=== PATIENT | male | born 1960 | race Caucasian/White ===

== ENCOUNTER → 2024-06-19 | Outpatient (CLI) | payer OTHER, SELFPAY | END | disposition home or self-care (01) | LOC: SWHD 13:52 | PROVIDERS: PCP Family Medicine; Referring Provider Family Medicine; Visit Provider Student in an Organized Health Care Education/Training Program | DX: L97.511 Non-pressure chronic ulcer of other part of right foot limited to breakdown of skin (principal); L97.811 Non-pressure chronic ulcer of other part of right lower leg limited to breakdown of skin; L97.821 Non-pressure chronic ulcer of other part of left lower leg limited to breakdown of skin; F41.9 Anxiety disorder, unspecified; E11.40 Type 2 diabetes mellitus with diabetic neuropathy, unspecified; Z79.84 Long term (current) use of oral hypoglycemic drugs; J44.9 Chronic obstructive pulmonary disease, unspecified; G47.30 Sleep apnea, unspecified; I49.9 Cardiac arrhythmia, unspecified; Z90.5 Acquired absence of kidney; R06.00 Dyspnea, unspecified; I50.9 Heart failure, unspecified | CPT/HCPCS: 97597 ==

== ENCOUNTER → 2024-06-26 | Outpatient (CLI) | payer OTHER, SELFPAY | END | disposition home or self-care (01) | LOC: SWHD 14:58 | PROVIDERS: PCP Family Medicine; Referring Provider Family Medicine; Visit Provider Student in an Organized Health Care Education/Training Program | DX: L97.511 Non-pressure chronic ulcer of other part of right foot limited to breakdown of skin (principal); L97.811 Non-pressure chronic ulcer of other part of right lower leg limited to breakdown of skin; L97.821 Non-pressure chronic ulcer of other part of left lower leg limited to breakdown of skin; F41.9 Anxiety disorder, unspecified; E11.40 Type 2 diabetes mellitus with diabetic neuropathy, unspecified; Z79.84 Long term (current) use of oral hypoglycemic drugs; J44.9 Chronic obstructive pulmonary disease, unspecified; G47.30 Sleep apnea, unspecified; I49.9 Cardiac arrhythmia, unspecified; Z90.5 Acquired absence of kidney; R06.00 Dyspnea, unspecified; I50.9 Heart failure, unspecified; L85.3 Xerosis cutis | CPT/HCPCS: 97597 ==

== ENCOUNTER → 2024-07-05 | Outpatient (CLI) | payer OTHER, SELFPAY | END | disposition home or self-care (01) | LOC: SWHD 13:19 | PROVIDERS: PCP Family Medicine; Referring Provider Family Medicine | DX: L97.811 Non-pressure chronic ulcer of other part of right lower leg limited to breakdown of skin (principal); L97.821 Non-pressure chronic ulcer of other part of left lower leg limited to breakdown of skin; F41.9 Anxiety disorder, unspecified; E11.40 Type 2 diabetes mellitus with diabetic neuropathy, unspecified; Z79.84 Long term (current) use of oral hypoglycemic drugs; J44.9 Chronic obstructive pulmonary disease, unspecified; G47.30 Sleep apnea, unspecified; I49.9 Cardiac arrhythmia, unspecified; Z90.5 Acquired absence of kidney; R06.00 Dyspnea, unspecified; I50.9 Heart failure, unspecified | CPT/HCPCS: 29581 ==

== ENCOUNTER → 2024-07-10 | Outpatient (CLI) | payer OTHER, SELFPAY | END | disposition home or self-care (01) | LOC: SWHD 15:59 | PROVIDERS: PCP Family Medicine; Referring Provider Family Medicine; Visit Provider Surgery | DX: L97.811 Non-pressure chronic ulcer of other part of right lower leg limited to breakdown of skin (principal); L97.821 Non-pressure chronic ulcer of other part of left lower leg limited to breakdown of skin; F41.9 Anxiety disorder, unspecified; E11.40 Type 2 diabetes mellitus with diabetic neuropathy, unspecified; Z79.84 Long term (current) use of oral hypoglycemic drugs; J44.9 Chronic obstructive pulmonary disease, unspecified; G47.30 Sleep apnea, unspecified; I49.9 Cardiac arrhythmia, unspecified; Z90.5 Acquired absence of kidney; R06.00 Dyspnea, unspecified; I50.9 Heart failure, unspecified | CPT/HCPCS: 97597; A9270 ==

== ENCOUNTER → 2024-07-23 | Outpatient (CLI) | payer OTHER, SELFPAY | END | disposition home or self-care (01) | LOC: SWHD 14:56 | PROVIDERS: PCP Family Medicine; Referring Provider Family Medicine; Visit Provider Student in an Organized Health Care Education/Training Program | DX: L97.511 Non-pressure chronic ulcer of other part of right foot limited to breakdown of skin (principal); L97.811 Non-pressure chronic ulcer of other part of right lower leg limited to breakdown of skin; L97.821 Non-pressure chronic ulcer of other part of left lower leg limited to breakdown of skin; F41.9 Anxiety disorder, unspecified; E11.40 Type 2 diabetes mellitus with diabetic neuropathy, unspecified; Z79.84 Long term (current) use of oral hypoglycemic drugs; J44.9 Chronic obstructive pulmonary disease, unspecified; G47.30 Sleep apnea, unspecified; I49.9 Cardiac arrhythmia, unspecified; Z90.5 Acquired absence of kidney; R06.00 Dyspnea, unspecified; I50.9 Heart failure, unspecified | CPT/HCPCS: 99213; A9270; G0463 ==

== ENCOUNTER → 2024-08-06 | Outpatient (CLI) | payer OTHER, SELFPAY | END | disposition home or self-care (01) | LOC: SWHD 14:54 | PROVIDERS: PCP Family Medicine; Referring Provider Family Medicine; Visit Provider Student in an Organized Health Care Education/Training Program | DX: L97.811 Non-pressure chronic ulcer of other part of right lower leg limited to breakdown of skin (principal); L97.821 Non-pressure chronic ulcer of other part of left lower leg limited to breakdown of skin; F41.9 Anxiety disorder, unspecified; E11.40 Type 2 diabetes mellitus with diabetic neuropathy, unspecified; Z79.84 Long term (current) use of oral hypoglycemic drugs; J44.9 Chronic obstructive pulmonary disease, unspecified; G47.30 Sleep apnea, unspecified; I49.9 Cardiac arrhythmia, unspecified; Z90.5 Acquired absence of kidney; R06.00 Dyspnea, unspecified; I50.9 Heart failure, unspecified; L85.3 Xerosis cutis | CPT/HCPCS: 99212; G0463 ==

== ENCOUNTER → 2024-08-13 | Outpatient (CLI) | payer OTHER, SELFPAY | END | disposition home or self-care (01) | LOC: SWHD 14:56 | PROVIDERS: PCP Family Medicine; Referring Provider Family Medicine; Visit Provider Surgery | DX: L97.821 Non-pressure chronic ulcer of other part of left lower leg limited to breakdown of skin (principal); F41.9 Anxiety disorder, unspecified; E11.40 Type 2 diabetes mellitus with diabetic neuropathy, unspecified; Z79.84 Long term (current) use of oral hypoglycemic drugs; J44.9 Chronic obstructive pulmonary disease, unspecified; G47.30 Sleep apnea, unspecified; I49.9 Cardiac arrhythmia, unspecified; Z90.5 Acquired absence of kidney; R06.00 Dyspnea, unspecified; I50.9 Heart failure, unspecified; L85.3 Xerosis cutis | CPT/HCPCS: 99213; G0463 ==

== ENCOUNTER → 2024-08-20 | Outpatient (CLI) | payer OTHER, SELFPAY | END | disposition home or self-care (01) | LOC: SWHD 15:05 | PROVIDERS: PCP Family Medicine; Referring Provider Family Medicine; Visit Provider Student in an Organized Health Care Education/Training Program | DX: L97.821 Non-pressure chronic ulcer of other part of left lower leg limited to breakdown of skin (principal); F41.9 Anxiety disorder, unspecified; E11.40 Type 2 diabetes mellitus with diabetic neuropathy, unspecified; Z79.84 Long term (current) use of oral hypoglycemic drugs; J44.9 Chronic obstructive pulmonary disease, unspecified; G47.30 Sleep apnea, unspecified; I49.9 Cardiac arrhythmia, unspecified; Z90.5 Acquired absence of kidney; R06.00 Dyspnea, unspecified; I50.9 Heart failure, unspecified; L85.3 Xerosis cutis | CPT/HCPCS: 99214; G0463 ==

== ENCOUNTER → 2024-08-27 | Outpatient (CLI) | payer OTHER, SELFPAY | END | disposition home or self-care (01) | LOC: SWHD 15:12 | PROVIDERS: PCP Family Medicine; Referring Provider Family Medicine; Visit Provider Student in an Organized Health Care Education/Training Program | DX: L97.822 Non-pressure chronic ulcer of other part of left lower leg with fat layer exposed (principal); F41.9 Anxiety disorder, unspecified; E11.40 Type 2 diabetes mellitus with diabetic neuropathy, unspecified; Z79.84 Long term (current) use of oral hypoglycemic drugs; J44.9 Chronic obstructive pulmonary disease, unspecified; G47.30 Sleep apnea, unspecified; I49.9 Cardiac arrhythmia, unspecified; Z90.5 Acquired absence of kidney; R60.0 Localized edema; I50.9 Heart failure, unspecified; L85.3 Xerosis cutis | CPT/HCPCS: 17250; A9270 ==

== ENCOUNTER → 2024-09-03 | Outpatient (CLI) | payer OTHER, SELFPAY | END | disposition home or self-care (01) | LOC: SWHD 15:21 | PROVIDERS: PCP Family Medicine; Referring Provider Family Medicine; Visit Provider Student in an Organized Health Care Education/Training Program | DX: L97.821 Non-pressure chronic ulcer of other part of left lower leg limited to breakdown of skin (principal); L97.811 Non-pressure chronic ulcer of other part of right lower leg limited to breakdown of skin; S81.812A Laceration without foreign body, left lower leg, initial encounter; S81.801A Unspecified open wound, right lower leg, initial encounter; X58.XXXA Exposure to other specified factors, initial encounter; F41.9 Anxiety disorder, unspecified; E11.40 Type 2 diabetes mellitus with diabetic neuropathy, unspecified; Z79.84 Long term (current) use of oral hypoglycemic drugs; J44.9 Chronic obstructive pulmonary disease, unspecified; G47.30 Sleep apnea, unspecified; I49.9 Cardiac arrhythmia, unspecified; Z90.5 Acquired absence of kidney; R60.0 Localized edema; I50.9 Heart failure, unspecified; L85.3 Xerosis cutis | CPT/HCPCS: 99213; G0463 ==

== ENCOUNTER → 2024-09-10 | Outpatient (CLI) | payer OTHER, SELFPAY | END | disposition home or self-care (01) | LOC: SWHD 15:07 | PROVIDERS: PCP Family Medicine; Referring Provider Family Medicine; Visit Provider Student in an Organized Health Care Education/Training Program | DX: E11.621 Type 2 diabetes mellitus with foot ulcer (principal); L98.491 Non-pressure chronic ulcer of skin of other sites limited to breakdown of skin; L98.492 Non-pressure chronic ulcer of skin of other sites with fat layer exposed; S81.812A Laceration without foreign body, left lower leg, initial encounter; S81.801A Unspecified open wound, right lower leg, initial encounter; X58.XXXA Exposure to other specified factors, initial encounter; J44.9 Chronic obstructive pulmonary disease, unspecified; L85.3 Xerosis cutis; I50.9 Heart failure, unspecified; R60.0 Localized edema; Z90.5 Acquired absence of kidney; G47.30 Sleep apnea, unspecified; I49.9 Cardiac arrhythmia, unspecified; Z79.84 Long term (current) use of oral hypoglycemic drugs | CPT/HCPCS: 99212; G0463 ==

== ENCOUNTER 2024-11-08 15:35 | Inpatient (IN) | payer OTHER, MEDICARE, SELFPAY ==
[2024-11-08 15:51] VITALS: BP 106/67; PULSE 70; RESP 20; TEMP 37.5; O2SAT 95; BMI 41.0
--- NOTE | 2024-11-08 16:08 | PD.EDRME ---
Rapid Medical Screening Exam RME Arrival date/time: 11/08/24 15:35 64-year-old male presents emergency department with complaints of generalized weakness, bilateral lower leg pain possible infection. I have greeted and performed a focused initial assessment of this patient. Initial appropriate labs ordered at this time. A comprehensive ED assessment and evaluation of the patient and analysis of all test and completion of medical decision making process will be conducted by additional ED provider. Chief Complaint: Extremity Problem,Nontraumatic Time Seen by Provider: 11/08/24 15:56 Vital signs: Vital Signs Temperature 99.5 F 11/08/24 15:51 Pulse Rate 70 11/08/24 15:51 Respiratory Rate 20 11/08/24 15:51 Blood Pressure 106/67 11/08/24 15:51 Pulse Oximetry (%) 95 11/08/24 15:51 Oxygen Delivery Method Room Air 11/08/24 15:51
--- NOTE | 2024-11-08 16:10 | EKG_ITS ---
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: : 1960 Requested By: Supriya Dobson ([facility]) Gogo Order Number: [id number] Reading MD: Supriya Dobson ([facility]) Gogo Measurements Intervals [place] Rate: 67 P: 91 MD: 194 QRS: 35 QRSD: 108 T: 39 QT: 405 QTc: 428 Interpretive Statements ELECTRONIC ATRIAL PACEMAKER LOW QRS VOLTAGE IN PRECORDIAL LEADS [QRS DEFLECTION < 1.0 mV IN CHEST LEADS] INCOMPLETE RIGHT BUNDLE BRANCH BLOCK [90+ ms QRS DURATION, TERMINAL R IN V1/V2, 40+ ms S IN I/aVL/V4/V5/V6] ABNORMAL RHYTHM ECG Compared to ECG 06/08/2023 17:05:58 Low QRS voltage now present Incomplete right bundle-branch block now present Intraventricular conduction delay no longer present ST (T wave) deviation no longer present Prolonged QT interval no longer present /store/S0/[id number].pdf
[2024-11-08 16:36] LABS: Lactate (Lactic Acid) 1.6 mMol/L (0.4-2.0)
[2024-11-08 16:40] LABS: Basophils % (Auto) 0 % (0-2.5); Eosinophils # (Auto) 0.2 Thou/mm3 (0.0-0.5); Eosinophils % (Auto) 1 % (0-10); Hematocrit 34.2 % (41.0-53.0); Hemoglobin 10.9 g/dL (13.5-16.0); Immature Granulocytes % (Auto) 1 % (0-0); Immature Granulocytes Auto 0.18 Thou/mm3 (0.00-0.00); Lymphocytes # (Auto) 0.9 Thou/mm3 (1.0-4.8); Lymphocytes % (Auto) 5 % (10-50); Mean Corpuscular HGB Conc 31.9 g/dl (31.0-37.0); Mean Corpuscular Hemoglobin 26.5 pg (25.0-35.0); Mean Corpuscular Volume 83 fL (80-100); Monocytes # (Auto) 0.8 Thou/mm3 (0.0-0.8); Monocytes % (Auto) 4 % (0-12); Neutrophils # (Auto) 16.5 Thou/mm3 (1.8-7.7); Neutrophils % (Auto) 89 % (37-80); Nucleated Red Blood Cell % 0 /100 WBC (0); Platelet Count 280 Thou/mm3 (140-440); RDW Standard Deviation 44.2 fL (35.1-43.9); Red Blood Count 4.11 Miln/mm3 (4.50-5.90); White Blood Count 18.6 Thou/mm3 (3.8-10.6)
[2024-11-08 17:10] LABS: Alanine Aminotransferase 32 U/L (10-49); Albumin, Serum 3.6 gm/dL (3.4-4.8); Albumin/Globulin Ratio 0.7 (1.2-2.2); Alkaline Phosphatase 104 U/L (46-116); Anion Gap 9 (7-16); Aspartate Amino Transferase 42 U/L (0-34); BUN/Creatinine Ratio 12 Ratio (12-20); Bilirubin,Total 0.5 mg/dL (0.3-1.2); Blood Urea Nitrogen 47 mg/dL (9-23); C-Reactive Protein 23.3 mg/dL (0.0-0.9); Calcium 8.9 mg/dL (8.3-10.6); Calcium (Corrected) 9.2 mg/dL (8.5-10.1); Carbon Dioxide 20.1 mMol/L (20.0-31.0); Chloride 105 mMol/L (98-107); Creatinine (Component) 3.8 mg/dL (0.6-1.3); Estimated Creatinine Clearance 24.3 mL/min (>60); Glucose 143 mg/dL (74-106); Lipase 113 U/L (12-53); Osmolality,Calculated 282 (275-295); Potassium 4.9 mMol/L (3.4-5.1); Procalcitonin 0.42 ng/ml (0.0-0.49); Sodium 134 mMol/L (136-145); Total Protein 8.6 gm/dL (5.7-8.2); Troponin I < 0.020 ng/mL (0.0-0.045); eGFR 17 See Note
[2024-11-08 17:54] LABS: Sed Rate (ESR) 130 mm/hr (0-20)
--- NOTE | 2024-11-08 21:59 | PC.NURSE ---
PT HAS BEEN ASKED MULTIPLE TIMES FOR URINE SAMPLE, BUT STATES HES NOT READY TO GIVE A SAMPLE. STATES HE WANTS AN IV AND FLUIDS. PATIENT IS TALKING LOUD IN [facility] ON THE PHONE WITH PHONE ON SPEAKER COMPLAINING ABOUT HIS LONG WAIT TIME AND HIS CARE HERE AND ABOUT HIS PERSONAL MEDICAL INFORMATION, AND ABOUT DOCUMENTING STAFF. OTHER PATIENT IN [facility] HAVE COME UP TO TRIAGE DESK COMPLAINING ABOUT THIS PATIENT BEING LOUD.
--- NOTE | 2024-11-08 22:36 | PC.NURSE ---
PROVIDER FAVIO AND CHARGE NURSE AWARE PT WANTS TO LEAVE AMA. PT RIDE IS HERE AND PT WILL NEED TO SPEAK TO A PROVIDER BEFORE SIGNING AMA.
[2024-11-08 22:42] VITALS: BP 124/76; PULSE 60; RESP 19; TEMP 37.9; O2SAT 93
[2024-11-09] VITALS (13 sets, daily range): BP systolic 95–143; BP diastolic 67–91; PULSE 60–101; RESP 18–94; TEMP 36.1–38.2; O2SAT 94–98; BMI 38.3
[2024-11-09 01:13] LABS: Collection Type, Urine Clean Catch
[2024-11-09 01:36] LABS: Bilirubin,Urine Negative (Negative); Blood,Urine 1+ (Negative); Clarity,Urine Turbid (Clear/Hazy); Color,Urine Yellow (Lt Yel-Yel); Glucose, Urine Negative (Negative); Hyaline Casts,Urine < 1 /hpf (0-1); Ketones,Urine Negative (Negative); Leukocyte Esterase,Urine Negative (Negative); Nitrite,Urine Negative (Negative); PH,Urine 5.5 (5.0-7.0); Protein,Urine 1+ (Neg - Trace); RBC,Urine 18 /hpf (0-3); Specific Gravity,Urine 1.018 (1.001-1.035); Squamous Epithelial Cell,Urine 3 /hpf (0-5); Urobilinogen,Urine Negative mg/dL (0.0-1.0); WBC,Urine 8 /hpf (0-5)
[2024-11-09] MEDS: ACETAMINOPHEN 500 MG TABLET 1000 MG PO (02:01)
--- NOTE | 2024-11-09 02:18 | XR_ITS ---
Examination: Duplex scan of the lower extremity, unilateral right complete Date and time of exam: 2024 0322 hrs. Indications: Right leg swelling beginning one week ago. Technique: Duplex scan of the extremity veins using B-mode/grayscale imaging and Doppler spectral analysis and color flow Attention is directed to internal echogenicity, compression and augmentation involving these veins, color flow assessment, spectral analysis Findings: Major deep venous structures in the extremity demonstrate normal course and caliber. There is no evidence of deep vein thrombosis. Normal color flow and spectral analysis Impression: Negative for DVT..
--- NOTE | 2024-11-09 02:21 | XR_ITS ---
Examination: Knee, right , 3 views Technique: Knee AP, lateral, oblique 3 views Date and time of exam: November 09, 2024 0326 hrs. Indications: Knee pain and swelling this week Findings: Healed fracture distal tibia Healed fracture proximal fibula No acute fracture. Moderate tricompartment osteoarthritis Impression: Moderate tricompartment osteoarthritis.
--- NOTE | 2024-11-09 04:28 | PD.EDEXREM ---
ED Extremity Problem RME/HPI General Chief complaint: Extremity Problem,Nontraumatic Stated complaint: LEGS HURT, CAN'T WALK ; BLOOD IN URINE Time Seen by Provider: 11/08/24 15:56 Arrival date/time: 11/08/24 15:35 Limitations: no limitations RME / HPI RME / HPI Narrative: 11/08/24 15:35 64-year-old male presents emergency department with complaints of generalized weakness, bilateral lower leg pain possible infection. I have greeted and performed a focused initial assessment of this patient. Initial appropriate labs ordered at this time. A comprehensive ED assessment and evaluation of the patient and analysis of all test and completion of medical decision making process will be conducted by additional ED provider. Dr. Higginbotham's Main ED Evaluation: 64yo male with a history of COPD, CHF, aFib, HTN, HLD, DM presents to the ED for a chief complaint of RLE pain and swelling x 6 days. Patient states his LRE swelling has been progressively getting worse over the last few days, reporting he was unable to bare weight to the RLE, so he came in for evaluation. He endorses having an intermittent fever. Denies any other associated symptoms. Patient states he was receiving treatment from the wound care center for a fungal infection, reporting he stopped receiving treatment there 4 weeks ago. Related Data Home Medications ?Medication ?Instructions ?Recorded ?Confirmed aspirin 81 mg chewable tablet 81 mg PO QDAY ##0 10/21/16 03/23/23 albuterol sulfate 90 mcg/actuation 2 puff PO Q4HR PRN SHORTNESS OF 06/15/17 03/23/23 aerosol inhaler (ProAir HFA) BREATH ##9 diltiazem HCl 60 mg tablet 30 mg PO TID ##0 07/29/17 03/23/23 (Cardizem) furosemide 40 mg tablet (Lasix) 40 mg PO QDAY #0 tabs 07/29/17 03/23/23 atenolol 50 mg tablet 50 mg PO QDAY 10/18/21 03/23/23 amiodarone 200 mg tablet 200 mg PO QDAY 08/02/22 03/23/23 hydroxyzine HCl 10 mg tablet 25 mg PO HS 08/02/22 03/23/23 metformin 500 mg tablet 500 mg PO BID 08/02/22 03/23/23 Previous Rx's ?Medication ?Instructions ?Recorded losartan 25 mg tablet 25 mg PO QDAY #30 tabs 08/06/22 iron, carbonyl 45 mg tablet 45 mg PO .QOD #30 tabs 03/15/23 pantoprazole 40 mg tablet,delayed 40 mg PO QDAY #30 tabs 03/15/23 release tamsulosin 0.4 mg capsule 0.4 mg PO QDAY #30 caps 03/15/23 Allergies Allergy/AdvReac Type Severity Reaction Status Date / Time codeine Allergy Severe Hives Verified 11/08/24 15:37 Review of Systems Review of Systems Systems Reviewed: All systems reviewed, normal except as documented Past Medical History Past Medical History NEUROLOGIC: Positive Migraine; Negative Neurological Disorders or Seizures CARDIAC: Positive Cardiac Disorders, Atrial Fibrillation, Hypercholesterolemia, Congestive Heart Failure and Hypertension RESPIRATORY: Positive Chronic Obstructive Pulmonary Disease (COPD), Asthma, Pneumonia and Sleep Apnea GASTROINTESTINAL: Positive Gastrointestinal Disorders, Gastroesophageal Reflux Disease and Obesity; Negative Hepatitis GENITOURINARY: Positive Genitourinary Disorders, Renal Disease, Kidney Stones and Benign Prostatic Hyperplasia MUSCULOSKELETAL: Positive Musculoskeletal Disorders and Fractures ENDOCRINE: Positive Endocrine Disorders and Diabetes Mellitus Type 2; Negative Diabetes Mellitus Type 1 HEMATOLOGIC: Positive Blood Disorders and Anemia PSYCHO/SOCIAL: Positive Recreational Drug Use, Depression and Anxiety OTHER HISTORY: Positive Hospitalization, Blood Transfusions and Measles; Negative Autoimmune Disease, Down Syndrome, Developmental Delay, Shingles, Falls, Blood Transfusion Reaction, Anesthesia Reactions, Organ Transplant, Chemotherapy, Radiation Therapy, Hyperbaric Therapy, MRSA, VRSA, Vancomycin-Resistant Enterococci, Human Immunodeficiency Virus (HIV), Chicken Pox, Mumps, Rubella (Cypriot Measles), Pertussis, Clostridium Difficile or Cancer Family History FAMILY HISTORY: Positive Family Cardiac Disorders (dad-HTN, CHF GRANDPA-CARDIAC ARREST, MOM-CHF); Negative Family Psychiatric Problems, Family Respiratory Disorders, Family Gastrointestinal Problems, Family Cancer, Family Surgery or Family Anesthesia Reaction Surgical History SURGICAL: Positive Nephrectomy (LEFT) and Joint Replacement; Negative Cardiac Surgery, Endocrine Surgery, Ear Surgery, Abdominal Surgery, Neurologic Surgery, Brain Shunt, Mastectomy, Vasectomy or Organ Transplant Social History SMOKING STATUS: Light (< 1 pack/day) SECOND HAND EXPOSURE: Yes ED Exam General Limitations: Present no limitations General appearance: Present alert and in no apparent distress Head Head exam: Present atraumatic Eye Eye exam: Present normal appearance, PERRL and EOMI ENT ENT exam: Present normal exam, normal oropharynx and mucous membranes moist Neck Neck exam: Present normal inspection, full ROM and trachea midline Chest Chest inspection: Present normal inspection and symmetric chest wall rise Respiratory Respiratory exam: Present normal lung sounds bilaterally Cardiovascular Cardiovascular exam: Present regular rate, normal rhythm and normal heart sounds Abdominal Exam Abdominal exam: Present soft and normal bowel sounds Extremities Exam Extremities exam: Present full ROM and other (swelling to the BLE; 10 x 8cm area of erythema and fluctuance with drainage of yellow pus to the anterior RLE) Back Exam Back exam: Present normal inspection and full ROM Neurological Exam Neurological exam: Present alert, oriented X3 and CN II-XII intact Psychiatric Psychiatric exam: Present normal affect and normal mood Skin Skin exam: Present warm, dry, intact, normal color and other (dry scaly skin to the BLE from the knee down, no crepitus) Course Quality Measures none Orders Category Date Time Status EKG (ED ONLY) *Do not use* NOW Care 11/08/24 16:10 Completed In and Out Catheter X1 Care 11/09/24 00:50 Completed Insert IV NOW Care 11/09/24 02:[address] lower extremity BI wo Stat Exams 11/09/24 04:32 Ordered EKG (ED Only) Stat Exams 11/08/24 16:10 Draft US venous doppler LE RT Stat Exams 11/09/24 02:18 Completed XR knee RT 3V Stat Exams 11/09/24 02:21 Completed Blood Culture (Lab) Stat Lab 11/08/24 16:31 Received CBC Stat Lab 11/08/24 16:28 Completed CRP [C-Reactive Protein] Stat Lab 11/08/24 16:28 Completed Comprehensive Metabolic Panel Stat Lab 11/08/24 16:28 Completed Lactate (Lactic Acid) Stat Lab 11/08/24 16:28 Completed Lipase Stat Lab 11/08/24 16:28 Completed Procalcitonin Stat Lab 11/08/24 16:28 Completed Sed Rate (ESR) Stat Lab 11/08/24 16:28 Completed Troponin I Stat Lab 11/08/24 16:28 Completed Urinalysis Stat Lab 11/08/24 00:48 Completed Wound Culture and Gram Stain Stat Lab 11/09/24 04:35 Received Acetaminophen Tab [Tylenol ES Tab] Med 11/09/24 01:54 Discontinued 1,000 mg PO X1 ONE Vital Signs Vital signs: Vital Signs Temperature 99.5 F 11/08/24 15:51 Pulse Rate 70 11/08/24 15:51 Respiratory Rate 20 11/08/24 15:51 Blood Pressure 106/67 11/08/24 15:51 Pulse Oximetry (%) 95 11/08/24 15:51 Oxygen Delivery Method Room Air 11/08/24 15:51 Extremity Problem MDM Narrative MDM Narrative:: Scribe Attestation: 11/09/24 Emely Lewis am scribing for and in the presence of Dr. Higginbotham. Patient data External records reviewed:: [facility] previous records (Per chart review, patient was admitted here on 03/09/23 for CHF.) Clinical information provided by:: patient Social determinants that could affect healthcare access:: none Patient has the following chronic illnesses:: COPD, CHF, aFib, HTN, HLD, DM How is presenting disease/condition affected by chronic disease/condition?: exacerbated by Evaluation data The following diagnostics were reviewed and interpreted by me:: lab results, radiology exam(s) and EKG tracing(s) (done at 1620, NSR, rate of 67, low voltage, no ST depressions, according to my interpretation) Lab and/or radiology exams considered but not ordered:: none Interpretation Summary: [facility] Signed Patient: NIKOLAS KOHLI [facility]. Record#: [id number] Birthdate: 1960 Age/Sex: 64 / M Location: [facility] Attending Dr: Ordering Physician: Violeta Urrutia MD Date of Service: 11/09/24 Procedure(s): XR knee RT 3V Accession Number(s): [id number] cc: Eric Pope MD; Violeta Urrutia MD; Bert Valdez MD~ Examination: Knee, right , 3 views Technique: Knee AP, lateral, oblique 3 views Date and time of exam: November 09, 2024 0326 hrs. Indications: Knee pain and swelling this week Findings: Healed fracture distal tibia Healed fracture proximal fibula No acute fracture. Moderate tricompartment osteoarthritis Impression: Moderate tricompartment osteoarthritis. Dictated By: Eric Pope MD Signed By: <Electronically signed by Eric Pope MD in [place]> 11/09/24 0513 [facility] Report Signed Patient: NIKOLAS KOHLI Record#: [id number] Birthdate: 1960 Age/Sex: 64 / M Location: [facility] Attending Dr: Ordering Physician: Violeta Urrutia MD Date of Service: 11/09/24 Procedure(s): US venous doppler LE RT Accession Number(s): [id number] cc: Eric Pope MD; Violeta Urrutia MD; Bert Valdez MD~ Examination: Duplex scan of the lower extremity, unilateral right complete Date and time of exam: 2024 321 hrs. Indications: Right leg swelling beginning one week ago. Technique: Duplex scan of the extremity veins using B-mode/grayscale imaging and Doppler spectral analysis and color flow Attention is directed to internal echogenicity, compression and augmentation involving these veins, color flow assessment, spectral analysis Findings: Major deep venous structures in the extremity demonstrate normal course and caliber. There is no evidence of deep vein thrombosis. Normal color flow and spectral analysis Impression: Negative for DVT.. Dictated By: Eric Pope MD Signed By: <Electronically signed by Eric Pope MD in [place]> 11/09/24 0514 Medications / Prescriptions Medications or Prescriptions considered but not ordered:: none Medication administrations:: Medication Administration History Acetaminophen (Acetaminophen 325 Mg Tablet) 650 mg PO Q6H PRN PRN Reason: Fever >101.5 Stop: 12/09/24 04:52 Acetaminophen (Acetaminophen 325 Mg Tablet) 650 mg PO Q6H PRN PRN Reason: PAIN SCALE 1-3 (mild Stop: 12/09/24 04:52 Hydrocodone Bitart/Acetaminophen (Hydrocodone/Apap 5/325 Tablet) 1 tab PO Q6HR PRN PRN Reason: PAIN SCALE 4-6 (Moderate Stop: 11/14/24 04:52 Albuterol/Ipratropium (Albuterol/Ipratropium (Duoneb) Rt Monica 3 Ml Nebu) 3 ml INH Q6HRRT PRN PRN Reason: SOB or Wheeze Stop: 12/09/24 06:59 Amiodarone HCl (Amiodarone Hcl 200 Mg Tablet) 200 mg PO QDAY [facility] Stop: 12/09/24 08:59 Hydromorphone HCl (Hydromorphone Inj 2 Mg/Ml Vial) 0.25 mg IVP Q4H PRN PRN Reason: PAIN SCALE 7-10 (Severe Stop: 11/14/24 04:52 Ceftriaxone Sodium/Dextrose (Rocephin/D5w 1gm Iv Premix) 50 mls @ 100 mls/hr IV Q24H BELEN Stop: 11/16/24 05:14 Clindamycin Phosphate 900 mg/ (IV Miscellaneous Supplies) 50 mls @ 50 mls/hr IV Q8H BELEN Stop: 11/16/24 05:14 Ceftriaxone Sodium/Dextrose (Rocephin/D5w 1gm Iv Premix) 1 g in 50 mls @ 100 mls/hr IV X1 ONE Stop: 11/09/24 05:44 Clindamycin Phosphate 900 mg/ (IV Miscellaneous Supplies) 50 mls @ 50 mls/hr IV X1 ONE Stop: 11/09/24 06:14 Tamsulosin HCl (Tamsulosin Hcl 0.4 Mg Capsule) 0.4 mg PO QDAY [facility] Stop: 12/09/24 08:59 Discontinued Medications Acetaminophen (Acetaminophen 500 Mg Tablet) 1,000 mg PO X1 ONE Stop: 11/09/24 01:55 Last Admin: 11/09/24 02:01 Dose: 1,000 mg Documented By: BROCK Rivaroxaban (Rivaroxaban 10 Mg Tablet) 10 mg PO QDAY [facility] Stop: 12/09/24 08:59 see above Consultations Consultation(s) initiated? (list below): Yes Consultation #1 (Physician, Specialty, Details): Discussed case with Dr. Manzano from Hospitalist service regarding admission. Discussed patients ED course, exam findings, labs, and radiology results. The Hospitalist [agrees] to accept the patient for admission. Time: 04:50 Diagnosis Extremity Problem Differential Diagnosis: cellulitis, deep vein thrombosis of lower extremity and other (sepsis, abscess) Most likely diagnosis given after review of the tests above:: see clinical impression below Admission Indicated Admission indicated?: indicated Admission Request Was there a request for admission?: Yes Admission Attestation Admission request attestation: Discussed case with [] from Hospitalist service regarding admission. Discussed patients ED course, exam findings, labs, and radiology results. The Hospitalist [agrees,declines] to accept the patient for admission. Disposition Plan Disposition Plan: Admit Discharge Plan Plan Patient Disposition: Admit Acute Care w/in Hospital Disposition Comment: Admitted to Dr. Manzano Problem List Clinical Impression: Cellulitis of right lower extremity, Abscess of right lower leg
--- NOTE | 2024-11-09 04:32 | XR_ITS ---
Examination: CT bilateral lower extremities, without contrast. 2-D sagittal reconstructions. 2-D coronal reconstructions. 3-D reconstructions. Date and time of exam:November 09, 2024 at 0744 hrs. Indications: Bilateral lower leg swelling and pain beginning several days ago Technique: Multiple 1.25 mm axial sections of the bilateral lower extremities without intravenous contrast have been obtained. 2-D sagittal and coronal reconstructions have been obtained. 3-D reconstructions have been obtained. Low dose protocols were performed. One or more of the following dose reduction techniques were used; automated exposure control, adjustment of the mA and/or KV according to patient size, use of iterative reconstruction technique. Findings: Nonspecific groin lymphadenopathy Mild edema in the subcutaneous fatty tissue medial to the lower leg especially right knee No soft tissue abscess Edema also present in the right posterior lower leg No cortical bone destruction Impression: No abscess or osteomyelitis
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
--- NOTE | 2024-11-09 05:13 | PRELIM_ITS ---
Right lower extremity venous Doppler ultrasound. November 09, 2024 at 0321 hours Clinical history: Swelling. Technique: Duplex scan of the right lower extremity deep venous systems was performed utilizing 2D grayscale imaging, Doppler spectral analysis and color flow Doppler and with compression. Comparison: No prior study is available for comparison. Findings: Jean scale, color flow and spectral Doppler evaluation of the right lower extremity deep venous system was performed. The greater saphenous vein confluence, common femoral, femoral, popliteal and calf veins are patent and compressible. Normal augmentation and respiratory variation are noted. There i s no evidence of occlusive or nonocclusive thrombus. There are no fluid collections. 2.8 cm right inguinal lymph node with fatty hilum. Impression: No sonographic evidence of deep venous thrombosis in the right lower extremity. Right inguinal lymphadenopathy. Report Electronically Signed By: Juan Euceda 11/09/2024 5:13:18 AM [EST]
--- NOTE | 2024-11-09 05:28 | PD.RESHP ---
Documentation for date of: 11/09/24 [facility] History of Present Illness History of present illness: The patient is a 64-year-old male with significant past medical history of COPD currently not on home oxygen, NAHEED, CKD stage IV, PAD, A-fib on Xarelto, GERD, eczema, diabetes mellitus type 2 with peripheral neuropathy, benign cystic liver disease, chronic back pain and left nephrectomy presented to ED on 11/08/2024 with chief complaint of bilateral leg pain and swelling for the past 1 to 2 months. The patient reported that he was following up with wound care, and 2 months ago he was told that he no longer needs to follow-up. However, he continued to have leg swelling and eczema associated with pain. He admitted fever and chills for the past 2 days, but denied any headache, nausea or vomiting, chest pain, SOB, abdominal pain or leg swelling. He admitted constipation but denied any urinary symptoms. In the ED his vitals were fairly stable, saturating 95% on room air. CBC was significant for white count 17.6, hemoglobin 10.4, WBC 44.8, ESR 130, Sodium 134, BUN 47, creatinine 3.8, GFR 17, blood sugar 143, AST 42, CRP 23.3, and lipase 113. US blood was negative for DVT, right knee x-ray revealed Moderate osteoarthritis. CT bilateral leg pending. PMH: As mentioned above SHX: Left nephrectomy, right shoulder surgery, right tibial fibular plate Meds: To be reconciled Allergies: Codeine Family history: CHF and both parents Social history: Smoker, social drinker and denies any illicit drug use. Patient admitted to med telemetry unit for further management of bilateral cellulitis, likely associated with right leg abscess. Review of Systems Review of Systems Systems Reviewed: All systems reviewed, normal except as documented Exam Vital Signs Temp Pulse Resp BP Pulse Ox O2 Del Method 98.7 F 61 18 122/79 94 L Room Air 11/09/24 04:35 11/09/24 04:35 11/09/24 04:35 11/09/24 04:35 11/09/24 04:35 11/09/24 04:35 Narrative Exam General: Pleasant, morbidly obese gentleman, no acute distress, Alert and Oriented x 3 HEENT: Moist mucous membranes, oropharynx clear Neck: Supple, No masses, No JVD CVS: S1S2 Regular rate and rhythm, No murmurs, rubs or gallops Lungs: Clear to auscultation with no accessory use, no wheeze no rhonchi Abd: Soft, NT/ND, +BS, no organomegaly Ext: No edema, desquamation of bilateral legs, right leg with bump over upper malone bone level, People peripheral arteries pulses Skin: Desquamation of bilateral legs Psych: Appropriate mood and affect Results: Labs 11/09/24 05:20 11/09/24 05:45 Labs: Short CBC 11/08/24 Range/Units 16:28 WBC 18.6 H (3.8-10.6) Thou/mm3 Hgb 10.9 L (13.5-16.0) g/dL Hct 34.2 L (41.0-53.0) % Plt Count 280 (140-440) Thou/mm3 BMP 11/08/24 16:28 Sodium 134 L Potassium 4.9 Chloride 105 Carbon Dioxide 20.1 BUN 47 H Creatinine 3.8 H Glucose 143 H Calcium 8.9 Cardiac Enzymes 11/08/24 Range/Units 16:28 Troponin I < 0.020 (0.0-0.045) ng/mL Liver Function 11/08/24 Range/Units 16:28 Total Bilirubin 0.5 (0.3-1.2) mg/dL AST 42 H (0-34) U/L ALT 32 (10-49) U/L Alkaline Phosphatase 104 (46-116) U/L Albumin 3.6 (3.4-4.8) gm/dL Urine 11/08/24 Range/Units 00:48 Urine Color Yellow (Lt Yel-Yel) Urine Clarity Turbid A (Clear/Hazy) Urine pH 5.5 (5.0-7.0) Ur Specific [place] 1.018 (1.001-1.035) Urine Protein 1+ A (Neg - Trace) Urine Glucose (UA) Negative (Negative) Quality Measures Quality Measures none Advance care planning discussed with:: patient Medications Home Medications and Allergies Home Medications ?Medication ?Instructions ?Recorded ?Confirmed ?Type aspirin 81 mg chewable tablet 81 mg PO QDAY ##0 10/21/16 11/09/24 History albuterol sulfate 90 mcg/actuation 2 puff PO Q4HR PRN SHORTNESS OF 06/15/17 11/09/24 History aerosol inhaler (ProAir HFA) BREATH ##9 diltiazem HCl 60 mg tablet 30 mg PO TID ##0 07/29/17 11/09/24 History (Cardizem) furosemide 40 mg tablet (Lasix) 40 mg PO QDAY #0 tabs 07/29/17 11/09/24 History atenolol 50 mg tablet 50 mg PO QDAY 10/18/21 11/09/24 History amiodarone 200 mg tablet 200 mg PO QDAY 08/02/22 11/09/24 History hydroxyzine HCl 10 mg tablet 25 mg PO HS 08/02/22 11/09/24 History metformin 500 mg tablet 500 mg PO BID 08/02/22 11/09/24 History hydroxyzine HCl 25 mg tablet mg 11/09/24 History losartan 25 mg tablet 50 mg PO QDAY 11/09/24 11/09/24 History rivaroxaban 10 mg tablet (Xarelto) 10 mg PO QDAY 11/09/24 11/09/24 History Allergies Allergy/AdvReac Type Severity Reaction Status Date / Time codeine Allergy Severe Hives Verified 11/08/24 15:37 Visit Medications Acetaminophen (Acetaminophen 325 Mg Tablet) 650 mg PO Q6H PRN PRN Reason: Fever >101.5 Stop: 12/09/24 04:52 Acetaminophen (Acetaminophen 325 Mg Tablet) 650 mg PO Q6H PRN PRN Reason: PAIN SCALE 1-3 (mild Stop: 12/09/24 04:52 Hydrocodone Bitart/Acetaminophen (Hydrocodone/Apap 5/325 Tablet) 1 tab PO Q6HR PRN PRN Reason: PAIN SCALE 4-6 (Moderate Stop: 11/14/24 04:52 Albuterol/Ipratropium (Albuterol/Ipratropium (Duoneb) Rt Monica 3 Ml Nebu) 3 ml INH Q6HRRT PRN PRN Reason: SOB or Wheeze Stop: 12/09/24 06:59 Amiodarone HCl (Amiodarone Hcl 200 Mg Tablet) 200 mg PO QDAY BELEN Stop: 12/09/24 08:59 Hydromorphone HCl (Hydromorphone Inj 2 Mg/Ml Vial) 0.25 mg IVP Q4H PRN PRN Reason: PAIN SCALE 7-10 (Severe Stop: 11/14/24 04:52 Ceftriaxone Sodium/Dextrose (Rocephin/D5w 1gm Iv Premix) 50 mls @ 100 mls/hr IV Q24H BELEN Stop: 11/16/24 05:14 Clindamycin Phosphate 900 mg/ (IV Miscellaneous Supplies) 50 mls @ 50 mls/hr IV Q8H BELEN Stop: 11/16/24 05:14 Ceftriaxone Sodium/Dextrose (Rocephin/D5w 1gm Iv Premix) 1 g in 50 mls @ 100 mls/hr IV X1 ONE Stop: 11/09/24 05:44 Clindamycin Phosphate 900 mg/ (IV Miscellaneous Supplies) 50 mls @ 50 mls/hr IV X1 ONE Stop: 11/09/24 06:14 Tamsulosin HCl (Tamsulosin Hcl 0.4 Mg Capsule) 0.4 mg PO QDAY BELEN Stop: 12/09/24 08:59 Discontinued Medications Acetaminophen (Acetaminophen 500 Mg Tablet) 1,000 mg PO X1 ONE Stop: 11/09/24 01:55 Last Admin: 11/09/24 02:01 Dose: 1,000 mg Rivaroxaban (Rivaroxaban 10 Mg Tablet) 10 mg PO QDAY BELEN Stop: 12/09/24 08:59 Assessment & Plan Plan The patient is a 64-year-old male with significant past medical history of COPD currently not on home oxygen, NAHEED, CKD stage IIIb, PAD, A-fib on Xarelto, GERD, eczema, diabetes mellitus type 2 with peripheral neuropathy, benign cystic liver disease, chronic back pain and left nephrectomy presented to ED on 11/08/2024 with chief complaint of bilateral leg pain and swelling for the past 1 to 2 months admitted to med telemetry unit for further management of bilateral cellulitis, likely associated with right leg abscess. #Bilateral leg cellulitis #Right leg abscess #Rule out DVT Patient presented with right leg bump over upper malone level, with bilateral desquamation and pain, associated with fever and chills for the past 2 days US Doppler right leg negative for DVT White count of 17.6 - Started on clindamycin 900 mg IV 3 times daily - Started on ceftriaxone 1 g daily - May consider switching ceftriaxone to cefepime if Pseudomonas infection is suspected, but less likely as patient's previous A1c is in 6's - Blood culture ordered - Daily a.m. labs for CBC, CMP and electrolytes - General Surgeon Dr. Mora consulted, appreciate recommendations - Bilateral lower limb CT without contrast ordered, results pending #[place] on CKD stage IV #S/p left nephrectomy DDx: Likely prerenal in the setting of poor oral intake further complicated by use; versus less likely intrarenal secondary to diabetic nephropathy Patient baseline creatinine 3.2, presented with creatinine of 3.8 - Started on NS 60 cc/h - Avoid nephrotoxic drugs - Renally dose medications - Dr. Garzon consulted for nephrology, appreciate recommendations - Daily a.m. labs for renal panel - US renal ordered - Urine electrolytes ordered #A-fib Currently rate controlled - Started on amiodarone 200 Mg daily - We will hold off on home rivaroxaban 10 Mg daily in the setting of possible surgical intervention - Potassium and magnesium greater than 4 and 2 respectively - Further medications to be reconciled #Diabetes mellitus type 2 Patient is currently taking metformin 500 Mg daily at home - Stop metformin, as patient's GFR is less than 30 - Consider adding GLP-1 during discharge - Ordered A1c - Will monitor daily blood sugar level, and if he required sliding scale insulin can be started #Peripheral neuropathy #Peripheral arterial disease #COPD #Anemia #GERD - Reconcile home medications Health maintenance: Dispo: Patient admitted to [facility] telemetry unit for further management of bilateral legs cellulitis DVT prophylaxis: Currently holding home rivaroxaban 10 mg daily in the setting of possible I&D of right leg abscess Diet: N.p.o. for now CODE STATUS: Full code The patient's management plan was discussed with my attending physician MD Froylan Silverman MD, PGY2 Attending Provider Attestation/Addendum Pt was evaluated and plan formulated together with the housestaff team. I have reviewed the residents note above and agree with most of its content. Please refer to the residents note for additional details.
[2024-11-09 05:29] LABS: Basophils # (Auto) 0.1 Thou/mm3 (0.0-0.2); Basophils % (Auto) 0 % (0-2.5); Eosinophils # (Auto) 0.2 Thou/mm3 (0.0-0.5); Eosinophils % (Auto) 1 % (0-10); Hematocrit 31.9 % (41.0-53.0); Hemoglobin 10.4 g/dL (13.5-16.0); Immature Granulocytes % (Auto) 1 % (0-0); Immature Granulocytes Auto 0.19 Thou/mm3 (0.00-0.00); Lymphocytes # (Auto) 1.4 Thou/mm3 (1.0-4.8); Lymphocytes % (Auto) 8 % (10-50); Mean Corpuscular HGB Conc 32.6 g/dl (31.0-37.0); Mean Corpuscular Hemoglobin 26.9 pg (25.0-35.0); Mean Corpuscular Volume 83 fL (80-100); Monocytes # (Auto) 1.1 Thou/mm3 (0.0-0.8); Monocytes % (Auto) 6 % (0-12); Neutrophils # (Auto) 14.7 Thou/mm3 (1.8-7.7); Neutrophils % (Auto) 84 % (37-80); Nucleated Red Blood Cell % 0 /100 WBC (0); Platelet Count 313 Thou/mm3 (140-440); RDW Standard Deviation 44.8 fL (35.1-43.9); Red Blood Count 3.86 Miln/mm3 (4.50-5.90); White Blood Count 17.6 Thou/mm3 (3.8-10.6)
[2024-11-09] MEDS: cefTRIAXone/D5w 1gm IV premix 1 G/50 ML BAG IV (05:39)
--- NOTE | 2024-11-09 06:03 | XR_ITS ---
Examination: Retroperitoneal ultrasound, complete Technique: Multiple high resolution grayscale images of the retroperitoneum obtained, including kidneys and bladder. Exam date and time:November 09, 2024 at 0814 hrs. Indications: Renal insufficiency on laboratory examination this week Findings: Right kidney 12.5 cm cortex 1.4 cm Multiple renal calculi the largest in the midpole of the kidney 6 mm Benign cysts right kidney with minimal hydronephrosis Absent left kidney No bladder mass or bladder calculi Bladder prevoid volume 173 cc Prostate is not enlarged Prostate nodules Impression: Right renal cortical thinning Nonobstructing right renal calculi Minimal hydronephrosis right kidney
[2024-11-09] MEDS: SODIUM CHLORIDE 0.9% 1000 ML 1,000 ML 60 ML IV (06:18)
[2024-11-09] MEDS: LACTULOSE SYRUP 20 GM/30 ML UDC PO ×2 (06:19→22:15)
[2024-11-09] MEDS: CLINDAMYCIN 900MG IVPB 900 MG in PRE-MIXED 1 BAG 50 MG IV ×3 (06:20→23:34)
[2024-11-09 06:22] LABS: Alanine Aminotransferase 48 U/L (10-49); Albumin, Serum 3.3 gm/dL (3.4-4.8); Albumin/Globulin Ratio 0.7 (1.2-2.2); Alkaline Phosphatase 108 U/L (46-116); Anion Gap 10 (7-16); Aspartate Amino Transferase 68 U/L (0-34); BUN/Creatinine Ratio 12 Ratio (12-20); Bilirubin,Total 0.4 mg/dL (0.3-1.2); Blood Urea Nitrogen 54 mg/dL (9-23); Calcium 8.9 mg/dL (8.3-10.6); Calcium (Corrected) 9.5 mg/dL (8.5-10.1); Carbon Dioxide 21.4 mMol/L (20.0-31.0); Cardiac Risk Estimate 4.1 RATIO (4.0-6.7); Chloride 104 mMol/L (98-107); Cholesterol 65 mg/dL (132-200); Creatinine (Component) 4.4 mg/dL (0.6-1.3); Globulin 4.7 gm/dL (2.3-3.5); Glucose 128 mg/dL (74-106); HDL Cholesterol 16 mg/dL (40-60); LDL Cholesterol,Calculated 33 mg/dL (0-130); Magnesium 2.1 mg/dL (1.6-2.6); Osmolality,Calculated 286 (275-295); Potassium 4.8 mMol/L (3.4-5.1); Sodium 135 mMol/L (136-145); Triglycerides 81 mg/dL (30-150); eGFR 14 See Note
--- NOTE | 2024-11-09 06:26 | PC.NURSE ---
BLE NOTED WITH EXCESSIVE DRY SKIN.
--- NOTE | 2024-11-09 08:43 | PRELIM_ITS ---
Bilateral lower extremity CT without intravenous contrast. Axial images with coronal and sagittal reconstructions. Clinical history: Abscess. Findings: Moderate bilateral inguinal and iliac lymphadenopathy. Mild subcutaneous fat stranding in the medial right knee. Diffuse subcutaneous edema in the right calf. No fluid collection. No soft tissue emphysema. There are postoperative changes in the right tibia. Impression: Possible cellulitis. No abscess or necrosis is identified. Report Electronically Signed By: Juan Euceda 11/09/2024 8:41:40 AM [EST]
[2024-11-09] MEDS: RINGERS LACTATED 500 ML 500 ML IV (09:40)
[2024-11-09] MEDS: PANTOPRAZOLE INJ 40 MG VIAL IVP (09:50)
--- NOTE | 2024-11-09 09:51 | PC.CC ---
Patient is a 64 year-old male who presents to the hospital for RT Leg Abscess. Marilou HAAS and WASHER HAND Student Steph made [id number] contact with patient. ASW introduced self, role, and reason for visit. Patient appeared alert and oriented to self, location, and situation. Patient provided consent for WASHER HAND to remain in the room during assessment. Patient was pleasant and engaged in initial assessment. Patient confirmed information on demographics and reports to living alone. Patient reports his medical decision maker is his friend Ryan Ojeda in the event he is unable to make his own medical decisions. At home patient ambulates with a cane and completes his own ADLs. Patient uses oxygen at home when there is SOB. Patients primary care provider is Bert Valdez and uses [facility]. Upon discharge the patient plans to return home. patient services coordinator to follow-up for any discharge needs.
[2024-11-09] MEDS: AMIODARONE HCL 200 MG TABLET PO (10:00)
[2024-11-09] MEDS: TAMSULOSIN HCL 0.4 MG CAPSULE PO (10:00)
--- NOTE | 2024-11-09 11:01 | PD.RESCONSUL ---
HPI Data of Consult Consult date: 11/09/24 Requesting Physician: Omar Rhodes MD Admitting Provider: Serg Manzano MD Attending Provider: Omar Rhodes MD Primary Care Provider: Bert Valdez MD Consult Narrative Reason for consult: [place]A on CKD History of present illness: Mr. Yuan is a 64-year-old male PMHx of COPD on home oxygen, CHF unspecified, NAHEED, CKD stage IV, s/p left nephrectomy 09/02 nephrolithiasis 2013, T2DM, PAD, A-fib on XARELTO, GERD, eczema, peripheral neuropathy, chronic back pain, presenting with bilateral lower extremity pain. He lives alone in a trailer, has chronic lower extremity edema for which he takes daily LASIX, previously diagnosed with CHF, does not know ejection fraction. He has been seeing wound care for bilateral lower extremity pain and swelling and ulcers, which have not responded to treatment. Denies fever, headaches, chills, chest pain, cough, recent upper respiratory illness, dysuria, hematuria, urinary frequency or urgency, abdominal pain, N/V/D/C. Denies alcohol, tobacco or drug use. Left unilateral nephrectomy was done in 2013 at [facility] as a result of kidney stones. He is aware of having chronic kidney disease, managed by his PCP who recently referred him to see a independent living advisor in [facility], currently pending authorization. States his blood sugars and blood pressure have generally been controlled. States he takes his medications on a daily basis, as prescribed. Reports no new or changes in current medications. On arrival, vitals WNL, satting 95% on room air. WBC 18.6, Hgb 10.9, PLT 280. Sodium 134, CR 3.8, BUN 47, EGFR 17. Renal function worsened since admission, currently BUN 54, CR 1.4, EGFR 14. Most recent comparison from 04/2024 showing CR 3.2, EGFR 21. UA with turbid with protein 1+, blood 1+, no signs of UTI. Venous Doppler negative for bilateral extremity DVT. Right knee x-ray moderate tricompartment osteoarthritis. Lower extremity CT pending final read. Renal ultrasound pending final read. He was admitted for bilateral cellulitis. Nephrology team was consulted for management of AUGUSTA on CKD. PMH: As mentioned above SHX: Left nephrectomy, right shoulder surgery, right tibial fibular plate Meds: Pending med rec Allergies: Codeine Family history: CHF and both parents Social history: Active tobacco smoker, denies alcohol or drugs. cc:: cc: Omar Rhodes MD Exam Vital Signs Temp Pulse Resp BP Pulse Ox O2 Del Method 97.5 F 60 20 142/83 H 98 Room Air 11/09/24 09:14 11/09/24 10:00 11/09/24 09:14 11/09/24 10:00 11/09/24 09:14 11/09/24 04:35 Narrative Exam GENERAL Normal appearing adult male, NAD. HEENT NCAT.?MARIANA. Oral mucosa is moist. Patent Nares NECK Supple, nontender, no thyromegaly, no meningismus, no JVD, no step offs CHEST RRR, no m/g/r CTAB, no w/r/r. Symmetrical chest rise. No intercostal subcostal retraction Atraumatic, nontender, no crepitus, symmetrical expansion. ABDOMEN Soft, flat, nontender. No guarding/rebound tenderness/masses. Bowel sounds presents EXTREMITIES Cellulitis of bilateral extremity extending below the knee with warmth, erythema and tenderness. Chronic desquamation and venous status of bilateral lower extremity, no jung edema. SKIN Warm and dry, no jaundice/rashes. NEUROMUSCULAR No lumbar or midline, no CVA, no paraspinal muscle spasm or tenderness. Moves all 4 extremities well, with full ROM and good CSM. CALDERON x4, CN II-XII grossly intact. No focal neurologic deficits. PSYCHIATRY Normal mood and affect, cooperative, no SI or HI or hallucinations. Results Labs 11/10/24 05:15 11/10/24 05:15 Labs: Short CBC 11/08/24 11/09/24 Range/Units 16:28 05:20 WBC 18.6 H 17.6 H (3.8-10.6) Thou/mm3 Hgb 10.9 L 10.4 L (13.5-16.0) g/dL Hct 34.2 L 31.9 L (41.0-53.0) % Plt Count 280 313 D (140-440) Thou/mm3 BMP 11/08/24 11/09/24 16:28 05:45 Sodium 134 L 135 L Potassium 4.9 4.8 Chloride 105 104 Carbon Dioxide 20.1 21.4 BUN 47 H 54 H Creatinine 3.8 H 4.4 H* D Glucose 143 H 128 H Calcium 8.9 8.9 Cardiac Enzymes 11/08/24 Range/Units 16:28 Troponin I < 0.020 (0.0-0.045) ng/mL Liver Function 11/08/24 11/09/24 Range/Units 16:28 05:45 Total Bilirubin 0.5 0.4 (0.3-1.2) mg/dL AST 42 H 68 H (0-34) U/L ALT 32 48 (10-49) U/L Alkaline Phosphatase 104 108 (46-116) U/L Albumin 3.6 3.3 L (3.4-4.8) gm/dL Urine 11/08/24 Range/Units 00:48 Urine Color Yellow (Lt Yel-Yel) Urine Clarity Turbid A (Clear/Hazy) Urine pH 5.5 (5.0-7.0) Ur Specific [place] 1.018 (1.001-1.035) Urine Protein 1+ A (Neg - Trace) Urine Glucose (UA) Negative (Negative) Quality Measures Quality Measures none Advance care planning discussed with:: patient Medications Home Medications and Allergies Home Medications ?Medication ?Instructions ?Recorded ?Confirmed ?Type aspirin 81 mg chewable tablet 81 mg PO QDAY ##0 10/21/16 11/09/24 History albuterol sulfate 90 mcg/actuation 2 puff PO Q4HR PRN SHORTNESS OF 06/15/17 11/09/24 History aerosol inhaler (ProAir HFA) BREATH ##9 diltiazem HCl 60 mg tablet 30 mg PO TID ##0 07/29/17 11/09/24 History (Cardizem) furosemide 40 mg tablet (Lasix) 40 mg PO QDAY #0 tabs 07/29/17 11/09/24 History atenolol 50 mg tablet 50 mg PO QDAY 10/18/21 11/09/24 History amiodarone 200 mg tablet 200 mg PO QDAY 08/02/22 11/09/24 History hydroxyzine HCl 10 mg tablet 25 mg PO HS 08/02/22 11/09/24 History metformin 500 mg tablet 500 mg PO BID 08/02/22 11/09/24 History hydroxyzine HCl 25 mg tablet mg 11/09/24 History losartan 25 mg tablet 50 mg PO QDAY 11/09/24 11/09/24 History rivaroxaban 10 mg tablet (Xarelto) 10 mg PO QDAY 11/09/24 11/09/24 History Allergies Allergy/AdvReac Type Severity Reaction Status Date / Time codeine Allergy Severe Hives Verified 11/08/24 15:37 Visit Medications Acetaminophen (Acetaminophen 325 Mg Tablet) 650 mg PO Q6H PRN PRN Reason: Fever >101.5 Stop: 12/09/24 04:52 Acetaminophen (Acetaminophen 325 Mg Tablet) 650 mg PO Q6H PRN PRN Reason: PAIN SCALE 1-3 (mild Stop: 12/09/24 04:52 Hydrocodone Bitart/Acetaminophen (Hydrocodone/Apap 5/325 Tablet) 1 tab PO Q6HR PRN PRN Reason: PAIN SCALE 4-6 (Moderate Stop: 11/14/24 04:52 Albuterol/Ipratropium (Albuterol/Ipratropium (Duoneb) Rt Monica 3 Ml Nebu) 3 ml INH Q6HRRT PRN PRN Reason: SOB or Wheeze Stop: 12/09/24 06:59 Amiodarone HCl (Amiodarone Hcl 200 Mg Tablet) 200 mg PO QDAY [facility] Stop: 12/09/24 08:59 Last Admin: 11/09/24 10:00 Dose: 200 mg Hydromorphone HCl (Hydromorphone Inj 2 Mg/Ml Vial) 0.25 mg IVP Q4H PRN PRN Reason: PAIN SCALE 7-10 (Severe Stop: 11/14/24 04:52 Ceftriaxone Sodium/Dextrose (Rocephin/D5w 1gm Iv Premix) 1 gm in 50 mls @ 100 mls/hr IV Q24H BELEN Stop: 11/17/24 08:59 Clindamycin Phosphate 900 mg/ (IV Miscellaneous Supplies) 50 mls @ 50 mls/hr IV Q8HR BELEN Stop: 11/16/24 13:59 Sodium Chloride (Ns) 1,000 mls @ 60 mls/hr IV .[id number] BELEN Stop: 11/09/24 22:36 Last Admin: 11/09/24 06:18 Dose: 60 mls/hr Lactulose (Lactulose Syrup 20 Gm/30 Ml Udc) 20 gm PO HS BELEN; Protocol Stop: 12/09/24 05:49 Last Admin: 11/09/24 06:19 Dose: 20 gm Pantoprazole Sodium (Pantoprazole Inj 40 Mg Vial) 40 mg IVP QDAY [facility] Stop: 12/09/24 08:59 Last Admin: 11/09/24 09:50 Dose: 40 mg Tamsulosin HCl (Tamsulosin Hcl 0.4 Mg Capsule) 0.4 mg PO QDAY [facility] Stop: 12/09/24 08:59 Last Admin: 11/09/24 10:00 Dose: 0.4 mg Discontinued Medications Acetaminophen (Acetaminophen 500 Mg Tablet) 1,000 mg PO X1 ONE Stop: 11/09/24 01:55 Last Admin: 11/09/24 02:01 Dose: 1,000 mg Ceftriaxone Sodium/Dextrose (Rocephin/D5w 1gm Iv Premix) 1 g in 50 mls @ 100 mls/hr IV X1 ONE Stop: 11/09/24 05:44 Last Infusion: 11/09/24 06:16 Dose: Infused Clindamycin Phosphate 900 mg/ (IV Miscellaneous Supplies) 50 mls @ 50 mls/hr IV X1 ONE Stop: 11/09/24 06:14 Last Infusion: 11/09/24 07:19 Dose: Infused Lactated Ringer's (Lactated Ringers) 500 mls @ 500 mls/hr IV .Q1H ONE Stop: 11/09/24 09:40 Last Admin: 11/09/24 09:40 Dose: 500 mls/hr Rivaroxaban (Rivaroxaban 10 Mg Tablet) 10 mg PO QDAY [facility] Stop: 12/09/24 08:59 Assessment & Plan Plan 64-year-old male PMHx of COPD on home oxygen, CHF unspecified, NAHEED, CKD stage IV, s/p left nephrectomy 2/2 nephrolithiasis 2013, T2DM, PAD, A-fib on XARELTO, GERD, eczema, peripheral neuropathy, chronic back pain, admitted for bilateral lower extremity cellulitis. Nephrology was consulted for the management of [place] on CKD. [place] on CKD stage IV S/p left unilateral nephrectomy 2013 left unilateral nephrectomy at [facility] 2/2 kidney stones. Follows with PCP for CKD management, recently referred to nephrology, pending Auth. Diabetes relatively controlled, A1c 6.3 from 9/5/24, although METFORMIN might be culprit. Chronic HTN, relatively poorly controlled, might also be contributing. Denies history of recurrent UTIs or active urinary symptoms, including changes in frequency or dysuria. Received a total of 500 cc LR, currently on NS at 60 cc/H, poor 24H urine output (5 cc). A[place]A likely in setting of volume depletion. ? Renally dose meds, avoid overdiuresis and NEPHROTOXINS ? Daily CMP ? Strict SÁNCHEZ's ? Agree with IVF, although prefer 150 cc/H ? Recommended echocardiogram ? Pending bilateral renal ultrasound ? Pending urine studies Bilateral leg cellulitis Right leg abscess Rule out DVT A-fib Diabetes mellitus type 2 Peripheral neuropathy Peripheral arterial disease COPD Anemia GERD ? Managed by primary team Thank you for the opportunity to participate in the patient's care. Case was discussed with attending, Dr. Garzon. Jared Orozco DO PGYI Attending Provider Attestation/Addendum Patient seen and examined with resident physician Dr. Coleman. Note reviewed, agree with findings and recommendations. Patient currently seen in medical floor. I saw him in 2022. Advanced CKD and never came to my clinic. Presented with significant weakness in the lower extremities, ichthyosis and [place]. Patient seems to have significant amount of insensible losses from his dry skin. Agree with IV fluids. Renal ultrasound showed no significant hydronephrosis. Unilateral functioning kidney. Continue with monitoring of renal function. Long conversation with patient-if no improvement in renal function despite fluids will need renal replacement therapy. Thank you Omar for allowing me to participate in the care of Mr. Yuan
[2024-11-09 14:59] LABS: Parathyroid Hormone Intact 121.8 pg/ml (18.5-88.0)
[2024-11-09 17:50] LABS: Chloride,Urine Random < 20.0 mMol/L (55.0-125.0); Potassium,Urine Random 48 mMol/L (12-62)
[2024-11-09 18:13] LABS: Creatinine MALB Rnd Ur 175 mg/dL (30-125); Microalbumin Creat Ratio 105 mg/gCrea (<30); Microalbumin, Random Urine 183 mg/L (0-300); Protein Total, Random Urine 101 mg/dL (1-14)
--- NOTE | 2024-11-09 18:31 | PC.NURSE ---
pt stated he is between 5'8 and 5'9, is unsure of actual height
--- NOTE | 2024-11-09 18:40 | PC.NURSE ---
banuelos catheter insererted per md orders, 600 ml of dark yellow urine noted on tubing and bag, Dr. Casillas aware.
--- NOTE | 2024-11-09 19:16 | PC.NURSE ---
report given to Ashley MACHADO
--- NOTE | 2024-11-09 19:42 | ESPR_ITS ---
<Statement entered by Migue Khan MD - 11/10/24 09:37> Senior Resident Attestation: I supervised/discussed management plan with intelligence intern physician Dr. Kee, and was involved in the care of this patient. I personally saw and examined the patient and discussed the assessment and plan with the entire medicine team, including my attending. I agree with the assessment and plan as documented. Patient's care was discussed with attending physician, Dr. Rhodes. Migue Khan MD PGY-2. Documentation for date of: 11/09/24 Subjective Subjective Interval history: Discharge in the right lower extremity. Denies any further complaints Vitals are stable. On physical examination, bilateral lower extremity scaling and peeling of skin was noted. Superimposed discharge from right lower extremity below knee is noted CT lower extremity done and osteomyelitis is ruled out Labs showed worsening renal functions with creatinine of 4.[address] Garzon is consulted and recommended to continue IV fluids, will monitor renal functions for now Skin scrapings on bilateral lower extremities is sent for fungal culture Exam Vital Signs Temp Pulse Resp BP Pulse Ox O2 Del Method 96.9 F 69 18 101/68 94 L Room Air 11/09/24 16:00 11/09/24 16:00 11/09/24 16:00 11/09/24 16:00 11/09/24 16:11/09/24 16:00 Narrative Exam General: Awake. HEENT: Normocephalic, atraumatic, mucous membranes moist. Heart: Irregular rate and rhythm, no murmurs. Lungs: Clear to auscultation with no wheezing or crackles. Abdomen: Soft, nondistended, nontender, positive bowel sounds. ?No guarding or rebound tenderness. Neurologic: Alert and oriented x3, no gross neurological deficit, and patient able to move all 4 extremities. Extremities: Bilateral lower extremity scaly lesions noted. Bilateral superimposed cellulitis is noted with discharge coming from right lower extremity 4 to 5 cm below the knee Skin: No rash or ecchymoses. Objective Labs 11/10/24 05:15 11/10/24 13:25 Labs: Laboratory Results - last 24 hr 11/08/24 11/09/24 11/09/24 00:48 05:20 05:45 WBC 17.6 H RBC 3.86 L Hgb 10.4 L Hct 31.9 L MCV 83 MCH 26.9 MCHC 32.6 RDW Std Deviation 44.8 H Plt Count 313 D Neut % (Auto) 84 H Lymph % (Auto) 8 L [place] % (Auto) 6 Eos % (Auto) 1 Baso % (Auto) 0 Neut # (Auto) 14.7 H Lymph # (Auto) 1.4 [place] # (Auto) 1.1 H Eos # (Auto) 0.2 Baso # (Auto) 0.1 Immature Gran # (Auto) 0.19 H Absolute Nucleated RBC 0.00 Immature Gran % 1 H Nucleated RBC % 0 Sodium 135 L Potassium 4.8 Chloride 104 Carbon Dioxide 21.4 Anion Gap 10 BUN 54 H Creatinine 4.4 H* D Estim Creat Clear Calc 21.0 L eGFR 14 L* BUN/Creatinine Ratio 12 Glucose 128 H Calculated Osmolality 286 Calcium 8.9 Corrected Calcium 9.5 Magnesium 2.1 Total Bilirubin 0.4 AST 68 H ALT 48 Alkaline Phosphatase 108 Total Protein 8.0 Albumin 3.3 L Globulin 4.7 H Albumin/Globulin Ratio 0.7 L Triglycerides 81 Cholesterol 65 L LDL Cholesterol, Calc 33 HDL Cholesterol 16 L Cholesterol/HDL Ratio 4.1 TSH 1.10 PTH Intact 121.8 H Ur Collection Type Clean Catch Urine Color Yellow Urine Clarity Turbid A Urine pH 5.5 Ur Specific [place] 1.018 Urine Protein 1+ A Urine Glucose (UA) Negative Urine Ketones Negative Urine Blood 1+ A Urine Nitrite Negative Urine Bilirubin Negative Urine Urobilinogen (Auto) Negative Ur Leukocyte Esterase Negative Urine RBC 18 H Urine WBC 8 H Ur Squamous Epith Cells 3 Urine Bacteria None Hyaline Casts < 1 Ur Random Microalbumin U Random Total Protein Ur Random Sodium Ur Random Potassium Ur Random Chloride U Creat (Microalbumin) Microalb/Creat Ratio 11/09/24 17:00 WBC RBC Hgb Hct MCV MCH MCHC RDW Std Deviation Plt Count Neut % (Auto) Lymph % (Auto) [place] % (Auto) Eos % (Auto) Baso % (Auto) Neut # (Auto) Lymph # (Auto) [place] # (Auto) Eos # (Auto) Baso # (Auto) Immature Gran # (Auto) Absolute Nucleated RBC Immature Gran % Nucleated RBC % Sodium Potassium Chloride Carbon Dioxide Anion Gap BUN Creatinine Estim Creat Clear Calc eGFR BUN/Creatinine Ratio Glucose Calculated Osmolality Calcium Corrected Calcium Magnesium Total Bilirubin AST ALT Alkaline Phosphatase Total Protein Albumin Globulin Albumin/Globulin Ratio Triglycerides Cholesterol LDL Cholesterol, Calc HDL Cholesterol Cholesterol/HDL Ratio TSH PTH Intact Ur Collection Type Urine Color Urine Clarity Urine pH Ur Specific [place] Urine Protein Urine Glucose (UA) Urine Ketones Urine Blood Urine Nitrite Urine Bilirubin Urine Urobilinogen (Auto) Ur Leukocyte Esterase Urine RBC Urine WBC Ur Squamous Epith Cells Urine Bacteria Hyaline Casts Ur Random Microalbumin 183 U Random Total Protein 101 H Ur Random Sodium 29.0 Ur Random Potassium 48 Ur Random Chloride < 20.0 L U Creat (Microalbumin) 175 H Microalb/Creat Ratio 105 H Quality Measures Quality Measures none Advance care planning discussed with:: patient Assessment & Plan Assessment Current Active Medications: Generic Name Dose Route Start Last Admin Trade Name Freq PRN Reason Stop Dose Admin Acetaminophen 650 mg 11/09/24 04:53 Acetaminophen 325 Mg Tablet PO 12/09/24 04:52 Q6H PRN Fever >101.5 Acetaminophen 650 mg 11/09/24 04:53 Acetaminophen 325 Mg Tablet PO 12/09/24 04:52 Q6H PRN PAIN SCALE 1-3 (mild Hydrocodone Bitart/Acetaminophen 1 tab 11/09/24 04:53 Hydrocodone/Apap 5/325 Tablet PO 11/14/24 04:52 Q6HR PRN PAIN SCALE 4-6 (Moderate Albuterol/Ipratropium 3 ml 11/09/24 04:53 Albuterol/Ipratropium (Duoneb) Rt [place] 3 Ml Nebu INH 12/09/24 06:59 Q6HRRT PRN SOB or Wheeze Amiodarone HCl 200 mg 11/09/24 09:00 11/09/24 10:00 Amiodarone Hcl 200 Mg Tablet PO 12/09/24 08:59 200 mg QDAY BELEN Administration Hydromorphone HCl 0.25 mg 11/09/24 04:53 Hydromorphone Inj 2 Mg/Ml Vial IVP 11/14/24 04:52 Q4H PRN PAIN SCALE 7-10 (Severe Ceftriaxone Sodium/Dextrose 1 gm in 50 mls @ 100 mls/hr 11/10/24 09:00 Rocephin/D5w 1gm Iv Premix IV 11/17/24 08:59 Q24H BELEN Clindamycin Phosphate 900 mg/ 50 mls @ 50 mls/hr 11/09/24 14:00 11/09/24 14:02 IV Miscellaneous Supplies IV 11/16/24 13:59 50 mls/hr Q8HR BELEN Administration Sodium Chloride 1,000 mls @ 60 mls/hr 11/09/24 05:57 11/09/24 06:18 Ns IV 11/09/24 22:36 60 mls/hr .[id number] BELEN Administration Lactulose 20 gm 11/09/24 05:50 11/09/24 06:19 Lactulose Syrup 20 Gm/30 Ml Udc PO 12/09/24 05:49 20 gm HS BELEN Administration Protocol Tamsulosin HCl 0.4 mg 11/09/24 09:00 11/09/24 10:00 Tamsulosin Hcl 0.4 Mg Capsule PO 12/09/24 08:59 0.4 mg QDAY BELEN Administration Plan A 64-year-old male with significant past medical history of COPD currently not on home oxygen, NAHEED, CKD stage IIIb, PAD, A-fib on Xarelto, GERD, eczema, diabetes mellitus type 2 with peripheral neuropathy, benign cystic liver disease, chronic back pain and left nephrectomy presented to ED on 11/08/2024 with chief complaint of bilateral leg pain and swelling for the past 1 to 2 months admitted to med telemetry unit for further management of bilateral cellulitis, likely associated with right leg abscess. #Bilateral lower extremity cellulitis #Superimposed on underlying skin infection, unsure of the etiology Patient presented with right leg bump over upper malone level, with bilateral desquamation and pain, associated with fever and chills for the past 2 days US Doppler right leg negative for DVT White count of 17.6 Blood culture - no growth after 24hrs Lower extremity CT scan did not show any evidence of osteomyelitis Fungal cultures are sent on the lesions on lower extremity Plan - Started on clindamycin 900 mg IV 3 times daily - Started on ceftriaxone 1 g daily - Wound care referral done #[place] on CKD stage IV #S/p left nephrectomy DDx: Likely prerenal in the setting of poor oral intake versus less likely intrarenal secondary to diabetic nephropathy, with continued use of metformin Patient baseline creatinine 3.2, presented with creatinine of 3.8 --> 4/, Cr 4.4 Renal ultrasound showed right renal cortical scarring, minimal hydronephrosis without any prostamegaly, renal calculi - Bolus of 500 cc Ringer lactate is given and started on NS 60 cc/h - Avoid nephrotoxic drugs and renally dose medications - Dr. Garzon consulted for nephrology, appreciate recommendations - PTH, urine proteins, electrolytes are ordered #A-fib Currently rate controlled -Started on amiodarone 200 Mg daily -Held hold diltiazem as rate is well-controlled for now #Diabetes mellitus type 2 Patient is currently taking metformin 500 Mg daily at home A1c during this hospital admission is 6.3 - Stop metformin, as patient's GFR is less than 30 - Started on insulin sliding scale #Peripheral neuropathy #Peripheral arterial disease #COPD #Anemia #GERD - home medications reconciliation is still pending, will resume medications Health maintenance: Dispo: Med/tele DVT prophylaxis: will hold for now till ortho recs Diet: Renal CODE STATUS: Full code Patient plan of care was discussed with the attending physician, Dr. Rhodes and senior resident Dr. Erin Kee, PGY1 Attending Provider Attestation/Addendum I attest that I was physically present for the evaluation, physical examination, lab and imaging review of the patient with the residents. I discussed the case with the residents and agree with the findings and plans of care as documented above. At bedside today, patient states he is feeling better and denies any new complaints. Continues to have discharge from his right knee, foul-smelling. Noted scaling on bilateral lower extremities. Continues to be on clindamycin and Rocephin. Wound care have been following. Venous Doppler of right leg was negative for DVT. Lower extremity CT was obtained to evaluate for abscess, osteomyelitis, was negative for both. Fungal culture sent from the scraping. Blood culture have been negative preliminary for 24 hours. Patient's kidney function worsened to creatinine of 4.4 from 3.8 yesterday. Started 500 cc of Ringer's lactate bolus along with 60 cc/h. Nephrology following, appreciate recommendations. Continues to be on amiodarone for A-fib, rate controlled. Continues to be on insulin regimen for diabetes. Omar Rhodes MD
[2024-11-10] VITALS (12 sets, daily range): BP systolic 97–120; BP diastolic 60–73; PULSE 60–76; RESP 16–95; TEMP 36.1–37.2; O2SAT 92–100
[2024-11-10 05:53] LABS: Basophils # (Auto) 0.1 Thou/mm3 (0.0-0.2); Basophils % (Auto) 0 % (0-2.5); Eosinophils # (Auto) 0.2 Thou/mm3 (0.0-0.5); Eosinophils % (Auto) 2 % (0-10); Hematocrit 30.8 % (41.0-53.0); Hemoglobin 9.5 g/dL (13.5-16.0); Immature Granulocytes % (Auto) 1 % (0-0); Immature Granulocytes Auto 0.13 Thou/mm3 (0.00-0.00); Lymphocytes # (Auto) 0.8 Thou/mm3 (1.0-4.8); Lymphocytes % (Auto) 7 % (10-50); Mean Corpuscular HGB Conc 30.8 g/dl (31.0-37.0); Mean Corpuscular Hemoglobin 26.2 pg (25.0-35.0); Mean Corpuscular Volume 85 fL (80-100); Monocytes # (Auto) 0.6 Thou/mm3 (0.0-0.8); Monocytes % (Auto) 5 % (0-12); Neutrophils % (Auto) 85 % (37-80); Nucleated Red Blood Cell % 0 /100 WBC (0); Platelet Count 265 Thou/mm3 (140-440); RDW Standard Deviation 45.9 fL (35.1-43.9); Red Blood Count 3.63 Miln/mm3 (4.50-5.90); White Blood Count 11.7 Thou/mm3 (3.8-10.6)
[2024-11-10 06:14] LABS: Alanine Aminotransferase 41 U/L (10-49); Albumin, Serum 3.1 gm/dL (3.4-4.8); Albumin/Globulin Ratio 0.7 (1.2-2.2); Alkaline Phosphatase 98 U/L (46-116); Anion Gap 7 (7-16); Aspartate Amino Transferase 43 U/L (0-34); BUN/Creatinine Ratio 15 Ratio (12-20); Bilirubin,Total 0.2 mg/dL (0.3-1.2); Blood Urea Nitrogen 58 mg/dL (9-23); Calcium 8.5 mg/dL (8.3-10.6); Calcium (Corrected) 9.2 mg/dL (8.5-10.1); Carbon Dioxide 20.2 mMol/L (20.0-31.0); Chloride 110 mMol/L (98-107); Estimated Creatinine Clearance 22.3 mL/min (>60); Globulin 4.4 gm/dL (2.3-3.5); Glucose 113 mg/dL (74-106); Magnesium 2.2 mg/dL (1.6-2.6); Osmolality,Calculated 291 (275-295); Phosphorous 5.7 mg/dL (2.4-5.1); Potassium 5.1 mMol/L (3.4-5.1); Sodium 137 mMol/L (136-145); Total Protein 7.5 gm/dL (5.7-8.2); Uric Acid 9.6 mg/dL (3.7-9.2); eGFR 16 See Note
[2024-11-10] MEDS: CLINDAMYCIN 900MG IVPB 900 MG in PRE-MIXED 1 BAG 50 MG IV ×3 (07:31→22:10)
[2024-11-10] MEDS: AMIODARONE HCL 200 MG TABLET PO (09:15)
[2024-11-10] MEDS: TAMSULOSIN HCL 0.4 MG CAPSULE PO (09:25)
[2024-11-10] MEDS: cefTRIAXone/D5w 1gm IV premix 1 GM/50 ML BAG IV (09:26)
[2024-11-10] MEDS: SODIUM CHLORIDE 0.9% 1000 ML 1,000 ML 150 ML IV ×2 (10:55→18:35)
[2024-11-10 14:11] LABS: Albumin, Serum 3.2 gm/dL (3.4-4.8); Anion Gap 7 (7-16); BUN/Creatinine Ratio 15 Ratio (12-20); Blood Urea Nitrogen 57 mg/dL (9-23); Calcium 8.4 mg/dL (8.3-10.6); Carbon Dioxide 22.2 mMol/L (20.0-31.0); Chloride 109 mMol/L (98-107); Creatinine (Component) 3.7 mg/dL (0.6-1.3); Estimated Creatinine Clearance 24.1 mL/min (>60); Glucose 114 mg/dL (74-106); Osmolality,Calculated 292 (275-295); Phosphorous 5.4 mg/dL (2.4-5.1); Potassium 4.9 mMol/L (3.4-5.1); Sodium 138 mMol/L (136-145); eGFR 17 See Note
--- NOTE | 2024-11-10 14:58 | PD.RESPRO ---
Documentation for date of: 11/10/24 Subjective Subjective Interval history: Patient was seen and evaluated at the bedside. No acute overnight events. He reports no complaints today. He was evaluated by orthopedic surgery, no surgery is planned at this time. DVT prophylaxis was resumed. Pending echo and blood cultures. Continue current management and monitor patient. Exam Vital Signs Temp Pulse Resp BP Pulse Ox O2 Del Method 96.9 F 64 20 97/62 95 Room Air 11/10/24 12:00 11/10/24 12:00 11/10/24 12:00 11/10/24 12:00 11/10/24 12:00 11/10/24 12:00 Narrative Exam Gen: Well-developed and well-nourished obese male. HEENT: NCAT, PERRLA, EOMI, MMM, anicteric conjunctivae. CVS: normal S1 and S2. RRR. No M/R/G. Resp: CTA B/L. No rhonchi, rales, crackles or wheezing. Abd: soft, non-tender, non-distended. BS+ in all 4 quadrants. MSK: Good ROM in BUE & BLE. Bilateral lower extremity are wrapped in bandages, scaly lesions noted on feet. Neuro: CN II-XII grossly intact. Strength 5/5 in BUE & BLE. Alert and oriented x3. Psych: appropriate mood and affect. Objective Labs 11/10/24 05:15 11/10/24 13:25 Labs: Laboratory Results - last 24 hr 11/09/24 11/09/24 11/10/24 05:45 17:00 05:15 WBC 11.7 H D RBC 3.63 L Hgb 9.5 L Hct 30.8 L MCV 85 MCH 26.2 MCHC 30.8 L RDW Std Deviation 45.9 H Plt Count 265 D Neut % (Auto) 85 H Lymph % (Auto) 7 L [place] % (Auto) 5 Eos % (Auto) 2 Baso % (Auto) 0 Neut # (Auto) 10.0 H Lymph # (Auto) 0.8 L [place] # (Auto) 0.6 Eos # (Auto) 0.2 Baso # (Auto) 0.1 Immature Gran # (Auto) 0.13 H Absolute Nucleated RBC 0.00 Immature Gran % 1 H Nucleated RBC % 0 Sodium 137 Potassium 5.1 Chloride 110 H Carbon Dioxide 20.2 Anion Gap 7 BUN 58 H Creatinine 4.0 H Estim Creat Clear Calc 22.3 L eGFR 16 L BUN/Creatinine Ratio 15 Glucose 113 H Calculated Osmolality 291 Uric Acid 9.6 H Calcium 8.5 Corrected Calcium 9.2 Phosphorus 5.7 H Magnesium 2.2 Total Bilirubin 0.2 L AST 43 H ALT 41 Alkaline Phosphatase 98 Total Protein 7.5 Albumin 3.1 L Globulin 4.4 H Albumin/Globulin Ratio 0.7 L PTH Intact 121.8 H Ur Random Microalbumin 183 U Random Total Protein 101 H Ur Random Sodium 29.0 Ur Random Potassium 48 Ur Random Chloride < 20.0 L U Creat (Microalbumin) 175 H Microalb/Creat Ratio 105 H 11/10/24 13:25 WBC RBC Hgb Hct MCV MCH MCHC RDW Std Deviation Plt Count Neut % (Auto) Lymph % (Auto) [place] % (Auto) Eos % (Auto) Baso % (Auto) Neut # (Auto) Lymph # (Auto) [place] # (Auto) Eos # (Auto) Baso # (Auto) Immature Gran # (Auto) Absolute Nucleated RBC Immature Gran % Nucleated RBC % Sodium 138 Potassium 4.9 Chloride 109 H Carbon Dioxide 22.2 Anion Gap 7 BUN 57 H Creatinine 3.7 H Estim Creat Clear Calc 24.1 L eGFR 17 L BUN/Creatinine Ratio 15 Glucose 114 H Calculated Osmolality 292 Uric Acid Calcium 8.4 Corrected Calcium 9.0 Phosphorus 5.4 H Magnesium Total Bilirubin AST ALT Alkaline Phosphatase Total Protein Albumin 3.2 L Globulin Albumin/Globulin Ratio PTH Intact Ur Random Microalbumin U Random Total Protein Ur Random Sodium Ur Random Potassium Ur Random Chloride U Creat (Microalbumin) Microalb/Creat Ratio Quality Measures Quality Measures VTE prophylaxis Advance care planning discussed with:: patient Assessment & Plan Assessment Current Active Medications: Generic Name Dose Route Start Last Admin Trade Name Freq PRN Reason Stop Dose Admin Acetaminophen 650 mg 11/09/24 04:53 Acetaminophen 325 Mg Tablet PO 12/09/24 04:52 Q6H PRN Fever >101.5 Acetaminophen 650 mg 11/09/24 04:53 Acetaminophen 325 Mg Tablet PO 12/09/24 04:52 Q6H PRN PAIN SCALE 1-3 (mild Hydrocodone Bitart/Acetaminophen 1 tab 11/09/24 04:53 Hydrocodone/Apap 5/325 Tablet PO 11/14/24 04:52 Q6HR PRN PAIN SCALE 4-6 (Moderate Albuterol/Ipratropium 3 ml 11/09/24 04:53 Albuterol/Ipratropium (Duoneb) Rt [place] 3 Ml Nebu INH 12/09/24 06:59 Q6HRRT PRN SOB or Wheeze Amiodarone HCl 200 mg 11/09/24 09:00 11/10/24 09:15 Amiodarone Hcl 200 Mg Tablet PO 12/09/24 08:59 200 mg QDAY BELEN Administration Dextrose 25 ml 11/09/24 19:59 Dextrose 50%-Water Inj 50 Ml Syringe IV 12/09/24 19:58 Q15MIN PRN BG 50-70 responsive npo pt Dextrose 50 ml 11/09/24 19:59 Dextrose 50%-Water Inj 50 Ml Syringe IV 12/09/24 19:58 Q15MIN PRN BG <50 OR BG <70 & pt unresponsive Glucagon 1 mg 11/09/24 19:59 Glucagon Inj 1 Mg Vial IM Q15MIN PRN BG <70, and no IV access Heparin Sodium (Porcine) 5,000 unit 11/10/24 14:30 Heparin Sod Inj 5000 Unit/Ml Vial SC 11/24/24 14:29 Q12H BELEN Hydromorphone HCl 0.25 mg 11/09/24 04:53 Hydromorphone Inj 2 Mg/Ml Vial IVP 11/14/24 04:52 Q4H PRN PAIN SCALE 7-10 (Severe Ceftriaxone Sodium/Dextrose 1 gm in 50 mls @ 100 mls/hr 11/10/24 09:00 11/10/24 09:26 Rocephin/D5w 1gm Iv Premix IV 11/17/24 08:59 100 mls/hr Q24H BELEN Administration Clindamycin Phosphate 900 mg/ 50 mls @ 50 mls/hr 11/09/24 14:00 11/10/24 07:31 IV Miscellaneous Supplies IV 11/16/24 13:59 50 mls/hr Q8HR BELEN Administration Sodium Chloride 1,000 mls @ 150 mls/hr 11/10/24 10:24 11/10/24 10:55 Ns IV 11/10/24 23:43 150 mls/hr .[id number] BELEN Administration Insulin Human Lispro 0 unit 11/09/24 21:00 11/10/24 11:14 Insulin Lispro (Admelog) 1 Unit/0.01 Ml Unit SC 12/09/24 20:59 Not Given ACHS BELEN Protocol Lactulose 20 gm 11/09/24 05:50 11/09/24 22:15 Lactulose Syrup 20 Gm/30 Ml Udc PO 12/09/24 05:49 20 gm HS BELEN Administration Protocol Tamsulosin HCl 0.4 mg 11/09/24 09:00 11/10/24 09:25 Tamsulosin Hcl 0.4 Mg Capsule PO 12/09/24 08:59 0.4 mg QDAY BELEN Administration Plan A 64-year-old male with significant past medical history of COPD currently not on home oxygen, NAHEED, CKD stage IIIb, PAD, A-fib on Xarelto, GERD, eczema, diabetes mellitus type 2 with peripheral neuropathy, benign cystic liver disease, chronic back pain and left nephrectomy presented to ED on 11/08/2024 with chief complaint of bilateral leg pain and swelling for the past 1 to 2 months admitted to med telemetry unit for further management of bilateral cellulitis, likely associated with right leg abscess. #Bilateral lower extremity cellulitis. #Superimposed on underlying skin infection, unsure of the etiology. Patient presented with right leg bump over upper malone level, with bilateral desquamation and pain, associated with fever and chills for the past 2 days. US Doppler right leg negative for DVT. White count of 17.6. Blood culture - no growth after 24hrs. Lower extremity CT scan did not show any evidence of osteomyelitis. Fungal cultures are sent on the lesions on lower extremity. Plan - Started on clindamycin 900 mg IV 3 times daily. - Started on ceftriaxone 1 g daily. - Wound care referral done. - cultures taken. #[place] on CKD stage IV. #S/p left nephrectomy. DDx: Likely prerenal in the setting of poor oral intake versus less likely intrarenal secondary to diabetic nephropathy, with continued use of metformin. Patient baseline creatinine 3.2, presented with creatinine of 3.8 --> /, Cr 4.4. Renal ultrasound showed right renal cortical scarring, minimal hydronephrosis without any prostamegaly, renal calculi Plan: - NS 150 cc/h. - hold protonix. - Avoid nephrotoxic drugs and renally dose medications. - Dr. Garzon consulted for nephrology, appreciate recommendations. - hold xarelto, DVT prophylaxis with Lovenox. #A-fib. Currently rate controlled. Plan: - Started on amiodarone 200 Mg daily. - Held diltiazem and losartan due to soft BP. #Diabetes mellitus type 2. Patient is currently taking metformin 500 Mg daily at home. A1c during this hospital admission is 6.3. Plan: - Stop metformin, as patient's GFR is less than 30. - Started on insulin sliding scale. #BPH. - banuelos placed. - started on home tamsulosin. #Peripheral neuropathy. #Peripheral arterial disease. #COPD. #Anemia. #GERD. - hold protonix. Health maintenance: Dispo: Med/tele. DVT prophylaxis: heparin. Diet: Renal. CODE STATUS: Full code. Patient plan of care was discussed with the attending physician, Dr. Rhodes. Migue Khan MD, PGY 2. Disclaimer: This note was dictated by speech recognition. Minor errors in manager fraud may be present due to voice recognition software. Attending Provider Attestation/Addendum I attest that I was physically present for the evaluation, physical examination, lab and imaging review of the patient with the residents. I discussed the case with the residents and agree with the findings and plans of care as documented above. At bedside today, patient states he is feeling well. His pain has been improving. Patient seen by orthopedics, recommended medical management and no indication for surgery at this time. Continues to be on clindamycin and ceftriaxone. Lower extremity CT did not show any evidence of osteomyelitis. Wound care following. Patient's creatinine improved slightly from 4.4-4.0 today with IV hydration. Nephrology following, recommended aggressive IV hydration, we will start normal saline at 150 cc/h. WBC count has been improving from 17.6-11.7. Noted to have potassium of 5.1 this morning, repeat potassium this afternoon showed improvement to 4.9. Gram staining from the wound shows gram-negative diplococci. Awaiting final culture results and improvement in kidney function. Omar Rhodes MD
[2024-11-10] MEDS: HEPARIN SOD INJ 5000 UNIT/ML VIAL SC (14:59)
--- NOTE | 2024-11-10 15:47 | ESPR_ITS ---
Documentation for date of: 11/10/24 Subjective Subjective Interval history: Mr. Yuan is a 64-year-old male PMHx of COPD on home oxygen, CHF unspecified, NAHEED, CKD stage IV, s/p left nephrectomy 09/02 nephrolithiasis 2013, T2DM, PAD, A-fib on XARELTO, GERD, eczema, peripheral neuropathy, chronic back pain, presenting with bilateral lower extremity pain. He lives alone in a trailer, has chronic lower extremity edema for which he takes daily LASIX, previously diagnosed with CHF, does not know ejection fraction. He has been seeing wound care for bilateral lower extremity pain and swelling and ulcers, which have not responded to treatment. Denies fever, headaches, chills, chest pain, cough, recent upper respiratory illness, dysuria, hematuria, urinary frequency or urgency, abdominal pain, N/V/D/C. Denies alcohol, tobacco or drug use. Left unilateral nephrectomy was done in 2013 at [facility] as a result of kidney stones. He is aware of having chronic kidney disease, managed by his PCP who recently referred him to see a cashier general in [facility], currently pending authorization. States his blood sugars and blood pressure have generally been controlled. States he takes his medications on a daily basis, as prescribed. Reports no new or changes in current medications. On arrival, vitals WNL, satting 95% on room air. WBC 18.6, Hgb 10.9, PLT 280. Sodium 134, CR 3.8, BUN 47, EGFR 17. Renal function worsened since admission, currently BUN 54, CR 1.4, EGFR 14. Most recent comparison from 04/2024 showing CR 3.2, EGFR 21. UA with turbid with protein 1+, blood 1+, no signs of UTI. Venous Doppler negative for bilateral extremity DVT. Right knee x-ray moderate tricompartment osteoarthritis. Lower extremity CT pending final read. Renal ultrasound pending final read. He was admitted for bilateral cellulitis. Nephrology team was consulted for management of [place] on CKD. 11/10/2024 examined at bedside. No new symptoms or worsening of symptoms. Denies fever, chills, headaches, chest pain, sob, cough, GI or urinary symptoms. Renal function improving, CR 3.7, BUN 57, GFR 17. Phosphorus slightly high at 5.4. Remainder electrolytes WNL. Urine output is okay. WBC improving 11.7, Hgb 9.5. Continue with NS at 150 cc/H. Exam Vital Signs Temp Pulse Resp BP Pulse Ox O2 Del Method 96.9 F 64 20 97/62 95 Room Air 11/10/24 12:00 11/10/24 12:00 11/10/24 12:00 11/10/24 12:00 11/10/24 12:00 11/10/24 12:00 Narrative Exam GENERAL * Normal appearing adult male, NAD. HEENT * NCAT.?MARIANA. Oral mucosa is moist. Patent Nares NECK * Supple, nontender, no thyromegaly, no meningismus, no JVD, no step offs CHEST * RRR, no m/g/r * CTAB, no w/r/r. Symmetrical chest rise. No intercostal subcostal retraction * Atraumatic, nontender, no crepitus, symmetrical expansion. ABDOMEN * Soft, flat, nontender. No guarding/rebound tenderness/masses. * Bowel sounds presents EXTREMITIES * Cellulitis of bilateral extremity extending below the knee with warmth, erythema and tenderness. * Chronic desquamation and venous status of bilateral lower extremity, no jung edema. SKIN * Warm and dry, no jaundice/rashes. NEUROMUSCULAR * No lumbar or midline, no CVA, no paraspinal muscle spasm or tenderness. * Moves all 4 extremities well, with full ROM and good CSM. * CAL[place]ON x4, CN II-XII grossly intact. * No focal neurologic deficits. PSYCHIATRY * Normal mood and affect, cooperative, no SI or HI or hallucinations. Objective Labs 11/11/24 05:30 11/11/24 05:30 Labs: Laboratory Results - last 24 hr 11/09/24 11/10/24 11/10/24 17:00 05:15 13:25 WBC 11.7 H D RBC 3.63 L Hgb 9.5 L Hct 30.8 L MCV 85 MCH 26.2 MCHC 30.8 L RDW Std Deviation 45.9 H Plt Count 265 D Neut % (Auto) 85 H Lymph % (Auto) 7 L [place] % (Auto) 5 Eos % (Auto) 2 Baso % (Auto) 0 Neut # (Auto) 10.0 H Lymph # (Auto) 0.8 L [place] # (Auto) 0.6 Eos # (Auto) 0.2 Baso # (Auto) 0.1 Immature Gran # (Auto) 0.13 H Absolute Nucleated RBC 0.00 Immature Gran % 1 H Nucleated RBC % 0 Sodium 137 138 Potassium 5.1 4.9 Chloride 110 H 109 H Carbon Dioxide 20.2 22.2 Anion Gap 7 7 BUN 58 H 57 H Creatinine 4.0 H 3.7 H Estim Creat Clear Calc 22.3 L 24.1 L eGFR 16 L 17 L BUN/Creatinine Ratio 15 15 Glucose 113 H 114 H Calculated Osmolality 291 292 Uric Acid 9.6 H Calcium 8.5 8.4 Corrected Calcium 9.2 9.0 Phosphorus 5.7 H 5.4 H Magnesium 2.2 Total Bilirubin 0.2 L AST 43 H ALT 41 Alkaline Phosphatase 98 Total Protein 7.5 Albumin 3.1 L 3.2 L Globulin 4.4 H Albumin/Globulin Ratio 0.7 L Ur Random Microalbumin 183 U Random Total Protein 101 H Ur Random Sodium 29.0 Ur Random Potassium 48 Ur Random Chloride < 20.0 L U Creat (Microalbumin) 175 H Microalb/Creat Ratio 105 H Quality Measures Quality Measures VTE prophylaxis Advance care planning discussed with:: patient Assessment & Plan Assessment Current Active Medications: Generic Name Dose Route Start Last Admin Trade Name Freq PRN Reason Stop Dose Admin Acetaminophen 650 mg 11/09/24 04:53 Acetaminophen 325 Mg Tablet PO 12/09/24 04:52 Q6H PRN Fever >101.5 Acetaminophen 650 mg 11/09/24 04:53 Acetaminophen 325 Mg Tablet PO 12/09/24 04:52 Q6H PRN PAIN SCALE 1-3 (mild Hydrocodone Bitart/Acetaminophen 1 tab 11/09/24 04:53 Hydrocodone/Apap 5/325 Tablet PO 11/14/24 04:52 Q6HR PRN PAIN SCALE 4-6 (Moderate Albuterol/Ipratropium 3 ml 11/09/24 04:53 Albuterol/Ipratropium (Duoneb) Rt Monica 3 Ml Nebu INH 12/09/24 06:59 Q6HRRT PRN SOB or Wheeze Amiodarone HCl 200 mg 11/09/24 09:00 11/10/24 09:15 Amiodarone Hcl 200 Mg Tablet PO 12/09/24 08:59 200 mg QDAY BELEN Administration Dextrose 25 ml 11/09/24 19:59 Dextrose 50%-Water Inj 50 Ml Syringe IV 12/09/24 19:58 Q15MIN PRN BG 50-70 responsive npo pt Dextrose 50 ml 11/09/24 19:59 Dextrose 50%-Water Inj 50 Ml Syringe IV 12/09/24 19:58 Q15MIN PRN BG <50 OR BG <70 & pt unresponsive Glucagon 1 mg 11/09/24 19:59 Glucagon Inj 1 Mg Vial IM Q15MIN PRN BG <70, and no IV access Heparin Sodium (Porcine) 5,000 unit 11/10/24 14:30 11/10/24 14:59 Heparin Sod Inj 5000 Unit/Ml Vial SC 11/24/24 14:29 5,000 unit Q12H BELEN Administration Hydromorphone HCl 0.25 mg 11/09/24 04:53 Hydromorphone Inj 2 Mg/Ml Vial IVP 11/14/24 04:52 Q4H PRN PAIN SCALE 7-10 (Severe Ceftriaxone Sodium/Dextrose 1 gm in 50 mls @ 100 mls/hr 11/10/24 09:00 11/10/24 09:26 Rocephin/D5w 1gm Iv Premix IV 11/17/24 08:59 100 mls/hr Q24H BELEN Administration Clindamycin Phosphate 900 mg/ 50 mls @ 50 mls/hr 11/09/24 14:00 11/10/24 14:59 IV Miscellaneous Supplies IV 11/16/24 13:59 50 mls/hr Q8HR BELEN Administration Sodium Chloride 1,000 mls @ 150 mls/hr 11/10/24 10:24 11/10/24 10:55 Ns IV 11/10/24 23:43 150 mls/hr .Q6H40M BELEN Administration Insulin Human Lispro 0 unit 11/09/24 21:00 11/10/24 11:14 Insulin Lispro (Admelog) 1 Unit/0.01 Ml Unit SC 12/09/24 20:59 Not Given ACHS BELEN Protocol Lactulose 20 gm 11/09/24 05:50 11/09/24 22:15 Lactulose Syrup 20 Gm/30 Ml Udc PO 12/09/24 05:49 20 gm HS BELEN Administration Protocol Tamsulosin HCl 0.4 mg 11/09/24 09:00 11/10/24 09:25 Tamsulosin Hcl 0.4 Mg Capsule PO 12/09/24 08:59 0.4 mg QDAY BELEN Administration Plan 64-year-old male PMHx of COPD on home oxygen, CHF unspecified, NAHEED, CKD stage IV, s/p left nephrectomy 2/2 nephrolithiasis 2013, T2DM, PAD, A-fib on XARELTO, GERD, eczema, peripheral neuropathy, chronic back pain, admitted for bilateral lower extremity cellulitis. Nephrology was consulted for the management of [place] on CKD. [place] on CKD stage IV S/p left unilateral nephrectomy 2013 left unilateral nephrectomy at [facility] 2/2 kidney stones. Follows with PCP for CKD management, recently referred to nephrology, pending Auth. Diabetes relatively controlled, A1c 6.3 from 04/05/24, although METFORMIN might be culprit. Chronic HTN, relatively poorly controlled, might also be contributing. Right renal ultrasound with cortical thinning, minimal hydronephrosis. PTH 121.8, likely secondary hyperparathyroidism, pending VITAMIN D. Urine random protein 101H, sodium 29, potassium 48, chloride less than 20, mACR 105. No significant proteinuria overall. Renal function improved, CR 37, BUN 57, GFR 17. Good urine output ? Renally dose meds, avoid overdiuresis and NEPHROTOXINS ? Daily CMP ? Strict SNÁCHEZ's ? Agree with IVF, although prefer 150 cc/H ? Recommended echocardiogram ? Pending bilateral renal ultrasound ? Pending urine studies Bilateral leg cellulitis Right leg abscess Rule out DVT A-fib Diabetes mellitus type 2 Peripheral neuropathy Peripheral arterial disease COPD Anemia GERD ? Managed by primary team Thank you for the opportunity to participate in the patient's care. Case was discussed with attending, Dr. Garzon. Jared Orozco DO PGYI Attending Provider Attestation/Addendum Patient seen and examined with resident physician Dr. Coleman. Note reviewed, agree with findings and recommendations. Patient currently seen in medical floor. I saw him in 2022. Advanced CKD and never came to my clinic. Presented with significant weakness in the lower extremities, ichthyosis and [place]. Patient seems to have significant amount of insensible losses from his dry skin. Agree with IV fluids. Renal ultrasound showed no significant hydronephrosis. Unilateral functioning kidney. Continue with monitoring of renal function. Creatinine tad better. No need for dialysis. Thank you Omar for allowing me to participate in the care of Mr. Yuan
[2024-11-10] MEDS: LACTULOSE SYRUP 20 GM/30 ML UDC PO (22:11)
[2024-11-11] VITALS (12 sets, daily range): BP systolic 119–147; BP diastolic 73–88; PULSE 58–67; RESP 15–96; TEMP 36.3–36.7; O2SAT 92–98
--- NOTE | 2024-11-11 01:30 | PC.NURSE ---
pt upset and complain of severe itching to rle- Cleansed BLE with slightly warm water with soap. Bilateral dorsal feet covered with wet washcloth for a few minutes, rinsed, pat dry, peeled easy to remove crust on BLE, applied skin repair cream.
[2024-11-11] MEDS: HEPARIN SOD INJ 5000 UNIT/ML VIAL SC ×2 (01:45→13:32)
[2024-11-11] MEDS: CLINDAMYCIN 900MG IVPB 900 MG in PRE-MIXED 1 BAG 50 MG IV ×3 (05:42→21:04)
[2024-11-11 06:10] LABS: Basophils # (Auto) 0.1 Thou/mm3 (0.0-0.2); Basophils % (Auto) 1 % (0-2.5); Eosinophils # (Auto) 0.3 Thou/mm3 (0.0-0.5); Eosinophils % (Auto) 4 % (0-10); Hematocrit 31.2 % (41.0-53.0); Hemoglobin 9.5 g/dL (13.5-16.0); Immature Granulocytes % (Auto) 2 % (0-0); Immature Granulocytes Auto 0.12 Thou/mm3 (0.00-0.00); Lymphocytes # (Auto) 0.8 Thou/mm3 (1.0-4.8); Lymphocytes % (Auto) 11 % (10-50); Mean Corpuscular HGB Conc 30.4 g/dl (31.0-37.0); Mean Corpuscular Hemoglobin 26.2 pg (25.0-35.0); Mean Corpuscular Volume 86 fL (80-100); Monocytes # (Auto) 0.4 Thou/mm3 (0.0-0.8); Monocytes % (Auto) 5 % (0-12); Neutrophils # (Auto) 5.9 Thou/mm3 (1.8-7.7); Neutrophils % (Auto) 78 % (37-80); Nucleated Red Blood Cell % 0 /100 WBC (0); Platelet Count 282 Thou/mm3 (140-440); RDW Standard Deviation 47.4 fL (35.1-43.9); Red Blood Count 3.63 Miln/mm3 (4.50-5.90); White Blood Count 7.6 Thou/mm3 (3.8-10.6)
[2024-11-11 06:37] LABS: Alanine Aminotransferase 43 U/L (10-49); Albumin/Globulin Ratio 0.7 (1.2-2.2); Alkaline Phosphatase 98 U/L (46-116); Anion Gap 7 (7-16); Aspartate Amino Transferase 53 U/L (0-34); BUN/Creatinine Ratio 15 Ratio (12-20); Bilirubin,Total 0.2 mg/dL (0.3-1.2); Blood Urea Nitrogen 50 mg/dL (9-23); Calcium 8.2 mg/dL (8.3-10.6); Carbon Dioxide 21.1 mMol/L (20.0-31.0); Chloride 111 mMol/L (98-107); Creatinine (Component) 3.3 mg/dL (0.6-1.3); Estimated Creatinine Clearance 27.1 mL/min (>60); Globulin 4.5 gm/dL (2.3-3.5); Glucose 101 mg/dL (74-106); Magnesium 2.2 mg/dL (1.6-2.6); Osmolality,Calculated 290 (275-295); Potassium 5.3 mMol/L (3.4-5.1); Sodium 139 mMol/L (136-145); Total Protein 7.5 gm/dL (5.7-8.2); eGFR 20 See Note
[2024-11-11] MEDS: SOD POLYSTYRENE SULFON SUSP 15 GM/60 ML BTL 30 GM PO (09:02)
[2024-11-11] MEDS: cefTRIAXone/D5w 1gm IV premix 1 GM/50 ML BAG IV (09:02)
[2024-11-11] MEDS: AMIODARONE HCL 200 MG TABLET PO (09:02)
[2024-11-11] MEDS: TAMSULOSIN HCL 0.4 MG CAPSULE PO (09:02)
--- NOTE | 2024-11-11 10:00 | PD.NEPHPROG ---
Documentation for date of: 11/11/24 Subjective Subjective Interval history: Mr. Yuan is a 64-year-old male PMHx of COPD on home oxygen, CHF unspecified, NAHEED, CKD stage IV, s/p left nephrectomy 09/02 nephrolithiasis 2013, T2DM, PAD, A-fib on XARELTO, GERD, eczema, peripheral neuropathy, chronic back pain, presenting with bilateral lower extremity pain. He lives alone in a trailer, has chronic lower extremity edema for which he takes daily LASIX, previously diagnosed with CHF, does not know ejection fraction. He has been seeing wound care for bilateral lower extremity pain and swelling and ulcers, which have not responded to treatment. Denies fever, headaches, chills, chest pain, cough, recent upper respiratory illness, dysuria, hematuria, urinary frequency or urgency, abdominal pain, N/V/D/C. Denies alcohol, tobacco or drug use. Left unilateral nephrectomy was done in 2013 at [facility] as a result of kidney stones. He is aware of having chronic kidney disease, managed by his PCP who recently referred him to see a care process manager [facility], currently pending authorization. States his blood sugars and blood pressure have generally been controlled. States he takes his medications on a daily basis, as prescribed. Reports no new or changes in current medications. On arrival, vitals WNL, satting 95% on room air. WBC 18.6, Hgb 10.9, PLT 280. Sodium 134, CR 3.8, BUN 47, EGFR 17. Renal function worsened since admission, currently BUN 54, CR 1.4, EGFR 14. Most recent comparison from 04/2024 showing CR 3.2, EGFR 21. UA with turbid with protein 1+, blood 1+, no signs of UTI. Venous Doppler negative for bilateral extremity DVT. Right knee x-ray moderate tricompartment osteoarthritis. Lower extremity CT pending final read. Renal ultrasound pending final read. He was admitted for bilateral cellulitis. Nephrology team was consulted for management of [place] on CKD. 11/10/2024 examined at bedside. No new symptoms or worsening of symptoms. Denies fever, chills, headaches, chest pain, sob, cough, GI or urinary symptoms. Renal function improving, CR 3.7, BUN 57, GFR 17. Phosphorus slightly high at 5.4. Remainder electrolytes WNL. Urine output is okay. WBC improving 11.7, Hgb 9.5. Continue with NS at 150 cc/H. 11/11/2024 patient currently seen in medical floor. Very talkative. Denies any chest pain, shortness of breath. Still having lower extremity weakness. Currently on fluids. Blood pressure 132/81, heart rate 58, blood sugar 115. Hemoglobin 9.5, sodium 138, potassium 5.3, bicarbonate 21.1, BUN 50, creatinine 3.3, GFR 20, calcium 9, phosphorus 5, magnesium 2.2,Renal ultrasound showed cortical thinning consistent with CKD. PTH lipids are normal. PTH level 121. AST 53, ALT 43, albumin 3.0. Review of Systems Review of Systems Narrative Review of Systems: CONSTITUTIONAL: Patient denies any fever, chills. HEENT: Denies any visual disturbances or hearing problems. CARDIOVASCULAR: Patient denies any chest pain, shortness of breath, swelling in the lower extremities. PULMONARY: Patient denies any shortness of breath, cough. GASTROINTESTINAL: Patient denies any abdominal pain, constipation, nausea, vomiting, diarrhea. GENITOURINARY: Patient denies any urinary symptoms of burning or frequency or hematuria, denies any form in the urine. SKIN: Significant dryness of the lower extremities MUSCULOSKELETAL: Patient complaining of weakness in the lower extremities NEUROLOGICAL: Denies any neurological problems of strokes, seizures or confusion. Denies any memory problems. PSYCHIATRIC: Denies any depression or anxiety. LYMPHATICS : No lymphadenopathy Exam Vital Signs Temp Pulse Resp BP Pulse Ox O2 Del Method O2 Flow Rate 36.4 C 60 21 H 120/74 93 L Nasal Cannula 2 11/11/24 08:00 11/11/24 09:02 11/11/24 08:00 11/11/24 09:02 11/11/24 08:00 11/11/24 08:00 11/11/24 08:00 Narrative Exam GENERAL APPEARANCE: Patient seems to be comfortable, adequately hydrated and nourished. HEENT: EOMI, PERRLA NECK: Neck supple, no JVD or bruit CARDIOVASCULAR: Heart regular, no murmurs LUNGS/CHEST: Chest clear to auscultation. No rales, rhonchi, wheezing ABDOMEN: Soft, nontender, nondistended. No masses. Normal bowel sounds. EXTREMITIES: No edema, clubbing or cyanosis. SKIN: Severe ichthyosis noted in the lower extremities with skin peeling MUSCULOSKELETAL: In bed PSYCHIATRIC: Normal mood, affect LYMPHATICS: No lymphadenopathy noted NEUROLOGICAL : No neurological deficits Objective Labs 11/11/24 05:30 11/11/24 05:30 Labs: Laboratory Results - last 24 hr 11/10/24 11/11/24 13:25 05:30 WBC 7.6 RBC 3.63 L Hgb 9.5 L Hct 31.2 L MCV 86 MCH 26.2 MCHC 30.4 L RDW Std Deviation 47.4 H Plt Count 282 Neut % (Auto) 78 Lymph % (Auto) 11 [place] % (Auto) 5 Eos % (Auto) 4 Baso % (Auto) 1 Neut # (Auto) 5.9 Lymph # (Auto) 0.8 L [place] # (Auto) 0.4 Eos # (Auto) 0.3 Baso # (Auto) 0.1 Immature Gran # (Auto) 0.12 H Absolute Nucleated RBC 0.00 Immature Gran % 2 H Nucleated RBC % 0 Sodium 138 139 Potassium 4.9 5.3 H Chloride 109 H 111 H Carbon Dioxide 22.2 21.1 Anion Gap 7 7 BUN 57 H 50 H Creatinine 3.7 H 3.3 H Estim Creat Clear Calc 24.1 L 27.1 L eGFR 17 L 20 L BUN/Creatinine Ratio 15 15 Glucose 114 H 101 Calculated Osmolality 292 290 Calcium 8.4 8.2 L Corrected Calcium 9.0 9.0 Phosphorus 5.4 H 5.0 Magnesium 2.2 Total Bilirubin 0.2 L AST 53 H ALT 43 Alkaline Phosphatase 98 Total Protein 7.5 Albumin 3.2 L 3.0 L Globulin 4.5 H Albumin/Globulin Ratio 0.7 L Assessment & Plan Additional Assessment & Plan Additional Plan: 64-year-old male PMHx of COPD on home oxygen, CHF unspecified, NAHEED, CKD stage IV, s/p left nephrectomy 2/2 nephrolithiasis 2013, T2DM, PAD, A-fib on XARELTO, GERD, eczema, peripheral neuropathy, chronic back pain, admitted for bilateral lower extremity cellulitis. Nephrology was consulted for the management of [place] on CKD. [place] on CKD stage IV S/p left unilateral nephrectomy 2013 left unilateral nephrectomy at [facility] 2/2 kidney stones. Diabetes relatively controlled, A1c 6.3 from 04/05/24=hold off on metformin Chronic HTN, relatively poorly controlled, might also be contributing. Right renal ultrasound with cortical thinning, minimal hydronephrosis. PTH 121.8, likely secondary hyperparathyroidism, pending VITAMIN D. Urine random protein 101H, sodium 29, potassium 48, chloride less than 20, mACR 105. No significant proteinuria overall. Renal function improved, CR 3.3, BUN 57, GFR 20 Good urine output ? Renally dose meds, avoid overdiuresis and NEPHROTOXINS ? Daily CMP ? Strict SÁNCHEZ's Increase p.o. fluid intake. Spoke to primary team. Bilateral leg cellulitis Right leg abscess Rule out DVT A-fib Diabetes mellitus type 2 Peripheral neuropathy Peripheral arterial disease COPD Anemia GERD ? Managed by primary team Patient needs renal follow-up in 2 weeks.
--- NOTE | 2024-11-11 16:03 | ESPR_ITS ---
Documentation for date of: 11/11/24 Subjective Subjective Interval history: Patient is seen and examined at bedside. No acute overnight events. Still complaining of mild pain at the site of wound Vitals are stable. Labs showed Hb 9.5, creatinine 3.3. Renal functions came back to his normal baseline Patient found to have potassium of 5.3, Kayexalate single dose is given Repeat renal panel was sent around [address] Garzon recommended that he can follow-up with her on outpatient basis within 2 weeks of discharge and stable to discharge from her standpoint Pending physical therapy recommendations tomorrow, planning to discharge based on their recommendations Exam Vital Signs Temp Pulse Resp BP Pulse Ox O2 Del Method O2 Flow Rate 97.3 F 64 18 133/81 H 96 Room Air 2 11/11/24 12:00 11/11/24 15:56 11/11/24 15:56 11/11/24 12:00 11/11/24 15:56 11/11/24 12:00 11/11/24 15:56 Narrative Exam General: Awake. HEENT: Normocephalic, atraumatic, mucous membranes moist. Heart: Irregular rate and rhythm, no murmurs. Lungs: Clear to auscultation with no wheezing or crackles. Abdomen: Soft, nondistended, nontender, positive bowel sounds. ?No guarding or rebound tenderness. Neurologic: Alert and oriented x3, no gross neurological deficit, and patient able to move all 4 extremities. Extremities: Bilateral lower extremity scaly lesions noted. Bilateral superimposed cellulitis is noted with discharge coming from right lower extremity 4 to 5 cm below the knee Skin: No rash or ecchymoses. Objective Labs 11/11/24 05:30 11/11/24 15:04 Labs: Laboratory Results - last 24 hr 11/11/24 05:30 WBC 7.6 RBC 3.63 L Hgb 9.5 L Hct 31.2 L MCV 86 MCH 26.2 MCHC 30.4 L RDW Std Deviation 47.4 H Plt Count 282 Neut % (Auto) 78 Lymph % (Auto) 11 Guthrie % (Auto) 5 Eos % (Auto) 4 Baso % (Auto) 1 Neut # (Auto) 5.9 Lymph # (Auto) 0.8 L Guthrie # (Auto) 0.4 Eos # (Auto) 0.3 Baso # (Auto) 0.1 Immature Gran # (Auto) 0.12 H Absolute Nucleated RBC 0.00 Immature Gran % 2 H Nucleated RBC % 0 Sodium 139 Potassium 5.3 H Chloride 111 H Carbon Dioxide 21.1 Anion Gap 7 BUN 50 H Creatinine 3.3 H Estim Creat Clear Calc 27.1 L eGFR 20 L BUN/Creatinine Ratio 15 Glucose 101 Calculated Osmolality 290 Calcium 8.2 L Corrected Calcium 9.0 Phosphorus 5.0 Magnesium 2.2 Total Bilirubin 0.2 L AST 53 H ALT 43 Alkaline Phosphatase 98 Total Protein 7.5 Albumin 3.0 L Globulin 4.5 H Albumin/Globulin Ratio 0.7 L Quality Measures Quality Measures VTE prophylaxis Advance care planning discussed with:: patient Assessment & Plan Assessment Current Active Medications: Generic Name Dose Route Start Last Admin Trade Name Freq PRN Reason Stop Dose Admin Acetaminophen 650 mg 11/09/24 04:53 Acetaminophen 325 Mg Tablet PO 12/09/24 04:52 Q6H PRN Fever >101.5 Acetaminophen 650 mg 11/09/24 04:53 Acetaminophen 325 Mg Tablet PO 12/09/24 04:52 Q6H PRN PAIN SCALE 1-3 (mild Hydrocodone Bitart/Acetaminophen 1 tab 11/09/24 04:53 Hydrocodone/Apap 5/325 Tablet PO 11/14/24 04:52 Q6HR PRN PAIN SCALE 4-6 (Moderate Albuterol/Ipratropium 3 ml 11/09/24 04:53 Albuterol/Ipratropium (Duoneb) Rt Monica 3 Ml Nebu INH 12/09/24 06:59 Q6HRRT PRN SOB or Wheeze Amiodarone HCl 200 mg 11/09/24 09:00 11/11/24 09:02 Amiodarone Hcl 200 Mg Tablet PO 12/09/24 08:59 200 mg QDAY BELEN Administration Dextrose 25 ml 11/09/24 19:59 Dextrose 50%-Water Inj 50 Ml Syringe IV 12/09/24 19:58 Q15MIN PRN BG 50-70 responsive npo pt Dextrose 50 ml 11/09/24 19:59 Dextrose 50%-Water Inj 50 Ml Syringe IV 12/09/24 19:58 Q15MIN PRN BG <50 OR BG <70 & pt unresponsive Glucagon 1 mg 11/09/24 19:59 Glucagon Inj 1 Mg Vial IM Q15MIN PRN BG <70, and no IV access Heparin Sodium (Porcine) 5,000 unit 11/10/24 14:30 11/11/24 13:32 Heparin Sod Inj 5000 Unit/Ml Vial SC 11/24/24 14:29 5,000 unit Q12H BELNE Administration Hydromorphone HCl 0.25 mg 11/09/24 04:53 Hydromorphone Inj 2 Mg/Ml Vial IVP 11/14/24 04:52 Q4H PRN PAIN SCALE 7-10 (Severe Ceftriaxone Sodium/Dextrose 1 gm in 50 mls @ 100 mls/hr 11/10/24 09:00 11/11/24 09:02 Rocephin/D5w 1gm Iv Premix IV 11/17/24 08:59 100 mls/hr Q24H BELEN Administration Clindamycin Phosphate 900 mg/ 50 mls @ 50 mls/hr 11/09/24 14:00 11/11/24 13:31 IV Miscellaneous Supplies IV 11/16/24 13:59 50 mls/hr Q8HR BELEN Administration Insulin Human Lispro 0 unit 11/09/24 21:00 11/11/24 13:17 Insulin Lispro (Admelog) 1 Unit/0.01 Ml Unit SC 12/09/24 20:59 Not Given ACHS BELEN Protocol Lactulose 20 gm 11/09/24 05:50 11/10/24 22:11 Lactulose Syrup 20 Gm/30 Ml Udc PO 12/09/24 05:49 20 gm HS BELEN Administration Protocol Tamsulosin HCl 0.4 mg 11/09/24 09:00 11/11/24 09:02 Tamsulosin Hcl 0.4 Mg Capsule PO 12/09/24 08:59 0.4 mg QDAY BELEN Administration Plan A 64-year-old male with significant past medical history of COPD currently not on home oxygen, NAHEED, CKD stage IIIb, PAD, A-fib on Xarelto, GERD, eczema, diabetes mellitus type 2 with peripheral neuropathy, benign cystic liver disease, chronic back pain and left nephrectomy presented to ED on 11/08/2024 with chief complaint of bilateral leg pain and swelling for the past 1 to 2 months admitted to med telemetry unit for further management of bilateral cellulitis, likely associated with right leg abscess. #Bilateral lower extremity cellulitis. #Superimposed on underlying skin infection, unsure of the etiology. Patient presented with right leg bump over upper malone level, with bilateral desquamation and pain, associated with fever and chills for the past 2 days. US Doppler right leg negative for DVT. White count of 17.6. Blood culture - no growth after 24hrs. Lower extremity CT scan did not show any evidence of osteomyelitis. Fungal cultures are sent on the lesions on lower extremity . Plan - Started on clindamycin 900 mg IV 3 times daily. - Started on ceftriaxone 1 g daily. - Wound care referral done. - cultures sent. #[place] on CKD stage IV.resolved #S/p left nephrectomy. DDx: Likely prerenal in the setting of poor oral intake versus less likely intrarenal secondary to diabetic nephropathy, with continued use of metformin. Patient baseline creatinine 3.2, presented with creatinine of 3.8 --> 11/09, Cr 4.4. -->11/11, 3.3 Renal ultrasound showed right renal cortical scarring, minimal hydronephrosis without any prostamegaly, renal calculi plan - hold protonix. - Avoid nephrotoxic drugs and renally dose medications. - Dr. Garzon consulted for nephrology, appreciate recommendations. - Restarted xarelto #A-fib. Currently rate controlled. Plan: - Started on amiodarone 200 Mg daily. - Held diltiazem and losartan due to soft BP. #Diabetes mellitus type 2. Patient is currently taking metformin 500 Mg daily at home. A1c during this hospital admission is 6.3. Plan: - Stop metformin, as patient's GFR is less than 30. - Started on insulin sliding scale. #BPH. - started on home tamsulosin. #Nonobstructing right renal calculi - Outpatient follow-up #Peripheral neuropathy. #Peripheral arterial disease. #COPD. #Anemia. #GERD. - hold protonix. Health maintenance: Dispo: Med/tele. DVT prophylaxis: xarelto Diet: Renal. CODE STATUS: Full code. Patient plan of care was discussed with the attending physician, Dr. Carmelo Kee, PGY1 Attending Provider Attestation/Addendum I attest that I was physically present for the evaluation, physical examination, lab and imaging review of the patient with the residents. I discussed the case with the residents and agree with the findings and plans of care as documented above. At bedside, patient appears comfortable and denies any new complaints.? His pain has been well-controlled.? Vital signs are stable.? WBC has been improving, 7.6 today.? Noted to have potassium of 5.3, we will follow-up with renal panel.? Kidney function is improving, BUN/creatinine of 50/3.3 today.? Patient underwent renal ultrasound, which shows right renal calculi, nonobstructing.? Wound culture grew Streptococcus pyogenes from one of the bottles, pansensitive.? Blood cultures have been negative for 48 hours.? Awaiting physical therapy evaluation. Omar Rhodes MD
[2024-11-11] MEDS: EPOETIN ALFA INJ 1,000 UNIT/0.05 ML UNIT 10000 UNIT SC (16:20)
[2024-11-11] MEDS: ferumoxytoL (NON-ESRD) 510 MG in SODIUM CHLORIDE 0.9% 100 ML 234 MG IV (16:21)
[2024-11-11 16:43] LABS: Anion Gap 8 (7-16); BUN/Creatinine Ratio 15 Ratio (12-20); Blood Urea Nitrogen 46 mg/dL (9-23); Calcium 8.1 mg/dL (8.3-10.6); Calcium (Corrected) 8.9 mg/dL (8.5-10.1); Chloride 110 mMol/L (98-107); Estimated Creatinine Clearance 29.8 mL/min (>60); Glucose 99 mg/dL (74-106); Osmolality,Calculated 289 (275-295); Phosphorous 5.1 mg/dL (2.4-5.1); Potassium 5.1 mMol/L (3.4-5.1); Sodium 139 mMol/L (136-145); eGFR 22 See Note
[2024-11-11] MEDS: RIVAROXABAN 10 MG TABLET PO (21:04)
[2024-11-12] VITALS (11 sets, daily range): BP systolic 118–159; BP diastolic 61–95; PULSE 60–94; RESP 16–20; TEMP 35.9–36.9; O2SAT 91–97; BMI 38.2; BMI 11.0
[2024-11-12] MEDS: CLINDAMYCIN 900MG IVPB 900 MG in PRE-MIXED 1 BAG 100 MG IV ×3 (05:40→21:58)
[2024-11-12] MEDS: cefTRIAXone/D5w 1gm IV premix 1 GM/50 ML BAG IV (08:14)
[2024-11-12] MEDS: AMIODARONE HCL 200 MG TABLET PO (08:14)
[2024-11-12] MEDS: TAMSULOSIN HCL 0.4 MG CAPSULE PO (08:14)
--- NOTE | 2024-11-12 08:32 | ECHO_ITS ---
Transthoracic Echo Report Ht (in): 68 Wt (lb): 252 Exam Location: Portable Status: Inpatient [employer] Recruiter: VANNESSA Burnette^^^^ Indications: Procedure Performed: BP: / HR: MEASUREMENTS (Male / Female) Normal Values 2D ECHO LV Diastolic Diameter PLAX 5.5 cm 4.2 - 5.9 / 3.9 - 5.3 cm LV Systolic Diameter PLAX 3.4 cm IVS Diastolic Thickness 1.3 cm 0.6 - 1.0 / 0.6 - 0.9 cm LVPW Diastolic Thickness 1.1 cm 0.6 - 1.0 / 0.6 - 0.9 cm LV Relative Wall Thickness 0.4 LVOT Diameter 2.3 cm Aortic Root Diameter 3.9 cm LA Systolic Diameter LX 3.5 cm 3.0 - 4.0 / 2.7 - 3.8 cm LA Volume Index 27.1 cm?/m? 16 - 28 cm?/m? DOPPLER AV Peak Velocity 116.5 cm/s AV Peak Gradient 5.4 mmHg AV Mean Gradient 4.0 mmHg AV Velocity Time Integral 24.4 cm LVOT Peak Velocity 85.0 cm/s LVOT Peak Gradient 2.9 mmHg LVOT Velocity Time Integral 22.3 cm AV Area Cont Eq vti 3.8 cm? AV Area Cont Eq pk 3.0 cm? MV Peak Velocity 83.2 cm/s MV Peak Gradient 2.8 mmHg MV Mean Velocity 52.0 cm/s MV Mean Gradient 1.0 mmHg MV Area PHT 3.5 cm? Mitral E Point Velocity 67.7 cm/s Mitral A Point Velocity 56.3 cm/s Mitral E to A Ratio 1.2 LV E' Lateral Velocity 11.5 cm/s Mitral E to LV E' Lateral Ratio 5.9 LV E' Septal Velocity 7.2 cm/s Mitral E to LV E' Septal Ratio 9.4 TR Peak Velocity 261.0 cm/s TR Peak Gradient 27.2 mmHg PV Peak Velocity 93.2 cm/s PV Peak Gradient 3.5 mmHg RVOT Peak Velocity 42.1 cm/s FINDINGS Left Ventricle Normal left ventricular size, wall thickness, systolic function with no obvious regional wall motion abnormalities. There is grade II diastolic dysfunction of the left ventricle (pseudonormal filling pattern). The left ventricular ejection fraction is normal, estimated at 55-60%. Right Ventricle The right ventricle is normal in size and systolic function. The estimated right ventricular systolic pressure, 30 mmHg. Left Atrium The left atrium is normal by two-dimensional, color flow and Doppler imaging with no structural abnormalities, no thrombus formation present. Right Atrium The right atrium is normal by two-dimensional imaging, color flow and Doppler imaging with no structural abnormalities, no thrombus formation present. Atrial Septum The interatrial septum appears normal with no evidence of a shunt. Aorta The aorta is normal by two-dimensional, color flow and Doppler interrogation. Mitral Valve Mild mitral annular calcification. Trace to mild mitral regurgitation. Aortic Valve The aortic valve is trileaflet and normal to two-dimensional, color flow and Doppler interrogation. Tricuspid Valve There is mild tricuspid valve regurgitation. Pulmonic Valve Trivial pulmonic valve regurgitation. Vessels The pulmonary artery appears normal. The inferior vena cava pulmonary and hepatic veins appear normal. Pericardium The pericardium is normal by two-dimensional imaging. There is no significant pericardial effusion. CONCLUSIONS indication: Meth use Normal size cardiac chambers. Normal size left ventricle with mild concentric LVH with normal preserved ejection fraction of 60%. Mild left ventricular diastolic dysfunction, grade 2. Mitral valve thickening mild annulus calcification trace mitral regurgitation. Aortic valve sclerosis with no stenosis. Patient the RV lead in the right ventricle pacing lead. Based on preserved ejection fraction appears to be low cardiac risk for orthopedic surgery Karrie Adames (Electronically Signed) Final Date: 12 November 2024 17:30
--- NOTE | 2024-11-12 09:23 | ESPR_ITS ---
Documentation for date of: 11/12/24 Subjective Subjective Interval history: Mr. Yuan is a 64-year-old male PMHx of COPD on home oxygen, CHF unspecified, NAHEED, CKD stage IV, s/p left nephrectomy 09/02 nephrolithiasis 2013, T2DM, PAD, A-fib on XARELTO, GERD, eczema, peripheral neuropathy, chronic back pain, presenting with bilateral lower extremity pain. He lives alone in a trailer, has chronic lower extremity edema for which he takes daily LASIX, previously diagnosed with CHF, does not know ejection fraction. He has been seeing wound care for bilateral lower extremity pain and swelling and ulcers, which have not responded to treatment. Denies fever, headaches, chills, chest pain, cough, recent upper respiratory illness, dysuria, hematuria, urinary frequency or urgency, abdominal pain, N/V/D/C. Denies alcohol, tobacco or drug use. Left unilateral nephrectomy was done in 2013 at [facility] as a result of kidney stones. He is aware of having chronic kidney disease, managed by his PCP who recently referred him to see a pyrometallurgical engineer in [facility], currently pending authorization. States his blood sugars and blood pressure have generally been controlled. States he takes his medications on a daily basis, as prescribed. Reports no new or changes in current medications. On arrival, vitals WNL, satting 95% on room air. WBC 18.6, Hgb 10.9, PLT 280. Sodium 134, CR 3.8, BUN 47, EGFR 17. Renal function worsened since admission, currently BUN 54, CR 1.4, EGFR 14. Most recent comparison from 04/2024 showing CR 3.2, EGFR 21. UA with turbid with protein 1+, blood 1+, no signs of UTI. Venous Doppler negative for bilateral extremity DVT. Right knee x-ray moderate tricompartment osteoarthritis. Lower extremity CT pending final read. Renal ultrasound pending final read. He was admitted for bilateral cellulitis. Nephrology team was consulted for management of [place] on CKD. 11/10/2024 examined at bedside. No new symptoms or worsening of symptoms. Denies fever, chills, headaches, chest pain, sob, cough, GI or urinary symptoms. Renal function improving, CR 3.7, BUN 57, GFR 17. Phosphorus slightly high at 5.4. Remainder electrolytes WNL. Urine output is okay. WBC improving 11.7, Hgb 9.5. Continue with NS at 150 cc/H. 11/11/2024 patient currently seen in medical floor. Very talkative. Denies any chest pain, shortness of breath. Still having lower extremity weakness. Currently on fluids. Blood pressure 132/81, heart rate 58, blood sugar 115. Hemoglobin 9.5, sodium 138, potassium 5.3, bicarbonate 21.1, BUN 50, creatinine 3.3, GFR 20, calcium 9, phosphorus 5, magnesium 2.2,Renal ultrasound showed cortical thinning consistent with CKD. PTH lipids are normal. PTH level 121. AST 53, ALT 43, albumin 3.0. 11/12/2024 examined at bedside, feels well today, no new or worsening of symptoms. Denies fever, chills, headaches, chest pain, sob, cough, GI or urinary symptoms. Renal function improving, CR 3.0, BUN 46, GFR 22. No electrolyte abnormalities noted. Hgb 9.5 stable, PLT 282. Exam Vital Signs Temp Pulse Resp BP Pulse Ox O2 Del Method O2 Flow Rate 96.8 F 60 18 140/88 H 93 L Nasal Cannula 2 11/12/24 07:42 11/12/24 08:14 11/12/24 07:42 11/12/24 08:14 11/12/24 07:42 11/12/24 07:42 11/12/24 07:42 Narrative Exam CONSTITUTIONAL: Patient denies any fever, chills. HEENT: Denies any visual disturbances or hearing problems. CARDIOVASCULAR: Patient denies any chest pain, shortness of breath, swelling in the lower extremities. PULMONARY: Patient denies any shortness of breath, cough. GASTROINTESTINAL: Patient denies any abdominal pain, constipation, nausea, vomiting, diarrhea. GENITOURINARY: Patient denies any urinary symptoms of burning or frequency or hematuria, denies any form in the urine. SKIN: Significant dryness of the lower extremities MUSCULOSKELETAL: Patient complaining of weakness in the lower extremities NEUROLOGICAL: Denies any neurological problems of strokes, seizures or confusion. Denies any memory problems. PSYCHIATRIC: Denies any depression or anxiety. LYMPHATICS : No lymphadenopathy Objective Labs 11/12/24 09:24 11/12/24 09:24 Labs: Laboratory Results - last 24 hr 11/11/24 11/12/24 15:04 04:33 Sodium 139 Potassium 5.1 Chloride 110 H Carbon Dioxide 21.0 Anion Gap 8 BUN 46 H Creatinine 3.0 H Estim Creat Clear Calc 29.8 L eGFR 22 L BUN/Creatinine Ratio 15 Glucose 99 Calculated Osmolality 289 Calcium 8.1 L Corrected Calcium 8.9 Phosphorus 5.1 5.0 Albumin 3.0 L Quality Measures Quality Measures VTE prophylaxis Advance care planning discussed with:: patient Assessment & Plan Assessment Current Active Medications: Generic Name Dose Route Start Last Admin Trade Name Freq PRN Reason Stop Dose Admin Acetaminophen 650 mg 11/09/24 04:53 Acetaminophen 325 Mg Tablet PO 12/09/24 04:52 Q6H PRN Fever >101.5 Acetaminophen 650 mg 11/09/24 04:53 Acetaminophen 325 Mg Tablet PO 12/09/24 04:52 Q6H PRN PAIN SCALE 1-3 (mild Hydrocodone Bitart/Acetaminophen 1 tab 11/09/24 04:53 Hydrocodone/Apap 5/325 Tablet PO 11/14/24 04:52 Q6HR PRN PAIN SCALE 4-6 (Moderate Albuterol/Ipratropium 3 ml 11/09/24 04:53 Albuterol/Ipratropium (Duoneb) Rt Monica 3 Ml Nebu INH 12/09/24 06:59 Q6HRRT PRN SOB or Wheeze Amiodarone HCl 200 mg 11/09/24 09:00 11/12/24 08:14 Amiodarone Hcl 200 Mg Tablet PO 12/09/24 08:59 200 mg QDAY BELEN Administration Dextrose 25 ml 11/09/24 19:59 Dextrose 50%-Water Inj 50 Ml Syringe IV 12/09/24 19:58 Q15MIN PRN BG 50-70 responsive npo pt Dextrose 50 ml 11/09/24 19:59 Dextrose 50%-Water Inj 50 Ml Syringe IV 12/09/24 19:58 Q15MIN PRN BG <50 OR BG <70 & pt unresponsive Glucagon 1 mg 11/09/24 19:59 Glucagon Inj 1 Mg Vial IM Q15MIN PRN BG <70, and no IV access Hydromorphone HCl 0.25 mg 11/09/24 04:53 Hydromorphone Inj 2 Mg/Ml Vial IVP 11/14/24 04:52 Q4H PRN PAIN SCALE 7-10 (Severe Ceftriaxone Sodium/Dextrose 1 gm in 50 mls @ 100 mls/hr 11/10/24 09:00 11/12/24 08:14 Rocephin/D5w 1gm Iv Premix IV 11/17/24 08:59 100 mls/hr Q24H BELEN Administration Clindamycin Phosphate 900 mg/ 50 mls @ 50 mls/hr 11/09/24 14:00 11/12/24 05:40 IV Miscellaneous Supplies IV 11/16/24 13:59 100 mls/hr Q8HR BELEN Administration Insulin Human Lispro 0 unit 11/09/24 21:00 11/12/24 07:39 Insulin Lispro (Admelog) 1 Unit/0.01 Ml Unit SC 12/09/24 20:59 Not Given ACHS BELEN Protocol Lactulose 20 gm 11/09/24 05:50 11/11/24 21:02 Lactulose Syrup 20 Gm/30 Ml Udc PO 12/09/24 05:49 Not Given HS BLEEN Protocol Ondansetron HCl 4 mg 11/12/24 09:06 Ondansetron Odt 4 Mg Tabrap PO 12/12/24 09:05 Q6HR PRN NAUSEA OR VOMITING Protocol Rivaroxaban 10 mg 11/11/24 21:00 11/11/24 21:04 Rivaroxaban 10 Mg Tablet PO 12/11/24 20:59 10 mg QPM BELEN Administration Tamsulosin HCl 0.4 mg 11/09/24 09:00 11/12/24 08:14 Tamsulosin Hcl 0.4 Mg Capsule PO 12/09/24 08:59 0.4 mg QDAY BELEN Administration Plan 64-year-old male PMHx of COPD on home oxygen, CHF unspecified, NAHEED, CKD stage IV, s/p left nephrectomy 2/2 nephrolithiasis 2013, T2DM, PAD, A-fib on XARELTO, GERD, eczema, peripheral neuropathy, chronic back pain, admitted for bilateral lower extremity cellulitis. Nephrology was consulted for the management of [place] on CKD. Renal function overall improving. No hemodialysis today 11/12. Will need outpatient follow-up 2 weeks after discharge for management of CKD. [place] on CKD stage IV S/p left unilateral nephrectomy 2013 left unilateral nephrectomy at [facility] 2/2 kidney stones. Diabetes relatively controlled, A1c 6.3 from 04/05/24=hold off on metformin Chronic HTN, relatively poorly controlled, might also be contributing. Right renal ultrasound with cortical thinning, minimal hydronephrosis. PTH 121.8, likely secondary hyperparathyroidism, pending VITAMIN D. Urine random protein 101H, sodium 29, potassium 48, chloride less than 20, mACR 105. No significant proteinuria overall. Renal function improved, CR 3.0, BUN 46, GFR 22 QDAY ? Renally dose meds, avoid overdiuresis and NEPHROTOXINS ? Daily CMP ? Strict SÁNCHEZ's ? Increase p.o. fluid intake. Spoke to primary team. ? No hemodialysis today Bilateral leg cellulitis Right leg abscess Rule out DVT A-fib Diabetes mellitus type 2 Peripheral neuropathy Peripheral arterial disease COPD Anemia GERD ? Managed by primary team Patient needs renal follow-up in 2 weeks. Thank you for the opportunity to participate in the patient's care. Case was discussed with attending, Dr. Garzon. Jared Orozco, DO PGYI Attending Provider Attestation/Addendum patient seen and examined with resident physician Dr. Coleman. Note reviewed, agree with findings and recommendations. Patient currently seen in medical floor. I saw him in 2022. Advanced CKD and never came to my clinic. Presented with significant weakness in the lower extremities, ichthyosis and [place]. Patient seems to have significant amount of insensible losses from his dry skin. Renal ultrasound showed no significant hydronephrosis. Unilateral functioning kidney. Continue with monitoring of renal function. Creatinine better. Skin exam also seems to be better. Encouraged p.o. fluids.
[2024-11-12 09:59] LABS: Basophils # (Auto) 0.1 Thou/mm3 (0.0-0.2); Basophils % (Auto) 1 % (0-2.5); Eosinophils # (Auto) 0.3 Thou/mm3 (0.0-0.5); Eosinophils % (Auto) 3 % (0-10); Hematocrit 32.1 % (41.0-53.0); Hemoglobin 10.1 g/dL (13.5-16.0); Immature Granulocytes % (Auto) 4 % (0-0); Immature Granulocytes Auto 0.32 Thou/mm3 (0.00-0.00); Lymphocytes # (Auto) 0.9 Thou/mm3 (1.0-4.8); Lymphocytes % (Auto) 11 % (10-50); Mean Corpuscular HGB Conc 31.5 g/dl (31.0-37.0); Mean Corpuscular Hemoglobin 26.6 pg (25.0-35.0); Mean Corpuscular Volume 85 fL (80-100); Monocytes # (Auto) 0.4 Thou/mm3 (0.0-0.8); Monocytes % (Auto) 5 % (0-12); Neutrophils # (Auto) 6.6 Thou/mm3 (1.8-7.7); Neutrophils % (Auto) 77 % (37-80); Nucleated Red Blood Cell % 0 /100 WBC (0); Platelet Count 328 Thou/mm3 (140-440); RDW Standard Deviation 46.3 fL (35.1-43.9); White Blood Count 8.6 Thou/mm3 (3.8-10.6)
[2024-11-12 10:17] LABS: Alanine Aminotransferase 46 U/L (10-49); Albumin, Serum 3.2 gm/dL (3.4-4.8); Albumin/Globulin Ratio 0.7 (1.2-2.2); Alkaline Phosphatase 101 U/L (46-116); Anion Gap 8 (7-16); Aspartate Amino Transferase 41 U/L (0-34); BUN/Creatinine Ratio 15 Ratio (12-20); Bilirubin,Total 0.2 mg/dL (0.3-1.2); Blood Urea Nitrogen 38 mg/dL (9-23); Calcium 8.5 mg/dL (8.3-10.6); Calcium (Corrected) 9.1 mg/dL (8.5-10.1); Carbon Dioxide 19.9 mMol/L (20.0-31.0); Chloride 111 mMol/L (98-107); Creatinine (Component) 2.6 mg/dL (0.6-1.3); Estimated Creatinine Clearance 34.3 mL/min (>60); Globulin 4.9 gm/dL (2.3-3.5); Glucose 112 mg/dL (74-106); Osmolality,Calculated 287 (275-295); Potassium 4.8 mMol/L (3.4-5.1); Sodium 139 mMol/L (136-145); Total Protein 8.1 gm/dL (5.7-8.2); eGFR 26 See Note
--- NOTE | 2024-11-12 14:43 | PC.SS ---
Addendum entered by Ashley Goodson 11/12/24 15:50: SS follow up note; Patient would like to discharge to [facility]. Pending PT notes to send to [facility] for auth. Original Note: SS follow up note; Patient is pending PT evaluation. SS submitted SNF inquiry through [employer] platform, will send PT notes when available.
--- NOTE | 2024-11-12 15:02 | ESCONSULT_ITS ---
<Statement entered by Bryant Patel MD - 11/14/24 22:35> I personally examined the patient evaluated with the PGY 2 Dr. Olya Farias agree with the treatment plan recommendation patient is very well-known to me appears to be low risk for orthopedic surgery will clear the patient continue to monitor the patient follow-up with cardiac echo showed preserved ejection fraction. HPI Data of Consult Requesting Physician: Omar Rhodes MD Admitting Provider: Serg Manzano MD Attending Provider: Omar Rhodes MD Primary Care Provider: Bert Valdez MD Consult Narrative Reason for consult: Cardiac clearance History of present illness: Patient is a 64-year-old male with past medical history of sick sinus syndrome s/p pacemaker, COPD on prn home O2, HFpEF, NAHEED, CKD stage IV, PAD, A-fib on Xarelto, GERD, eczema, diabetes mellitus type 2 with peripheral neuropathy, benign cystic liver disease, chronic back pain, and nonfunctioning left kidney s/p nephrectomy who initially presented to ED on 11/08/2024 with a chief complaint of bilateral leg pain and swelling for the past 1 to 2 months. He was previously following with [facility] but was told he completed treatment 2 months ago. Patient was admitted for concern of lower extremity cellulitis. CT scan of bilateral lower extremities showed nonspecific groin lymphadenopathy, mild edema in the subcutaneous fatty tissue medial to the lower leg especially right knee and also edema present in the right posterior lower leg, but no soft tissue abscess and no cortical bone destruction. Venous duplex US of the right leg was negative for DVT. Dr. Stahl was consulted as Dr. Stahl had completed right tibial ORIF with plate and screws after trauma in 2002. Debridement of the hardware was recommended and cardiology was consulted for pre-op cardiac clearance. Patient denies any chest pain, palpitations, dizziness, or shortness of breath at rest. He does endorse shortness of breath with activity which has been baseline for him. He reports history of CHF, is an active smoker, and endorses occasional meth use last used 2 weeks back. EKG showed electronically paced rhythm at 67. Echo is taken pending read. Vitals reviewed and showed BP at max 140s over 80s, mostly has been normal range. He is saturating 94% on 2L. Potassium 4.8. BUN is 38, creatinine 2.6 improved since admission, GFR 26 appears to be baseline. Review of Systems Review of systems otherwise negative except what is mentioned above. cc:: cc: Omar Rhodes MD Past Medical History Past Medical History Comments PMH COMMENT: Past Medical History: Sick sinus syndrome s/p pacemaker, COPD on prn home O2, CHF, NAHEED, CKD stage IV, PAD, A-fib on Xarelto, GERD, eczema, diabetes mellitus type 2 with peripheral neuropathy, benign cystic liver disease, chronic back pain, and nonfunctioning left kidney s/p nephrectomy Family History: Both parents and had CHF, brother without cardiac issues. Surgical History: Trauma in the right tibia s/p ORIF Dr. Stahl 2002, right shoulder replacement 2002, nonfunctioning left kidney and 80 mm stone s/p left nephrectomy 2013 Social History: Active smoker most recently 3 packs per month, variable amount ranging from 3 cigarettes to 2 packs per day smoking since age 5, occasional current alcohol use during holidays and social events, active occasional meth use for mood, remote marijuana use in younger years. Patient lives in a trailer. Current Medications: See med rec Allergies: Codeine - hives Exam Vital Signs Temp Pulse Resp BP Pulse Ox O2 Del Method O2 Flow Rate 98.0 F 62 20 136/88 H 94 L Nasal Cannula 2 11/12/24 11:48 11/12/24 12:00 11/12/24 11:48 11/12/24 11:48 11/12/24 11:48 11/12/24 11:48 11/12/24 11:48 Narrative Exam Physical Exam General: Awake and in no acute distress. Conversational and non-toxic appearing. HEENT: Normocephalic, atraumatic, mucous membranes moist. On nasal cannula. Heart: Regular rate and rhythm, normal S1 and S2, no murmurs. Lungs: Clear to auscultation with no wheezing or crackles. Abdomen: Soft, nondistended, nontender, positive bowel sounds. ?No guarding or rebound tenderness. Neurologic: Alert and oriented x3, no gross neurological deficit, and patient able to move all 4 extremities. Extremities: Mild scattered erythema bilateral lower extremities. Right upper malone with open wound 1x2 cm packed with gauze, no purulent drainage noted. Skin: Skin desquamation bilateral lower extremities. Results Labs 11/12/24 09:24 11/12/24 09:24 Labs: Short CBC 11/12/24 Range/Units 09:24 WBC 8.6 (3.8-10.6) Thou/mm3 Hgb 10.1 L (13.5-16.0) g/dL Hct 32.1 L (41.0-53.0) % Plt Count 328 D (140-440) Thou/mm3 BMP 11/11/24 11/12/24 15:04 09:24 Sodium 139 139 Potassium 5.1 4.8 Chloride 110 H 111 H Carbon Dioxide 21.0 19.9 L BUN 46 H 38 H Creatinine 3.0 H 2.6 H Glucose 99 112 H Calcium 8.1 L 8.5 Liver Function 11/11/24 11/12/24 Range/Units 15:04 09:24 Total Bilirubin 0.2 L (0.3-1.2) mg/dL AST 41 H (0-34) U/L ALT 46 (10-49) U/L Alkaline Phosphatase 101 (46-116) U/L Albumin 3.0 L 3.2 L (3.4-4.8) gm/dL Quality Measures Quality Measures VTE prophylaxis Advance care planning discussed with:: patient Medications Home Medications and Allergies Home Medications ?Medication ?Instructions ?Recorded ?Confirmed ?Type aspirin 81 mg chewable tablet 81 mg PO QDAY ##0 11/09/24 History albuterol sulfate 90 mcg/actuation 2 puff PO Q4HR PRN SHORTNESS OF 06/15/17 11/09/24 History aerosol inhaler (ProAir HFA) BREATH ##9 diltiazem HCl 60 mg tablet 30 mg PO TID ##0 07/29/17 0 11/09/24 History (Cardizem) furosemide 40 mg tablet (Lasix) 40 mg PO QDAY #0 tabs 07/29/17 11/09/24 History atenolol 50 mg tablet 50 mg PO QDAY 10/18/2111/09 History amiodarone 200 mg tablet 200 mg PO QDAY 08/02/2210/30 History hydroxyzine HCl 10 mg tablet 25 mg PO HS 08/02/2210/30 History metformin 500 mg tablet 500 mg PO BID 08/02/2211/09 History hydroxyzine HCl 25 mg tablet mg 11/09/24 History losartan 25 mg tablet 50 mg PO QDAY 11/09/2411/09 History rivaroxaban 10 mg tablet (Xarelto) 10 mg PO QDAY 11/0911/09/24 History Allergies Allergy/AdvReac Type Severity Reaction Status Date / Time codeine Allergy Severe Hives Verified 11/08/24 15:37 Visit Medications Acetaminophen (Acetaminophen 325 Mg Tablet) 650 mg PO Q6H PRN PRN Reason: Fever >101.5 Stop: 12/09/24 04:52 Acetaminophen (Acetaminophen 325 Mg Tablet) 650 mg PO Q6H PRN PRN Reason: PAIN SCALE 1-3 (mild Stop: 12/09/24 04:52 Hydrocodone Bitart/Acetaminophen (Hydrocodone/Apap 5/325 Tablet) 1 tab PO Q6HR PRN PRN Reason: PAIN SCALE 4-6 (Moderate Stop: 11/14/24 04:52 Albuterol/Ipratropium (Albuterol/Ipratropium (Duoneb) Rt Monica 3 Ml Nebu) 3 ml INH Q6HRRT PRN PRN Reason: SOB or Wheeze Stop: 12/09/24 06:59 Amiodarone HCl (Amiodarone Hcl 200 Mg Tablet) 200 mg PO QDAY [facility]EN Stop: 12/09/24 08:59 Last Admin: 11/12/24 08:14 Dose: 200 mg Dextrose (Dextrose 50%-Water Inj 50 Ml Syringe) 25 ml IV Q15MIN PRN PRN Reason: BG 50-70 responsive npo pt Stop: 12/09/24 19:58 Dextrose (Dextrose 50%-Water Inj 50 Ml Syringe) 50 ml IV Q15MIN PRN PRN Reason: BG <50 OR BG <70 & pt unresponsive Stop: 12/09/24 19:58 Glucagon (Glucagon Inj 1 Mg Vial) 1 mg IM Q15MIN PRN PRN Reason: BG <70, and no IV access Hydromorphone HCl (Hydromorphone Inj 2 Mg/Ml Vial) 0.25 mg IVP Q4H PRN PRN Reason: PAIN SCALE 7-10 (Severe Stop: 11/14/24 04:52 Ceftriaxone Sodium/Dextrose (Rocephin/D5w 1gm Iv Premix) 1 gm in 50 mls @ 100 mls/hr IV Q24H [facility] Stop: 11/17/24 08:59 Last Admin: 11/12/24 08:14 Dose: 100 mls/hr Clindamycin Phosphate 900 mg/ (IV Miscellaneous Supplies) 50 mls @ 50 mls/hr IV Q8HR [facility] Stop: 11/16/24 13:59 Last Admin: 11/12/24 14:27 Dose: 100 mls/hr Insulin Human Lispro (Insulin Lispro (Admelog) 1 Unit/0.01 Ml Unit) 0 unit SC ACHS [facility]; Protocol Stop: 12/09/24 20:59 Last Admin: 11/12/24 11:29 Dose: Not Given Lactulose (Lactulose Syrup 20 Gm/30 Ml Udc) 20 gm PO HS [facility]; Protocol Stop: 12/09/24 05:49 Last Admin: 11/11/24 21:02 Dose: Not Given Multi-Ingredient Ointment (Min Oil/Pet,White (Eucerin) Cr 16 Oz Btl) 0 oz TOP [facility] Stop: 12/12/24 20:59 Ondansetron HCl (Ondansetron Odt 4 Mg Tabrap) 4 mg PO Q6HR PRN; Protocol PRN Reason: NAUSEA OR VOMITING Stop: 12/12/24 09:05 Rivaroxaban (Rivaroxaban 10 Mg Tablet) 10 mg PO QPM [facility] Stop: 12/11/24 20:59 Last Admin: 11/11/24 21:04 Dose: 10 mg Tamsulosin HCl (Tamsulosin Hcl 0.4 Mg Capsule) 0.4 mg PO QDAY [facility] Stop: 12/09/24 08:59 Last Admin: 11/12/24 08:14 Dose: 0.4 mg Discontinued Medications Acetaminophen (Acetaminophen 500 Mg Tablet) 1,000 mg PO X1 ONE Stop: 11/09/24 01:55 Last Admin: 11/09/24 02:01 Dose: 1,000 mg Albuterol/Ipratropium (Albuterol/Ipratropium (Duoneb) Rt Monica 3 Ml Nebu) 3 ml INH X1 ONE Stop: 11/10/24 05:01 Epoetin Navi (Epoetin Navi Inj 1,000 Unit/0.05 Ml Unit) 10,000 unit SC X1 ONE Stop: 11/11/24 14:44 Last Admin: 11/11/24 16:20 Dose: 10,000 unit Famotidine (Famotidine Inj 10 Mg/Ml Vial 2 Ml) 20 mg IVP QDAY [facility] Stop: 12/10/24 08:59 Heparin Sodium (Porcine) (Heparin Sod Inj 5000 Unit/Ml Vial) 5,000 unit SC Q12H [facility] Stop: 11/24/24 14:29 Last Admin: 11/11/24 13:32 Dose: 5,000 unit Ceftriaxone Sodium/Dextrose (Rocephin/D5w 1gm Iv Premix) 1 g in 50 mls @ 100 mls/hr IV X1 ONE Stop: 11/09/24 05:44 Last Infusion: 11/09/24 06:16 Dose: Infused Clindamycin Phosphate 900 mg/ (IV Miscellaneous Supplies) 50 mls @ 50 mls/hr IV X1 ONE Stop: 11/09/24 06:14 Last Infusion: 11/09/24 07:19 Dose: Infused Sodium Chloride (Ns) 1,000 mls @ 60 mls/hr IV .[id number] [facility] Stop: 11/09/24 22:36 Last Admin: 11/09/24 06:18 Dose: 60 mls/hr Lactated Ringer's (Lactated Ringers) 500 mls @ 500 mls/hr IV .Q1H ONE Stop: 11/09/24 09:40 Last Infusion: 11/09/24 10:40 Dose: Infused Sodium Chloride (Ns) 1,000 mls @ 150 mls/hr IV .[id number] [facility] Stop: 11/10/24 23:43 Last Admin: 11/10/24 18:35 Dose: 150 mls/hr Ferumoxytol 510 mg/ Sodium (Chloride) 117 mls @ 234 mls/hr IV X1 ONE Stop: 11/11/24 14:44 Last Admin: 11/11/24 16:21 Dose: 234 mls/hr Pantoprazole Sodium (Pantoprazole Inj 40 Mg Vial) 40 mg IVP QDAY [facility] Stop: 12/09/24 08:59 Last Admin: 11/09/24 09:50 Dose: 40 mg Rivaroxaban (Rivaroxaban 10 Mg Tablet) 10 mg PO QDAY [facility] Stop: 12/09/24 08:59 Sodium Chloride (Sodium Chloride Rt 10% 15 Ml Nebu) 5 ml INH X1 ONE Stop: 11/10/24 05:00 Sodium Polystyrene Sulfonate (Sod Polystyrene Sulfon Susp 15 Gm/60 Ml Btl) 30 gm PO X1 ONE Stop: 11/11/24 08:07 Last Admin: 11/11/24 09:02 Dose: 30 gm Assessment & Plan Plan Patient is a 64-year-old male with past medical history of sick sinus syndrome s/p pacemaker, COPD on prn home O2, HFpEF, NAHEED, CKD stage IV, PAD, A-fib on Xarelto, GERD, eczema, diabetes mellitus type 2 with peripheral neuropathy, benign cystic liver disease, chronic back pain, and nonfunctioning left kidney s/p nephrectomy who initially presented to ED on 11/08/2024 with 1 month of bilateral leg pain and swelling, admitted for lower extremity cellulitis. Cardiology consultation was requested by Dr. Stahl in the setting pre-op clearance for possible right tibial hardware debridement. #History of sick sinus syndrome s/p pacemaker #History of atrial fibrillation #History of HFpEF (60%), not currently in exacerbation Cardiac clearance requested for intermediate-risk orthopedic surgery. Patient's functional MET score appears to be about 3-4 as he does get short of breath with 1 flight of stairs or with typical house work. EKG on admission showed electronically paced rhythm at 67, right bundle branch block. 11/12/2024 Transthoracic echo showed: Normal size cardiac chambers. Normal size left ventricle with mild concentric LVH with normal preserved ejection fraction of 60%. Mild left ventricular diastolic dysfunction, grade 2. Mitral valve thickening mild annulus calcification trace mitral regurgitation. Aortic valve sclerosis with no stenosis. Patient the RV lead in the right ventricle pacing lead. Based on preserved ejection fraction appears to be low cardiac risk for orthopedic surgery -Patient is given cardiac clearance for surgery -Xarelto held for procedure Rest of conditions to continue current management per primary team: #Bilateral lower extremity cellulitis #[place] on CKD stage IV, resolved #Nonfunctioning left kidney and [place] calculi s/p left nephrectomy #Diabetes mellitus type 2 #BPH #Nonobstructing right renal calculi #Peripheral neuropathy #Peripheral arterial disease #COPD #Anemia #GERD Patient was discussed with the Cardiology attending, Dr. Patel. Thank you for allowing us to participate in the care of this patient. Rowan Farias, PGY-2
--- NOTE | 2024-11-12 17:31 | ESPR_ITS ---
<Statement entered by Migue Khan MD - 11/14/24 07:58> Senior Resident Attestation: I supervised/discussed management plan with university internship physician Dr. Kee, and was involved in the care of this patient. I personally saw and examined the patient and discussed the assessment and plan with the entire medicine team, including my attending. I agree with the assessment and plan as documented. Patient's care was discussed with attending physician, Dr. Rhodes. Migue Khan MD PGY-2. Documentation for date of: 11/12/24 Subjective Subjective Interval history: Patient is seen and examined at bedside No acute overnight events. Denies any other complaints for today Vitals are stable. Labs showed improving renal functions Patient is undergoing surgery by Dr. Win for removal of plates and screws in the right lower extremity Held Xarelto and kept patient on n.p.o. since midnight Exam Vital Signs Temp Pulse Resp BP Pulse Ox O2 Del Method O2 Flow Rate 97.0 F 60 18 151/95 H 97 Nasal Cannula 2 11/12/24 16:00 11/12/24 16:00 11/12/24 16:00 11/12/24 16:00 11/12/24 16:00 11/12/24 16:00 11/12/24 16:00 Narrative Exam General: Awake. HEENT: Normocephalic, atraumatic, mucous membranes moist. Heart: Irregular rate and rhythm, no murmurs. Lungs: Clear to auscultation with no wheezing or crackles. Abdomen: Soft, nondistended, nontender, positive bowel sounds. ?No guarding or rebound tenderness. Neurologic: Alert and oriented x3, no gross neurological deficit, and patient able to move all 4 extremities. Extremities: Bilateral lower extremity scaly lesions noted. Skin: No rash or ecchymoses. Objective Labs 11/13/24 05:00 11/13/24 05:00 Labs: Laboratory Results - last 24 hr 11/12/24 11/12/24 04:33 09:24 WBC 8.6 RBC 3.80 L Hgb 10.1 L Hct 32.1 L MCV 85 MCH 26.6 MCHC 31.5 RDW Std Deviation 46.3 H Plt Count 328 D Neut % (Auto) 77 Lymph % (Auto) 11 [place] % (Auto) 5 Eos % (Auto) 3 Baso % (Auto) 1 Neut # (Auto) 6.6 Lymph # (Auto) 0.9 L [place] # (Auto) 0.4 Eos # (Auto) 0.3 Baso # (Auto) 0.1 Immature Gran # (Auto) 0.32 H Absolute Nucleated RBC 0.00 Immature Gran % 4 H Nucleated RBC % 0 Sodium 139 Potassium 4.8 Chloride 111 H Carbon Dioxide 19.9 L Anion Gap 8 BUN 38 H Creatinine 2.6 H Estim Creat Clear Calc 34.3 L eGFR 26 L BUN/Creatinine Ratio 15 Glucose 112 H Calculated Osmolality 287 Calcium 8.5 Corrected Calcium 9.1 Phosphorus 5.0 Total Bilirubin 0.2 L AST 41 H ALT 46 Alkaline Phosphatase 101 Total Protein 8.1 Albumin 3.2 L Globulin 4.9 H Albumin/Globulin Ratio 0.7 L Quality Measures Quality Measures VTE prophylaxis Advance care planning discussed with:: patient Assessment & Plan Assessment Current Active Medications: Generic Name Dose Route Start Last Admin Trade Name Freq PRN Reason Stop Dose Admin Acetaminophen 650 mg 11/09/24 04:53 Acetaminophen 325 Mg Tablet PO 12/09/24 04:52 Q6H PRN Fever >101.5 Acetaminophen 650 mg 11/09/24 04:53 Acetaminophen 325 Mg Tablet PO 12/09/24 04:52 Q6H PRN PAIN SCALE 1-3 (mild Hydrocodone Bitart/Acetaminophen 1 tab 11/09/24 04:53 Hydrocodone/Apap 5/325 Tablet PO 11/14/24 04:52 Q6HR PRN PAIN SCALE 4-6 (Moderate Albuterol/Ipratropium 3 ml 11/09/24 04:53 Albuterol/Ipratropium (Duoneb) Rt Monica 3 Ml Nebu INH 12/09/24 06:59 Q6HRRT PRN SOB or Wheeze Amiodarone HCl 200 mg 11/09/24 09:00 11/12/24 08:14 Amiodarone Hcl 200 Mg Tablet PO 12/09/24 08:59 200 mg QDAY [facility]EN Administration Dextrose 25 ml 11/09/24 19:59 Dextrose 50%-Water Inj 50 Ml Syringe IV 12/09/24 19:58 Q15MIN PRN BG 50-70 responsive npo pt Dextrose 50 ml 11/09/24 19:59 Dextrose 50%-Water Inj 50 Ml Syringe IV 12/09/24 19:58 Q15MIN PRN BG <50 OR BG <70 & pt unresponsive Glucagon 1 mg 11/09/24 19:59 Glucagon Inj 1 Mg Vial IM Q15MIN PRN BG <70, and no IV access Hydromorphone HCl 0.25 mg 11/09/24 04:53 Hydromorphone Inj 2 Mg/Ml Vial IVP 11/14/24 04:52 Q4H PRN PAIN SCALE 7-10 (Severe Ceftriaxone Sodium/Dextrose 1 gm in 50 mls @ 100 mls/hr 11/10/24 09:00 11/12/24 08:14 Rocephin/D5w 1gm Iv Premix IV 11/17/24 08:59 100 mls/hr Q24H [facility] Administration Clindamycin Phosphate 900 mg/ 50 mls @ 50 mls/hr 11/09/24 14:00 11/12/24 14:27 IV Miscellaneous Supplies IV 11/16/24 13:59 100 mls/hr Q8HR [facility] Administration Insulin Human Lispro 0 unit 11/09/24 21:00 11/12/24 16:42 Insulin Lispro (Admelog) 1 Unit/0.01 Ml Unit SC 12/09/24 20:59 Not Given ACHS [facility] Protocol Lactulose 20 gm 11/09/24 05:50 11/11/24 21:02 Lactulose Syrup 20 Gm/30 Ml Udc PO 12/09/24 05:49 Not Given HS [facility] Protocol Multi-Ingredient Ointment 0 oz 11/12/24 21:00 Min Oil/Pet,White (Eucerin) Cr 16 Oz Btl TOP 12/12/24 20:59 HS [facility]EN Ondansetron HCl 4 mg 11/12/24 09:06 Ondansetron Odt 4 Mg Tabrap PO 12/12/24 09:05 Q6HR PRN NAUSEA OR VOMITING Protocol Rivaroxaban 10 mg 11/11/24 21:00 11/11/24 21:04 Rivaroxaban 10 Mg Tablet PO 12/11/24 20:59 10 mg QPM [facility] Administration Tamsulosin HCl 0.4 mg 11/09/24 09:00 11/12/24 08:14 Tamsulosin Hcl 0.4 Mg Capsule PO 12/09/24 08:59 0.4 mg QDAY [facility] Administration Plan A 64-year-old male with significant past medical history of COPD currently not on home oxygen, NAHEED, CKD stage IIIb, PAD, A-fib on Xarelto, GERD, eczema, diabetes mellitus type 2 with peripheral neuropathy, benign cystic liver disease, chronic back pain and left nephrectomy presented to ED on 11/08/2024 with chief complaint of bilateral leg pain and swelling for the past 1 to 2 months admitted to med telemetry unit for further management of bilateral cellulitis, likely associated with right leg abscess. #Bilateral lower extremity cellulitis, resolved #Superimposed on underlying skin infection, unsure of the etiology. Patient presented with right leg bump over upper malone level, with bilateral desquamation and pain, associated with fever and chills for the past 2 days. US Doppler right leg negative for DVT. White count of 17.6. Blood culture - no growth after 24hrs. Lower extremity CT scan did not show any evidence of osteomyelitis. Fungal cultures are sent on the lesions on lower extremity, pending . Plan - Started on clindamycin 900 mg IV 3 times daily. - Started on ceftriaxone 1 g daily. - Wound care referral done and following the patient #[place] on CKD stage IV,resolved #S/p left nephrectomy. DDx: Likely prerenal in the setting of poor oral intake versus less likely intrarenal secondary to diabetic nephropathy, with continued use of metformin. Patient baseline creatinine 3.2, presented with creatinine of 3.8 --> 4/, Cr 4.4. -->/, 3.3 -->/, 2.6 Renal ultrasound showed right renal cortical scarring, minimal hydronephrosis without any prostamegaly, renal calculi plan - hold protonix. - Avoid nephrotoxic drugs and renally dose medications. - Dr. Garzon consulted for nephrology, appreciate recommendations. - Restarted xarelto on 11/11/2024 and stopped on 11/12/2024 as patient is undergoing surgery by Dr. Win #A-fib. Currently rate controlled. Plan: - Started on amiodarone 200 Mg daily. - Held diltiazem and losartan due to soft BP. #Diabetes mellitus type 2. Patient is currently taking metformin 500 Mg daily at home. A1c during this hospital admission is 6.3. Plan: - Stop metformin, as patient's GFR is less than 30. - Started on insulin sliding scale. #BPH. - started on home tamsulosin. #Nonobstructing right renal calculi - Outpatient follow-up #Peripheral neuropathy. #Peripheral arterial disease. #COPD. #Anemia. #GERD. - hold protonix. Health maintenance: Dispo: Med/tele. DVT prophylaxis: xarelto Diet: N.p.o. since midnight CODE STATUS: Full code. Patient plan of care was discussed with the attending physician, Dr. Rhodes and senior resident Dr. Erin Kee, PGY1 Attending Provider Attestation/Addendum I attest that I was physically present for the evaluation, physical examination, lab and imaging review of the patient with the residents. I discussed the case with the residents and agree with the findings and plans of care as documented above. At bedside today, patient is states she is feeling well and denies any new complaints. Vital signs are stable. Lab results show improvement as well. Kidney function today is better compared to yesterday, BUN/creatinine of 38/2.6 today. Patient is planned for surgery to remove the plates and screws from his lower extremity with orthopedics. Cardiology consulted for clearance, and patient cleared for surgery. Surgery planned for tomorrow with Orthopedics. Continues to be on IV antibiotics, will culture grew Streptococcus pyogenes, pansensitive. Blood cultures have been negative for 48 hours. Wound care following. Omar Rhodes MD
[2024-11-12] MEDS: MIN OIL/PET,WHITE (Eucerin) CR 16 OZ BTL TOP (20:33)
[2024-11-13] VITALS (21 sets, daily range): BP systolic 118–162; BP diastolic 73–102; PULSE 60–96; RESP 15–20; TEMP 35.8–36.7; O2SAT 90–97
[2024-11-13 06:05] LABS: Basophils # (Auto) 0.1 Thou/mm3 (0.0-0.2); Basophils % (Auto) 1 % (0-2.5); Eosinophils # (Auto) 0.3 Thou/mm3 (0.0-0.5); Eosinophils % (Auto) 4 % (0-10); Hemoglobin 10.8 g/dL (13.5-16.0); Immature Granulocytes % (Auto) 6 % (0-0); Immature Granulocytes Auto 0.52 Thou/mm3 (0.00-0.00); Lymphocytes % (Auto) 12 % (10-50); Mean Corpuscular HGB Conc 30.9 g/dl (31.0-37.0); Mean Corpuscular Hemoglobin 26.5 pg (25.0-35.0); Mean Corpuscular Volume 86 fL (80-100); Monocytes # (Auto) 0.5 Thou/mm3 (0.0-0.8); Monocytes % (Auto) 6 % (0-12); Neutrophils # (Auto) 5.8 Thou/mm3 (1.8-7.7); Neutrophils % (Auto) 71 % (37-80); Nucleated Red Blood Cell % 0 /100 WBC (0); Platelet Count 338 Thou/mm3 (140-440); RDW Standard Deviation 46.7 fL (35.1-43.9); Red Blood Count 4.07 Miln/mm3 (4.50-5.90); White Blood Count 8.1 Thou/mm3 (3.8-10.6)
[2024-11-13 06:21] LABS: INR 1.1 (0.9-1.3); Partial Thromboplastin Time 32.8 Seconds (22.0-36.0); Prothrombin Time 12.2 Seconds (9.0-12.2)
[2024-11-13 06:25] LABS: Alanine Aminotransferase 43 U/L (10-49); Albumin, Serum 3.3 gm/dL (3.4-4.8); Albumin/Globulin Ratio 0.7 (1.2-2.2); Alkaline Phosphatase 106 U/L (46-116); Anion Gap 9 (7-16); Aspartate Amino Transferase 36 U/L (0-34); BUN/Creatinine Ratio 13 Ratio (12-20); Bilirubin,Total 0.2 mg/dL (0.3-1.2); Blood Urea Nitrogen 33 mg/dL (9-23); Calcium 8.6 mg/dL (8.3-10.6); Calcium (Corrected) 9.2 mg/dL (8.5-10.1); Carbon Dioxide 20.5 mMol/L (20.0-31.0); Chloride 111 mMol/L (98-107); Creatinine (Component) 2.6 mg/dL (0.6-1.3); Estimated Creatinine Clearance 34.3 mL/min (>60); Globulin 4.9 gm/dL (2.3-3.5); Glucose 93 mg/dL (74-106); Osmolality,Calculated 286 (275-295); Potassium 4.8 mMol/L (3.4-5.1); Sodium 140 mMol/L (136-145); Total Protein 8.2 gm/dL (5.7-8.2); eGFR 26 See Note
[2024-11-13] MEDS: CLINDAMYCIN 900MG IVPB 900 MG in PRE-MIXED 1 BAG 100 MG IV (07:12)
[2024-11-13] MEDS: cefTRIAXone/D5w 1gm IV premix 1 GM/50 ML BAG IV (09:01)
[2024-11-13] MEDS: AMIODARONE HCL 200 MG TABLET PO (09:01)
--- NOTE | 2024-11-13 09:49 | ESPR_ITS ---
Documentation for date of: 11/13/24 Subjective Subjective Interval history: Mr. Yuan is a 64-year-old male PMHx of COPD on home oxygen, CHF unspecified, NAHEED, CKD stage IV, s/p left nephrectomy 09/02 nephrolithiasis 2013, T2DM, PAD, A-fib on XARELTO, GERD, eczema, peripheral neuropathy, chronic back pain, presenting with bilateral lower extremity pain. He lives alone in a trailer, has chronic lower extremity edema for which he takes daily LASIX, previously diagnosed with CHF, does not know ejection fraction. He has been seeing wound care for bilateral lower extremity pain and swelling and ulcers, which have not responded to treatment. Denies fever, headaches, chills, chest pain, cough, recent upper respiratory illness, dysuria, hematuria, urinary frequency or urgency, abdominal pain, N/V/D/C. Denies alcohol, tobacco or drug use. Left unilateral nephrectomy was done in 2013 at [facility] as a result of kidney stones. He is aware of having chronic kidney disease, managed by his PCP who recently referred him to see a edger runner in [facility], currently pending authorization. States his blood sugars and blood pressure have generally been controlled. States he takes his medications on a daily basis, as prescribed. Reports no new or changes in current medications. On arrival, vitals WNL, satting 95% on room air. WBC 18.6, Hgb 10.9, PLT 280. Sodium 134, CR 3.8, BUN 47, EGFR 17. Renal function worsened since admission, currently BUN 54, CR 1.4, EGFR 14. Most recent comparison from 04/2024 showing CR 3.2, EGFR 21. UA with turbid with protein 1+, blood 1+, no signs of UTI. Venous Doppler negative for bilateral extremity DVT. Right knee x-ray moderate tricompartment osteoarthritis. Lower extremity CT pending final read. Renal ultrasound pending final read. He was admitted for bilateral cellulitis. Nephrology team was consulted for management of [place] on CKD. 11/10/2024 examined at bedside. No new symptoms or worsening of symptoms. Denies fever, chills, headaches, chest pain, sob, cough, GI or urinary symptoms. Renal function improving, CR 3.7, BUN 57, GFR 17. Phosphorus slightly high at 5.4. Remainder electrolytes WNL. Urine output is okay. WBC improving 11.7, Hgb 9.5. Continue with NS at 150 cc/H. 11/11/2024 patient currently seen in medical floor. Very talkative. Denies any chest pain, shortness of breath. Still having lower extremity weakness. Currently on fluids. Blood pressure 132/81, heart rate 58, blood sugar 115. Hemoglobin 9.5, sodium 138, potassium 5.3, bicarbonate 21.1, BUN 50, creatinine 3.3, GFR 20, calcium 9, phosphorus 5, magnesium 2.2,Renal ultrasound showed cortical thinning consistent with CKD. PTH lipids are normal. PTH level 121. AST 53, ALT 43, albumin 3.0. 11/12/2024 examined at bedside, feels well today, no new or worsening of symptoms. Denies fever, chills, headaches, chest pain, sob, cough, GI or urinary symptoms. Renal function improving, CR 3.0, BUN 46, GFR 22. No electrolyte abnormalities noted. Hgb 9.5 stable, PLT 282. 11/13/2024 examined at bedside. No new complaints, continues to improve. Renal function stable, CR 2.6, GUN 39, EGFR 26. No significant electrolyte abnormalities. No plan for HD today. Exam Vital Signs Temp Pulse Resp BP Pulse Ox O2 Del Method O2 Flow Rate 96.5 F L 60 18 148/90 H 95 Nasal Cannula 2 11/13/24 08:00 11/13/24 09:01 11/13/24 08:00 11/13/24 09:01 11/13/24 08:00 11/13/24 08:00 11/13/24 08:00 Narrative Exam CONSTITUTIONAL: Patient denies any fever, chills. HEENT: Denies any visual disturbances or hearing problems. CARDIOVASCULAR: Patient denies any chest pain, shortness of breath, swelling in the lower extremities. PULMONARY: Patient denies any shortness of breath, cough. GASTROINTESTINAL: Patient denies any abdominal pain, constipation, nausea, vomiting, diarrhea. GENITOURINARY: Patient denies any urinary symptoms of burning or frequency or hematuria, denies any form in the urine. SKIN: Significant dryness of the lower extremities MUSCULOSKELETAL: Patient complaining of weakness in the lower extremities NEUROLOGICAL: Denies any neurological problems of strokes, seizures or confusion. Denies any memory problems. PSYCHIATRIC: Denies any depression or anxiety. LYMPHATICS : No lymphadenopathy Objective Labs 11/14/24 05:15 11/14/24 16:10 Labs: Laboratory Results - last 24 hr 11/12/24 11/13/24 09:24 05:00 WBC 8.6 8.1 RBC 3.80 L 4.07 L Hgb 10.1 L 10.8 L Hct 32.1 L 35.0 L MCV 85 86 MCH 26.6 26.5 MCHC 31.5 30.9 L RDW Std Deviation 46.3 H 46.7 H Plt Count 328 D 338 Neut % (Auto) 77 71 Lymph % (Auto) 11 12 [place] % (Auto) 5 6 Eos % (Auto) 3 4 Baso % (Auto) 1 1 Neut # (Auto) 6.6 5.8 Lymph # (Auto) 0.9 L 1.0 [place] # (Auto) 0.4 0.5 Eos # (Auto) 0.3 0.3 Baso # (Auto) 0.1 0.1 Immature Gran # (Auto) 0.32 H 0.52 H Absolute Nucleated RBC 0.00 0.00 Immature Gran % 4 H 6 H Nucleated RBC % 0 0 PT 12.2 INR 1.1 APTT 32.8 Sodium 139 140 Potassium 4.8 4.8 Chloride 111 H 111 H Carbon Dioxide 19.9 L 20.5 Anion Gap 8 9 BUN 38 H 33 H Creatinine 2.6 H 2.6 H Estim Creat Clear Calc 34.3 L 34.3 L eGFR 26 L 26 L BUN/Creatinine Ratio 15 13 Glucose 112 H 93 Calculated Osmolality 287 286 Calcium 8.5 8.6 Corrected Calcium 9.1 9.2 Total Bilirubin 0.2 L 0.2 L AST 41 H 36 H ALT 46 43 Alkaline Phosphatase 101 106 Total Protein 8.1 8.2 Albumin 3.2 L 3.3 L Globulin 4.9 H 4.9 H Albumin/Globulin Ratio 0.7 L 0.7 L Quality Measures Quality Measures VTE prophylaxis Advance care planning discussed with:: patient Assessment & Plan Assessment Current Active Medications: Generic Name Dose Route Start Last Admin Trade Name Freq PRN Reason Stop Dose Admin Acetaminophen 650 mg 11/09/24 04:53 Acetaminophen 325 Mg Tablet PO 12/09/24 04:52 Q6H PRN Fever >101.5 Acetaminophen 650 mg 11/09/24 04:53 Acetaminophen 325 Mg Tablet PO 12/09/24 04:52 Q6H PRN PAIN SCALE 1-3 (mild Hydrocodone Bitart/Acetaminophen 1 tab 11/09/24 04:53 Hydrocodone/Apap 5/325 Tablet PO 11/14/24 04:52 Q6HR PRN PAIN SCALE 4-6 (Moderate Albuterol/Ipratropium 3 ml 11/09/24 04:53 Albuterol/Ipratropium (Duoneb) Rt Monica 3 Ml Nebu INH 12/09/24 06:59 Q6HRRT PRN SOB or Wheeze Amiodarone HCl 200 mg 11/09/24 09:00 11/13/24 09:01 Amiodarone Hcl 200 Mg Tablet PO 12/09/24 08:59 200 mg QDAY BELEN Administration Dextrose 25 ml 11/09/24 19:59 Dextrose 50%-Water Inj 50 Ml Syringe IV 12/09/24 19:58 Q15MIN PRN BG 50-70 responsive npo pt Dextrose 50 ml 11/09/24 19:59 Dextrose 50%-Water Inj 50 Ml Syringe IV 12/09/24 19:58 Q15MIN PRN BG <50 OR BG <70 & pt unresponsive Glucagon 1 mg 11/09/24 19:59 Glucagon Inj 1 Mg Vial IM Q15MIN PRN BG <70, and no IV access Hydromorphone HCl 0.25 mg 11/09/24 04:53 Hydromorphone Inj 2 Mg/Ml Vial IVP 11/14/24 04:52 Q4H PRN PAIN SCALE 7-10 (Severe Ceftriaxone Sodium/Dextrose 1 gm in 50 mls @ 100 mls/hr 11/10/24 09:00 11/13/24 09:01 Rocephin/D5w 1gm Iv Premix IV 11/17/24 08:59 100 mls/hr Q24H BELEN Administration Clindamycin Phosphate 900 mg/ 50 mls @ 50 mls/hr 11/09/24 14:00 11/13/24 07:12 IV Miscellaneous Supplies IV 11/16/24 13:59 100 mls/hr Q8HR BELEN Administration Insulin Human Lispro 0 unit 11/09/24 21:00 11/13/24 07:31 Insulin Lispro (Admelog) 1 Unit/0.01 Ml Unit SC 12/09/24 20:59 Not Given ACHS BELEN Protocol Lactulose 20 gm 11/09/24 05:50 11/12/24 20:35 Lactulose Syrup 20 Gm/30 Ml Udc PO 12/09/24 05:49 Not Given HS [facility] Protocol Multi-Ingredient Ointment 0 oz 11/12/24 21:00 11/12/24 20:33 Min Oil/Pet,White (Eucerin) Cr 16 Oz Btl TOP 12/12/24 20:59 1 applicatio HS BELEN Administration Ondansetron HCl 4 mg 11/12/24 09:06 Ondansetron Odt 4 Mg Tabrap PO 12/12/24 09:05 Q6HR PRN NAUSEA OR VOMITING Protocol Tamsulosin HCl 0.4 mg 11/09/24 09:00 11/13/24 09:01 Tamsulosin Hcl 0.4 Mg Capsule PO 12/09/24 08:59 Not Given QDAY BELEN Plan 64-year-old male PMHx of COPD on home oxygen, CHF unspecified, NAHEED, CKD stage IV, s/p left nephrectomy 2/2 nephrolithiasis 2013, T2DM, PAD, A-fib on XARELTO, GERD, eczema, peripheral neuropathy, chronic back pain, admitted for bilateral lower extremity cellulitis. Nephrology was consulted for the management of [place] on CKD. Renal function remained stable. No plan for hemodialysis today. [place] on CKD stage IV S/p left unilateral nephrectomy 2013 left unilateral nephrectomy at [facility] 2/2 kidney stones. Diabetes relatively controlled, A1c 6.3 from 04/05/24=hold off on metformin Chronic HTN, relatively poorly controlled, might also be contributing. Right renal ultrasound with cortical thinning, minimal hydronephrosis. PTH 121.8, likely secondary hyperparathyroidism, pending VITAMIN D. Urine random protein 101H, sodium 29, potassium 48, chloride less than 20, mACR 105. No significant proteinuria overall. Renal function improved, CR 2.6, BUN 33, EGFR 26. ? Renally dose meds, avoid overdiuresis and NEPHROTOXINS ? Daily CMP ? Strict SÁNCHEZ's ? Increase p.o. fluid intake. Spoke to primary team. ? No hemodialysis today Bilateral leg cellulitis Right leg abscess Rule out DVT A-fib Diabetes mellitus type 2 Peripheral neuropathy Peripheral arterial disease COPD Anemia GERD ? Managed by primary team Patient needs renal follow-up in 2 weeks. Thank you for the opportunity to participate in the patient's care. Case was discussed with attending, Dr. Garzon. Jared Orozco DO PGYI Attending Provider Attestation/Addendum patient seen and examined with resident physician Dr. Coleman. Note reviewed, agree with findings and recommendations. Patient currently seen in medical floor. I saw him in 2022. Advanced CKD and never came to my clinic. Presented with significant weakness in the lower extremities, ichthyosis and [place]. Patient seems to have significant amount of insensible losses from his dry skin. Renal ultrasound showed no significant hydronephrosis. Unilateral functioning kidney. Continue with monitoring of renal function. Creatinine better. Skin exam also seems to be better. Encouraged p.o. fluids. Patient going for right leg plate//screw removal by Dr. Stahl
--- NOTE | 2024-11-13 13:27 | SUR.OPER ---
8 screws and 1 plate removed from right leg
--- NOTE | 2024-11-13 13:55 | SUR.PHASEI ---
[id number] Patient arrived to recovery resting comfortably in bed, oral airway removed upon arrival, on oxygen 7L via nasal cannula, breathing unlabored, vital signs stable, denies pain, dressing intact to right leg; sutures, adaptic, fluffs, abd, bias roll, silk tape, no bleeding noted, bilateral dorsalis pedis pulses present when palpated, report received from Dr. Nelson/Tatyana HUFF and Steph MACHADO
--- NOTE | 2024-11-13 14:00 | SUR.PHASEI ---
1400 Dr. Johnson at bedside aware of patients oxygen level and level of oxygen therapy patient is on, provider stated he is okay with patients oxygen level to be above 90% due to patients chronic health issues, will work with patient with incentive spirometer
--- NOTE | 2024-11-13 14:17 | PD.SUROPNT ---
Date of Procedure 11/13/24 Pre Op Diagnosis Infected right upper tibial implant Post Op Diagnosis Same Procedure 1. Removal of the plate and screws right tibia 2 irrigation and debridement and curettage of bone Findings There was an opening in the upper medial side of the right leg. The second hole from the top had a loose screw. Some infected fluid came out from that hole. Procedure Description Patient was given general endotracheal anesthesia. Once satisfactory anesthesia achieved a tourniquet was placed on right upper thigh. Following that part was thoroughly prepped and draped. After raising the leg for couple of minutes the tourniquet pressure was raised to 350 mmHg Wound culture swab was obtained from the right open wound. Skin incision made just inferior to the tibial crest extending from the open wound proximally by about inch and a half and then going Jj towards the tibial crest. It was also extended distally along the crest of the tibia for further 3 to 4 inches. Deeper dissection carried out. The plate and screws were located. All the soft tissue over the plate was removed. With the help of osteotome the bone growth was also removed from the screw head. With the help of a screwdriver the plate and screws were removed. The second hole from the top appeared to have a loose screw. The curette was used after removal of the screw to clean the bone. A little cloudy fluid came out. Was irrigated with antibiotic solution every 4 to 5 minutes. There is 2 more screws on the top and which was removed beforehand. Copious amount of antibiotic solution, hydrogen peroxide solution and Betadine iodine solution was used. Close The soft tissue was then closed with help of 2-0 Vicryl. The skin was then closed with the help of Prolene in an interrupted fashion. A mattress suture was applied. Some simple sutures were also applied After cleaning the wound with hydrogen peroxide solution a sterile dressing was applied. Patient tolerated procedure well. Treatment of blood loss 5 to 10 mL. Anesthesia GETA Pathology / specimen None Estimated Blood Loss 10 Surgeon Gianni Win MD Surgical Staff Operation Date: 11/13/24 11:45 Case Staff Anesthesiologist: Siddharth Johnson RN First Assistant: Liberty Winn
[2024-11-13] MEDS: HYDROmorphone INJ 2 MG/ML VIAL 0.4 MG IV (14:32)
--- NOTE | 2024-11-13 14:32 | ESPR_ITS ---
<Statement entered by Bryant Patel MD - 11/19/24 08:29> I personally examined the patient evaluated along with resident physician Dr. Olya Farias, PGY 2 appears to be doing better underwent procedure well will be requiring IV antibiotics patient can be discharged whenever stable to have follow-up as an outpatient Documentation for date of: 11/13/24 Subjective Subjective Interval history: No acute events overnight.?Patient seen and examined at bedside this afternoon following surgery. Patient had plate and screws removed from the right tibia that was first placed in 2002. Following that he had irrigation, debridement, and curettage of the bone?with extensive antibiotic solution, Betadine iodine, and hydrogen peroxide. Patient reported feeling well after surgery, no complaints. Labs and vitals were reviewed.?BP remains high in the 140-150s systolic and 80-90s diastolic. HR remains 60-70 paced rhythm in afib. No new fevers and the patient is saturating on 4L NC. CBC and CMP are stable. Review of systems otherwise negative except what is mentioned above. Exam Vital Signs Temp Pulse Resp BP Pulse Ox O2 Del Method O2 Flow Rate 97.6 F 82 20 118/77 92 L Nasal Cannula 7 11/13/24 13:55 11/13/24 13:55 11/13/24 13:55 11/13/24 13:55 11/13/24 13:55 11/13/24 11:22 11/13/24 13:55 Narrative Exam Physical Exam General: Awake and in no acute distress. Conversational and non-toxic appearing. HEENT: Normocephalic, atraumatic, mucous membranes moist. On nasal cannula. Heart: Regular rate and rhythm, normal S1 and S2, no murmurs. Lungs: Clear to auscultation with no wheezing or crackles. Abdomen: Soft, nondistended, nontender, positive bowel sounds. ?No guarding or rebound tenderness. Neurologic: Alert and oriented x3, no gross neurological deficit, and patient able to move all 4 extremities. Extremities: Mild scattered erythema bilateral lower extremities. Right lower extremity wrapped in wound dressings post-op. Skin: Skin desquamation, scaling, and peeling bilateral lower extremities. Onycchomycosis. Objective Labs 11/13/24 05:00 11/13/24 05:00 Labs: Laboratory Results - last 24 hr 11/13/24 05:00 WBC 8.1 RBC 4.07 L Hgb 10.8 L Hct 35.0 L MCV 86 MCH 26.5 MCHC 30.9 L RDW Std Deviation 46.7 H Plt Count 338 Neut % (Auto) 71 Lymph % (Auto) 12 [place] % (Auto) 6 Eos % (Auto) 4 Baso % (Auto) 1 Neut # (Auto) 5.8 Lymph # (Auto) 1.0 [place] # (Auto) 0.5 Eos # (Auto) 0.3 Baso # (Auto) 0.1 Immature Gran # (Auto) 0.52 H Absolute Nucleated RBC 0.00 Immature Gran % 6 H Nucleated RBC % 0 PT 12.2 INR 1.1 APTT 32.8 Sodium 140 Potassium 4.8 Chloride 111 H Carbon Dioxide 20.5 Anion Gap 9 BUN 33 H Creatinine 2.6 H Estim Creat Clear Calc 34.3 L eGFR 26 L BUN/Creatinine Ratio 13 Glucose 93 Calculated Osmolality 286 Calcium 8.6 Corrected Calcium 9.2 Total Bilirubin 0.2 L AST 36 H ALT 43 Alkaline Phosphatase 106 Total Protein 8.2 Albumin 3.3 L Globulin 4.9 H Albumin/Globulin Ratio 0.7 L Quality Measures Quality Measures VTE prophylaxis Advance care planning discussed with:: patient Assessment & Plan Assessment Current Active Medications: Generic Name Dose Route Start Last Admin Trade Name Freq PRN Reason Stop Dose Admin Acetaminophen 650 mg 11/09/24 04:53 Acetaminophen 325 Mg Tablet PO 12/09/24 04:52 Q6H PRN Fever >101.5 Acetaminophen 650 mg 11/09/24 04:53 Acetaminophen 325 Mg Tablet PO 12/09/24 04:52 Q6H PRN PAIN SCALE 1-3 (mild Hydrocodone Bitart/Acetaminophen 1 tab 11/09/24 04:53 Hydrocodone/Apap 5/325 Tablet PO 11/14/24 04:52 Q6HR PRN PAIN SCALE 4-6 (Moderate Albuterol/Ipratropium 3 ml 11/09/24 04:53 Albuterol/Ipratropium (Duoneb) Rt Monica 3 Ml Nebu INH 12/09/24 06:59 Q6HRRT PRN SOB or Wheeze Amiodarone HCl 200 mg 11/09/24 09:00 11/13/24 09:01 Amiodarone Hcl 200 Mg Tablet PO 12/09/24 08:59 200 mg QDAY BELEN Administration Dextrose 25 ml 11/09/24 19:59 Dextrose 50%-Water Inj 50 Ml Syringe IV 12/09/24 19:58 Q15MIN PRN BG 50-70 responsive npo pt Dextrose 50 ml 11/09/24 19:59 Dextrose 50%-Water Inj 50 Ml Syringe IV 12/09/24 19:58 Q15MIN PRN BG <50 OR BG <70 & pt unresponsive Glucagon 1 mg 11/09/24 19:59 Glucagon Inj 1 Mg Vial IM Q15MIN PRN BG <70, and no IV access Hydromorphone HCl 0.25 mg 11/09/24 04:53 Hydromorphone Inj 2 Mg/Ml Vial IVP 11/14/24 04:52 Q4H PRN PAIN SCALE 7-10 (Severe Ceftriaxone Sodium/Dextrose 1 gm in 50 mls @ 100 mls/hr 11/10/24 09:00 11/13/24 09:01 Rocephin/D5w 1gm Iv Premix IV 11/17/24 08:59 100 mls/hr Q24H BELEN Administration Clindamycin Phosphate 900 mg/ 50 mls @ 50 mls/hr 11/09/24 14:00 11/13/24 07:12 IV Miscellaneous Supplies IV 11/16/24 13:59 100 mls/hr Q8HR BELEN Administration Acetaminophen 1,000 mg in 100 mls @ 250 mls/hr 11/13/24 12:18 Ofirmev Inj IV 11/14/24 06:23 Q6HR BELEN Insulin Human Lispro 0 unit 11/09/24 21:00 11/13/24 11:13 Insulin Lispro (Admelog) 1 Unit/0.01 Ml Unit SC 12/09/24 20:59 Not Given ACHS [facility] Protocol Lactulose 20 gm 11/09/24 05:50 11/12/24 20:35 Lactulose Syrup 20 Gm/30 Ml Udc PO 12/09/24 05:49 Not Given HS [facility] Protocol Multi-Ingredient Ointment 0 oz 11/12/24 21:00 11/12/24 20:33 Min Oil/Pet,White (Eucerin) Cr 16 Oz Btl TOP 12/12/24 20:59 1 applicatio HS BELEN Administration Ondansetron HCl 4 mg 11/12/24 09:06 Ondansetron Odt 4 Mg Tabrap PO 12/12/24 09:05 Q6HR PRN NAUSEA OR VOMITING Protocol Tamsulosin HCl 0.4 mg 11/09/24 09:00 11/13/24 09:01 Tamsulosin Hcl 0.4 Mg Capsule PO 12/09/24 08:59 Not Given QDAY BELEN Plan Patient is a 64-year-old male with past medical history of sick sinus syndrome s/p pacemaker, COPD on prn home O2, HFpEF, NAHEED, CKD stage IV, PAD, A-fib on Xarelto, GERD, eczema, diabetes mellitus type 2 with peripheral neuropathy, benign cystic liver disease, chronic back pain, and nonfunctioning left kidney s/p nephrectomy who initially presented to ED on 11/08/2024 with 1 month of bilateral leg pain and swelling, admitted for lower extremity cellulitis. Cardiology consultation was requested by Dr. Stahl in the setting pre-op clearance for right tibial hardware removal and debridement. #History of sick sinus syndrome s/p pacemaker #History of atrial fibrillation #History of HFpEF (60%), not currently in exacerbation Cardiac clearance requested for intermediate-risk orthopedic surgery. Patient's functional MET score appears to be about 3-4 as he does get short of breath with 1 flight of stairs or with typical house work. EKG on admission showed electronically paced rhythm at 67, right bundle branch block. 11/12/2024 Transthoracic echo showed: Normal size cardiac chambers. Normal size left ventricle with mild concentric LVH with normal preserved ejection fraction of 60%. Mild left ventricular diastolic dysfunction, grade 2. Mitral valve thickening mild annulus calcification trace mitral regurgitation. Aortic valve sclerosis with no stenosis. Patient the RV lead in the right ventricle pacing lead. Based on preserved ejection fraction appears to be low cardiac risk for orthopedic surgery 11/13/2024 Patient underwent plate and screws removal from the right tibia as well as irrigation, debridement, and curettage of the bone with Dr. Stahl. Plan: -Xarelto may be restarted 24-hours post-op or per Ortho recommendations. -May restart home aspirin 81 mg daily -Continue home amiodarone 200 mg qday Rest of conditions to continue current management per primary team: #Bilateral lower extremity cellulitis #[place] on CKD stage IV, resolved #Nonfunctioning left kidney and staghorn calculi s/p left nephrectomy #Diabetes mellitus type 2 #BPH #Nonobstructing right renal calculi #Peripheral neuropathy #Peripheral arterial disease #COPD #Anemia #GERD Patient was discussed with the Cardiology attending, Dr. Patel. Thank you for allowing us to participate in the care of this patient. Rowan Farias, PGY-2
[2024-11-13] MEDS: ACETAMINOPHEN IVPB 1,000 MG/100 ML VIAL 250 MG IV ×3 (14:37→23:49)
--- NOTE | 2024-11-13 15:36 | SUR.PHASEI ---
1519 Report given to Violeta MACHADO, patient meets discharge criteria from recovery, awake and alert-talking with staff, on oxygen 4L via nasal cannula, breathing unlabored, vital signs stable, denies pain, dressing intact; no bleeding noted, patient eating ice chips; denies nausea 1536 Patient transported via bed to room 375, tele-monitor on patient, patient has call light in reach, sitting up eating ice chips in bed when this freelance writer left patients room
--- NOTE | 2024-11-13 16:10 | PD.RESPRO ---
Documentation for date of: 11/13/24 Subjective Subjective Interval history: Patient is seen and examined at bedside No acute overnight events. Denies any other complaints Vitals are stable. Renal functions remained stable Pending surgery by Dr. Win this afternoon Exam Vital Signs Temp Pulse Resp BP Pulse Ox O2 Del Method O2 Flow Rate 97.5 F 60 16 148/84 H 95 Nasal Cannula 4 11/13/24 16:00 11/13/24 16:00 11/13/24 16:00 11/13/24 16:00 11/13/24 16:00 11/13/24 16:00 11/13/24 16:00 Narrative Exam General: Awake. HEENT: Normocephalic, atraumatic, mucous membranes moist. Heart: Irregular rate and rhythm, no murmurs. Lungs: Clear to auscultation with no wheezing or crackles. Abdomen: Soft, nondistended, nontender, positive bowel sounds. ?No guarding or rebound tenderness. Neurologic: Alert and oriented x3, no gross neurological deficit, and patient able to move all 4 extremities. Extremities: Bilateral lower extremity scaly lesions noted. Small ulceration is noted on right lower extremity 4 to 5 cm below the knee Skin: No rash or ecchymoses. Objective Labs 11/13/24 05:00 11/13/24 05:00 Labs: Laboratory Results - last 24 hr 11/13/24 05:00 WBC 8.1 RBC 4.07 L Hgb 10.8 L Hct 35.0 L MCV 86 MCH 26.5 MCHC 30.9 L RDW Std Deviation 46.7 H Plt Count 338 Neut % (Auto) 71 Lymph % (Auto) 12 [place] % (Auto) 6 Eos % (Auto) 4 Baso % (Auto) 1 Neut # (Auto) 5.8 Lymph # (Auto) 1.0 [place] # (Auto) 0.5 Eos # (Auto) 0.3 Baso # (Auto) 0.1 Immature Gran # (Auto) 0.52 H Absolute Nucleated RBC 0.00 Immature Gran % 6 H Nucleated RBC % 0 PT 12.2 INR 1.1 APTT 32.8 Sodium 140 Potassium 4.8 Chloride 111 H Carbon Dioxide 20.5 Anion Gap 9 BUN 33 H Creatinine 2.6 H Estim Creat Clear Calc 34.3 L eGFR 26 L BUN/Creatinine Ratio 13 Glucose 93 Calculated Osmolality 286 Calcium 8.6 Corrected Calcium 9.2 Total Bilirubin 0.2 L AST 36 H ALT 43 Alkaline Phosphatase 106 Total Protein 8.2 Albumin 3.3 L Globulin 4.9 H Albumin/Globulin Ratio 0.7 L Quality Measures Quality Measures VTE prophylaxis Advance care planning discussed with:: patient Assessment & Plan Assessment Current Active Medications: Generic Name Dose Route Start Last Admin Trade Name Freq PRN Reason Stop Dose Admin Acetaminophen 650 mg 11/09/24 04:53 Acetaminophen 325 Mg Tablet PO 12/09/24 04:52 Q6H PRN Fever >101.5 Acetaminophen 650 mg 11/09/24 04:53 Acetaminophen 325 Mg Tablet PO 12/09/24 04:52 Q6H PRN PAIN SCALE 1-3 (mild Hydrocodone Bitart/Acetaminophen 1 tab 11/09/24 04:53 Hydrocodone/Apap 5/325 Tablet PO 11/14/24 04:52 Q6HR PRN PAIN SCALE 4-6 (Moderate Albuterol/Ipratropium 3 ml 11/09/24 04:53 Albuterol/Ipratropium (Duoneb) Rt Monica 3 Ml Nebu INH 12/09/24 06:59 Q6HRRT PRN SOB or Wheeze Amiodarone HCl 200 mg 11/09/24 09:00 11/13/24 09:01 Amiodarone Hcl 200 Mg Tablet PO 12/09/24 08:59 200 mg QDAY BELEN Administration Cephalexin HCl 500 mg 11/14/24 09:00 Cephalexin 250 Mg Capsule PO 11/21/24 08:59 QDAY BELEN Dextrose 25 ml 11/09/24 19:59 Dextrose 50%-Water Inj 50 Ml Syringe IV 12/09/24 19:58 Q15MIN PRN BG 50-70 responsive npo pt Dextrose 50 ml 11/09/24 19:59 Dextrose 50%-Water Inj 50 Ml Syringe IV 12/09/24 19:58 Q15MIN PRN BG <50 OR BG <70 & pt unresponsive Glucagon 1 mg 11/09/24 19:59 Glucagon Inj 1 Mg Vial IM Q15MIN PRN BG <70, and no IV access Hydromorphone HCl 0.25 mg 11/09/24 04:53 Hydromorphone Inj 2 Mg/Ml Vial IVP 11/14/24 04:52 Q4H PRN PAIN SCALE 7-10 (Severe Acetaminophen 1,000 mg in 100 mls @ 250 mls/hr 11/13/24 12:18 11/13/24 15:01 Ofirmev Inj IV 11/14/24 06:23 Infused Q6HR BELEN Infusion Insulin Human Lispro 0 unit 11/09/24 21:00 11/13/24 11:13 Insulin Lispro (Admelog) 1 Unit/0.01 Ml Unit SC 12/09/24 20:59 Not Given ACHS BELEN Protocol Lactulose 20 gm 11/09/24 05:50 11/12/24 20:35 Lactulose Syrup 20 Gm/30 Ml Udc PO 12/09/24 05:49 Not Given HS BELEN Protocol Multi-Ingredient Ointment 0 oz 11/12/24 21:00 11/12/24 20:33 Min Oil/Pet,White (Eucerin) Cr 16 Oz Btl TOP 12/12/24 20:59 1 applicatio HS BELEN Administration Ondansetron HCl 4 mg 11/12/24 09:06 Ondansetron Odt 4 Mg Tabrap PO 12/12/24 09:05 Q6HR PRN NAUSEA OR VOMITING Protocol Tamsulosin HCl 0.4 mg 11/09/24 09:00 11/13/24 09:01 Tamsulosin Hcl 0.4 Mg Capsule PO 12/09/24 08:59 Not Given QDAY BELEN Plan A 64-year-old male with significant past medical history of COPD currently not on home oxygen, NAHEED, CKD stage IIIb, PAD, A-fib on Xarelto, GERD, eczema, diabetes mellitus type 2 with peripheral neuropathy, benign cystic liver disease, chronic back pain and left nephrectomy presented to ED on 11/08/2024 with chief complaint of bilateral leg pain and swelling for the past 1 to 2 months admitted to med telemetry unit for further management of bilateral cellulitis, likely associated with right leg abscess. # Surgery for removal of implant in the right lower extremity - Patient is scheduled to undergo surgery by Dr. Win as of 11/13/2024 - Preop clearance was given by Dr. Patel - Zita Cage for now in view of pending surgery, will resume it after the surgery #Bilateral lower extremity cellulitis, resolved #Superimposed on underlying skin infection, unsure of the etiology. Patient presented with right leg bump over upper malone level, with bilateral desquamation and pain, associated with fever and chills for the past 2 days. US Doppler right leg negative for DVT. White count of 17.6. Blood culture - no growth after 24hrs. Lower extremity CT scan did not show any evidence of osteomyelitis. Fungal cultures are sent on the lesions on lower extremity, pending Plan - Started on clindamycin 900 mg IV 3 times daily and ceftriaxone 1 g daily -changed to Keflex 500 Mg IV daily as of 11/13/2024 - Wound care referral done and following the patient #[place] on CKD stage IV,resolved #S/p left nephrectomy. DDx: Likely prerenal in the setting of poor oral intake versus less likely intrarenal secondary to diabetic nephropathy, with continued use of metformin. Patient baseline creatinine 3.2, presented with creatinine of 3.8 --> 11/09, Cr 4.4. -->11/11, 3.3 -->11/12, 2.6 Renal ultrasound showed right renal cortical scarring, minimal hydronephrosis without any prostamegaly, renal calculi plan - hold protonix. - Avoid nephrotoxic drugs and renally dose medications. - Dr. Garzon consulted for nephrology, appreciate recommendations. - Restarted xarelto on 11/11/2024 and stopped on 11/12/2024 as patient is undergoing surgery by Dr. Win #A-fib. Currently rate controlled. Echo done during this hospital admission showed Normal size cardiac chambers. Normal size left ventricle with mild concentric LVH with normal preserved ejection fraction of 60%. Mild left ventricular diastolic dysfunction, grade 2. Mitral valve thickening mild annulus calcification trace mitral regurgitation. Aortic valve sclerosis with no stenosis. Patient the RV lead in the right ventricle pacing lead. Plan: - Started on amiodarone 200 Mg daily. - Held diltiazem and losartan due to soft BP. #Diabetes mellitus type 2. Patient is currently taking metformin 500 Mg daily at home. A1c during this hospital admission is 6.3. Plan: - Stop metformin, as patient's GFR is less than 30. - Started on insulin sliding scale. #BPH. - started on home tamsulosin. #Nonobstructing right renal calculi - Outpatient follow-up #Peripheral neuropathy. #Peripheral arterial disease. #COPD. #Anemia. #GERD. - hold protonix. Health maintenance: Dispo: Med/tele. DVT prophylaxis: Held for now in view of surgery Diet: N.p.o. since midnight for the surgery pending this afternoon CODE STATUS: Full code. Patient plan of care was discussed with the attending physician, Dr. Carmelo Kee, PGY1 Attending Provider Attestation/Addendum I attest that I was physically present for the evaluation, physical examination, lab and imaging review of the patient with the residents. I discussed the case with the residents and agree with the findings and plans of care as documented above. At bedside, patient states she is feeling well and does not have new complaints.? His pain has been well-controlled.? Lower limb wound appears better.? Lab results and vital signs have been stable.? Wound care has been following.? Patient is planned for surgery to remove his nail and plates today with orthopedics.? Culture results grew Streptococcus pyogenes, we will switch his antibiotics to Keflex. Omar Rhodes MD
[2024-11-13] MEDS: HYDROcodone/APAP 5/325 TABLET 1 TAB PO (20:45)
[2024-11-13] MEDS: MIN OIL/PET,WHITE (Eucerin) CR 16 OZ BTL TOP (20:52)
[2024-11-14] VITALS (12 sets, daily range): BP systolic 142–175; BP diastolic 86–102; PULSE 60–85; RESP 16–20; TEMP 36.1–36.4; O2SAT 92–100; BMI 13.0
[2024-11-14] MEDS: HYDROcodone/APAP 5/325 TABLET 1 TAB PO ×2 (06:21→20:29)
[2024-11-14 06:28] LABS: Basophils % (Auto) 0 % (0-2.5); Eosinophils % (Auto) 0 % (0-10); Hematocrit 35.5 % (41.0-53.0); Immature Granulocytes % (Auto) 2 % (0-0); Immature Granulocytes Auto 0.38 Thou/mm3 (0.00-0.00); Lymphocytes # (Auto) 0.9 Thou/mm3 (1.0-4.8); Lymphocytes % (Auto) 6 % (10-50); Mean Corpuscular Hemoglobin 26.7 pg (25.0-35.0); Mean Corpuscular Volume 86 fL (80-100); Monocytes # (Auto) 0.5 Thou/mm3 (0.0-0.8); Monocytes % (Auto) 3 % (0-12); Neutrophils # (Auto) 13.9 Thou/mm3 (1.8-7.7); Neutrophils % (Auto) 89 % (37-80); Nucleated Red Blood Cell % 0 /100 WBC (0); Platelet Count 368 Thou/mm3 (140-440); RDW Standard Deviation 47.7 fL (35.1-43.9); Red Blood Count 4.12 Miln/mm3 (4.50-5.90); White Blood Count 15.7 Thou/mm3 (3.8-10.6)
[2024-11-14 06:44] LABS: Alanine Aminotransferase 42 U/L (10-49); Albumin, Serum 3.1 gm/dL (3.4-4.8); Albumin/Globulin Ratio 0.7 (1.2-2.2); Alkaline Phosphatase 115 U/L (46-116); Anion Gap 8 (7-16); Aspartate Amino Transferase 34 U/L (0-34); BUN/Creatinine Ratio 15 Ratio (12-20); Bilirubin,Total < 0.2 mg/dL (0.3-1.2); Blood Urea Nitrogen 39 mg/dL (9-23); Calcium 8.4 mg/dL (8.3-10.6); Calcium (Corrected) 9.1 mg/dL (8.5-10.1); Carbon Dioxide 20.1 mMol/L (20.0-31.0); Chloride 109 mMol/L (98-107); Creatinine (Component) 2.6 mg/dL (0.6-1.3); Estimated Creatinine Clearance 34.3 mL/min (>60); Globulin 4.5 gm/dL (2.3-3.5); Glucose 100 mg/dL (74-106); Osmolality,Calculated 283 (275-295); Sodium 137 mMol/L (136-145); Total Protein 7.6 gm/dL (5.7-8.2); eGFR 26 See Note
[2024-11-14 06:46] LABS: Potassium 5.8 mMol/L (3.4-5.1)
[2024-11-14] MEDS: DEXTROSE 50%-WATER INJ 50 ML SYRINGE IV (07:57)
[2024-11-14] MEDS: INSULIN HUM REGULAR 1 UNIT/0.01 ML (PER UNIT) 5 UNIT IV (07:58)
[2024-11-14] MEDS: SOD POLYSTYRENE SULFON SUSP 15 GM/60 ML BTL 30 GM PO (07:58)
[2024-11-14] MEDS: AMIODARONE HCL 200 MG TABLET PO (08:15)
[2024-11-14] MEDS: cephALEXin 250 MG CAPSULE 500 MG PO (08:16)
[2024-11-14] MEDS: TAMSULOSIN HCL 0.4 MG CAPSULE PO (08:16)
[2024-11-14] MEDS: RIVAROXABAN 10 MG TABLET PO (09:59)
--- NOTE | 2024-11-14 11:58 | PC.SS ---
SS follow up note; Patient had Surgery yesterday, Post OP day #1. Patient will discharge to [facility] when medically cleared, pending PT eval for auth.
--- NOTE | 2024-11-14 12:26 | XR_ITS ---
Examination: Ultrasound-guided needle placement right basilic vein. Dual-lumen central line placement (PICC line). Fluoroscopy AP chest, portable, single view Exam date and time:November 14, 2024 at 1316 hours A timeout was completed verifying correct patient, procedure, site, positioning Informed consent provided Technique: The patient's site was prepped and draped in sterile fashion. Maximum Sterile Barrier Technique used including cap, mask, sterile gown, sterile gloves, and sterile full body drape. If ultrasound technique used: sterile gel and sterile probe covers. Hand Hygiene performed using proper scrub, soap and water, or alcohol-based hand rub. Site right portable apparatus utilized to confirm patency of the right basilic vein Utilizing ultrasonographic guidance successful 21-gauge needle puncture into the right basilic vein Ultrasound images recorded and stored. 5 cc 1% lidocaine administered for local anesthetic. Successful micropuncture with a 21-gauge needle is performed. 0.18 wire guide is then introduced into the SVC under fluoroscopic guidance. Dual-lumen catheter dilator is then introduced, followed by the catheter in the SVC and proper position under fluoroscopic guidance. Successful aspiration of blood and flushing with heparinized saline is then performed in the 2 venous limbs. The catheter sutured in place. Findings: Under fluoroscopy, the tip of the catheter is in good position in the vena cava. Portable chest x-ray, post line placement is ordered. Estimated blood loss 3 cc The patient tolerated the procedure well and was in stable and satisfactory condition at completion of the procedure Impression: Successful ultrasound-guided needle placement right basilic vein Successful placement of dual lumen central line, percutaneous Fluoroscopy 0.1 minute radiation dose 1.61 milligray 1 spot fluoroscopic chest film. AP chest completion procedure demonstrates satisfactory position central line. May use central line.
--- NOTE | 2024-11-14 12:55 | PD.RESPRO ---
Documentation for date of: 11/14/24 Subjective Subjective Interval history: Mr. Yuan is a 64-year-old male PMHx of COPD on home oxygen, CHF unspecified, NAHEED, CKD stage IV, s/p left nephrectomy 09/02 nephrolithiasis 2013, T2DM, PAD, A-fib on XARELTO, GERD, eczema, peripheral neuropathy, chronic back pain, presenting with bilateral lower extremity pain. He lives alone in a trailer, has chronic lower extremity edema for which he takes daily LASIX, previously diagnosed with CHF, does not know ejection fraction. He has been seeing wound care for bilateral lower extremity pain and swelling and ulcers, which have not responded to treatment. Denies fever, headaches, chills, chest pain, cough, recent upper respiratory illness, dysuria, hematuria, urinary frequency or urgency, abdominal pain, N/V/D/C. Denies alcohol, tobacco or drug use. Left unilateral nephrectomy was done in 2013 at [facility] as a result of kidney stones. He is aware of having chronic kidney disease, managed by his PCP who recently referred him to see a environmental marketing representative in [facility], currently pending authorization. States his blood sugars and blood pressure have generally been controlled. States he takes his medications on a daily basis, as prescribed. Reports no new or changes in current medications. On arrival, vitals WNL, satting 95% on room air. WBC 18.6, Hgb 10.9, PLT 280. Sodium 134, CR 3.8, BUN 47, EGFR 17. Renal function worsened since admission, currently BUN 54, CR 1.4, EGFR 14. Most recent comparison from 04/2024 showing CR 3.2, EGFR 21. UA with turbid with protein 1+, blood 1+, no signs of UTI. Venous Doppler negative for bilateral extremity DVT. Right knee x-ray moderate tricompartment osteoarthritis. Lower extremity CT pending final read. Renal ultrasound pending final read. He was admitted for bilateral cellulitis. Nephrology team was consulted for management of [place] on CKD. 11/10/2024 examined at bedside. No new symptoms or worsening of symptoms. Denies fever, chills, headaches, chest pain, sob, cough, GI or urinary symptoms. Renal function improving, CR 3.7, BUN 57, GFR 17. Phosphorus slightly high at 5.4. Remainder electrolytes WNL. Urine output is okay. WBC improving 11.7, Hgb 9.5. Continue with NS at 150 cc/H. 11/11/2024 patient currently seen in medical floor. Very talkative. Denies any chest pain, shortness of breath. Still having lower extremity weakness. Currently on fluids. Blood pressure 132/81, heart rate 58, blood sugar 115. Hemoglobin 9.5, sodium 138, potassium 5.3, bicarbonate 21.1, BUN 50, creatinine 3.3, GFR 20, calcium 9, phosphorus 5, magnesium 2.2,Renal ultrasound showed cortical thinning consistent with CKD. PTH lipids are normal. PTH level 121. AST 53, ALT 43, albumin 3.0. 11/12/2024 examined at bedside, feels well today, no new or worsening of symptoms. Denies fever, chills, headaches, chest pain, sob, cough, GI or urinary symptoms. Renal function improving, CR 3.0, BUN 46, GFR 22. No electrolyte abnormalities noted. Hgb 9.5 stable, PLT 282. 11/13/2024 examined at bedside. No new complaints, continues to improve. Renal function stable, CR 2.6, GUN 39, EGFR 26. No significant electrolyte abnormalities. No plan for HD today. 11/14/2024 examined at bedside. Denies fever, chills, headaches, chest pain, sob, cough, GI or urinary symptoms. Scaley rash improved bilaterally. Renal function stable, CR 2.6, GFR 39, EGFR 26. Potassium 5.8, gave insulin and kayax, will repeat in 6 hours. Urine output good. Exam Vital Signs Temp Pulse Resp BP Pulse Ox O2 Del Method O2 Flow Rate 97.6 F 63 18 175/102 H 96 Nasal Cannula 3 11/14/24 08:00 11/14/24 12:00 11/14/24 08:00 11/14/24 08:15 11/14/24 08:00 11/14/24 08:00 11/14/24 08:00 Narrative Exam CONSTITUTIONAL: Patient denies any fever, chills. HEENT: Denies any visual disturbances or hearing problems. CARDIOVASCULAR: Patient denies any chest pain, shortness of breath, swelling in the lower extremities. PULMONARY: Patient denies any shortness of breath, cough. GASTROINTESTINAL: Patient denies any abdominal pain, constipation, nausea, vomiting, diarrhea. GENITOURINARY: Patient denies any urinary symptoms of burning or frequency or hematuria, denies any form in the urine. SKIN: Significant dryness of the lower extremities MUSCULOSKELETAL: Patient complaining of weakness in the lower extremities NEUROLOGICAL: Denies any neurological problems of strokes, seizures or confusion. Denies any memory problems. PSYCHIATRIC: Denies any depression or anxiety. LYMPHATICS : No lymphadenopathy Objective Labs 11/14/24 05:15 11/14/24 16:10 Labs: Laboratory Results - last 24 hr 11/14/24 05:15 WBC 15.7 H D RBC 4.12 L Hgb 11.0 L Hct 35.5 L MCV 86 MCH 26.7 MCHC 31.0 RDW Std Deviation 47.7 H Plt Count 368 D Neut % (Auto) 89 H Lymph % (Auto) 6 L [place] % (Auto) 3 Eos % (Auto) 0 Baso % (Auto) 0 Neut # (Auto) 13.9 H Lymph # (Auto) 0.9 L [place] # (Auto) 0.5 Eos # (Auto) 0.0 Baso # (Auto) 0.0 Immature Gran # (Auto) 0.38 H Absolute Nucleated RBC 0.00 Immature Gran % 2 H Nucleated RBC % 0 Sodium 137 Potassium 5.8 H D Chloride 109 H Carbon Dioxide 20.1 Anion Gap 8 BUN 39 H Creatinine 2.6 H Estim Creat Clear Calc 34.3 L eGFR 26 L BUN/Creatinine Ratio 15 Glucose 100 Calculated Osmolality 283 Calcium 8.4 Corrected Calcium 9.1 Total Bilirubin < 0.2 L AST 34 ALT 42 Alkaline Phosphatase 115 Total Protein 7.6 Albumin 3.1 L Globulin 4.5 H Albumin/Globulin Ratio 0.7 L Quality Measures Quality Measures VTE prophylaxis Advance care planning discussed with:: patient Assessment & Plan Assessment Current Active Medications: Generic Name Dose Route Start Last Admin Trade Name Freq PRN Reason Stop Dose Admin Acetaminophen 650 mg 11/09/24 04:53 Acetaminophen 325 Mg Tablet PO 12/09/24 04:52 Q6H PRN Fever >101.5 Acetaminophen 650 mg 11/09/24 04:53 Acetaminophen 325 Mg Tablet PO 12/09/24 04:52 Q6H PRN PAIN SCALE 1-3 (mild Hydrocodone Bitart/Acetaminophen 1 tab 11/14/24 06:12 11/14/24 06:21 Hydrocodone/Apap 5/325 Tablet PO 11/19/24 06:11 1 tab Q6HR PRN Administration Pain 4-10 Albuterol/Ipratropium 3 ml 11/09/24 04:53 Albuterol/Ipratropium (Duoneb) Rt Monica 3 Ml Nebu INH 12/09/24 06:59 Q6HRRT PRN SOB or Wheeze Amiodarone HCl 200 mg 11/09/24 09:00 11/14/24 08:15 Amiodarone Hcl 200 Mg Tablet PO 12/09/24 08:59 200 mg QDAY BELEN Administration Cephalexin HCl 500 mg 11/14/24 09:00 11/14/24 08:16 Cephalexin 250 Mg Capsule PO 11/21/24 08:59 500 mg QDAY BELEN Administration Dextrose 25 ml 11/09/24 19:59 Dextrose 50%-Water Inj 50 Ml Syringe IV 12/09/24 19:58 Q15MIN PRN BG 50-70 responsive npo pt Dextrose 50 ml 11/09/24 19:59 Dextrose 50%-Water Inj 50 Ml Syringe IV 12/09/24 19:58 Q15MIN PRN BG <50 OR BG <70 & pt unresponsive Glucagon 1 mg 11/09/24 19:59 Glucagon Inj 1 Mg Vial IM Q15MIN PRN BG <70, and no IV access Insulin Human Lispro 0 unit 11/09/24 21:00 11/14/24 11:09 Insulin Lispro (Admelog) 1 Unit/0.01 Ml Unit SC 12/09/24 20:59 Not Given ACHS BELEN Protocol Lactulose 20 gm 11/09/24 05:50 11/13/24 20:46 Lactulose Syrup 20 Gm/30 Ml Udc PO 12/09/24 05:49 Not Given HS BELEN Protocol Multi-Ingredient Ointment 0 oz 11/12/24 21:00 11/13/24 20:52 Min Oil/Pet,White (Eucerin) Cr 16 Oz Btl TOP 12/12/24 20:59 1 applicatio HS BELEN Administration Ondansetron HCl 4 mg 11/12/24 09:06 Ondansetron Odt 4 Mg Tabrap PO 12/12/24 09:05 Q6HR PRN NAUSEA OR VOMITING Protocol Rivaroxaban 10 mg 11/14/24 09:15 11/14/24 09:59 Rivaroxaban 10 Mg Tablet PO 12/14/24 09:14 10 mg QDAY BELEN Administration Tamsulosin HCl 0.4 mg 11/09/24 09:00 11/14/24 08:16 Tamsulosin Hcl 0.4 Mg Capsule PO 12/09/24 08:59 0.4 mg QDAY BELEN Administration Plan 64-year-old male PMHx of COPD on home oxygen, CHF unspecified, NAHEED, CKD stage IV, s/p left nephrectomy 2/2 nephrolithiasis 2013, T2DM, PAD, A-fib on XARELTO, GERD, eczema, peripheral neuropathy, chronic back pain, admitted for bilateral lower extremity cellulitis. Nephrology was consulted for the management of [place] on CKD. Renal function remained stable. No plan for hemodialysis today. [place] on CKD stage IV S/p left unilateral nephrectomy 2013 left unilateral nephrectomy at [facility] 2/2 kidney stones. Diabetes relatively controlled, A1c 6.3 from 04/05/24=hold off on metformin Chronic HTN, relatively poorly controlled, might also be contributing. Right renal ultrasound with cortical thinning, minimal hydronephrosis. PTH 121.8, likely secondary hyperparathyroidism, pending VITAMIN D. Urine random protein 101H, sodium 29, potassium 48, chloride less than 20, mACR 105. No significant proteinuria overall. Renal function stable, CR 2.6, BUN 33, EGFR 26. ? Renally dose meds, avoid overdiuresis and NEPHROTOXINS ? Daily CMP ? Strict SÁNCHEZ's ? Increase p.o. fluid intake. Spoke to primary team. ? No hemodialysis today Hyperkalemia Potassium 5.8 Gave INSULIN and KAYEXALATE Asymptomatic ? Repeat potassium in 6 hours Bilateral leg cellulitis Right leg abscess Rule out DVT A-fib Diabetes mellitus type 2 Peripheral neuropathy Peripheral arterial disease COPD Anemia GERD ? Managed by primary team Patient needs renal follow-up in 2 weeks. Thank you for the opportunity to participate in the patient's care. Case was discussed with attending, Dr. Garzon. Jared Orozco DO PGYI Attending Provider Attestation/Addendum patient seen and examined with resident physician Dr. Coleman. Note reviewed, agree with findings and recommendations. Patient currently seen in medical floor. I saw him in 2022. Advanced CKD and never came to my clinic. Presented with significant weakness in the lower extremities, ichthyosis and [place]. Patient seems to have significant amount of insensible losses from his dry skin. Renal ultrasound showed no significant hydronephrosis. Unilateral functioning kidney. Continue with monitoring of renal function. Creatinine better. Skin exam also seems to be better. Encouraged p.o. fluids. Patient had orthopedic surgery for the right leg.
--- NOTE | 2024-11-14 13:53 | ESPR_ITS ---
<Statement entered by Bryant Patel MD - 11/19/24 08:33> I evaluated the patient with the resident physician Dr. Olya Farias patient appears to be clinically doing about the same does not complain of any chest pain shortness of breath did undergo successful debridement receiving IV antibiotics continue to monitor the patient closely for any cardiac issues but appears to be stable Documentation for date of: 11/14/24 Subjective Subjective Interval history: No acute events overnight.?Patient seen and examined at bedside this afternoon.?Patient is post-op day 1 after right tibial plate and screw removal and debridement. Hehad a PICC line placed for IV antibiotics today which will be continued after discharge. [facility]. Labs and vitals were reviewed.?BP elevated 160-170s/90-100s. Otherwise hemodynamically stable. WBC elevated at 15.7 likely post-op reactive. Potassium was 5.8 and patient received insulin, dextrose, and Kayexylate. Reports having a good BM. No further complaints at this time. Review of systems otherwise negative except what is mentioned above. Exam Vital Signs Temp Pulse Resp BP Pulse Ox O2 Del Method O2 Flow Rate 97.6 F 60 18 142/91 H 93 L Nasal Cannula 3 11/14/24 12:00 11/14/24 12:00 11/14/24 12:00 11/14/24 12:00 11/14/24 12:00 11/14/24 12:00 11/14/24 12:00 Narrative Exam Physical Exam General: Awake and in no acute distress. Conversational and non-toxic appearing. HEENT: Normocephalic, atraumatic, mucous membranes moist. On nasal cannula. Heart: Regular rate and rhythm, normal S1 and S2, no murmurs. Lungs: Clear to auscultation with no wheezing or crackles. Abdomen: Soft, nondistended, nontender, positive bowel sounds. ?No guarding or rebound tenderness. Neurologic: Alert and oriented x3, no gross neurological deficit, and patient able to move all 4 extremities. Extremities: Mild scattered erythema bilateral lower extremities. Right lower extremity wrapped in wound dressings post-op. Skin: Skin desquamation, scaling, and peeling bilateral lower extremities. Onycchomycosis. Objective Labs 11/14/24 05:15 11/14/24 05:15 Labs: Laboratory Results - last 24 hr 11/14/24 05:15 WBC 15.7 H D RBC 4.12 L Hgb 11.0 L Hct 35.5 L MCV 86 MCH 26.7 MCHC 31.0 RDW Std Deviation 47.7 H Plt Count 368 D Neut % (Auto) 89 H Lymph % (Auto) 6 L [place] % (Auto) 3 Eos % (Auto) 0 Baso % (Auto) 0 Neut # (Auto) 13.9 H Lymph # (Auto) 0.9 L [place] # (Auto) 0.5 Eos # (Auto) 0.0 Baso # (Auto) 0.0 Immature Gran # (Auto) 0.38 H Absolute Nucleated RBC 0.00 Immature Gran % 2 H Nucleated RBC % 0 Sodium 137 Potassium 5.8 H D Chloride 109 H Carbon Dioxide 20.1 Anion Gap 8 BUN 39 H Creatinine 2.6 H Estim Creat Clear Calc 34.3 L eGFR 26 L BUN/Creatinine Ratio 15 Glucose 100 Calculated Osmolality 283 Calcium 8.4 Corrected Calcium 9.1 Total Bilirubin < 0.2 L AST 34 ALT 42 Alkaline Phosphatase 115 Total Protein 7.6 Albumin 3.1 L Globulin 4.5 H Albumin/Globulin Ratio 0.7 L Quality Measures Quality Measures VTE prophylaxis Advance care planning discussed with:: patient Assessment & Plan Assessment Current Active Medications: Generic Name Dose Route Start Last Admin Trade Name Freq PRN Reason Stop Dose Admin Acetaminophen 650 mg 11/09/24 04:53 Acetaminophen 325 Mg Tablet PO 12/09/24 04:52 Q6H PRN Fever >101.5 Acetaminophen 650 mg 11/09/24 04:53 Acetaminophen 325 Mg Tablet PO 12/09/24 04:52 Q6H PRN PAIN SCALE 1-3 (mild Hydrocodone Bitart/Acetaminophen 1 tab 11/14/24 06:12 11/14/24 06:21 Hydrocodone/Apap 5/325 Tablet PO 11/19/24 06:11 1 tab Q6HR PRN Administration Pain 4-10 Albuterol/Ipratropium 3 ml 11/09/24 04:53 Albuterol/Ipratropium (Duoneb) Rt Monica 3 Ml Nebu INH 12/09/24 06:59 Q6HRRT PRN SOB or Wheeze Amiodarone HCl 200 mg 11/09/24 09:00 11/14/24 08:15 Amiodarone Hcl 200 Mg Tablet PO 12/09/24 08:59 200 mg QDAY BELEN Administration Cephalexin HCl 500 mg 11/14/24 09:00 11/14/24 08:16 Cephalexin 250 Mg Capsule PO 11/21/24 08:59 500 mg QDAY BELEN Administration Dextrose 25 ml 11/09/24 19:59 Dextrose 50%-Water Inj 50 Ml Syringe IV 12/09/24 19:58 Q15MIN PRN BG 50-70 responsive npo pt Dextrose 50 ml 11/09/24 19:59 Dextrose 50%-Water Inj 50 Ml Syringe IV 12/09/24 19:58 Q15MIN PRN BG <50 OR BG <70 & pt unresponsive Glucagon 1 mg 11/09/24 19:59 Glucagon Inj 1 Mg Vial IM Q15MIN PRN BG <70, and no IV access Insulin Human Lispro 0 unit 11/09/24 21:00 11/14/24 11:09 Insulin Lispro (Admelog) 1 Unit/0.01 Ml Unit SC 12/09/24 20:59 Not Given ACHS BELEN Protocol Lactulose 20 gm 11/09/24 05:50 11/13/24 20:46 Lactulose Syrup 20 Gm/30 Ml Udc PO 12/09/24 05:49 Not Given HS BELEN Protocol Multi-Ingredient Ointment 0 oz 11/12/24 21:00 11/13/24 20:52 Min Oil/Pet,White (Eucerin) Cr 16 Oz Btl TOP 12/12/24 20:59 1 applicatio HS BELEN Administration Ondansetron HCl 4 mg 11/12/24 09:06 Ondansetron Odt 4 Mg Tabrap PO 12/12/24 09:05 Q6HR PRN NAUSEA OR VOMITING Protocol Rivaroxaban 10 mg 11/14/24 09:15 11/14/24 09:59 Rivaroxaban 10 Mg Tablet PO 12/14/24 09:14 10 mg QDAY BELEN Administration Tamsulosin HCl 0.4 mg 11/09/24 09:00 11/14/24 08:16 Tamsulosin Hcl 0.4 Mg Capsule PO 12/09/24 08:59 0.4 mg QDAY BELEN Administration Plan Patient is a 64-year-old male with past medical history of sick sinus syndrome s/p pacemaker, COPD on prn home O2, HFpEF, NAHEED, CKD stage IV, PAD, A-fib on Xarelto, GERD, eczema, diabetes mellitus type 2 with peripheral neuropathy, benign cystic liver disease, chronic back pain, and nonfunctioning left kidney s/p nephrectomy who initially presented to ED on 11/08/2024 with 1 month of bilateral leg pain and swelling, admitted for lower extremity cellulitis. Cardiology consultation was requested by Dr. Stahl in the setting pre-op clearance for right tibial hardware removal and debridement. #History of sick sinus syndrome s/p pacemaker #History of atrial fibrillation #History of HFpEF (60%), not currently in exacerbation Cardiac clearance requested for intermediate-risk orthopedic surgery. Patient's functional MET score appears to be about 3-4 as he does get short of breath with 1 flight of stairs or with typical house work. EKG on admission showed electronically paced rhythm at 67, right bundle branch block. 11/12/2024 Transthoracic echo showed: Normal size cardiac chambers. Normal size left ventricle with mild concentric LVH with normal preserved ejection fraction of 60%. Mild left ventricular diastolic dysfunction, grade 2. Mitral valve thickening mild annulus calcification trace mitral regurgitation. Aortic valve sclerosis with no stenosis. Patient the RV lead in the right ventricle pacing lead. Based on preserved ejection fraction appears to be low cardiac risk for orthopedic surgery 11/13/2024 Patient underwent plate and screws removal from the right tibia as well as irrigation, debridement, and curettage of the bone with Dr. Stahl. Plan: -Xarelto may be restarted 24-hours post-op or per Ortho recommendations. -May restart home aspirin 81 mg daily -Continue home amiodarone 200 mg qday Rest of conditions to continue current management per primary team: #Bilateral lower extremity cellulitis #[place] on CKD stage IV, resolved #Nonfunctioning left kidney and stag[place] calculi s/p left nephrectomy #Diabetes mellitus type 2 #BPH #Nonobstructing right renal calculi #Peripheral neuropathy #Peripheral arterial disease #COPD #Anemia #GERD Patient was discussed with the Cardiology attending, Dr. Patel. Thank you for allowing us to participate in the care of this patient. Rowan Farias, PGY-2
[2024-11-14] MEDS: LIDOCAINE INJ PF 1% 30 ML VIAL 4 ML EPID (14:18)
[2024-11-14] MEDS: HEPARIN SOD LOCK SYR 100 UNIT/ML 500 UNIT STFIELD (14:18)
--- NOTE | 2024-11-14 14:22 | PC.NURSE ---
Patient brought down to IR via [place], patient on 2L NC, aware and orientated Consent received from patient, both MD and patient signed consent patient was placed on supine position and tech prepped patients right arm PICC line was inserted on the right upper arm measuring at 40cm (see EMR for medications given) MD gave me a verbal order for may use PICC line report was given to Aurelia MACHADO i wheeled patient back up to his room via gurney patient stable
[2024-11-14 16:53] LABS: Albumin, Serum 3.3 gm/dL (3.4-4.8); Anion Gap 7 (7-16); BUN/Creatinine Ratio 15 Ratio (12-20); Blood Urea Nitrogen 37 mg/dL (9-23); Calcium 8.3 mg/dL (8.3-10.6); Calcium (Corrected) 8.9 mg/dL (8.5-10.1); Carbon Dioxide 23.1 mMol/L (20.0-31.0); Chloride 109 mMol/L (98-107); Creatinine (Component) 2.5 mg/dL (0.6-1.3); Estimated Creatinine Clearance 35.7 mL/min (>60); Glucose 103 mg/dL (74-106); Osmolality,Calculated 286 (275-295); Phosphorous 3.9 mg/dL (2.4-5.1); Potassium 4.6 mMol/L (3.4-5.1); Sodium 139 mMol/L (136-145); eGFR 28 See Note
--- NOTE | 2024-11-14 16:59 | ESPR_ITS ---
<Statement entered by Migue Khan MD - 11/15/24 07:44> Senior Resident Attestation: I supervised/discussed management plan with international representative physician Dr. Kee, and was involved in the care of this patient. I personally saw and examined the patient and discussed the assessment and plan with the entire medicine team, including my attending. I agree with the assessment and plan as documented. Patient reports minimal pain in surgical site. Plan is to insert PICC line and discharge patient on IV levofloxacin and p.o. doxycycline for 4 weeks, anticipate discharge tomorrow. Patient's care was discussed with attending physician, Dr. Schaefer. Migue Khan MD PGY-2. Documentation for date of: 11/14/24 Subjective Subjective Interval history: Patient is seen and examined at bedside Patient underwent surgery by Dr. Win yesterday and the postop was unremarkable No acute overnight events. Denies any other complaints except for mild at the site of surgery Vitals are stable. On physical examination, dressing noted at the site of surgery. Heart rate is irregular PICC line was placed today as per Dr. Win recommendations to continue antibiotics for 4 weeks Will discharge tomorrow to nursing facility. Exam Vital Signs Temp Pulse Resp BP Pulse Ox O2 Del Method O2 Flow Rate 97.6 F 79 18 163/98 H 94 L Nasal Cannula 2 11/14/24 12:00 11/14/24 15:06 11/14/24 15:06 11/14/24 14:21 11/14/24 15:06 11/14/24 14:21 11/14/24 15:06 Narrative Exam General: Awake. HEENT: Normocephalic, atraumatic, mucous membranes moist. Heart: Irregular rate and rhythm, no murmurs. Lungs: Clear to auscultation with no wheezing or crackles. Abdomen: Soft, nondistended, nontender, positive bowel sounds. ?No guarding or rebound tenderness. Neurologic: Alert and oriented x3, no gross neurological deficit, and patient able to move all 4 extremities. Extremities: Bilateral lower extremity scaly lesions noted. Dressing noted on her left lower extremity Skin: No rash or ecchymoses. Objective Labs 11/15/24 05:20 11/15/24 05:20 Labs: Laboratory Results - last 24 hr 11/14/24 11/14/24 05:15 16:10 WBC 15.7 H D RBC 4.12 L Hgb 11.0 L Hct 35.5 L MCV 86 MCH 26.7 MCHC 31.0 RDW Std Deviation 47.7 H Plt Count 368 D Neut % (Auto) 89 H Lymph % (Auto) 6 L [place] % (Auto) 3 Eos % (Auto) 0 Baso % (Auto) 0 Neut # (Auto) 13.9 H Lymph # (Auto) 0.9 L [place] # (Auto) 0.5 Eos # (Auto) 0.0 Baso # (Auto) 0.0 Immature Gran # (Auto) 0.38 H Absolute Nucleated RBC 0.00 Immature Gran % 2 H Nucleated RBC % 0 Sodium 137 139 Potassium 5.8 H D 4.6 D Chloride 109 H 109 H Carbon Dioxide 20.1 23.1 Anion Gap 8 7 BUN 39 H 37 H Creatinine 2.6 H 2.5 H Estim Creat Clear Calc 34.3 L 35.7 L eGFR 26 L 28 L BUN/Creatinine Ratio 15 15 Glucose 100 103 Calculated Osmolality 283 286 Calcium 8.4 8.3 Corrected Calcium 9.1 8.9 Phosphorus 3.9 Total Bilirubin < 0.2 L AST 34 ALT 42 Alkaline Phosphatase 115 Total Protein 7.6 Albumin 3.1 L 3.3 L Globulin 4.5 H Albumin/Globulin Ratio 0.7 L Quality Measures Quality Measures VTE prophylaxis Advance care planning discussed with:: patient Assessment & Plan Assessment Current Active Medications: Generic Name Dose Route Start Last Admin Trade Name Freq PRN Reason Stop Dose Admin Acetaminophen 650 mg 11/09/24 04:53 Acetaminophen 325 Mg Tablet PO 12/09/24 04:52 Q6H PRN Fever >101.5 Acetaminophen 650 mg 11/09/24 04:53 Acetaminophen 325 Mg Tablet PO 12/09/24 04:52 Q6H PRN PAIN SCALE 1-3 (mild Hydrocodone Bitart/Acetaminophen 1 tab 11/14/24 06:12 11/14/24 06:21 Hydrocodone/Apap 5/325 Tablet PO 11/19/24 06:11 1 tab Q6HR PRN Administration Pain 4-10 Albuterol/Ipratropium 3 ml 11/09/24 04:53 Albuterol/Ipratropium (Duoneb) Rt Monica 3 Ml Nebu INH 05/11/25 06:59 Q6HRRT PRN SOB or Wheeze Amiodarone HCl 200 mg 11/09/24 09:00 11/14/24 08:15 Amiodarone Hcl 200 Mg Tablet PO 12/09/24 08:59 200 mg QDAY BELEN Administration Cephalexin HCl 500 mg 11/14/24 09:00 11/14/24 08:16 Cephalexin 250 Mg Capsule PO 11/21/24 08:59 500 mg QDAY BELEN Administration Dextrose 25 ml 11/09/24 19:59 Dextrose 50%-Water Inj 50 Ml Syringe IV 12/09/24 19:58 Q15MIN PRN BG 50-70 responsive npo pt Dextrose 50 ml 11/09/24 19:59 Dextrose 50%-Water Inj 50 Ml Syringe IV 12/09/24 19:58 Q15MIN PRN BG <50 OR BG <70 & pt unresponsive Glucagon 1 mg 11/09/24 19:59 Glucagon Inj 1 Mg Vial IM Q15MIN PRN BG <70, and no IV access Insulin Human Lispro 0 unit 11/09/24 21:00 11/14/24 11:09 Insulin Lispro (Admelog) 1 Unit/0.01 Ml Unit SC 12/09/24 20:59 Not Given ACHS BELEN Protocol Lactulose 20 gm 11/09/24 05:50 11/13/24 20:46 Lactulose Syrup 20 Gm/30 Ml Udc PO 12/09/24 05:49 Not Given HS BELEN Protocol Multi-Ingredient Ointment 0 oz 11/12/24 21:00 11/13/24 20:52 Min Oil/Pet,White (Eucerin) Cr 16 Oz Btl TOP 12/12/24 20:59 1 applicatio HS BELEN Administration Ondansetron HCl 4 mg 11/12/24 09:06 Ondansetron Odt 4 Mg Tabrap PO 12/12/24 09:05 Q6HR PRN NAUSEA OR VOMITING Protocol Rivaroxaban 10 mg 11/14/24 09:15 11/14/24 09:59 Rivaroxaban 10 Mg Tablet PO 12/14/24 09:14 10 mg QDAY BELEN Administration Tamsulosin HCl 0.4 mg 11/09/24 09:00 11/14/24 08:16 Tamsulosin Hcl 0.4 Mg Capsule PO 12/09/24 08:59 0.4 mg QDAY BELEN Administration Plan A 64-year-old male with significant past medical history of COPD currently not on home oxygen, NAHEED, CKD stage IIIb, PAD, A-fib on Xarelto, GERD, eczema, diabetes mellitus type 2 with peripheral neuropathy, benign cystic liver disease, chronic back pain and left nephrectomy presented to ED on 11/08/2024 with chief complaint of bilateral leg pain and swelling for the past 1 to 2 months admitted to [facility] telemetry unit for further management of bilateral cellulitis, likely associated with right leg abscess. # Surgery for removal of implant in the right lower extremity, POD 1 - Patient is scheduled to undergo surgery by Dr. Win as of 11/13/2024 - Preop clearance was given by Dr. Patel Plan -Started on levofloxacin 750 Mg IV daily - Started on doxycycline 100 Mg p.o. twice daily - Will continue it for [address] Maribeth beasley - [place] as needed - Restarted on xarelto #Bilateral lower extremity cellulitis, resolved #Superimposed on underlying skin infection, unsure of the etiology. Patient presented with right leg bump over upper malone level, with bilateral desquamation and pain, associated with fever and chills for the past 2 days. US Doppler right leg negative for DVT. White count of 17.6. Blood culture - no growth after 24hrs. Lower extremity CT scan did not show any evidence of osteomyelitis. Fungal cultures are sent on the lesions on lower extremity, pending Plan - Started on levofloxacin and Doxycycline - Wound care referral done and following the patient #[place] on CKD stage IV,resolved #S/p left nephrectomy. DDx: Likely prerenal in the setting of poor oral intake versus less likely intrarenal secondary to diabetic nephropathy, with continued use of metformin. Patient baseline creatinine 3.2, presented with creatinine of 3.8 --> 4/11, Cr 4.4. -->4/13, 3.3 -->4/14, 2.6 Renal ultrasound showed right renal cortical scarring, minimal hydronephrosis without any prostamegaly, renal calculi plan - hold protonix. - Avoid nephrotoxic drugs and renally dose medications. - Dr. Garzon consulted for nephrology, appreciate recommendations. - Restarted xarelto #A-fib. Currently rate controlled. Echo done during this hospital admission showed Normal size cardiac chambers. Normal size left ventricle with mild concentric LVH with normal preserved ejection fraction of 60%. Mild left ventricular diastolic dysfunction, grade 2. Mitral valve thickening mild annulus calcification trace mitral regurgitation. Aortic valve sclerosis with no stenosis. Patient the RV lead in the right ventricle pacing lead. Plan: - Started on amiodarone 200 Mg daily. - Held diltiazem and losartan due to soft BP. #Diabetes mellitus type 2. Patient is currently taking metformin 500 Mg daily at home. A1c during this hospital admission is 6.3. Plan: - Stop metformin, as patient's GFR is less than 30. - Started on insulin sliding scale. #BPH. - started on home tamsulosin. #Nonobstructing right renal calculi - Outpatient follow-up #Peripheral neuropathy. #Peripheral arterial disease. #COPD. #Anemia. #GERD. - hold protonix. Health maintenance: Dispo: Med/tele. DVT prophylaxis: Xarleto Diet: Carb consistent diet CODE STATUS: Full code. Patient plan of care was discussed with the attending physician, Dr. Schaefer and senior resident Dr. Erin Kee, PGY1 Attending Provider Attestation/Addendum I, Parris Schaefer, DO, attest that I was physically present for the troncoso portions of the service and evaluated the patient with the resident and I reviewed and discussed the case with the resident and agree with the resident's findings and plans of care as documented above Patient seen and evaluated this AM. Patient states his pain has been controlled with norco and has been 6-7/10 when he tries to move. Patient was able to work with physical therapy and will need SNF placement. Case dsicussed with ortho over the phone and would like for double antibiotic coverage, both IV and PO for prosthetic joint infection. As per wound cultures that were positive for group A strep, will start patient on IV levofloxacin and PO doxycycline x 4 weeks. Patient is to follow up with ortho in 1 week in the office. Patient will need 4 more weeks of PO antibiotics following IV abx coverage which ortho will transition to. Will place PICC line and arrange for IV abx at SNF. Anticipate DC within next 24h. Dressing change to be done tomorrow.
[2024-11-14] MEDS: LEVOFLOXACIN/D5W 750MG IVPB 750 MG/150 ML BAG 100 MG IV (17:35)
[2024-11-14] MEDS: DOXYCYCLINE 100 MG TABLET PO (20:30)
[2024-11-14] MEDS: MIN OIL/PET,WHITE (Eucerin) CR 16 OZ BTL TOP (22:58)
[2024-11-15] VITALS: BP 137/87; PULSE 60; RESP 18; TEMP 36.4; O2SAT 94
[2024-11-15] MEDS: HYDROcodone/APAP 5/325 TABLET 1 TAB PO ×2 (03:01→14:30)
[2024-11-15 04:00] VITALS: BP 138/84; PULSE 63; RESP 18; TEMP 36.1; O2SAT 96
[2024-11-15 06:26] LABS: Basophils # (Auto) 0.1 Thou/mm3 (0.0-0.2); Basophils % (Auto) 1 % (0-2.5); Eosinophils # (Auto) 0.3 Thou/mm3 (0.0-0.5); Eosinophils % (Auto) 3 % (0-10); Hematocrit 34.2 % (41.0-53.0); Hemoglobin 10.6 g/dL (13.5-16.0); Immature Granulocytes % (Auto) 5 % (0-0); Immature Granulocytes Auto 0.51 Thou/mm3 (0.00-0.00); Lymphocytes # (Auto) 1.6 Thou/mm3 (1.0-4.8); Lymphocytes % (Auto) 14 % (10-50); Mean Corpuscular Volume 87 fL (80-100); Monocytes # (Auto) 0.7 Thou/mm3 (0.0-0.8); Monocytes % (Auto) 7 % (0-12); Neutrophils # (Auto) 7.8 Thou/mm3 (1.8-7.7); Neutrophils % (Auto) 71 % (37-80); Nucleated Red Blood Cell % 0 /100 WBC (0); Platelet Count 362 Thou/mm3 (140-440); RDW Standard Deviation 49.1 fL (35.1-43.9); Red Blood Count 3.92 Miln/mm3 (4.50-5.90); White Blood Count 10.9 Thou/mm3 (3.8-10.6)
[2024-11-15 06:35] LABS: Alanine Aminotransferase 39 U/L (10-49); Albumin, Serum 3.2 gm/dL (3.4-4.8); Albumin/Globulin Ratio 0.7 (1.2-2.2); Alkaline Phosphatase 98 U/L (46-116); Anion Gap 7 (7-16); Aspartate Amino Transferase 32 U/L (0-34); BUN/Creatinine Ratio 14 Ratio (12-20); Bilirubin,Total 0.2 mg/dL (0.3-1.2); Blood Urea Nitrogen 34 mg/dL (9-23); Calcium 8.4 mg/dL (8.3-10.6); Carbon Dioxide 20.8 mMol/L (20.0-31.0); Chloride 110 mMol/L (98-107); Creatinine (Component) 2.4 mg/dL (0.6-1.3); Estimated Creatinine Clearance 37.1 mL/min (>60); Globulin 4.6 gm/dL (2.3-3.5); Glucose 82 mg/dL (74-106); Osmolality,Calculated 282 (275-295); Sodium 138 mMol/L (136-145); Total Protein 7.8 gm/dL (5.7-8.2); eGFR 29 See Note
[2024-11-15 08:00] VITALS: BP 144/86; PULSE 70; PULSE 90; RESP 18; TEMP 36.1; O2SAT 93
[2024-11-15] MEDS: DOXYCYCLINE 100 MG TABLET PO (08:11)
[2024-11-15 08:12] VITALS: BP 144/86; PULSE 90
[2024-11-15] MEDS: AMIODARONE HCL 200 MG TABLET PO (08:12)
[2024-11-15] MEDS: TAMSULOSIN HCL 0.4 MG CAPSULE PO (08:12)
[2024-11-15 09:35] VITALS: PULSE 70; RESP 17; O2SAT 96
--- NOTE | 2024-11-15 11:04 | ESPR_ITS ---
Documentation for date of: 11/15/24 Subjective Subjective Interval history: Mr. Yuan is a 64-year-old male PMHx of COPD on home oxygen, CHF unspecified, NAHEED, CKD stage IV, s/p left nephrectomy 09/02 nephrolithiasis 2013, T2DM, PAD, A-fib on XARELTO, GERD, eczema, peripheral neuropathy, chronic back pain, presenting with bilateral lower extremity pain. He lives alone in a trailer, has chronic lower extremity edema for which he takes daily LASIX, previously diagnosed with CHF, does not know ejection fraction. He has been seeing wound care for bilateral lower extremity pain and swelling and ulcers, which have not responded to treatment. Denies fever, headaches, chills, chest pain, cough, recent upper respiratory illness, dysuria, hematuria, urinary frequency or urgency, abdominal pain, N/V/D/C. Denies alcohol, tobacco or drug use. Left unilateral nephrectomy was done in 2013 at [facility] as a result of kidney stones. He is aware of having chronic kidney disease, managed by his PCP who recently referred him to see a purchasing and claims supervisor in [facility] [place], currently pending authorization. States his blood sugars and blood pressure have generally been controlled. States he takes his medications on a daily basis, as prescribed. Reports no new or changes in current medications. On arrival, vitals WNL, satting 95% on room air. WBC 18.6, Hgb 10.9, PLT 280. Sodium 134, CR 3.8, BUN 47, EGFR 17. Renal function worsened since admission, currently BUN 54, CR 1.4, EGFR 14. Most recent comparison from 04/2024 showing CR 3.2, EGFR 21. UA with turbid with protein 1+, blood 1+, no signs of UTI. Venous Doppler negative for bilateral extremity DVT. Right knee x-ray moderate tricompartment osteoarthritis. Lower extremity CT pending final read. Renal ultrasound pending final read. He was admitted for bilateral cellulitis. Nephrology team was consulted for management of [place]A on CKD. 11/10/2024 examined at bedside. No new symptoms or worsening of symptoms. Denies fever, chills, headaches, chest pain, sob, cough, GI or urinary symptoms. Renal function improving, CR 3.7, BUN 57, GFR 17. Phosphorus slightly high at 5.4. Remainder electrolytes WNL. Urine output is okay. WBC improving 11.7, Hgb 9.5. Continue with NS at 150 cc/H. 11/11/2024 patient currently seen in medical floor. Very talkative. Denies any chest pain, shortness of breath. Still having lower extremity weakness. Currently on fluids. Blood pressure 132/81, heart rate 58, blood sugar 115. Hemoglobin 9.5, sodium 138, potassium 5.3, bicarbonate 21.1, BUN 50, creatinine 3.3, GFR 20, calcium 9, phosphorus 5, magnesium 2.2,Renal ultrasound showed cortical thinning consistent with CKD. PTH lipids are normal. PTH level 121. AST 53, ALT 43, albumin 3.0. 11/12/2024 examined at bedside, feels well today, no new or worsening of symptoms. Denies fever, chills, headaches, chest pain, sob, cough, GI or urinary symptoms. Renal function improving, CR 3.0, BUN 46, GFR 22. No electrolyte abnormalities noted. Hgb 9.5 stable, PLT 282. 11/13/2024 examined at bedside. No new complaints, continues to improve. Renal function stable, CR 2.6, GUN 39, EGFR 26. No significant electrolyte abnormalities. No plan for HD today. 11/14/2024 examined at bedside. Denies fever, chills, headaches, chest pain, sob, cough, GI or urinary symptoms. Scaley rash improved bilaterally. Renal function stable, CR 2.6, GFR 39, EGFR 26. Potassium 5.8, gave insulin and kayax, will repeat in 6 hours. Urine output good. 11/15/2024 examined at bedside. Has mild lower extremity pain following surgery. Denies fever, chills, headaches, chest pain, sob, cough, GI or urinary symptoms. Tolerating oral intake. Vital stable. Leukocytosis improving. Hgb 10.6, stable. Renal function improving, CR 2.4, BUN 34, GFR 29. Continue current management. Exam Vital Signs Temp Pulse Resp BP Pulse Ox O2 Del Method O2 Flow Rate 96.9 F 70 17 144/86 H 96 Nasal Cannula 2 11/15/24 08:00 11/15/24 09:35 11/15/24 09:35 11/15/24 08:12 11/15/24 09:35 11/15/24 08:00 11/15/24 09:35 Narrative Exam General: Awake. HEENT: Normocephalic, atraumatic, mucous membranes moist. Heart: Irregular rate and rhythm, no murmurs. Lungs: Clear to auscultation with no wheezing or crackles. Abdomen: Soft, nondistended, nontender, positive bowel sounds. ?No guarding or rebound tenderness. Neurologic: Alert and oriented x3, no gross neurological deficit, and patient able to move all 4 extremities. Extremities: Bilateral lower extremity scaly lesions noted. Surgical dressing dry and intact. Skin: LE scaling improved Objective Labs 11/15/24 05:20 11/15/24 05:20 Labs: Laboratory Results - last 24 hr 11/14/24 11/15/24 16:10 05:20 WBC 10.9 H RBC 3.92 L Hgb 10.6 L Hct 34.2 L MCV 87 MCH 27.0 MCHC 31.0 RDW Std Deviation 49.1 H Plt Count 362 Neut % (Auto) 71 Lymph % (Auto) 14 Lipscomb % (Auto) 7 Eos % (Auto) 3 Baso % (Auto) 1 Neut # (Auto) 7.8 H Lymph # (Auto) 1.6 Lipscomb # (Auto) 0.7 Eos # (Auto) 0.3 Baso # (Auto) 0.1 Immature Gran # (Auto) 0.51 H Absolute Nucleated RBC 0.00 Immature Gran % 5 H Nucleated RBC % 0 Sodium 139 138 Potassium 4.6 D 5.0 Chloride 109 H 110 H Carbon Dioxide 23.1 20.8 Anion Gap 7 7 BUN 37 H 34 H Creatinine 2.5 H 2.4 H Estim Creat Clear Calc 35.7 L 37.1 L eGFR 28 L 29 L BUN/Creatinine Ratio 15 14 Glucose 103 82 Calculated Osmolality 286 282 Calcium 8.3 8.4 Corrected Calcium 8.9 9.0 Phosphorus 3.9 Total Bilirubin 0.2 L AST 32 ALT 39 Alkaline Phosphatase 98 Total Protein 7.8 Albumin 3.3 L 3.2 L Globulin 4.6 H Albumin/Globulin Ratio 0.7 L Quality Measures Quality Measures VTE prophylaxis Advance care planning discussed with:: patient Assessment & Plan Assessment Current Active Medications: Generic Name Dose Route Start Last Admin Trade Name Freq PRN Reason Stop Dose Admin Acetaminophen 650 mg 11/09/24 04:53 Acetaminophen 325 Mg Tablet PO 12/09/24 04:52 Q6H PRN Fever >101.5 Acetaminophen 650 mg 04/11/25 04:53 Acetaminophen 325 Mg Tablet PO 12/09/24 04:52 Q6H PRN PAIN SCALE 1-3 (mild Hydrocodone Bitart/Acetaminophen 1 tab 11/14/24 06:12 11/15/24 03:01 Hydrocodone/Apap 5/325 Tablet PO 11/19/24 06:11 1 tab Q6HR PRN Administration Pain 4-10 Albuterol/Ipratropium 3 ml 11/09/24 04:53 Albuterol/Ipratropium (Duoneb) Rt Monica 3 Ml Nebu INH 12/09/24 06:59 Q6HRRT PRN SOB or Wheeze Amiodarone HCl 200 mg 11/09/24 09:00 11/15/24 08:12 Amiodarone Hcl 200 Mg Tablet PO 12/09/24 08:59 200 mg QDAY BELEN Administration Dextrose 25 ml 11/09/24 19:59 Dextrose 50%-Water Inj 50 Ml Syringe IV 12/09/24 19:58 Q15MIN PRN BG 50-70 responsive npo pt Dextrose 50 ml 11/09/24 19:59 Dextrose 50%-Water Inj 50 Ml Syringe IV 12/09/24 19:58 Q15MIN PRN BG <50 OR BG <70 & pt unresponsive Doxycycline Hyclate 100 mg 11/14/24 21:00 11/15/24 08:11 Doxycycline 100 Mg Tablet PO 11/21/24 20:59 100 mg BID BELEN Administration Glucagon 1 mg 11/09/24 19:59 Glucagon Inj 1 Mg Vial IM Q15MIN PRN BG <70, and no IV access Levofloxacin/Dextrose 750 mg in 150 mls @ 100 mls/hr 11/14/24 17:15 11/14/24 19:05 Levaquin Ivpb IV 11/21/24 17:14 Infused Q48H BELEN Infusion Insulin Human Lispro 0 unit 11/09/24 21:00 11/15/24 07:33 Insulin Lispro (Admelog) 1 Unit/0.01 Ml Unit SC 12/09/24 20:59 Not Given ACHS BELEN Protocol Lactulose 20 gm 11/09/24 05:50 11/14/24 21:00 Lactulose Syrup 20 Gm/30 Ml Udc PO 12/09/24 05:49 Not Given HS BELEN Protocol Multi-Ingredient Ointment 0 oz 11/12/24 21:00 11/14/24 22:58 Min Oil/Pet,White (Eucerin) Cr 16 Oz Btl TOP 12/12/24 20:59 1 applicatio HS BELEN Administration Ondansetron HCl 4 mg 11/12/24 09:06 Ondansetron Odt 4 Mg Tabrap PO 12/12/24 09:05 Q6HR PRN NAUSEA OR VOMITING Protocol Rivaroxaban 10 mg 11/14/24 09:15 11/14/24 09:59 Rivaroxaban 10 Mg Tablet PO 12/14/24 09:14 10 mg QDAY BELEN Administration Tamsulosin HCl 0.4 mg 11/09/24 09:00 11/15/24 08:12 Tamsulosin Hcl 0.4 Mg Capsule PO 12/09/24 08:59 0.4 mg QDAY BELEN Administration Plan 64-year-old male PMHx of COPD on home oxygen, CHF unspecified, NAHEED, CKD stage IV, s/p left nephrectomy 2/2 nephrolithiasis 2013, T2DM, PAD, A-fib on XARELTO, GERD, eczema, peripheral neuropathy, chronic back pain, admitted for bilateral lower extremity cellulitis. Nephrology was consulted for the management of [place] on CKD. Renal function remained stable. No plan for hemodialysis today. [place] on CKD stage IV S/p left unilateral nephrectomy 2013 left unilateral nephrectomy at [facility] 2/2 kidney stones. Diabetes relatively controlled, A1c 6.3 from 04/05/24=hold off on metformin Chronic HTN, relatively poorly controlled, might also be contributing. Right renal ultrasound with cortical thinning, minimal hydronephrosis. PTH 121.8, likely secondary hyperparathyroidism, pending VITAMIN D. Urine random protein 101H, sodium 29, potassium 48, chloride less than 20, mACR 105. No significant proteinuria overall. Renal function improving, CR 2.4, BUN 34, EGFR 29. ? Renally dose meds, avoid overdiuresis and NEPHROTOXINS ? Daily CMP ? Strict SÁNCHEZ's ? Increase p.o. fluid intake. Spoke to primary team. ? No hemodialysis today Hyperkalemia Potassium 5.8 Gave INSULIN and KAYEXALATE Asymptomatic ? Repeat potassium in 6 hours Bilateral leg cellulitis Right leg abscess Rule out DVT A-fib Diabetes mellitus type 2 Peripheral neuropathy Peripheral arterial disease COPD Anemia GERD ? Managed by primary team Patient needs renal follow-up in 2 weeks. Thank you for the opportunity to participate in the patient's care. Case was discussed with attending, Dr. Garzon. Jared Orozco DO PGYI Attending Provider Attestation/Addendum patient seen and examined with resident physician Dr. Coleman. Note reviewed, agree with findings and recommendations. Patient currently seen in medical floor. I saw him in 2022. Advanced CKD and never came to my clinic. Presented with significant weakness in the lower extremities, ichthyosis and [place]. Patient seems to have significant amount of insensible losses from his dry skin. Renal ultrasound showed no significant hydronephrosis. Unilateral functioning kidney. Continue with monitoring of renal function. Creatinine better. Skin exam also seems to be better. Encouraged p.o. fluids. Patient had orthopedic surgery for the right leg. Creatinine improving.
--- NOTE | 2024-11-15 11:20 | PC.SS ---
SS follow up note; Patient does not have transportation coverage, SS set up transportation with [facility] services for 1530 for patient to discharge to [facility], SS updated Christine from [facility], Patient's nurse as well as patient.
[2024-11-15 12:00] VITALS: BP 179/100; PULSE 60; PULSE 65; RESP 19; TEMP 36.1; O2SAT 97
--- NOTE | 2024-11-15 13:47 | ESPR_ITS ---
<Statement entered by rByant Patel MD - 11/19/24 08:33> The patient is doing much better postprocedure about to be discharged clinically no cardiac issues will be receiving antibiotics I will be seeing the patient as an outpatient evaluated the patient with PGY 2 Dr. Olya Farias and agree with the treatment plan recommendation as outlined Documentation for date of: 11/15/24 Subjective Subjective Interval history: No acute events overnight.?Patient seen and examined at bedside this AM. He is post-op day #2.?He reports continued pain in the right leg at the site of operation. Otherwise denies chest pain, shortness of breath while in bed, orthopnea, palpitations, or dizziness. Labs and vitals were reviewed and were stable, BP was improved.?No further complaints at this time. Patient is being discharged to rehab facility today with PICC line to continue antibiotics for the right tibia bone infection per Dr. Stahl. Instructed patient to continue all home medications and follow up in Dr. Patel's office within 1 month. Review of systems otherwise negative except what is mentioned above. Exam Vital Signs Temp Pulse Resp BP Pulse Ox O2 Del Method O2 Flow Rate 96.9 F 60 19 179/100 H 97 Nasal Cannula 3 11/15/24 12:00 11/15/24 12:00 11/15/24 12:00 11/15/24 12:00 11/15/24 12:00 11/15/24 12:00 11/15/24 12:00 Narrative Exam Physical Exam General: Awake and in no acute distress. Conversational and non-toxic appearing. HEENT: Normocephalic, atraumatic, mucous membranes moist. On nasal cannula. Heart: Regular rate and rhythm, normal S1 and S2, no murmurs. Lungs: Clear to auscultation with no wheezing or crackles. Abdomen: Soft, nondistended, nontender, positive bowel sounds. ?No guarding or rebound tenderness. Neurologic: Alert and oriented x3, no gross neurological deficit, and patient able to move all 4 extremities. Extremities: Mild scattered erythema bilateral lower extremities. Right lower extremity wrapped in wound dressings post-op. Skin: Skin desquamation, scaling, and peeling bilateral lower extremities. Onycchomycosis. Objective Labs 11/15/24 05:20 11/15/24 05:20 Quality Measures Quality Measures VTE prophylaxis Advance care planning discussed with:: patient Assessment & Plan Assessment Current Active Medications: Generic Name Dose Route Start Last Admin Trade Name Freq PRN Reason Stop Dose Admin Acetaminophen 650 mg 11/09/24 04:53 Acetaminophen 325 Mg Tablet PO 12/09/24 04:52 Q6H PRN Fever >101.5 Acetaminophen 650 mg 11/09/24 04:53 Acetaminophen 325 Mg Tablet PO 12/09/24 04:52 Q6H PRN PAIN SCALE 1-3 (mild Hydrocodone Bitart/Acetaminophen 1 tab 11/14/24 06:12 11/14/24 06:21 Hydrocodone/Apap 5/325 Tablet PO 11/19/24 06:11 1 tab Q6HR PRN Administration Pain 4-10 Albuterol/Ipratropium 3 ml 11/09/24 04:53 Albuterol/Ipratropium (Duoneb) Rt Monica 3 Ml Nebu INH 12/09/24 06:59 Q6HRRT PRN SOB or Wheeze Amiodarone HCl 200 mg 11/09/24 09:00 11/14/24 08:15 Amiodarone Hcl 200 Mg Tablet PO 12/09/24 08:59 200 mg QDAY BELEN Administration Cephalexin HCl 500 mg 11/14/24 09:00 11/14/24 08:16 Cephalexin 250 Mg Capsule PO 11/21/24 08:59 500 mg QDAY BELEN Administration Dextrose 25 ml 11/09/24 19:59 Dextrose 50%-Water Inj 50 Ml Syringe IV 12/09/24 19:58 Q15MIN PRN BG 50-70 responsive npo pt Dextrose 50 ml 11/09/24 19:59 Dextrose 50%-Water Inj 50 Ml Syringe IV 12/09/24 19:58 Q15MIN PRN BG <50 OR BG <70 & pt unresponsive Glucagon 1 mg 11/09/24 19:59 Glucagon Inj 1 Mg Vial IM Q15MIN PRN BG <70, and no IV access Insulin Human Lispro 0 unit 11/09/24 21:00 11/14/24 11:09 Insulin Lispro (Admelog) 1 Unit/0.01 Ml Unit SC 12/09/24 20:59 Not Given ACHS BELEN Protocol Lactulose 20 gm 11/09/24 05:50 11/13/24 20:46 Lactulose Syrup 20 Gm/30 Ml Udc PO 12/09/24 05:49 Not Given HS BELEN Protocol Multi-Ingredient Ointment 0 oz 11/12/24 21:00 11/13/24 20:52 Min Oil/Pet,White (Eucerin) Cr 16 Oz Btl TOP 12/12/24 20:59 1 applicatio HS BELEN Administration Ondansetron HCl 4 mg 11/12/24 09:06 Ondansetron Odt 4 Mg Tabrap PO 12/12/24 09:05 Q6HR PRN NAUSEA OR VOMITING Protocol Rivaroxaban 10 mg 11/14/24 09:15 11/14/24 09:59 Rivaroxaban 10 Mg Tablet PO 12/14/24 09:14 10 mg QDAY BELEN Administration Tamsulosin HCl 0.4 mg 11/09/24 09:00 11/14/24 08:16 Tamsulosin Hcl 0.4 Mg Capsule PO 12/09/24 08:59 0.4 mg QDAY BELEN Administration Plan Patient is a 64-year-old male with past medical history of sick sinus syndrome s/p pacemaker, COPD on prn home O2, HFpEF, NAHEED, CKD stage IV, PAD, A-fib on Xarelto, GERD, eczema, diabetes mellitus type 2 with peripheral neuropathy, benign cystic liver disease, chronic back pain, and nonfunctioning left kidney s/p nephrectomy who initially presented to ED on 11/08/2024 with 1 month of bilateral leg pain and swelling, admitted for lower extremity cellulitis. Cardiology consultation was requested by Dr. Stahl in the setting pre-op clearance for right tibial hardware removal and debridement. #History of sick sinus syndrome s/p pacemaker #History of atrial fibrillation #History of HFpEF (60%), not currently in exacerbation Cardiac clearance requested for intermediate-risk orthopedic surgery. Patient's functional MET score appears to be about 3-4 as he does get short of breath with 1 flight of stairs or with typical house work. EKG on admission showed electronically paced rhythm at 67, right bundle branch block. 11/12/2024 Transthoracic echo showed: Normal size cardiac chambers. Normal size left ventricle with mild concentric LVH with normal preserved ejection fraction of 60%. Mild left ventricular diastolic dysfunction, grade 2. Mitral valve thickening mild annulus calcification trace mitral regurgitation. Aortic valve sclerosis with no stenosis. Patient the RV lead in the right ventricle pacing lead. Based on preserved ejection fraction appears to be low cardiac risk for orthopedic surgery 11/13/2024 Patient underwent plate and screws removal from the right tibia as well as irrigation, debridement, and curettage of the bone with Dr. Stahl. 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 Patel. Thank you for allowing us to participate in the care of this patient. Rowan Farias, PGY-2
--- NOTE | 2024-11-15 16:37 | ESDS_ITS ---
<Statement entered by Parris Schaefer DO - 11/16/24 08:02> I, Parris Schaefer DO, attest that I was physically present for the troncoso portions of the service and evaluated the patient with the resident and I reviewed and discussed the case with the resident and agree with the resident's findings and plans of care as documented above Planned Discharge Date 11/15/24 DS: Providers Provider Date of admission: 11/09/24 04:53 Primary care physician: Bert Valdez MD Admitting Provider: Serg Manzano MD Attending Provider on Admission: Parris Schaefer DO Consults: 11/09/24 07:27 Consult to Nephrology Urgent Comment: [place]A on CKD IV Consulting Provider: Keaton Garzon 11/09/24 12:35 [facility] Referral - Transportation Routine Comment: Positive screening for transportation needs. 11/09/24 14:10 Consult to Orthopedic Stat Comment: Consulting Provider: Gianni Win 11/09/24 19:52 Referral Wound Care Stat Comment: 11/11/24 03:26 Referral Wound Care Routine Comment: right heel pressure injury stage 3 11/11/24 09:10 Referral Physical Therapy Routine Comment: Physician Instructions: Attending Provider on DC: Mario Kee MD Discharging Provider: Mario Kee MD DS: Diagnosis Problem List Completed Was Problem List Reviewed/Reconciled?: Yes Hospital Course Hospital Course Hospital course: A 64-year-old male with significant past medical history of COPD currently not on home oxygen, NAHEED, CKD stage IV, PAD, A-fib on Xarelto, GERD, eczema, diabetes mellitus type 2 with peripheral neuropathy, benign cystic liver disease, chronic back pain and left nephrectomy presented to ED on 11/08/2024 with chief complaint of bilateral leg pain and swelling for the past 1 to 2 months and admitted for B/L lower extremity cellulitis and Acute on chronic kidney disease. Hospital course: CBC was significant for white count 17.6, hemoglobin 10.4, WBC 44.8, ESR 130, Sodium 134, BUN 47, creatinine 3.8, GFR 17, blood sugar 143, AST 42, CRP 23.3, and lipase 113. Duplex of the lower extremity is negative for DVT. CT B/L lower extremity did not show any abscess or osteomyelitis. Patient is treated with the IV fluids, antibiotics. Film Examiner Dr. Garzon is consulted for AUG[place]A and recommended to continue IV fluids.Later AUG[place]A improved and came back to his baseline. Blood cultures showed no growth and wound cultures showed Streptococcus pyogenes. Orthopedician Dr. Win is consulted in view of pus draining at the site of implant in the lower extremity. Later [place]A improved and came back to his baseline. Patient underwent Plates and screws removal in the Right lower extremity by Dr. Win and procedure went uneventful. Dr. Stahl recommended to continue IV antibiotics for 4 weeks and also to follow up with him in the outpatient basis Patient is discharged to the rehab with the following medications and recommendations -Follow-up with PCP within 1 week of discharge. If you do not have appointment, [facility] Call [phone] to make an appointment. -Follow up with Dr. Win within 1 week of discharge -Follow up with Dr. Garzon within 1week of discharge -Continue Levofloxacin 750mg IV every 48th hrly and Doxycycline 100mg orally twice daily till 12 Dec 2024, follow Dr. Stahl regarding continuation of antibiotics -Take Keshena as needed every 6th hrly -Start Jardiance 25mg orally daily -Stop Metformin -Continue rest of the home medications -Return to ED if symptoms persist or return #Infected tibial implant of RLE #Bilateral lower extremity cellulitis, resolved #Superimposed on underlying skin infection, unsure of the etiology. #[place] on CKD stage IV,resolved #S/p left nephrectomy. #A-fib. #Diabetes mellitus type 2. #BPH. #Nonobstructing right renal calculi #Peripheral neuropathy. #Peripheral arterial disease. #COPD. #Anemia. #GERD. Patient plan of care was discussed with the attending physician, Dr. Schaefer and senior resident Dr. Erin Kee, PGY1 Time Spent with Patient Time attestation: Total time spent providing and/or coordinating discharge services: Time spent: Greater than 30 minutes Exam Vital Signs Temp Pulse Resp BP Pulse Ox O2 Del Method O2 Flow Rate 96.9 F 60 19 179/100 H 97 Nasal Cannula 3 11/15/24 12:00 11/15/24 12:00 11/15/24 12:11/15/24 12:11/15/24 12:00 11/15/24 12:00 11/15/24 12:00 Narrative Exam General: Awake. HEENT: Normocephalic, atraumatic, mucous membranes moist. Heart: Regular rate and rhythm, no murmurs. Lungs: Clear to auscultation with no wheezing or crackles. Abdomen: Soft, nondistended, nontender, positive bowel sounds. ?No guarding or rebound tenderness. Neurologic: Alert and oriented x3, no gross neurological deficit, and patient able to move all 4 extremities. Extremities: Bilateral lower extremity scaly lesions noted. Surgical dressing dry and intact. Skin: LE scaling improved Discharge Plan Plan Patient Disposition: Xfer [facility]illed [facility] Fac (SNF) Disposition Comment: Admitted to Dr. Manzano Patient condition on transfer: Stable Care Plan Goals: -Follow-up with PCP within 1 week of discharge. If you do not have appointment, [facility]. Call [phone] to make an appointment. -Follow up with Dr. Win within 1 week of discharge -Follow up with Dr. Garzon within 1week of discharge -Continue Levofloxacin 750mg IV every 48th hrly and Doxycycline 100mg orally twice daily till 12 Dec 2024, follow Dr. Stahl regarding continuation of antibiotics -Take K[place] as needed every 6th hrly -Start Jardiance 25mg orally daily -Stop Metformin -Continue rest of the home medications -Return to ED if symptoms persist or return Prescriptions/Referrals Prescriptions/Med Rec: New doxycycline hyclate 100 mg capsule 100 mg PO BID Qty: 60 0RF Jardiance 25 mg tablet 25 mg PO QAM Qty: 30 2RF hydrocodone-acetaminophen 5-325 mg Tablet 1 tab PO Q6HR MDD 20mg PRN (Reason: Pain 4-10) Qty: 20 0RF Continued aspirin 81 MG tablet,chewable 81 mg PO QDAY Qty: 0 albuterol sulfate [ProAir HFA] 8.5 GM HFA aerosol inhaler 2 puff PO Q4HR PRN (Reason: SHORTNESS OF BREATH) Qty: 9 furosemide [Lasix] 40 MG tablet 40 mg PO QDAY Qty: 0 diltiazem HCl [Cardizem] 60 MG tablet 30 mg PO TID Qty: 0 atenolol 50 mg Tablet 50 mg PO QDAY amiodarone 200 mg Tablet 200 mg PO QDAY hydroxyzine HCl 10 mg Tablet 25 mg PO HS iron, carbonyl 45 mg tablet 45 mg PO .QOD Qty: 30 1RF tamsulosin 0.4 mg Capsule 0.4 mg PO QDAY Qty: 30 0RF pantoprazole 40 mg tablet,delayed release (DR/EC) 40 mg PO QDAY Qty: 30 1RF Xarelto 10 mg tablet 10 mg PO QDAY hydroxyzine HCl 25 mg tablet losartan 25 mg Tablet 50 mg PO QDAY Discontinued metformin 500 mg Tablet 500 mg PO BID Referrals: Bert Valdez MD [Primary Care Provider] - Patient/Caregiver Discharge Instructions Education Materials: AFL/Afib, Diabetes and Kidney Disease Print Language: Citizen Of [place] Activity Restrictions/Additional Instructions: Follow-up with Dr. Garzon in 2 weeks. call [phone]- appt Stand Alone Forms: Sheila Award Info., Patient Portal Info Letter Discharge Order Discharge Orders: Discharge (Routine); Ordered 11/15/24 Ordered By: Migue Khan Quality Discharge Quality Measures VTE prophylaxis
[2024-11-19 08:13] LABS: Vitamin D,1,25 (OH)2,Total 16 pg/mL (18-72); Vitamin D2, 1,25 (OH)2 <8 pg/mL; Vitamin D3, 1,25 (OH)2 16 pg/mL
== END 2024-11-15 15:39 | disposition skilled nursing facility (03) | DRG 464 ==
LOC: SERX 19:55 → SERHOLD 11-09 05:16 → S3SX 11-09 11:50
PROVIDERS: Nurse Practitioner Primary Care; Orthopaedic Surgery; Student in an Organized Health Care Education/Training Program; Admitting Provider Internal Medicine; Emergency Provider Emergency Medicine; PCP Family Medicine; Visit Provider Internal Medicine
PROC: 02HV33Z Insertion of Infusion Device into Superior Vena Cava, Percutaneous Approach (ICD-10-PCS; principal; 2024-11-13 12:45)
PROC: 02HV33Z Insertion of Infusion Device into Superior Vena Cava, Percutaneous Approach (ICD-10-PCS; 2024-11-13 12:45)
DX: T84.59XA Infection and inflammatory reaction due to other internal joint prosthesis, initial encounter (principal); I13.0 Hypertensive heart and chronic kidney disease with heart failure and stage 1 through stage 4 chronic kidney disease, or unspecified chronic kidney disease; L02.415 Cutaneous abscess of right lower limb; I50.32 Chronic diastolic (congestive) heart failure; N18.4 Chronic kidney disease, stage 4 (severe); N17.9 Acute kidney failure, unspecified; L03.115 Cellulitis of right lower limb; L03.116 Cellulitis of left lower limb; I48.91 Unspecified atrial fibrillation; E78.5 Hyperlipidemia, unspecified; J44.9 Chronic obstructive pulmonary disease, unspecified; E11.42 Type 2 diabetes mellitus with diabetic polyneuropathy; E11.22 Type 2 diabetes mellitus with diabetic chronic kidney disease; F17.210 Nicotine dependence, cigarettes, uncomplicated; K21.9 Gastro-esophageal reflux disease without esophagitis; M17.10 Unilateral primary osteoarthritis, unspecified knee; F15.90 Other stimulant use, unspecified, uncomplicated; N40.0 Benign prostatic hyperplasia without lower urinary tract symptoms; E87.5 Hyperkalemia; N20.0 Calculus of kidney; I45.10 Unspecified right bundle-branch block; D63.1 Anemia in chronic kidney disease; L85.3 Xerosis cutis; Z79.84 Long term (current) use of oral hypoglycemic drugs; E11.51 Type 2 diabetes mellitus with diabetic peripheral angiopathy without gangrene; Z90.5 Acquired absence of kidney; I25.10 Atherosclerotic heart disease of native coronary artery without angina pectoris; G47.33 Obstructive sleep apnea (adult) (pediatric); I35.8 Other nonrheumatic aortic valve disorders; Y83.1 Surgical operation with implant of artificial internal device as the cause of abnormal reaction of the patient, or of later complication, without mention of misadventure at the time of the procedure; Z79.01 Long term (current) use of anticoagulants; Z79.4 Long term (current) use of insulin; M54.9 Dorsalgia, unspecified; Z79.82 Long term (current) use of aspirin; Z79.899 Other long term (current) drug therapy; G89.29 Other chronic pain; Z87.442 Personal history of urinary calculi; Z95.0 Presence of cardiac pacemaker; B95.4 Other streptococcus as the cause of diseases classified elsewhere; Z96.611 Presence of right artificial shoulder joint; Z99.81 Dependence on supplemental oxygen; Z88.5 Allergy status to narcotic agent; B95.0 Streptococcus, group A, as the cause of diseases classified elsewhere
CPT/HCPCS: 36415; 73562; 73700; 76770; 80053; 80061; 80069; 81001; 82043; 82436; 82570; 82652; 83605; 83690; 83735; 83970; 84100; 84133; 84145; 84156; 84295; 84300; 84443; 84484; 84550; 84560; 85025; 85610; 85652; 85730; 86140; 87040; 87070; 87075; 87101; 87186; 87205; 87811; 93005; 93225; 93306; 93971; 94664; 96361; 96365; 96366; 96375; 97162; 99285; A4217; A4649; C1751; C1894; J0131; J0696; J1100; J1580; J1642; J1643; J1815; J1956; J2250; J2371; J2405; J2470; J2704; J3010; J3490; J7030; J7050; J7120; Q0138; Q4081; S0077; A9270; J0665; J0736; J1596

== ENCOUNTER → 2025-01-22 | Outpatient (CLI) | payer OTHER, SELFPAY ==
--- NOTE | 2025-01-22 10:35 | XR_ITS ---
Examination: Knee, right , 3 views Technique: Knee AP, lateral, oblique 3 views Date and time of exam: January 22, 2025 1106 hours INDICATIONS: Right knee pain and swelling 1 month FINDINGS: Severe osteopenia Old healed fractures proximal tibia proximal fibula Moderate right knee tricompartment joint narrowing No fractures Small knee effusion No jung cortical bone destruction IMPRESSION: No jung cortical bone destruction
[2025-01-22 11:43] LABS: Collection Type, Urine Clean Catch; Squamous Epithelial Cell,Urine 0 /hpf (0-5)
[2025-01-22 11:59] LABS: Basophils # (Auto) 0.1 Thou/mm3 (0.0-0.2); Basophils % (Auto) 1 % (0-2.5); Eosinophils # (Auto) 0.5 Thou/mm3 (0.0-0.5); Eosinophils % (Auto) 6 % (0-10); Hematocrit 35.1 % (41.0-53.0); Hemoglobin 11.6 g/dL (13.5-16.0); Immature Granulocytes % (Auto) 1 % (0-0); Lymphocytes # (Auto) 1.8 Thou/mm3 (1.0-4.8); Lymphocytes % (Auto) 18 % (10-50); Mean Corpuscular Hemoglobin 28.1 pg (25.0-35.0); Mean Corpuscular Volume 85 fL (80-100); Monocytes # (Auto) 0.6 Thou/mm3 (0.0-0.8); Monocytes % (Auto) 6 % (0-12); Neutrophils # (Auto) 6.5 Thou/mm3 (1.8-7.7); Neutrophils % (Auto) 68 % (37-80); Nucleated Red Blood Cell % 0 /100 WBC (0); Platelet Count 227 Thou/mm3 (140-440); RDW Standard Deviation 49.3 fL (35.1-43.9); Red Blood Count 4.13 Miln/mm3 (4.50-5.90); White Blood Count 9.5 Thou/mm3 (3.8-10.6)
[2025-01-22 12:09] LABS: Bilirubin,Urine Negative (Negative); Blood,Urine Negative (Negative); Clarity,Urine Clear (Clear/Hazy); Color,Urine Colorless (Lt Yel-Yel); Glucose, Urine 2+ (Negative); Ketones,Urine Negative (Negative); Leukocyte Esterase,Urine Negative (Negative); Nitrite,Urine Negative (Negative); Protein,Urine Negative (Neg - Trace); RBC,Urine 2 /hpf (0-3); Specific Gravity,Urine 1.008 (1.001-1.035); Urobilinogen,Urine Negative mg/dL (0.0-1.0); WBC,Urine < 1 /hpf (0-5)
[2025-01-22 12:12] LABS: Glucose Estimated Average 108 mg/dL (80-131); Hemoglobin A1C 5.4 % Hgb (4.8-6.0)
[2025-01-22 12:13] LABS: Parathyroid Hormone Intact 145.4 pg/ml (18.5-88.0)
[2025-01-22 12:18] LABS: Alanine Aminotransferase 19 U/L (10-49); Albumin, Serum 3.9 gm/dL (3.4-4.8); Alkaline Phosphatase 128 U/L (46-116); Anion Gap 8 (7-16); Aspartate Amino Transferase 17 U/L (0-34); BUN/Creatinine Ratio 11 Ratio (12-20); Bilirubin,Direct < 0.1 mg/dL (0.0-0.3); Bilirubin,Total 0.2 mg/dL (0.3-1.2); Blood Urea Nitrogen 32 mg/dL (9-23); Calcium 8.8 mg/dL (8.3-10.6); Carbon Dioxide 25.1 mMol/L (20.0-31.0); Cardiac Risk Estimate 5.4 RATIO (4.0-6.7); Chloride 105 mMol/L (98-107); Cholesterol 161 mg/dL (132-200); Glucose 94 mg/dL (74-106); HDL Cholesterol 30 mg/dL (40-60); LDL Cholesterol,Calculated 72 mg/dL (0-130); Osmolality,Calculated 282 (275-295); Phosphorous 3.6 mg/dL (2.4-5.1); Potassium 4.2 mMol/L (3.4-5.1); Sodium 138 mMol/L (136-145); Thyroid Stimulating Hormone 2.17 uIU/mL (0.55-4.78); Total Protein 6.8 gm/dL (5.7-8.2); Triglycerides 297 mg/dL (30-150); eGFR 22 See Note
[2025-01-22 12:25] LABS: Creatinine MALB Rnd Ur 25 mg/dL (30-125); Microalbumin Creat Ratio 64 mg/gCrea (<30); Microalbumin, Random Urine 16 mg/L (0-300)
== END | disposition home or self-care (01) ==
PROVIDERS: PCP Orthopaedic Surgery; Referring Provider Internal Medicine; Visit Provider Radiology Diagnostic Radiology
DX: Z98.890 Other specified postprocedural states (principal); Z87.81 Personal history of (healed) traumatic fracture; I12.9 Hypertensive chronic kidney disease with stage 1 through stage 4 chronic kidney disease, or unspecified chronic kidney disease; E11.22 Type 2 diabetes mellitus with diabetic chronic kidney disease; N18.4 Chronic kidney disease, stage 4 (severe); E78.5 Hyperlipidemia, unspecified
CPT/HCPCS: 36415; 73562; 80048; 80061; 80076; 81001; 82043; 82570; 83036; 83970; 84100; 84443; 85025

== ENCOUNTER 2025-02-19 20:37 | Inpatient (IN) | payer OTHER, MEDICARE, SELFPAY ==
[2025-02-19 20:38] VITALS: BMI 36.7
[2025-02-19 20:55] VITALS: BP 94/65; PULSE 82; RESP 18; TEMP 37.6; O2SAT 97
--- NOTE | 2025-02-19 21:10 | XR_ITS ---
Examination: CT abdomen and pelvis without contrast. Coronal 3-D reconstructions. Sagittal 2-D reconstructions. Date and time of exam:February 19, 2025 1012 hours INDICATIONS: Back pain decreased urine output 4 days CTDI: vol (mGy): 12.9. DLP: (mGycm): 771 Technique: Axial images of the abdomen have been obtained, 3 mm slice thickness Intravenous contrast material has not been administered. Low dose protocols were performed. One or more of the following dose reduction techniques were used; automated exposure control, adjustment of the mA and/or KV according to patient size, use of iterative reconstruction technique. Findings: Multiple liver cysts Spleen is not enlarged No gallstones No pancreatic or adrenal mass Absent left kidney Moderate right renal scar formation 2 mm right renal calculus, no hydronephrosis or ureteral calculi are Normal appendix Colonic diverticulosis Contracted urinary bladder Transducers prostate dimension 5.5 cm Prominent osteopenia IMPRESSION: Moderate right renal parenchymal scar formation, no hydronephrosis 2 mm right renal calculus Absent left kidney Normal appendix Significant prostatomegaly
--- NOTE | 2025-02-19 21:10 | XR_ITS ---
Examination: AP chest single view TECHNIQUE: AP portable upright chest single view Date and time: February 19, 2025, 2128 hours INDICATIONS: Generalized weakness today. FINDINGS: Normal heart size Cardiac leads satisfactory position No lobar pneumonia or pulmonary edema Right shoulder arthroplasty IMPRESSION: No active disease
--- NOTE | 2025-02-19 21:11 | EDRME_ITS ---
Rapid Medical Screening Exam [facility] Arrival date/time: 02/19/25 20:37 64M with history of COPD, NAHEED, CKD stage 4 with L nephrectomy, PAD, Afib-on Eliquis, GERD, DM, and drug-induced CHF presents to ED with several days of generalized weakness. Patient also had some low back pain and reduced urine output. Patient's Xarelto was changed last week of Eliquis, but patient denies jung/bloody N/V and BMs. Patient also denies URI symptoms and fevers/chills. Chief Complaint: Weakness Vital signs: Vital Signs Temperature 99.7 F 02/19/25 20:55 Pulse Rate 82 02/19/25 20:55 Respiratory Rate 18 02/19/25 20:55 Blood Pressure 94/65 02/19/25 20:55 Pulse Oximetry (%) 97 02/19/25 20:55 Oxygen Delivery Method Room Air 02/19/25 20:55
[2025-02-19 21:37] LABS: Lactate (Lactic Acid) 1.4 mMol/L (0.4-2.0)
[2025-02-19 21:40] LABS: Basophils # (Auto) 0.0 Thou/mm3 (0.0-0.2); Basophils % (Auto) 0 % (0-2.5); Eosinophils # (Auto) 0.1 Thou/mm3 (0.0-0.5); Eosinophils % (Auto) 1 % (0-10); Hematocrit 37.4 % (41.0-53.0); Hemoglobin 12.5 g/dL (13.5-16.0); Immature Granulocytes Auto 0.11 Thou/mm3 (0.00-0.00); Lymphocytes # (Auto) 1.0 Thou/mm3 (1.0-4.8); Lymphocytes % (Auto) 6 % (10-50); Mean Corpuscular HGB Conc 33.4 g/dl (31.0-37.0); Mean Corpuscular Hemoglobin 28.0 pg (25.0-35.0); Mean Corpuscular Volume 84 fL (80-100); Monocytes # (Auto) 1.2 Thou/mm3 (0.0-0.8); Monocytes % (Auto) 7 % (0-12); Neutrophils # (Auto) 14.4 Thou/mm3 (1.8-7.7); Neutrophils % (Auto) 86 % (37-80); Nucleated Red Blood Cell # 0.00 Thou/mm3 (0.00-0.00); Nucleated Red Blood Cell % 0 /100 WBC (0); Platelet Count 191 Thou/mm3 (140-440); RDW Standard Deviation 45.9 fL (35.1-43.9); Red Blood Count 4.46 Miln/mm3 (4.50-5.90); White Blood Count 16.8 Thou/mm3 (3.8-10.6)
[2025-02-19 21:59] LABS: B-Type Natriuretic Peptide 144 pg/mL (0-100)
[2025-02-19 22:02] LABS: INR 1.2 (0.9-1.3); Partial Thromboplastin Time 42.7 Seconds (22.0-36.0); Prothrombin Time 12.7 Seconds (9.0-12.2)
[2025-02-19 22:07] LABS: Alanine Aminotransferase 14 U/L (10-49); Albumin, Serum 4.1 gm/dL (3.4-4.8); Albumin/Globulin Ratio 1.2 (1.2-2.2); Alkaline Phosphatase 112 U/L (46-116); Anion Gap 12 (7-16); Aspartate Amino Transferase 17 U/L (0-34); BUN/Creatinine Ratio 9 Ratio (12-20); Bilirubin,Total 0.7 mg/dL (0.3-1.2); Blood Urea Nitrogen 33 mg/dL (9-23); Calcium 9.0 mg/dL (8.3-10.6); Calcium (Corrected) 9.0 mg/dL (8.5-10.1); Carbon Dioxide 20.4 mMol/L (20.0-31.0); Chloride 103 mMol/L (98-107); Creatinine (Component) 3.6 mg/dL (0.6-1.3); Estimated Creatinine Clearance 25.0 mL/min (>60); Globulin 3.5 gm/dL (2.3-3.5); Glucose 148 mg/dL (74-106); Magnesium 1.5 mg/dL (1.6-2.6); Osmolality,Calculated 280 (275-295); Potassium 4.0 mMol/L (3.4-5.1); Procalcitonin 0.51 ng/ml (0.0-0.49); Sodium 135 mMol/L (136-145); Total Protein 7.6 gm/dL (5.7-8.2); Troponin I < 0.020 ng/mL (0.0-0.045); eGFR 18 See Note
[2025-02-19 23:14] VITALS: BP 73/53; PULSE 64; RESP 18; TEMP 37.3; O2SAT 92
[2025-02-19 23:37] VITALS: BP 91/58; PULSE 71; RESP 18; O2SAT 89
[2025-02-20] VITALS (65 sets, daily range): BP systolic 79–131; BP diastolic 38–89; PULSE 60–120; RESP 16–26; TEMP 36.3–38.3; O2SAT 66–99; BMI 37.2
[2025-02-20 01:33] LABS: Collection Type, Urine Clean Catch
[2025-02-20 01:40] LABS: Bilirubin,Urine Negative (Negative); Blood,Urine Trace (Negative); Clarity,Urine Clear (Clear/Hazy); Color,Urine Yellow (Lt Yel-Yel); Culture Indicated,Urine Not Indicated; Glucose, Urine 3+ (Negative); Ketones,Urine Negative (Negative); Leukocyte Esterase,Urine Negative (Negative); Nitrite,Urine Negative (Negative); PH,Urine 6.0 (5.0-7.0); Protein,Urine 1+ (Neg - Trace); RBC,Urine 2 /hpf (0-3); Specific Gravity,Urine 1.016 (1.001-1.035); Squamous Epithelial Cell,Urine < 1 /hpf (0-5); Urobilinogen,Urine Negative mg/dL (0.0-1.0); WBC,Urine 3 /hpf (0-5)
[2025-02-20 01:45] LABS: Amphetamine/Methamp Scrn,U Positive (Negative); Barbiturate Screen,Urine Negative (Negative); Benzodiazepines Screen,Urine Negative (Negative); Benzoylecgonine Screen, Ur Negative (Negative); Fentanyl Screen,Urine Negative (Negative); Opiate Screen,Urine Negative (Negative); THC Screen,Urine Negative (Negative)
--- NOTE | 2025-02-20 02:34 | PC.NURSE ---
PT HEART RHYTHM V-TACH NOTED, TERI MERRILL AWARE.
--- NOTE | 2025-02-20 02:41 | PD.EDWEAK ---
ED Weakness RME/HPI General Chief complaint: Weakness Stated complaint: WEAKNESS SINCE TUESDAY Arrival date/time: 02/19/25 20:37 RME / HPI RME / HPI Narrative: 02/19/25 20:37 64M with history of COPD, NAHEED, CKD stage 4 with L nephrectomy, PAD, Afib-on Eliquis, GERD, DM, and drug-induced CHF presents to ED with several days of generalized weakness. Patient also had some low back pain and reduced urine output. Patient's Xarelto was changed last week of Eliquis, but patient denies jung/bloody N/V and BMs. Patient also denies URI symptoms and fevers/chills. DR. ARTHUR MAIN ED EVALUATION: 64 y/o male with Hx of Atrial Fibrillation with Pacemaker, HTN, COPD, CHF, ID, Renal Disease, Type II DM, and Recreational Drug Use presents to ED c/o of generalized weakness x 5 days. Patient reports not having the strength to move around and ending up back in bed. Patient was changed recently to Eliquis from Xarelto. Denies nausea and vomiting. Denies dysuria, hematuria, and foul smelling urine. Patient is also on Amiodarone, Atenolol, and Diltiazem. Related Data Home Medications ?Medication ?Instructions ?Recorded ?Confirmed aspirin 81 mg chewable tablet 81 mg PO QDAY ##0 10/21/16 02/20/25 furosemide 40 mg tablet (Lasix) 40 mg PO QDAY #0 tabs 07/29/17 02/20/25 atenolol 50 mg tablet 50 mg PO QDAY 10/18/21 02/20/25 hydroxyzine HCl 25 mg tablet 25 mg PO BID 11/09/24 02/20/25 losartan 25 mg tablet 50 mg PO QDAY 11/09/24 02/20/25 apixaban 2.5 mg tablet (Eliquis) 2.5 mg PO BID 02/20/25 02/20/25 calcitriol 0.5 mcg capsule 0.5 mcg PO DAILY 02/20/25 02/20/25 iron, carbonyl 15 mg chewable 15 mg PO TID 02/20/25 02/20/25 tablet (Iron Chews) pantoprazole 40 mg tablet,delayed 40 mg PO QDAY 02/20/25 02/20/25 release tamsulosin 0.4 mg capsule 0.4 mg PO QDAY 02/20/25 02/20/25 Previous Rx's ?Medication ?Instructions ?Recorded empagliflozin 25 mg tablet 25 mg PO QAM #30 tabs 11/15/24 (Jardiance) Held on 02/22/25. Instructions: Resume on 02/28/25. albuterol sulfate 90 mcg/actuation 2 puff inhalation QID PRN 02/22/25 aerosol inhaler shortness of breath or wheezing #8.5 grams amiodarone 200 mg tablet 200 mg PO BID 1 month #60 tabs 02/22/25 nicotine 21 mg/24 hr daily 21 mg topical 1XD 1 month #28 ea 02/22/25 transdermal patch Allergies Allergy/AdvReac Type Severity Reaction Status Date / Time codeine Allergy Severe Hives Verified 02/19/25 20:37 Review of Systems Review of Systems Systems Reviewed: All systems reviewed, normal except as documented Past Medical History Past Medical History NEUROLOGIC: Positive Migraine CARDIAC: Positive Cardiac Disorders, Atrial Fibrillation, Hypercholesterolemia, Congestive Heart Failure and Hypertension RESPIRATORY: Positive Chronic Obstructive Pulmonary Disease (COPD), Asthma, Pneumonia and Sleep Apnea GASTROINTESTINAL: Positive Gastrointestinal Disorders, Gastroesophageal Reflux Disease and Obesity GENITOURINARY: Positive Genitourinary Disorders, Renal Disease, Kidney Stones and Benign Prostatic Hyperplasia MUSCULOSKELETAL: Positive Musculoskeletal Disorders and Fractures ENDOCRINE: Positive Endocrine Disorders and Diabetes Mellitus Type 2 HEMATOLOGIC: Positive Blood Disorders and Anemia PSYCHO/SOCIAL: Positive Recreational Drug Use, Depression and Anxiety OTHER HISTORY: Positive Hospitalization, Blood Transfusions and Measles Surgical History SURGICAL: Positive Nephrectomy and Joint Replacement Social History SMOKING STATUS: Current every day smoker SECOND HAND EXPOSURE: Yes ED Exam Narrative Physical exam: GENERAL APPEARANCE: alert and oriented x 4, well-developed, well-nourished, no acute distress VITALS: All vitals were reviewed and the pulse ox is 94% on room air, which is abnormal according to my interpretation. HEENT: Normocephalic, atraumatic; pupils equal, round, reactive to light; EOMI; mucous membranes pink, moist; oropharynx clear NECK: Supple LUNGS: CTABL; no wheezes, no rales, no rhonchi HEART: Regular rate, regular rhythm; normal S1, S2; no murmurs ABDOMEN: non distended; normal BS; soft, no tenderness, no guarding, no rebound; no masses, no organomegaly, no hernia BACK: no CVA tenderness EXTREMITIES: atraumatic; no edema NEUROLOGIC: awake; alert and oriented x4; cranial nerves II-XII grossly intact; no focal sensory or motor deficits PSYCHIATRIC: appropriate mood and affect SKIN: warm, dry, normal color; no rashes Course Quality Measures none Orders Category Date Time Status Bedside COVID-19 Antigen Test NOW Care 02/19/25 21:10 Completed Bedside Influenza A&B Antigen Test NOW Care 02/19/25 21:10 Completed COVID-19 Screening Questionnaire NOW Care 02/20/25 03:00 Completed EKG (ED ONLY) *Do not use* NOW Care 02/19/25 21:[address] abdomen pelvis wo con Stat Exams 02/19/25 21:10 Completed EKG (ED Only) Stat Exams 02/19/25 21:10 Stop Req XR chest 1V portable Stat Exams 02/19/25 21:10 Completed B-Type Natriuretic Peptide Stat Lab 02/19/25 21:27 Completed CBC Stat Lab 02/19/25 21:27 Completed Comprehensive Metabolic Panel Stat Lab 02/19/25 21:27 Completed Drug Screen,Urine Stat Lab 02/20/25 01:23 Completed Lactate (Lactic Acid) Stat Lab 02/19/25 21:27 Completed Magnesium Stat Lab 02/19/25 21:27 Completed Partial Thromboplastin Time Stat Lab 02/19/25 21:27 Completed Procalcitonin Stat Lab 02/19/25 21:27 Completed Prothrombin Time with INR Stat Lab 02/19/25 21:27 Completed Troponin I Stat Lab 02/19/25 21:27 Completed Troponin I Stat Lab 02/20/25 04:13 Completed Urinalysis, C/S if Indicated Stat Lab 02/20/25 01:23 Completed Amiodarone 150 mg Ivpb [Nexterone Ivpb] Med 02/20/25 02:43 Discontinued 150 mg in 100 ml IV .STK-MED Amiodarone 150 mg Ivpb [Nexterone Ivpb] Med 02/20/25 02:44 Discontinued 150 mg in 100 ml IV 600 mls/hr Amiodarone 360 mg Ivpb [Nexterone Ivpb] Med 02/20/25 02:36 Discontinued 360 mg in 200 ml IV 33.333 mls/hr Amiodarone Inj [Cordarone Inj] 150 mg Med 02/20/25 02:37 Discontinued Dextrose 5%-Water [D5w] 100 ml IV X1 Magnesium Sulfate 2 GM Ivpb [Magnesium Sulfate Ivpb] Med 02/20/25 02:38 Discontinued 2 gm in 50 ml IV X1 Sodium Chloride 0.9% 1000 ml [Ns] 1,000 ml Med 02/20/25 02:43 Discontinued IV 999 mls/hr cefTRIAXone/D5w 1gm IV premix [Rocephin/D5w 1gm IV Med 02/20/25 02:43 Discontinued premix] 1 gm in 50 ml IV X1 Vital Signs Vital signs: Vital Signs Temperature 99.7 F 02/19/25 20:55 Pulse Rate 82 02/19/25 20:55 Respiratory Rate 18 02/19/25 20:55 Blood Pressure 94/65 02/19/25 20:55 Pulse Oximetry (%) 97 02/19/25 20:55 Oxygen Delivery Method Room Air 02/19/25 20:55 Weakness MDM Narrative MDM Narrative:: Scribe Attestation: IChristina, am scribing for and in the presence of Dr. Arthur. Provider Notation: Although this document has been carefully reviewed, there may still be some phonetic and other typographical errors.? These errors are purely grammatical due to imperfections in the software program and should not be construed in any way to? compromise the substance of the patient's medical care during this visit. Patient data External records reviewed:: [facility] [place] previous records (Reviewed prior ED records from 11/09/24. Patient was seen for Abscess of right lower leg.) Clinical information provided by:: patient Social determinants that could affect healthcare access:: substance use (methamphetamine) Patient has the following chronic illnesses:: Atrial Fibrillation, Hypercholesterolemia, Congestive Heart Failure, Hypertension, Chronic Obstructive Pulmonary Disease (COPD), Asthma, Sleep Apnea, Gastroesophageal Reflux Disease, Obesity, Renal Disease, Kidney Stones, Benign Prostatic Hyperplasia, Diabetes Mellitus Type 2, Anemia, Recreational Drug Use, Depression and Anxiety How is presenting disease/condition affected by chronic disease/condition?: exacerbated by Evaluation data The following diagnostics were reviewed and interpreted by me:: lab results, radiology exam(s) and EKG tracing(s) (EKG manual reading, my interpretation: Atrial pacemaker, sinus rhythm, rate: no ST elevation, no acute ischemic changes.) Lab and/or radiology exams considered but not ordered:: None Interpretation Summary: RADIOLOGY Chest X-Ray: FINDINGS: Normal heart size Cardiac leads satisfactory position No lobar pneumonia or pulmonary edema Right shoulder arthroplasty IMPRESSION: No active disease Abdomen/Pelvis CT: Findings: Multiple liver cysts Spleen is not enlarged No gallstones No pancreatic or adrenal mass Absent left kidney Moderate right renal scar formation 2 mm right renal calculus, no hydronephrosis or ureteral calculi are Normal appendix Colonic diverticulosis Contracted urinary bladder Transducers prostate dimension 5.5 cm Prominent osteopenia IMPRESSION: Moderate right renal parenchymal scar formation, no hydronephrosis 2 mm right renal calculus Absent left kidney Normal appendix Significant prostatomegaly Medications / Prescriptions Medications or Prescriptions considered but not ordered:: None Medication administrations:: Medication Administration History Discontinued Medications Acetaminophen (Acetaminophen 325 Mg Tablet) 650 mg PO Q6HR PRN PRN Reason: Fever >101,headache, mild pain Stop: 03/22/25 05:13 Amiodarone HCl (Amiodarone Hcl 200 Mg Tablet) 200 mg PO QDAY [facility] Stop: 03/22/25 09:44 Last Admin: 02/20/25 09:56 Dose: 200 mg Documented By: MR Amiodarone HCl (Amiodarone Hcl 200 Mg Tablet) 200 mg PO BID [facility] Stop: 03/23/25 08:59 Last Admin: 02/22/25 08:42 Dose: 200 mg Documented By: Admin: 02/21/25 20:39 Dose: 200 mg Documented By: Admin: 02/21/25 08:51 Dose: 200 mg Documented By: KIT Apixaban (Apixaban 2.5 Mg Tablet) 2.5 mg PO BID [facility] Stop: 03/23/25 08:59 Last Admin: 02/22/25 08:43 Dose: 2.5 mg Documented By: Admin: 02/21/25 20:39 Dose: 2.5 mg Documented By: Admin: 02/21/25 08:51 Dose: 2.5 mg Documented By: KIT Atenolol (Atenolol 25 Mg Tablet) 50 mg PO QDAY [facility] Stop: 03/22/25 09:59 Last Admin: 02/21/25 08:53 Dose: Not Given Documented By: TM Non-Admin Reason: Vital Signs Comments: Medication held per Dr. Jackson related to vital signs. Admin: 02/20/25 10:00 Dose: 50 mg Documented By: MR Atenolol (Atenolol 25 Mg Tablet) 50 mg PO QDAY [facility] Stop: 03/22/25 09:59 Last Admin: 02/21/25 10:52 Dose: Not Given Documented By: TM Non-Admin Reason: Vital Signs Atenolol (Atenolol 25 Mg Tablet) 50 mg PO X1 ONE Stop: 02/21/25 14:51 Last Admin: 02/21/25 16:25 Dose: 50 mg Documented By: KIT Comments: Approved by Dr. Arias to administer related to vital signs. Per Dr. Arias cardiology recommends giving it if MAP is above 65. Atenolol (Atenolol 25 Mg Tablet) 50 mg PO QDAY [facility] Stop: 03/24/25 08:59 Last Admin: 02/22/25 08:43 Dose: 50 mg Documented By: SOFÍA Citric Acid/Sodium Citrate (Citric Acid/Sodium Citr 15 Ml Udc (Bicitra)) 30 ml PO BID [facility] Stop: 03/24/25 08:59 Last Admin: 02/22/25 08:44 Dose: 30 ml Documented By: SOFÍA Dextrose (Dextrose 50%-Water Inj 50 Ml Syringe) 25 ml IV Q15MIN PRN PRN Reason: BG 50-70 responsive npo pt Stop: 03/22/25 04:26 Dextrose (Dextrose 50%-Water Inj 50 Ml Syringe) 50 ml IV Q15MIN PRN PRN Reason: BG <50 OR BG <70 & pt unresponsive Stop: 03/22/25 04:26 Doxycycline Hyclate (Doxycycline 100 Mg Tablet) 100 mg PO BID [facility] Stop: 02/27/25 08:59 Last Admin: 02/20/25 09:27 Dose: Not Given Documented By: Non-Admin Reason: HOLD PER MD BA NPO Famotidine (Famotidine Inj 10 Mg/Ml Vial 2 Ml) 20 mg IVP QDAY [facility] Stop: 03/22/25 08:59 Last Admin: 02/22/25 08:44 Dose: 20 mg Documented By: Admin: 02/21/25 08:50 Dose: 20 mg Documented By: Admin: 02/20/25 09:47 Dose: 20 mg Documented By: MR Glucagon (Glucagon Inj 1 Mg Vial) 1 mg IM Q15MIN PRN PRN Reason: BG <70, and no IV access Amiodarone HCl/Dextrose (Nexterone Ivpb) 360 mg in 200 mls @ 33.333 mls/hr IV .Q6H ONE Stop: 02/20/25 08:35 Last Admin: 02/20/25 03:13 Dose: 33.333 mls/hr Documented By: FLORIDALMA Amiodarone HCl 150 mg/ (Dextrose) 103 mls @ 600 mls/hr IV X1 ONE Stop: 02/20/25 02:47 Last Admin: 02/20/25 03:01 Dose: Not Given Documented By: KAUSHAL Non-Admin Reason: Cancelled by Provider Magnesium Sulfate (Magnesium Sulfate Ivpb) 2 gm in 50 mls @ 25 mls/hr IV X1 ONE Stop: 02/20/25 04:37 Last Infusion: 02/20/25 05:14 Dose: Infused Documented By: Admin: 02/20/25 02:56 Dose: 25 mls/hr Documented By: KAUSHAL Sodium Chloride (Ns) 1,000 mls @ 999 mls/hr IV .Q1H1M ONE Stop: 02/20/25 03:43 Last Infusion: 02/20/25 04:02 Dose: Infused Documented By: Admin: 02/20/25 03:00 Dose: 999 mls/hr Documented By: KAUSHAL Ceftriaxone Sodium/Dextrose (Rocephin/D5w 1gm Iv Premix) 1 gm in 50 mls @ 100 mls/hr IV X1 ONE Stop: 02/20/25 03:12 Last Infusion: 02/20/25 04:23 Dose: Infused Documented By: Admin: 02/20/25 03:50 Dose: 100 mls/hr Documented By: FLORIDALMA Amiodarone HCl/Dextrose (Nexterone Ivpb) 150 mg in 100 mls @ 600 mls/hr IV .Q10M ONE Stop: 02/20/25 02:53 Last Infusion: 02/20/25 03:06 Dose: Infused Documented By: Admin: 02/20/25 02:56 Dose: 600 mls/hr Documented By: KAUSHAL Amiodarone HCl/Dextrose (Nexterone Ivpb) Confirm Administered Dose 150 mg in 100 mls @ ud IV .STK-MED ONE Stop: 02/20/25 02:44 Last Admin: 02/20/25 03:04 Dose: Not Given Documented By: KAUSHAL Non-Admin Reason: Override Medication Magnesium Sulfate (Magnesium Sulfate Ivpb) 2 gm in 50 mls @ 25 mls/hr IV X1 ONE Stop: 02/20/25 06:28 Last Admin: 02/20/25 07:42 Dose: Not Given Documented By: MR Non-Admin Reason: per MD Ba Ceftriaxone Sodium/Dextrose (Rocephin/D5w 1gm Iv Premix) 1 gm in 50 mls @ 100 mls/hr IV HS BELEN Stop: 02/27/25 20:59 Lactated Ringer's (Lactated Ringers) 500 mls @ 999 mls/hr IV .Q31M ONE Stop: 02/20/25 08:58 Last Admin: 02/20/25 09:28 Dose: Not Given Documented By: Non-Admin Reason: ORDER CHANGED TO 1LITER Lactated Ringer's (Lactated Ringers) 1,000 mls @ 999 mls/hr IV .Q1H1M ONE Stop: 02/20/25 10:30 Last Admin: 02/20/25 09:44 Dose: 999 mls/hr Documented By: Insulin Human Lispro (Insulin Lispro (Admelog) 1 Unit/0.01 Ml Unit) 0 unit SC AC BELEN; Protocol Stop: 03/22/25 07:29 Last Admin: 02/20/25 09:28 Dose: Not Given Documented By: Non-Admin Reason: Discontinued Insulin Human Lispro (Insulin Lispro (Admelog) 1 Unit/0.01 Ml Unit) 0 unit SC Q6H BELEN; Protocol Stop: 03/22/25 07:44 Insulin Human Lispro (Insulin Lispro (Admelog) 1 Unit/0.01 Ml Unit) 0 unit SC Q6HR BELEN; Protocol Stop: 03/22/25 07:44 Insulin Human Lispro (Insulin Lispro (Admelog) 1 Unit/0.01 Ml Unit) 0 unit SC Q6HR BELEN; Protocol Stop: 03/22/25 07:44 Last Admin: 02/20/25 07:43 Dose: Not Given Documented By: MR Non-Admin Reason: q6 bs Levalbuterol HCl (Levalbuterol Rt 1.25 Mg/0.5 Ml Nebu) 1.25 mg INH Q8HR PRN PRN Reason: WHEEZING Stop: 03/22/25 07:26 Multi-Ingredient Ointment (Min Oil/Pet,White (Eucerin) Cr 16 Oz Btl) 0 oz TOP BID BELEN Stop: 03/22/25 14:29 Last Admin: 02/22/25 08:45 Dose: 1 oz Documented By: Admin: 02/21/25 20:39 Dose: 16 oz Documented By: Admin: 02/21/25 08:50 Dose: 16 oz Documented By: Admin: 02/20/25 21:46 Dose: 4 oz Documented By: Admin: 02/20/25 15:56 Dose: 16 oz Documented By: OSCAR Nicotine (Nicotine Patch 14 Mg/24 Hr Patch.Td24) 14 mg TOP QDAY [facility]EN Stop: 03/22/25 08:59 Last Admin: 02/22/25 08:45 Dose: Not Given Documented By: SOFÍA Non-Admin Reason: Patient Refused Admin: 02/21/25 08:53 Dose: Not Given Documented By: KIT Non-Admin Reason: Patient Refused Admin: 02/20/25 09:46 Dose: 14 mg Documented By: MR Sennosides (Senna Tablet) 1 tab PO QDAY BELEN; Protocol Stop: 03/24/25 08:59 Last Admin: 02/22/25 08:45 Dose: Not Given Documented By: SOFÍA Non-Admin Reason: Patient Refused Sodium Chloride (Sodium Chloride Rt Monica 0.9% 3 Ml Nebu) 3 ml INH PRN PRN PRN Reason: SOLN Stop: 03/22/25 07:26 See above Consultations Consultation(s) initiated? (list below): Yes Consultation #1 (Physician, Specialty, Details): Discussed with Resident Physician for Dr. Rhodes for admission. Reviewed the patient?s HPI, PMHx, lab and/or radiology results. Discussed treatment plan. Will consult an admission to the hospitalist. Time: 02:45 Diagnosis Weakness Differential Diagnosis: acute myocardial infarction, hypoglycemia, hypothyroidism, rhabdomyolysis, sepsis and dehydration Most likely diagnosis given after review of the tests above:: Ventricular tachycardia, Leukocytosis, Generalized weakness. Admission Indicated Admission indicated?: indicated Explain why admission is indicated or not indicated:: Ventricular tachycardia, Leukocytosis, Generalized weakness. Admission Request Was there a request for admission?: Yes Admission Attestation Admission request attestation: Discussed case with [] from Hospitalist service regarding admission. Discussed patients ED course, exam findings, labs, and radiology results. The Hospitalist [agrees,declines] to accept the patient for admission. Disposition Plan Disposition Plan: Admit Discharge Plan Plan Patient Disposition: Admit Acute Care w/in Hospital Patient condition on transfer: Stable Problem List Clinical Impression: Ventricular tachycardia, Generalized weakness, Leukocytosis Patient/Caregiver Discharge Instructions Other Activity Instructions:: ACTIVITY TOLERATED Diet Instructions: CARDIAC DIET
[2025-02-20] MEDS: Magnesium Sulfate 2 GM Ivpb 2 GM/50 ML BAG IV (02:56)
[2025-02-20] MEDS: AMIODARONE 150 MG IVPB 150 MG/100 ML BAG 600 MG IV (02:56)
[2025-02-20] MEDS: SODIUM CHLORIDE 0.9% 1000 ML 1,000 ML 999 ML IV (03:00)
[2025-02-20] MEDS: AMIODARONE 360 MG IVPB 360 MG/200 ML BAG 33.333 MG IV (03:13)
[2025-02-20] MEDS: cefTRIAXone/D5w 1gm IV premix 1 GM/50 ML BAG IV (03:50)
--- NOTE | 2025-02-20 04:05 | ECHO_ITS ---
Transthoracic Echo Report Ht (in): 69 Wt (lb): 249 Exam Location: Echo Lab Status: Emergency Diplomatic Interpreter/Translator: Nae Nolan Indications: Procedure Performed: BP: 95 / 65 HR: 60 Technical Quality: Technically difficult study MEASUREMENTS (Male / Female) Normal Values 2D ECHO LV Diastolic Diameter PLAX 5.0 cm 4.2 - 5.9 / 3.9 - 5.3 cm LV Systolic Diameter PLAX 3.3 cm IVS Diastolic Thickness 1.2 cm 0.6 - 1.0 / 0.6 - 0.9 cm LVPW Diastolic Thickness 1.2 cm 0.6 - 1.0 / 0.6 - 0.9 cm LV Relative Wall Thickness 0.5 LVOT Diameter 2.2 cm Aortic Root Diameter 3.5 cm LA Systolic Diameter LX 3.5 cm 3.0 - 4.0 / 2.7 - 3.8 cm LV Ejection Fraction MOD 4C 45.1 % LV Cardiac Index MOD 4C 1425.9 cm?/min?m? LV Ejection Fraction 4C AL 47.4 % LV Cardiac Index 4C AL 1578.1 cm?/min?m? LA Volume Index 25.2 cm?/m? 16 - 28 cm?/m? M-MODE Aortic Root Diameter MM 3.1 cm LA Systolic Diameter MM 4.9 cm LA Ao Ratio MM 1.6 AV Cusp Separation MM 2.0 cm DOPPLER AV Peak Velocity 139.0 cm/s AV Peak Gradient 7.7 mmHg AV Mean Gradient 4.0 mmHg AV Velocity Time Integral 32.9 cm LVOT Peak Velocity 88.5 cm/s LVOT Peak Gradient 3.1 mmHg LVOT Velocity Time Integral 22.7 cm LVOT Cardiac Index 2166.3 cm?/min?m? AV Area Cont Eq vti 2.6 cm? AV Area Cont Eq pk 2.4 cm? MV Area PHT 4.0 cm? Mitral E Point Velocity 55.8 cm/s Mitral A Point Velocity 52.4 cm/s Mitral E to A Ratio 1.1 LV E' Lateral Velocity 11.2 cm/s Mitral E to LV E' Lateral Ratio 5.0 LV E' Septal Velocity 6.7 cm/s Mitral E to LV E' Septal Ratio 8.3 TR Peak Velocity 245.0 cm/s TR Peak Gradient 24.0 mmHg PV Peak Velocity 132.0 cm/s PV Peak Gradient 7.0 mmHg FINDINGS Left Ventricle Normal left ventricular size and systolic function with no obvious regional wall motion abnormalities. Mild LVH. Normal left ventricular diastolic filling pattern for age. The ejection fraction is visually estimated at 55- 60 %. Right Ventricle The right ventricular cavity size is at the upper limits of normal with normal systolic function. Left Atrium The left atrium is normal by two-dimensional, color flow and Doppler imaging with no structural abnormalities, no thrombus formation present. Right Atrium The right atrium is normal by two-dimensional imaging, color flow and Doppler imaging with no structural abnormalities, no thrombus formation present. Atrial Septum The interatrial septum appears normal with no evidence of a shunt. Aorta The aorta is normal by two-dimensional, color flow and Doppler interrogation. Mitral Valve The mitral valve is normal by two-dimensional, color flow and Doppler interrogation. Trace mitral regurgitation. Aortic Valve The aortic valve is trileaflet and normal by two-dimensional, color flow and Doppler interrogation. There is no significant aortic valve regurgitation. Tricuspid Valve The tricuspid valve is normal by two-dimensional, color flow and Doppler interrogation. There is trace tricuspid valve regurgitation. Pulmonic Valve The pulmonic valve is not well visualized. There is no significant pulmonic valve regurgitation. Vessels The pulmonary artery appears normal. The inferior vena cava pulmonary and hepatic veins appear normal. Pericardium The pericardium is normal by two-dimensional imaging. There is no significant pericardial effusion. CONCLUSIONS Indication: f/u The transthoracic study is normal by two-dimensional, color flow imaging and Doppler interrogation. Normal LV size and function. Mild LVH. Estimated EF at 55-60 %. The RV cavity size is at the upper limits of normal with normal systolic function. Trace mitral and trace tricuspid regurgitation Karrie Adames (Electronically Signed) Final Date: 21 February 2025 23:43
--- NOTE | 2025-02-20 04:28 | PD.RESHP ---
Documentation for date of: 02/20/25 [facility] History of Present Illness Chief complaint: weakness History of present illness: Patient is a 64 years old male with past medical history of COPD on home oxygen, sick sinus syndrome s/p pacemaker, HFpEF with EF 60%, NAHEED, CKD stage IV, PAD, A-fib on Eliquis, GERD, eczema, diabetes mellitus type 2 with peripheral neuropathy, benign cystic liver disease, chronic back pain and s/p left nephrectomy presented to ED with chief complaint of worsening weakness and fatigue for for 5 days. He reports today he was trying to stand up from his bed and was not able to without assistance and decided to come to the emergency room. He denies any chest pain, palpitations, abdominal pain, shortness of breath, fever or chills. He reports he used marijuana today prior to the event. Last methamphetamine use was 2 months ago per patient. He denies feeling sick recently or recent URI symptoms. He denies symptoms of dysuria. He reports he had diarrhea yesterday but it resolved. He reports being compliant with his medications. He is followed by [employer] operator Dr. Patel outpatient. In the ED his blood pressure 94/65, pulse 82, respirations 18, temperature 100.9 ?F, oxygen saturation 90% on room air. Labs showed WBC 16.8, hemoglobin 12.5, sodium 135, BUN 33, creatinine 3.6, EGFR 18, glucose 148, magnesium 1.5, troponin negative, BNP 144, procalcitonin 0.51. Urinalysis showed protein 1+, glucose 3+. U tox was positive for methamphetamine. Chest x-ray was unremarkable. CTAP showed moderate right renal parenchymal scar formation, no hydronephrosis, 2 mm right renal calculus, Absent left kidney, Normal appendix, Significant prostatomegaly. In the emergency room patient developed rhythm change on night monitor with heart rate going to 180s with pattern suspicious for V. tach. Defibrillator leads were placed and he was started on amiodarone drip. Magnesium was repleted. He was continuously going on and off this rhythm therefore no shock was delivered. Patient will be admitted to ICU for closer monitoring until evaluated by cardiology. PMH: COPD on home oxygen, sick sinus syndrome s/p pacemaker, HFpEF with EF 60%, NAHEED, CKD stage IV, PAD, A-fib on Eliquis, GERD, eczema, diabetes mellitus type 2 with peripheral neuropathy, benign cystic liver disease, chronic back pain and s/p left nephrectomy. PSH: left nephrectomy, right knee replacement, back surgery, pacemaker placement. SH: Smokes tobacco actively for many years several cigarettes a day, drinks alcohol socially, uses marijuana and methamphetamine occasionally. FH: none. Allergies: Codeine. Medications: Protonix, losartan, atenolol, furosemide, diltiazem, aspirin, tamsulosin, hydroxyzine, Jardiance, Eliquis. Review of Systems Review of Systems Systems Reviewed: All systems reviewed, normal except as documented Exam Vital Signs Temp Pulse Resp BP Pulse Ox O2 Del Method 100.9 F H 80 17 106/75 90 L Room Air 02/20/25 03:56 02/20/25 04:00 02/20/25 04:00 02/20/25 04:00 02/20/25 04:00 02/20/25 03:42 Narrative Exam Gen: Well-developed and well-nourished obese male. HEENT: NCAT, PERRLA, EOMI, MMM, anicteric conjunctivae. CVS: normal S1 and S2. RRR. No M/R/G. Pacemaker in left upper chest. Resp: decreased BS B/L. No rhonchi, rales, crackles or wheezing. Abd: soft, obese, non-tender, non-distended. BS+ in all 4 quadrants. MSK: Good ROM in BUE & BLE. Perisacral pitting edema noted. BLE dry scaly rash up to knees. Neuro: CN II-XII grossly intact. Strength 5/5 in BUE & BLE. Alert and oriented x3. Results: Labs 02/20/25 07:12 02/20/25 07:12 Labs: Short CBC 02/19/25 Range/Units 21:27 WBC 16.8 H (3.8-10.6) Thou/mm3 Hgb 12.5 L (13.5-16.0) g/dL Hct 37.4 L (41.0-53.0) % Plt Count 191 D (140-440) Thou/mm3 BMP 02/19/25 21:27 Sodium 135 L Potassium 4.0 Chloride 103 Carbon Dioxide 20.4 BUN 33 H Creatinine 3.6 H Glucose 148 H Calcium 9.0 Cardiac Enzymes 02/19/25 Range/Units 21:27 Troponin I < 0.020 (0.0-0.045) ng/mL Liver Function 02/19/25 Range/Units 21:27 Total Bilirubin 0.7 (0.3-1.2) mg/dL AST 17 (0-34) U/L ALT 14 (10-49) U/L Alkaline Phosphatase 112 (46-116) U/L Albumin 4.1 (3.4-4.8) gm/dL Urine 02/20/25 Range/Units 01:23 Urine Color Yellow (Lt Yel-Yel) Urine Clarity Clear (Clear/Hazy) Urine pH 6.0 (5.0-7.0) Ur Specific [place] 1.016 (1.001-1.035) Urine Protein 1+ A (Neg - Trace) Urine Glucose (UA) 3+ A (Negative) Quality Measures Quality Measures VTE prophylaxis Advance care planning discussed with:: patient Medications Home Medications and Allergies Home Medications ?Medication ?Instructions ?Recorded ?Confirmed ?Type aspirin 81 mg chewable tablet 81 mg PO QDAY ##0 10/21/16 02/20/25 History albuterol sulfate 90 mcg/actuation 2 puff PO Q4HR PRN SHORTNESS OF 06/15/17 02/20/25 History aerosol inhaler (ProAir HFA) BREATH ##9 diltiazem HCl 60 mg tablet 30 mg PO TID ##0 07/29/17 02/20/25 History (Cardizem) furosemide 40 mg tablet (Lasix) 40 mg PO QDAY #0 tabs 07/29/17 02/20/25 History atenolol 50 mg tablet 50 mg PO QDAY 10/18/21 02/20/25 History amiodarone 200 mg tablet 200 mg PO QDAY 08/02/22 02/20/25 History hydroxyzine HCl 25 mg tablet 25 mg PO BID 11/09/24 02/20/25 History losartan 25 mg tablet 50 mg PO QDAY 11/09/24 02/20/25 History rivaroxaban 10 mg tablet (Xarelto) 10 mg PO QDAY 11/09/24 02/20/25 History apixaban 2.5 mg tablet (Eliquis) 2.5 mg PO BID 02/20/25 02/20/25 History calcitriol 0.5 mcg capsule 0.5 mcg PO DAILY 02/20/25 02/20/25 History diltiazem HCl 30 mg tablet 30 mg PO Q8H 02/20/25 02/20/25 History iron, carbonyl 15 mg chewable 15 mg PO TID 02/20/25 02/20/25 History tablet (Iron Chews) pantoprazole 40 mg tablet,delayed 40 mg PO QDAY 02/20/25 02/20/25 History release tamsulosin 0.4 mg capsule 0.4 mg PO QDAY 02/20/25 02/20/25 History Allergies Allergy/AdvReac Type Severity Reaction Status Date / Time codeine Allergy Severe Hives Verified 02/19/25 20:37 Visit Medications Dextrose (Dextrose 50%-Water Inj 50 Ml Syringe) 25 ml IV Q15MIN PRN PRN Reason: BG 50-70 responsive npo pt Stop: 03/22/25 04:26 Dextrose (Dextrose 50%-Water Inj 50 Ml Syringe) 50 ml IV Q15MIN PRN PRN Reason: BG <50 OR BG <70 & pt unresponsive Stop: 03/22/25 04:26 Glucagon (Glucagon Inj 1 Mg Vial) 1 mg IM Q15MIN PRN PRN Reason: BG <70, and no IV access Amiodarone HCl/Dextrose (Nexterone Ivpb) 360 mg in 200 mls @ 33.333 mls/hr IV .Q6H ONE Stop: 02/20/25 08:35 Last Admin: 02/20/25 03:13 Dose: 33.333 mls/hr Magnesium Sulfate (Magnesium Sulfate Ivpb) 2 gm in 50 mls @ 25 mls/hr IV X1 ONE Stop: 02/20/25 04:37 Last Admin: 02/20/25 02:56 Dose: 25 mls/hr Insulin Human Lispro (Insulin Lispro (Admelog) 1 Unit/0.01 Ml Unit) 0 unit SC AC [facility]; Protocol Stop: 03/22/25 07:29 Discontinued Medications Amiodarone HCl 150 mg/ (Dextrose) 103 mls @ 600 mls/hr IV X1 ONE Stop: 02/20/25 02:47 Last Admin: 02/20/25 03:01 Dose: Not Given Sodium Chloride (Ns) 1,000 mls @ 999 mls/hr IV .Q1H1M ONE Stop: 02/20/25 03:43 Last Infusion: 02/20/25 04:02 Dose: Infused Ceftriaxone Sodium/Dextrose (Rocephin/D5w 1gm Iv Premix) 1 gm in 50 mls @ 100 mls/hr IV X1 ONE Stop: 02/20/25 03:12 Last Infusion: 02/20/25 04:23 Dose: Infused Amiodarone HCl/Dextrose (Nexterone Ivpb) 150 mg in 100 mls @ 600 mls/hr IV .Q10M ONE Stop: 02/20/25 02:53 Last Infusion: 02/20/25 03:06 Dose: Infused Assessment & Plan Plan Patient is a 64 years old male with past medical history of COPD on home oxygen, sick sinus syndrome s/p pacemaker, HFpEF with EF 60%, NAHEED, CKD stage IV, PAD, A-fib on Eliquis, GERD, eczema, diabetes mellitus type 2 with peripheral neuropathy, benign cystic liver disease, chronic back pain and s/p left nephrectomy presented to ED with chief complaint of worsening weakness and fatigue for for 5 days and was admitted to ICU due to suspected Vtach. Neuro: #Substance use disorder. Patient reports using methamphetamine, THC and smoking tobacco. Per patient he smokes marijuana on the day of admission, last methamphetamine use 2 months ago. Cardiovascular: #Suspected Vtach. #Sick sinus syndrome s/p pacemaker. Patient had implanted dual-chamber pacemaker [place] [address] Patel due to sick sinus syndrome and symptomatic bradycardia. Patient presented to the ED with chief complaint of worsening weakness and fatigue over the last 5 days with significantly worsening of symptoms today when he tried to stand up; prior to it patient smoked marijuana. Today while evaluated in the ED patient had sudden rhythm change which was interpreted as episode of V. tach. Defibrillator pads were placed but patient has never been shocked. He then developed multiple similar episodes, his heart rate never exceeded 120, patient was asymptomatic during all this events, vital signs were stable. Multiple EKGs and telemetry strips were recorded. He was started on amiodarone drip in the ED. Plan: -Cardiology consult ordered. -Continue amiodarone drip. -Keep defibrillator pads on until seen by cardiology. -Will hold morning dose of Eliquis and keep patient n.p.o. in case if procedure needed to be done. #HFpEF with EF 60%. Echo from 10/2024 showed normal size left ventricle with mild concentric LVH with normal preserved ejection fraction of 60%, mild left ventricular diastolic dysfunction, grade 2. At home patient is on furosemide 40 mg daily, atenolol, losartan, diltiazem; reports good compliance. On physical exam does not appear to be in fluid overload status. BNP on admission 144. Plan: -Resume his home medications once med rec is completed. #Hx of A-fib on Eliquis. Patient has history of A-fib and is taking Eliquis 2.5 mg twice daily. Plan: -Will hold his morning dose of Eliquis in case patient needs to have procedure. -Resume his home medications once med rec is completed. #Hx of PAD. Patient has limited mobility due to prior back injury and cannot report if he has pain in his legs on exertion, at home taking aspirin. Plan: -Resume his home medications once med rec is completed. Respiratory: #Hx of COPD. #Hx of NAHEED. Patient has longstanding history of NAHEED and COPD, at home uses oxygen occasionally. Chest x-ray was unremarkable. Plan: -Started on supplemental oxygen to maintain saturation above 88%. -Consider CPAP at night. Gastrointestinal: #Hx of GERD. At home taking Protonix. Plan: -Started on famotidine due to [place]. #Hx of benign cystic liver disease. CTAP showed multiple liver cysts. LFTs and T. bili are unremarkable. Plan: -Continue monitoring with daily labs. Renal: #[place] on CKD. #Hx of CKD stage IV. #s/p left nephrectomy 2013. #Nephrolithiasis, 2 mm stone in right ureter. Patient presented with BUN 33, creatinine 3.6 EGFR 18. 1 months ago his creatinine was 3.0. Patient reported decreased urine output within the last several weeks. CTAP showed 2 mm stone in right ureter, no hydronephrosis. Patient does not have symptoms of dysuria or CVA tenderness. 2013 left unilateral nephrectomy at [facility] 2/2 kidney stones. Plan: -Monitor with daily labs. -Avoid nephrotoxic medications and renally dose medications. -Strict [place]. -Consider nephrology consult. Endocrine: #Hx of diabetes mellitus type 2 with peripheral neuropathy. On admission glucose 148, patient is taking Jardiance at home reports good compliance, regularly checks glucose level. Hemoglobin A1c 5.4 1 months ago, patient might not needed treatment for diabetes anymore. Plan: -Sliding scale insulin ordered. -Glucose checks every 6 hours due to n.p.o. status. MSK/Skin: #BLE skin infection. #Hx of eczema. #Hx of xerosis cutis. Patient been treated in wound care clinic due to fungal infection and xerosis cutis of his bilateral lower extremities. Per records in September 2024 he was treated with fluconazole with improvement in his symptoms, at that time he had ulcers which are healed now. He also has history of eczema and PAD. His lower extremities are hyperemic and nontender to palpation, no ulcers noted. Plan: -Continue current antibiotic regimen. Infectious Disease: #Suspected infection, unknown source. Patient presented with fever of 100.9 ?F, leukocytosis of 16.8 with predominant neutrophiles. Sepsis alert was called in the emergency room, patient was given 1 dose of ceftriaxone and 1 L of NS bolus. Chest x-ray was unremarkable. Patient did not report symptoms of dysuria and urinalysis was unremarkable. Labs show procalcitonin 0.51. CTAP showed 2 mm stone in right ureter, no hydronephrosis. BLE skin appears hyperemic and was treated previously as fungal infection with fluconazole. Plan: -Started on ceftriaxone IV and doxycycline empirically. -Cultures were taken. -Consider further workup. Hematology/Oncology: #Leukocytosis. See infectious disease part. #Normocytic anemia. On admission hemoglobin 12.5, consistent with prior readings. Plan: -Monitor with daily CBC. Diet: NPO. DVT prophylaxis: Eliquis on hold, SCDs. GI prophylaxis: Famotidine. Code status: FULL CODE. Disposition: ICU. Plan of care discussed with attending Dr. Rhodes. Migue Khan MD, PGY 3. Disclaimer: This note was dictated by speech recognition. Minor errors in field service coordinator may be present due to voice recognition software. Attending Provider Attestation/Addendum I attest that I was physically present for the evaluation, physical examination, lab and imaging review of the patient with the residents. I discussed the case with the residents and agree with the findings and plans of care as documented above. After examination of the patient and review of the clinical data I feel that this patient needs admission to the hospital for further treatment/evaluation. Patient is a 64 years old male with past medical history of COPD on home oxygen, sick sinus syndrome status post pacemaker placement, HFpEF, NAHEED, CKD, PAD, A-fib on Eliquis, GERD, diabetes mellitus, peripheral neuropathy, status post left nephrectomy who presented to the ED with complaint of generalized weakness and fatigue. She has been having worsening weakness for the last 5 days. Denies any chest pain, palpitation, shortness of breath, fever. In the ED, patient initially was hypotensive. He also had multiple episodes of ventricular tachycardia one of them lasted more than 40 seconds. He was also found to have temperature of 100.9 ?F later on. Lab results show WBC of 16.8, hemoglobin 12.5, sodium 135, BUN/creatinine of 33/3.6, magnesium 1.5, BNP 144. Urine toxicology was positive for methamphetamine. CT abdomen/pelvis showed right renal parenchymal scar formation, 2 mm right renal calculus, absent left kidney and prostatomegaly. Following ventricular tachycardia episodes, defibrillator pads were placed and patient was started on amiodarone drip in the ED. Patient has maintained his pulse, blood pressure was stable at bedside, denies any palpitation or new symptoms in the ED. On exam, noted to have irregular rhythm, heart sounds are distant. There is bilateral lower extremity edema, some scales and foul-smelling. We will admit the patient to ICU for close monitoring following recurrent asymptomatic ventricular tachycardia. We will keep the defibrillator in place. Patient has leukocytosis and fever but does not have any obvious source of infection, infection source might be cellulitis of his bilateral lower limbs. We will start him on broad-spectrum antibiotics and obtain cultures. We will also continue with amiodarone drip. Cardiology consult has been ordered. Patient received fluid bolus in ED, blood pressure continues to be stable. Magnesium level noted to be low at 1.5, repleted accordingly. Troponin level has been negative. Critical care time spent: 40 minutes Omar Rhodes MD
[2025-02-20 04:53] LABS: Troponin I < 0.020 ng/mL (0.0-0.045)
--- NOTE | 2025-02-20 05:18 | PC.NURSE ---
REPORT GIVEN TO MONTRELL MACHADO AT ICU.
[2025-02-20 07:42] LABS: Base Excess, Venous -3 (-3-3); O2 Saturation, Venous 71 % (96-97); PCO2, Venous 31 mmHg (36-56); PO2, Venous 36 mmHg (15-58); pH, Venous 7.42 (7.33-7.66)
[2025-02-20 07:44] LABS: Basophils # (Auto) 0.1 Thou/mm3 (0.0-0.2); Basophils % (Auto) 0 % (0-2.5); Eosinophils # (Auto) 0.1 Thou/mm3 (0.0-0.5); Eosinophils % (Auto) 1 % (0-10); Hematocrit 36.5 % (41.0-53.0); Hemoglobin 11.5 g/dL (13.5-16.0); Immature Granulocytes Auto 0.09 Thou/mm3 (0.00-0.00); Lymphocytes # (Auto) 1.6 Thou/mm3 (1.0-4.8); Lymphocytes % (Auto) 11 % (10-50); Mean Corpuscular HGB Conc 31.5 g/dl (31.0-37.0); Mean Corpuscular Hemoglobin 27.8 pg (25.0-35.0); Mean Corpuscular Volume 88 fL (80-100); Monocytes # (Auto) 1.2 Thou/mm3 (0.0-0.8); Monocytes % (Auto) 8 % (0-12); Neutrophils # (Auto) 11.7 Thou/mm3 (1.8-7.7); Neutrophils % (Auto) 80 % (37-80); Nucleated Red Blood Cell # 0.00 Thou/mm3 (0.00-0.00); Nucleated Red Blood Cell % 0 /100 WBC (0); Platelet Count 149 Thou/mm3 (140-440); RDW Standard Deviation 48.5 fL (35.1-43.9); Red Blood Count 4.13 Miln/mm3 (4.50-5.90); White Blood Count 14.7 Thou/mm3 (3.8-10.6)
[2025-02-20 08:10] LABS: Alanine Aminotransferase 11 U/L (10-49); Albumin, Serum 3.7 gm/dL (3.4-4.8); Albumin/Globulin Ratio 1.2 (1.2-2.2); Alkaline Phosphatase 111 U/L (46-116); Anion Gap 11 (7-16); Aspartate Amino Transferase 15 U/L (0-34); BUN/Creatinine Ratio 9 Ratio (12-20); Bilirubin,Total 0.4 mg/dL (0.3-1.2); Blood Urea Nitrogen 35 mg/dL (9-23); C-Reactive Protein > 10.0 mg/dL (0.0-0.9); Calcium 8.8 mg/dL (8.3-10.6); Calcium (Corrected) 9.0 mg/dL (8.5-10.1); Carbon Dioxide 22.6 mMol/L (20.0-31.0); Cardiac Risk Estimate 4.4 RATIO (4.0-6.7); Chloride 104 mMol/L (98-107); Cholesterol 131 mg/dL (132-200); Creatinine (Component) 4.0 mg/dL (0.6-1.3); Estimated Creatinine Clearance 22.7 mL/min (>60); Globulin 3.2 gm/dL (2.3-3.5); Glucose 111 mg/dL (74-106); HDL Cholesterol 30 mg/dL (40-60); LDL Cholesterol,Calculated 72 mg/dL (0-130); Magnesium 2.2 mg/dL (1.6-2.6); Osmolality,Calculated 284 (275-295); Phosphorous 4.0 mg/dL (2.4-5.1); Potassium 4.2 mMol/L (3.4-5.1); Sodium 138 mMol/L (136-145); Thyroid Stimulating Hormone 0.74 uIU/mL (0.55-4.78); Total Protein 6.9 gm/dL (5.7-8.2); Triglycerides 144 mg/dL (30-150); eGFR 16 See Note
[2025-02-20] MEDS: RINGERS LACTATED 1000 ML 1,000 ML 999 ML IV (09:44)
[2025-02-20] MEDS: NICOTINE PATCH 14 MG/24 HR PATCH.TD24 TOP (09:46)
[2025-02-20] MEDS: FAMOTIDINE INJ 10 MG/ML VIAL 2 ML 20 MG IVP (09:47)
[2025-02-20] MEDS: AMIODARONE HCL 200 MG TABLET PO (09:56)
[2025-02-20 10:34] LABS: Sed Rate (ESR) 64 mm/hr (0-20)
--- NOTE | 2025-02-20 11:47 | PC.SS ---
MULTIMEDIA SPECIALIST conducted bedside contact with the patient conduct initial assessment and to discuss discharge planning.? Patient confirmed demographic information.? Patient resides at home alone.? Patient utilizes a walker to assist with ambulation.? Patient utilizes home oxygen.? Vendor is [employer].? Patient describes the ability to complete ADL?s independently.? Patient identified friend, Ryan Leigh ; as surrogate medical decision maker.? Patient?s PCP is Dr. Valdez.? Patient?s assistance representative is Dr. Shah.? Patient?s racker octave board is Dr. Garzon.? Patient does not participate with dialysis.? Patient utilizes [facility] for medication services.? Plan is for the patient to return home at the time of discharge.? Friend will provide transportation on behalf of the patient. ?No further discharge needs identified by the patient.? No further intervention required at this time, social sciences research scientist will be available to address any further concerns.? Next of Kin: Ryan Leigh D/C Plan: Home
--- NOTE | 2025-02-20 11:49 | PC.SS ---
DEVELOPMENTAL PSYCHOLOGIST confirmed the following with the patient: Point of contact: Jose friend; Surrogate medical decision maker: Ryan Leigh, friend; .
--- NOTE | 2025-02-20 13:25 | ESPR_ITS ---
<Statement entered by Negro Garza MD - 02/20/25 14:38> Patient was seen and examined at bedside. I agree on the assessment and plan on this note as documented by resident Frank Hay DO PGY1. Patient admitted overnight, reported to have episode of ventricular tachycardia in the emergency department, heart rate noted to be in 180s, a twelve-lead EKG was not obtained, patient was stable and hence was started on amiodarone drip, this morning patient noted to be in paced rhythm with heart rate in 60s, amiodarone drip was discontinued patient started on home dose amiodarone and atenolol. Cardiology is consulted, pending recommendations, we will continue to hold Eliquis and DVT prophylaxis for today as patient received Eliquis yesterday morning. Patient was given IV fluids earlier this morning, PITO/p-ANCA ordered there is some suspicion of underlying vasculitis, records from histopathology of kidney from nephrectomy at [facility] will be obtained. Does have history of heart failure with preserved ejection fraction, EF 60% in October 2024, will obtain daily weights, fluid restriction 1500 cc and strict intake and output. Wound care was consulted, following patient, there is low suspicion of underlying infection or bilateral cellulitis, antibiotics will be discontinued, patient did have low-grade fever 100.9 earlier this morning ordered blood cultures and urine culture we will follow. Will continue to monitor patient in ICU today. Case discussed with attending Dr. Ej Garza MD PGY-2 Documentation for date of: 02/20/25 Subjective Subjective Interval history: History of present illness: Patient is a 64 years old male with past medical history of COPD on home oxygen, sick sinus syndrome s/p pacemaker, HFpEF with EF 60%, NAHEED, CKD stage IV, PAD, A- fib on Eliquis, GERD, eczema, diabetes mellitus type 2 with peripheral neuropathy, benign cystic liver disease, chronic back pain and s/p left nephrectomy presented to ED with chief complaint of worsening weakness and fatigue for for 5 days. He reports today he was trying to stand up from his bed and was not able to without assistance and decided to come to the emergency room. He denies any chest pain, palpitations, abdominal pain, shortness of breath, fever or chills. He reports he used marijuana today prior to the event. Last methamphetamine use was 2 months ago per patient. He denies feeling sick recently or recent URI symptoms. He denies symptoms of dysuria. He reports he had diarrhea yesterday but it resolved. He reports being compliant with his medications. He is followed by light oil operator Dr. Patel outpatient. ED Course: In the ED his blood pressure 94/65, pulse 82, respirations 18, temperature 100.9 ?F, oxygen saturation 90% on room air. Labs showed WBC 16.8, hemoglobin 12.5, sodium 135, BUN 33, creatinine 3.6, EGFR 18, glucose 148, magnesium 1.5, troponin negative, BNP 144, procalcitonin 0.51. Urinalysis showed protein 1+, glucose 3+. U tox was positive for methamphetamine. Chest x-ray was unremarkable. CTAP showed moderate right renal parenchymal scar formation, no hydronephrosis, 2 mm right renal calculus, Absent left kidney, Normal appendix, Significant prostatomegaly. In the emergency room patient developed rhythm change on monitoring specialist with heart rate going to 180s with pattern suspicious for V. tach. Defibrillator leads were placed and he was started on amiodarone drip. Magnesium was repleted. He was continuously going on and off this rhythm therefore no shock was delivered. Patient will be admitted to ICU for closer monitoring until evaluated by cardiology. Interval history 02/20/2025: No overnight events. Patient noted to have paced rhythm, heart rate in 60s. Will discontinue antibiotics due to low suspicion of infection/bilateral cellulitis, patient did have low-grade fever of 100.9 earlier today, we ordered blood cultures and urine culture will follow. Amio drip was discontinued, will resume home dose amiodarone and atenolol, pending recommendations from cardiology. There is some suspicion of underlying vasculitis, ESR and CRP have been chronically elevated for the patient, does have hyperkeratosis of bilateral lower extremities, we will obtain PITO panel and ANCA panel which will be sent out, we will continue to hold Eliquis for now. Patient did receive IV fluids earlier today, will monitor renal function in a.m. Exam Vital Signs Temp Pulse Resp BP Pulse Ox O2 Del Method O2 Flow Rate 98.3 F 60 21 H 97/75 98 Nasal Cannula 3 02/20/25 12:02 02/20/25 13:10 02/20/25 13:10 02/20/25 13:00 02/20/25 13:10 02/20/25 12:02 02/20/25 13:10 Narrative Exam General: Awake and in no acute distress. Conversational and non-toxic appearing. Neurologic: GCS 15. Alert and oriented x3, no gross neurological deficit, and patient able to move all 4 extremities. HEENT: Normocephalic, atraumatic, mucous membranes moist. Pupils reactive to light. Heart: Regular rate and rhythm, normal S1 and S2, no murmurs. Lungs: Clear to auscultation bilaterally with no wheezing or crackles. Abdomen: Obese, soft, nondistended, nontender, positive bowel sounds. No guarding or rebound tenderness. Extremities: Bilateral hyperkeratosis on the lower extremities below the knee to the sole of the foot, shedding and erythematous skin, no edema. 2+ radial and dorsalis pedis pulses bilaterally. Skin: Warm. Dry. Objective Labs 02/22/25 04:52 02/22/25 04:52 Labs: Laboratory Results - last 24 hr 02/19/25 02/20/25 02/20/25 21:27 01:23 04:13 WBC 16.8 H RBC 4.46 L Hgb 12.5 L Hct 37.4 L MCV 84 MCH 28.0 MCHC 33.4 RDW Std Deviation 45.9 H Plt Count 191 D Neut % (Auto) 86 H Lymph % (Auto) 6 L Banner % (Auto) 7 Eos % (Auto) 1 Baso % (Auto) 0 Neut # (Auto) 14.4 H Lymph # (Auto) 1.0 Banner # (Auto) 1.2 H Eos # (Auto) 0.1 Baso # (Auto) 0.0 Immature Gran # (Auto) 0.11 H Absolute Nucleated RBC 0.00 Immature Gran % 1 H Nucleated RBC % 0 ESR PT 12.7 H INR 1.2 APTT 42.7 H VBG pH VBG pCO2 VBG pO2 VBG O2 Sat (Angelia) VBG Base Excess Sodium 135 L Potassium 4.0 Chloride 103 Carbon Dioxide 20.4 Anion Gap 12 BUN 33 H Creatinine 3.6 H Estim Creat Clear Calc 25.0 L eGFR 18 L BUN/Creatinine Ratio 9 L Glucose 148 H Calculated Osmolality 280 Lactic Acid 1.4 Calcium 9.0 Corrected Calcium 9.0 Phosphorus Magnesium 1.5 L Total Bilirubin 0.7 AST 17 ALT 14 Alkaline Phosphatase 112 Troponin I < 0.020 < 0.020 C-Reactive Prot, Quant B-Natriuretic Peptide 144 H Total Protein 7.6 Albumin 4.1 Globulin 3.5 Albumin/Globulin Ratio 1.2 Triglycerides Cholesterol LDL Cholesterol, Calc HDL Cholesterol Cholesterol/HDL Ratio Procalcitonin 0.51 H TSH Ur Collection Type Clean Catch Urine Color Yellow Urine Clarity Clear Urine pH 6.0 Ur Specific Irma 1.016 Urine Protein 1+ A Urine Glucose (UA) 3+ A Urine Ketones Negative Urine Blood Trace Urine Nitrite Negative Urine Bilirubin Negative Urine Urobilinogen (Auto) Negative Ur Leukocyte Esterase Negative Urine RBC 2 Urine WBC 3 Ur Squamous Epith Cells < 1 Urine Bacteria None Ur Culture Indicated? Not Indicated Urine Opiates Screen Negative Urine Fentanyl Screen Negative Ur Barbiturates Screen Negative U Amphetamin/Meth Scrn Positive A U Benzodiazepines Scrn Negative U Cocaine Metab Screen Negative U Marijuana (THC) Screen Negative 02/20/25 07:12 WBC 14.7 H RBC 4.13 L Hgb 11.5 L Hct 36.5 L MCV 88 MCH 27.8 MCHC 31.5 RDW Std Deviation 48.5 H Plt Count 149 D Neut % (Auto) 80 Lymph % (Auto) 11 Banner % (Auto) 8 Eos % (Auto) 1 Baso % (Auto) 0 Neut # (Auto) 11.7 H Lymph # (Auto) 1.6 Banner # (Auto) 1.2 H Eos # (Auto) 0.1 Baso # (Auto) 0.1 Immature Gran # (Auto) 0.09 H Absolute Nucleated RBC 0.00 Immature Gran % 1 H Nucleated RBC % 0 ESR 64 H PT INR APTT VBG pH 7.42 VBG pCO2 31 L VBG pO2 36 VBG O2 Sat (Angelia) 71 L VBG Base Excess -3 Sodium 138 Potassium 4.2 Chloride 104 Carbon Dioxide 22.6 Anion Gap 11 BUN 35 H Creatinine 4.0 H Estim Creat Clear Calc 22.7 L eGFR 16 L BUN/Creatinine Ratio 9 L Glucose 111 H Calculated Osmolality 284 Lactic Acid Calcium 8.8 Corrected Calcium 9.0 Phosphorus 4.0 Magnesium 2.2 Total Bilirubin 0.4 AST 15 ALT 11 Alkaline Phosphatase 111 Troponin I C-Reactive Prot, Quant > 10.0 H B-Natriuretic Peptide Total Protein 6.9 Albumin 3.7 Globulin 3.2 Albumin/Globulin Ratio 1.2 Triglycerides 144 Cholesterol 131 L LDL Cholesterol, Calc 72 HDL Cholesterol 30 L Cholesterol/HDL Ratio 4.4 Procalcitonin TSH 0.74 Ur Collection Type Urine Color Urine Clarity Urine pH Ur Specific Irma Urine Protein Urine Glucose (UA) Urine Ketones Urine Blood Urine Nitrite Urine Bilirubin Urine Urobilinogen (Auto) Ur Leukocyte Esterase Urine RBC Urine WBC Ur Squamous Epith Cells Urine Bacteria Ur Culture Indicated? Urine Opiates Screen Urine Fentanyl Screen Ur Barbiturates Screen U Amphetamin/Meth Scrn U Benzodiazepines Scrn U Cocaine Metab Screen U Marijuana (THC) Screen ABG Interpretation ABG results: 02/20/25 07:12 VBG pH 7.42 VBG pCO2 31 L VBG pO2 36 VBG Base Excess -3 Quality Measures Quality Measures VTE prophylaxis Advance care planning discussed with:: patient Assessment & Plan Assessment Current Active Medications: Generic Name Dose Route Start Last Admin Trade Name Freq PRN Reason Stop Dose Admin Acetaminophen 650 mg 02/20/25 05:14 Acetaminophen 325 Mg Tablet PO 03/22/25 05:13 Q6HR PRN Fever >101,headache, mild pain Amiodarone HCl 200 mg 02/20/25 09:45 02/20/25 09:56 Amiodarone Hcl 200 Mg Tablet PO 03/22/25 09:44 200 mg QDAY BELEN Administration Atenolol 50 mg 02/20/25 10:00 02/20/25 10:00 Atenolol 25 Mg Tablet PO 03/22/25 09:59 50 mg QDAY BELEN Administration Dextrose 25 ml 02/20/25 04:27 Dextrose 50%-Water Inj 50 Ml Syringe IV 03/22/25 04:26 Q15MIN PRN BG 50-70 responsive npo pt Dextrose 50 ml 02/20/25 04:27 Dextrose 50%-Water Inj 50 Ml Syringe IV 03/22/25 04:26 Q15MIN PRN BG <50 OR BG <70 & pt unresponsive Famotidine 20 mg 02/20/25 09:00 02/20/25 09:47 Famotidine Inj 10 Mg/Ml Vial 2 Ml IVP 03/22/25 08:59 20 mg QDAY BELEN Administration Glucagon 1 mg 02/20/25 04:27 Glucagon Inj 1 Mg Vial IM Q15MIN PRN BG <70, and no IV access Insulin Human Lispro 0 unit 02/20/25 07:45 02/20/25 07:43 Insulin Lispro (Admelog) 1 Unit/0.01 Ml Unit SC 03/22/25 07:44 Not Given Q6HR BELEN Protocol Levalbuterol HCl 1.25 mg 02/20/25 07:27 Levalbuterol Rt 1.25 Mg/0.5 Ml Nebu INH 03/22/25 07:26 Q8HR PRN WHEEZING Nicotine 14 mg 02/20/25 09:00 02/20/25 09:46 Nicotine Patch 14 Mg/24 Hr Patch.Td24 TOP 03/22/25 08:59 14 mg QDAY BELEN Administration Sodium Chloride 3 ml 02/20/25 07:27 Sodium Chloride Rt Monica 0.9% 3 Ml Nebu INH 03/22/25 07:26 PRN PRN SOLN Plan Patient is a 64 year old male with past medical history of COPD on home oxygen, sick sinus syndrome s/p pacemaker, HFpEF with EF 60%, NAHEED, CKD stage IV, PAD, A- fib on Eliquis, GERD, eczema, diabetes mellitus type 2 with peripheral neuropathy, benign cystic liver disease, chronic back pain and s/p left nephrectomy presented to ED with chief complaint of worsening weakness and fatigue for for 5 days and was admitted to ICU due to suspected Vtach. Neuro: #Substance use disorder. #Methamphetamine use disorder Patient reports using methamphetamine, THC and smoking tobacco. Per patient he smokes marijuana on the day of admission, last methamphetamine use 2 months ago. UDS positive for amphetamines. - Referral to social media analyst Cardiovascular: #Ventricular tachycardia, resolved #Sick sinus syndrome s/p pacemaker, by history Patient had implanted dual-chamber pacemaker [place] [address] Patel due to sick sinus syndrome and symptomatic bradycardia. Patient presented to the ED with chief complaint of worsening weakness and fatigue over the 5 days prior with significant worsening of symptoms today when he tried to stand up; prior to it patient smoked marijuana. While evaluated in the ED patient had sudden rhythm change which was interpreted as episode of V. tach. Defibrillator pads were placed but patient has never been shocked. He then developed multiple similar episodes, his heart rate never exceeded 120, patient was asymptomatic during all this events, vital signs were stable. Multiple EKGs and telemetry strips were recorded. He was started on amiodarone drip in the ED. Plan: -Cardiology consult ordered. -Discontinued amiodarone drip, restart home amiodarone 200 mg daily p.o. -Resumed home dose atenolol -Continue to hold home Eliquis, pending cardiology consult in case of a procedure #HFpEF with EF 60%. Echo from 10/2024 showed normal size left ventricle with mild concentric LVH with normal preserved ejection fraction of 60%, mild left ventricular diastolic dysfunction, grade 2. At home patient is on furosemide 40 mg daily, atenolol, losartan, diltiazem; reports good compliance. On physical exam does not appear to be in fluid overload status. BNP on admission 144. Plan: - Patient was given IV fluids today, looked hypovolemic, will hold diuresis for now - Strict intake and output - Daily weight - Fluid restriction 1500 cc #Hx of A-fib on Eliquis. Patient has history of A-fib and is taking Eliquis 2.5 mg twice daily. Plan: -Continue amiodarone, atenolol. Will hold diltiazem for now -Continue to hold home Eliquis, pending cardiology consult in case of a procedure #Hx of PAD. Patient has limited mobility due to prior back injury and cannot report if he has pain in his legs on exertion, at home taking aspirin. Plan: -hold Eliquis and aspirin today, in anticipation for possible procedure by cardiology Respiratory: #Hx of COPD. #Hx of NAHEED. Patient has longstanding history of NAHEED and COPD, at home uses oxygen occasionally. Patient unable to tolerate CPAP at home Chest x-ray was unremarkable. VBG 02/20/2025 showed pH 7.42, PCO2 31, PO2 36, O2 sat 71 Plan: -Continue supplemental oxygen to maintain saturation above 88%. -CPAP at night Gastrointestinal: #Hx of GERD. At home taking Protonix. Plan: -Continue famotidine #Hx of benign cystic liver disease. CTAP showed multiple liver cysts. LFTs and T. bili are unremarkable. Plan: -Continue monitoring with daily labs. Renal: #[place] on CKD. #Hx of CKD stage IV. #s/p left nephrectomy 2013. #Nephrolithiasis, 2 mm stone in right ureter. Patient presented with BUN 33, creatinine 3.6 EGFR 18. 1 month ago his creatinine was 3.0. Patient reported decreased urine output within the last several weeks. CTAP showed 2 mm stone in right ureter, no hydronephrosis. Patient does not have symptoms of dysuria or CVA tenderness. 2013 left unilateral nephrectomy at [facility] 2/2 kidney stones, in process of obtaining records BUN 35 creatinine 4 on 02/20/2025 Plan: -0.5 liter LR bolus -Monitor with daily labs. -Avoid nephrotoxic medications and renally dose medications. -Strict SÁNCHEZ. -Consider nephrology consult. Endocrine: #Hx of diabetes mellitus type 2 with peripheral neuropathy. On admission glucose 148, patient is taking Jardiance at home reports good compliance, regularly checks glucose level. Hemoglobin A1c 5.4 1 months ago, patient might not needed treatment for diabetes anymore. Glucose 111 on 02/20/2025 Plan: -Holding insulin -Glucose checks every 12 hours -Cardiac diet started MSK/Skin: #BLE skin infection. #Hx of eczema. #Hx of xerosis cutis. #Rule out vasculitis Patient been treated in wound care clinic due to fungal infection and xerosis cutis of his bilateral lower extremities. Per records in September 2024 he was treated with fluconazole with improvement in his symptoms, at that time he had ulcers which are healed now. He also has history of eczema and PAD. His lower extremities are hyperemic and nontender to palpation, no ulcers noted, skin shedding. Unlikely infectious in nature due to absence of fever Plan: -DC antibiotics -Follow-up outpatient wound clinic - Ordered PITO, ANCA panel - [place] [facility] [place]. Infectious Disease: # Low-grade fever Patient noted to have a fever 100.9 ?F, leukocytosis of 16.8 with predominant neutrophiles. Sepsis alert was called in the emergency room, patient was given 1 dose of ceftriaxone and 1 L of NS bolus. Chest x-ray was unremarkable. Patient did not report symptoms of dysuria and urinalysis was unremarkable. Labs show procalcitonin 0.51. CTAP showed 2 mm stone in right ureter, no hydronephrosis. BLE skin appears hyperemic and was treated previously as fungal infection with fluconazole. Plan: -DC ceftriaxone doxycycline. -Follow-up blood culture, urine culture -Monitor for fever Hematology/Oncology: #Leukocytosis. Decreased to 14.7 from 16.8, consider acute phase reaction See infectious disease. #Normocytic anemia. On admission hemoglobin 12.5, consistent with prior readings Hemoglobin downtrended to 11.5, hematocrit 36.5 from 37.4 Plan: -Monitor with daily CBC. Diet: Cardiac diet, renal, carb consistent, fluid restriction 1500 cc DVT prophylaxis: Eliquis on hold, SCDs held due to lower extremity condition, will consider starting on DVT prophylaxis in a.m. GI prophylaxis: Famotidine. Code status: FULL CODE. Disposition: Cardiac consult pending. ICU for close monitoring. Patient was seen and discussed with my attending physician Dr. Mando Pagan MD and my senior resident Dr. Negro Garza MD PGY-2. Frank Hay DO PGY-1. Attending Provider Attestation/Addendum Patient seen and examined with above resident, Frank Hay DO. I agree with the findings, assessment, and plan of care as document except for any differences below. Patient admitted overnight with suspected V. tach however review of EKG suggest that this is ventricular pacing at the maximum rate of current settings, originally placed for sick sinus syndrome and cannot exclude presence of tachybradycardia syndrome. Patient will require interrogation. He has been placed n.p.o. and his Eliquis has been stopped for potential procedural intervention by cardiology the utility of placing defibrillator seems unnecessary at this point. Patient without hemodynamic changes noted today. We did have repeat episode this afternoon and patient performed Valsalva maneuver with underlying atrial flutter/fibrillation unmask EKG at the time. Discussion with cardiology suggest that this is V-paced is in response to atrial sensing given the current mode. Patient was originally on amiodarone drip and that she was completed with transition back to his home regimen. Patient would benefit from more aggressive beta-blockade. Will ultimately defer medical management to cardiology. With their input with plan this evening to transition the patient to the medicine leigh for ongoing management and monitoring during telemetry unit for further optimization. I suspect initial precipitant is likely amphetamine use which has been ongoing longstanding issue for this patient. Will ensure normalization of his electrolytes. Patient also with potential lower extremity hyperkeratosis syndrome, workup for vasculitis per resident's but this seems less likely. Patient does not have any evidence of active infection but this has been a problem for him in the past. Patient also has history of nephrectomy for large kidney stone that was not amenable to any other procedure and we have been giving him fluids to optimize renal perfusion in order to save the remaining kidney. Output has been measured and been doing well. Hold current diuretic regimen at this time. Total critical care time: I personally spent 50 minutes for review of physiologic parameters, directing plan of care throughout today, coordination of care with other subspecialist, and counseling patient's tentatively at bedside. This is exclusive of time spent teaching housestaff performing separate billable procedures. Patient remains at significant risk for further morbidity and mortality warranting close monitoring and care only available in the ICU. Patient required critical care services for atrial fibrillation, pacemaker malfunction, and amphetamine abuse.
[2025-02-20] MEDS: MIN OIL/PET,WHITE (Eucerin) CR 16 OZ BTL TOP ×2 (15:56→21:46)
--- NOTE | 2025-02-20 16:22 | EKG_ITS ---
[facility] Test Date: 2025-02-20 Pat Name: NIKOLAS KOHLI Department: Room: S253-A Gender: Male Web Content & Social Media Manager: : 1960 Requested By: Frank Hay Order Number: [id number] Reading MD: Frank Hay Measurements Intervals [place] Rate: 60 P: 83 VT: 202 QRS: 32 QRSD: 112 T: 50 QT: 434 QTc: 434 Interpretive Statements ELECTRONIC ATRIAL PACEMAKER MODERATE INTRAVENTRICULAR CONDUCTION DELAY [110+ ms QRS DURATION] NONSPECIFIC ST & T-WAVE ABNORMALITY ABNORMAL RHYTHM ECG Compared to ECG 11/08/2024 16:20:46 Intraventricular conduction delay now present T-wave abnormality now present Incomplete right bundle-branch block no longer present /store/S0/[id number].pdf
--- NOTE | 2025-02-20 16:26 | EKG_ITS ---
[facility] Test Date: 2025-02-20 Pat Name: NIKOLAS KOHLI Department: Room: S253A Gender: Male Shuttleless Loom Weaver: : 1960 Requested By: Frank Hay Order Number: [id number] Reading MD: Frank Hay Measurements Intervals [place] Rate: 96 P: 101 AK: 192 QRS: 264 QRSD: 181 T: 80 QT: 467 QTc: 592 Interpretive Statements ELECTRONIC ATRIAL PACEMAKER ELECTRONIC VENTRICULAR PACEMAKER ABNORMAL RHYTHM ECG Compared to ECG 02/20/2025 02:45:21 Intraventricular conduction delay no longer present T-wave abnormality no longer present /store/S0/[id number]
--- NOTE | 2025-02-20 16:36 | EKG_ITS ---
[facility] Test Date: 2025-02-20 Pat Name: NIKOLAS KOHLI Department: Room: S253-A Gender: Male Power House Control Room Operator: DELPHINE : 1960 Requested By: Frank Hay Order Number: [id number] Reading MD: Frank Hay Measurements Intervals [place] Rate: 60 P: 16 MD: 226 QRS: 32 QRSD: 108 T: 30 QT: 533 QTc: 533 Interpretive Statements ELECTRONIC ATRIAL PACEMAKER ST DEVIATION AND MODERATE T-WAVE ABNORMALITY, CONSIDER LATERAL ISCHEMIA Compared to ECG 02/20/2025 03:48:49 T-wave abnormality now present Possible ischemia now present Ventricular-paced complex(es) or rhythm no longer present /store/S0/[id number]
--- NOTE | 2025-02-20 19:30 | ESCONSULT_ITS ---
<Statement entered by Bryant Patel MD - 02/24/25 12:27> I personally evaluated examined the patient who has a known history of CAD hypertension pacemaker implantation for sick sinus syndrome paroxysmal A-fib came to the hospital multiple symptoms mostly has tachycardia wide QRS complex it appears to be clinically max track rate from A-fib rhythm strips show tachycardia mostly with ventricular pacing PMT versus max tracking from A-fib patient is going in and out of atrial fibrillation with mode switching most likely this is the cause we will get ICD interrogation performed tomorrow confirm it patient does have paroxysmal A-fib worsening episodes requiring amiodarone will recommend increase amiodarone to 200 mg twice daily. Patient did not have ventricular tachycardia clearly this is pacemaker related tachycardia we will continue to interrogate the device tomorrow. Evaluate the patient with resident physician Dr. Zavala agree with treatment plan recommendation as documented HPI Data of Consult Requesting Physician: Omar Rhodes MD Admitting Provider: Omar Rhodes MD Attending Provider: Omar Rhodes MD Primary Care Provider: Bert Valdez MD Consult Narrative History of present illness: Mr. Yuan is a 64-year-old male with past medical history of sick sinus syndrome s/p pacemaker, COPD on prn home O2, HFpEF, NAHEED, CKD stage IV, PAD, A-fib on Xarelto, GERD, eczema, diabetes mellitus type 2 with peripheral neuropathy, benign cystic liver disease, chronic back pain, and nonfunctioning left kidney s/p nephrectomy presented to the ED on 02/20/2025 complaining of progressive weakness over the last few days. Patient states that on Tuesday he started feeling generalized weakness and while yesterday he was unable to get out of bed and was unable to sit on the chair and decided to come to the ED. Patient states that he did have a brief URI with intermittent fever couple days prior to initial onset of his symptoms however all of that has completely resolved. Patient denies any dizziness or syncopal episodes. Patient denies any shortness of breath orthopnea or PND. Patient also denies any chest pain or palpitations. Patient did not have any cardiac symptoms and was eating his regular diet and was unsure what was causing his generalized weakness. Since his last hospitalization patient states he has been very compliant with all of his medications. During this hospitalization urine tox is positive for methamphetamine however patient denies any use of any types of drugs. Cardiology was consulted because in the ED patient had an episode of which appeared to be ventricular tachycardia with rate of 115-120, patient was started on amiodarone drip. Patient was admitted to the ICU for close monitoring in case these episodes were SVTs however patient remained with a heart rate in the 60s. In the ICU patient had a repeat episode with heart rate between 110 and 120. After the amiodarone drip patient was transitioned to his home amiodarone and atenolol. PMH: COPD on home oxygen, sick sinus syndrome s/p pacemaker, HFpEF with EF 60%, NAHEED, CKD stage IV, PAD, A-fib on Eliquis, GERD, eczema, diabetes mellitus type 2 with peripheral neuropathy, benign cystic liver disease, chronic back pain and s/p left nephrectomy. PSH: left nephrectomy, right knee replacement, back surgery, pacemaker placement. SH: Smokes tobacco actively for many years several cigarettes a day, drinks alcohol socially, uses marijuana and methamphetamine occasionally. Medications: Protonix, losartan, atenolol, furosemide, diltiazem, aspirin, tamsulosin, hydroxyzine, Jardiance, Eliquis. cc:: cc: Omar Rhodes MD Review of Systems Review of Systems Systems Reviewed: All systems reviewed, normal except as documented Exam Vital Signs Temp Pulse Resp BP Pulse Ox O2 Del Method O2 Flow Rate 98.5 F 60 21 H 119/76 92 L Nasal Cannula 0.5 02/20/25 16:00 02/20/25 18:15 02/20/25 18:15 02/20/25 17:00 02/20/25 18:15 02/20/25 16:00 02/20/25 16:00 Narrative Exam GENERAL: A&Ox3 . obese male, Awake and cooperative, Not in acute distress NEURO: no focal neurological deficits noted HEENT: Atraumatic, Normocephalic. mucous membranes moist. Eyes open, symmetrical, & clear HEART: Normal Heart Sounds, paced rhythm LUNGS: Clear to auscultation with no wheezing or crackles. ABDOMEN: soft, non-distended, non-tender, bowel sounds heard, no guarding or rebound tenderness SKIN: No Rash or ecchymoses, hyperkeratosis of bilateral feet. EXTREMITIES: No edema, tenderness, able to move all 4 extremities, pedal pulses palpated Results Labs 02/20/25 07:12 02/20/25 07:12 Labs: Short CBC 02/19/25 02/20/25 Range/Units 21:27 07:12 WBC 16.8 H 14.7 H (3.8-10.6) Thou/mm3 Hgb 12.5 L 11.5 L (13.5-16.0) g/dL Hct 37.4 L 36.5 L (41.0-53.0) % Plt Count 191 D 149 D (140-440) Thou/mm3 BMP 02/19/25 02/20/25 21:27 07:12 Sodium 135 L 138 Potassium 4.0 4.2 Chloride 103 104 Carbon Dioxide 20.4 22.6 BUN 33 H 35 H Creatinine 3.6 H 4.0 H Glucose 148 H 111 H Calcium 9.0 8.8 Cardiac Enzymes 02/19/25 02/20/25 Range/Units 21:27 04:13 Troponin I < 0.020 < 0.020 (0.0-0.045) ng/mL Liver Function 02/19/25 02/20/25 Range/Units 21:27 07:12 Total Bilirubin 0.7 0.4 (0.3-1.2) mg/dL AST 17 15 (0-34) U/L ALT 14 11 (10-49) U/L Alkaline Phosphatase 112 111 (46-116) U/L Albumin 4.1 3.7 (3.4-4.8) gm/dL Urine 02/20/25 Range/Units 01:23 Urine Color Yellow (Lt Yel-Yel) Urine Clarity Clear (Clear/Hazy) Urine pH 6.0 (5.0-7.0) Ur Specific [place] 1.016 (1.001-1.035) Urine Protein 1+ A (Neg - Trace) Urine Glucose (UA) 3+ A (Negative) ABG Interpretation ABG results: 02/20/25 07:12 VBG pH 7.42 VBG pCO2 31 L VBG pO2 36 VBG Base Excess -3 Quality Measures Quality Measures VTE prophylaxis Advance care planning discussed with:: patient Medications Home Medications and Allergies Home Medications ?Medication ?Instructions ?Recorded ?Confirmed ?Type aspirin 81 mg chewable tablet 81 mg PO QDAY ##0 02/20/25 History albuterol sulfate 90 mcg/actuation 2 puff PO Q4HR PRN SHORTNESS OF 06/15/17 02/20/25 History aerosol inhaler (ProAir HFA) BREATH ##9 diltiazem HCl 60 mg tablet 30 mg PO TID ##0 07/29/17 0 02/20/25 History (Cardizem) furosemide 40 mg tablet (Lasix) 40 mg PO QDAY #0 tabs 07/29/17 02/20/25 History atenolol 50 mg tablet 50 mg PO QDAY 10/18/2102/20 History amiodarone 200 mg tablet 200 mg PO QDAY 08/02/2201/30 History hydroxyzine HCl 25 mg tablet 25 mg PO BID 11/09/24 History losartan 25 mg tablet 50 mg PO QDAY 11/09/2402/20 History rivaroxaban 10 mg tablet (Xarelto) 10 mg PO QDAY 11/0902/20/25 History apixaban 2.5 mg tablet (Eliquis) 2.5 mg PO BID 5 02/20/25 History calcitriol 0.5 mcg capsule 0.5 mcg PO DAILY 02/20/25 0 02/20/25 History diltiazem HCl 30 mg tablet 30 mg PO Q8H 02/20/2502/20 History iron, carbonyl 15 mg chewable 15 mg PO TID 02/20/25 History tablet (Iron Chews) pantoprazole 40 mg tablet,delayed 40 mg PO QDAY 02/20/25 History release tamsulosin 0.4 mg capsule 0.4 mg PO QDAY 02/20/2501/30 History Allergies Allergy/AdvReac Type Severity Reaction Status Date / Time codeine Allergy Severe Hives Verified 02/19/25 20:37 Visit Medications Acetaminophen (Acetaminophen 325 Mg Tablet) 650 mg PO Q6HR PRN PRN Reason: Fever >101,headache, mild pain Stop: 03/22/25 05:13 Amiodarone HCl (Amiodarone Hcl 200 Mg Tablet) 200 mg PO QDAY BELEN Stop: 03/22/25 09:44 Last Admin: 02/20/25 09:56 Dose: 200 mg Atenolol (Atenolol 25 Mg Tablet) 50 mg PO QDAY BELEN Stop: 03/22/25 09:59 Last Admin: 02/20/25 10:00 Dose: 50 mg Dextrose (Dextrose 50%-Water Inj 50 Ml Syringe) 25 ml IV Q15MIN PRN PRN Reason: BG 50-70 responsive npo pt Stop: 03/22/25 04:26 Dextrose (Dextrose 50%-Water Inj 50 Ml Syringe) 50 ml IV Q15MIN PRN PRN Reason: BG <50 OR BG <70 & pt unresponsive Stop: 03/22/25 04:26 Famotidine (Famotidine Inj 10 Mg/Ml Vial 2 Ml) 20 mg IVP QDAY BELEN Stop: 03/22/25 08:59 Last Admin: 02/20/25 09:47 Dose: 20 mg Glucagon (Glucagon Inj 1 Mg Vial) 1 mg IM Q15MIN PRN PRN Reason: BG <70, and no IV access Insulin Human Lispro (Insulin Lispro (Admelog) 1 Unit/0.01 Ml Unit) 0 unit SC Q6HR BELEN; Protocol Stop: 03/22/25 07:44 Last Admin: 02/20/25 07:43 Dose: Not Given Levalbuterol HCl (Levalbuterol Rt 1.25 Mg/0.5 Ml Nebu) 1.25 mg INH Q8HR PRN PRN Reason: WHEEZING Stop: 03/22/25 07:26 Multi-Ingredient Ointment (Min Oil/Pet,White (Eucerin) Cr 16 Oz Btl) 0 oz TOP BID BELEN Stop: 03/22/25 14:29 Last Admin: 02/20/25 15:56 Dose: 16 oz Nicotine (Nicotine Patch 14 Mg/24 Hr Patch.Td24) 14 mg TOP QDAY BELEN Stop: 03/22/25 08:59 Last Admin: 02/20/25 09:46 Dose: 14 mg Sodium Chloride (Sodium Chloride Rt [place] 0.9% 3 Ml Nebu) 3 ml INH PRN PRN PRN Reason: SOLN Stop: 03/22/25 07:26 Discontinued Medications Doxycycline Hyclate (Doxycycline 100 Mg Tablet) 100 mg PO BID BELEN Stop: 02/27/25 08:59 Last Admin: 02/20/25 09:27 Dose: Not Given Amiodarone HCl/Dextrose (Nexterone Ivpb) 360 mg in 200 mls @ 33.333 mls/hr IV .Q6H ONE Stop: 02/20/25 08:35 Last Admin: 02/20/25 03:13 Dose: 33.333 mls/hr Amiodarone HCl 150 mg/ (Dextrose) 103 mls @ 600 mls/hr IV X1 ONE Stop: 02/20/25 02:47 Last Admin: 02/20/25 03:01 Dose: Not Given Magnesium Sulfate (Magnesium Sulfate Ivpb) 2 gm in 50 mls @ 25 mls/hr IV X1 ONE Stop: 02/20/25 04:37 Last Infusion: 02/20/25 05:14 Dose: Infused Sodium Chloride (Ns) 1,000 mls @ 999 mls/hr IV .Q1H1M ONE Stop: 02/20/25 03:43 Last Infusion: 02/20/25 04:02 Dose: Infused Ceftriaxone Sodium/Dextrose (Rocephin/D5w 1gm Iv Premix) 1 gm in 50 mls @ 100 mls/hr IV X1 ONE Stop: 02/20/25 03:12 Last Infusion: 02/20/25 04:23 Dose: Infused Amiodarone HCl/Dextrose (Nexterone Ivpb) 150 mg in 100 mls @ 600 mls/hr IV .Q10M ONE Stop: 02/20/25 02:53 Last Infusion: 02/20/25 03:06 Dose: Infused Magnesium Sulfate (Magnesium Sulfate Ivpb) 2 gm in 50 mls @ 25 mls/hr IV X1 ONE Stop: 02/20/25 06:28 Last Admin: 02/20/25 07:42 Dose: Not Given Ceftriaxone Sodium/Dextrose (Rocephin/D5w 1gm Iv Premix) 1 gm in 50 mls @ 100 mls/hr IV HS BELEN Stop: 02/27/25 20:59 Lactated Ringer's (Lactated Ringers) 500 mls @ 999 mls/hr IV .Q31M ONE Stop: 02/20/25 08:58 Last Admin: 02/20/25 09:28 Dose: Not Given Lactated Ringer's (Lactated Ringers) 1,000 mls @ 999 mls/hr IV .Q1H1M ONE Stop: 02/20/25 10:30 Last Admin: 02/20/25 09:44 Dose: 999 mls/hr Insulin Human Lispro (Insulin Lispro (Admelog) 1 Unit/0.01 Ml Unit) 0 unit SC AC BELEN; Protocol Stop: 03/22/25 07:29 Last Admin: 02/20/25 09:28 Dose: Not Given Insulin Human Lispro (Insulin Lispro (Admelog) 1 Unit/0.01 Ml Unit) 0 unit SC Q6H BELEN; Protocol Stop: 03/22/25 07:44 Insulin Human Lispro (Insulin Lispro (Admelog) 1 Unit/0.01 Ml Unit) 0 unit SC Q6HR BELEN; Protocol Stop: 03/22/25 07:44 Assessment & Plan Plan Mr. Yuan is a 64-year-old male with past medical history of sick sinus syndrome s/p pacemaker, COPD on prn home O2, HFpEF, NAHEED, CKD stage IV, PAD, A-fib on Xarelto, GERD, eczema, diabetes mellitus type 2 with peripheral neuropathy, benign cystic liver disease, chronic back pain, and nonfunctioning left kidney s/p nephrectomy presented to the ED on 02/20/2025 complaining of progressive weakness over the last few days. #Paroxysmal [id number] MTR (maximal tracking rate_ #Sick sinus syndrome s/p pacemaker. #Ventricular tachycardia-ruled out -Patient has dual-chamber pacemaker [place] [address] Patel due to sick sinus syndrome and symptomatic bradycardia. -While in the ED patient had sudden rhythm change with high suspicion for Vtach with rate of 110-120 (HR did not exceed 120). -Pt denied any chest pain, pressure or palpitation -Patient has history of A-fib and is taking amiodarone 200mg, diltiazam 30mg, atenolol 50mg and Eliquis 2.5 mg twice daily -CHADs-VASc score 4 (4.8% stroke risk per year) Plan: -Inititally pt was started on amiodarone drip and transition to amiodarone 200mg daily and resumed home atenalol. Later in the day pt had another episode of tachycardia. -Recommend increasing Amiodarone to 200mg BID -Recommend resuming home diltiazam -Recommend continue home eliquis and atenalol -Pt pacemaker interrogating is started, awaiting final report. #HFpEF with EF 60%. -Echo from 10/2024 showed normal size left ventricle with mild concentric LVH with normal preserved ejection fraction of 60%, mild left ventricular diastolic dysfunction, grade 2. Pt's home meds include furosemide, atenolol, losartan -On physical exam does not appear to be acute CHF exacerbation, not in fluid overload status, denies SOB, orthopnea or PND -BNP on admission 144. Plan: -Recommend resuming home meds as BP is able to tolerate #Substance use disorder. #Methamphetamine use disorder #Hx of PAD #Hx of COPD #Hx of NAHEED #Hx of GERD #Hx of benign cystic liver disease #[place] on CKD #Hx of CKD stage IV #s/p left nephrectomy 2013 #Nephrolithiasis, 2 mm stone in right ureter #Diabetes mellitus type 2 #Peripheral neuropathy #Hx of eczema. #Hx of xerosis cutis -management as per primary team Thank you for the consult and allowing us to participate in the care of the patient. Cardiology will continue to follow. Assessment and plan discussed with my attending cardiology Dr. Jorge Zavala (PGY-2)- Internal medicine resident
--- NOTE | 2025-02-20 23:14 | PC.RT ---
pt refused bipap
[2025-02-21] VITALS (14 sets, daily range): BP systolic 104–110; BP diastolic 65–75; PULSE 60–96; RESP 14–24; TEMP 36.1–36.8; O2SAT 92–98; BMI 37.0
[2025-02-21 05:22] LABS: Basophils # (Auto) 0.1 Thou/mm3 (0.0-0.2); Basophils % (Auto) 0 % (0-2.5); Eosinophils # (Auto) 0.3 Thou/mm3 (0.0-0.5); Eosinophils % (Auto) 2 % (0-10); Hematocrit 36.7 % (41.0-53.0); Hemoglobin 11.5 g/dL (13.5-16.0); Immature Granulocytes Auto 0.09 Thou/mm3 (0.00-0.00); Lymphocytes # (Auto) 1.2 Thou/mm3 (1.0-4.8); Lymphocytes % (Auto) 10 % (10-50); Mean Corpuscular HGB Conc 31.3 g/dl (31.0-37.0); Mean Corpuscular Hemoglobin 27.8 pg (25.0-35.0); Mean Corpuscular Volume 89 fL (80-100); Monocytes # (Auto) 0.7 Thou/mm3 (0.0-0.8); Monocytes % (Auto) 6 % (0-12); Neutrophils # (Auto) 9.8 Thou/mm3 (1.8-7.7); Neutrophils % (Auto) 81 % (37-80); Nucleated Red Blood Cell # 0.00 Thou/mm3 (0.00-0.00); Nucleated Red Blood Cell % 0 /100 WBC (0); Platelet Count 178 Thou/mm3 (140-440); RDW Standard Deviation 49.4 fL (35.1-43.9); Red Blood Count 4.14 Miln/mm3 (4.50-5.90); White Blood Count 12.1 Thou/mm3 (3.8-10.6)
[2025-02-21 06:01] LABS: Alanine Aminotransferase 13 U/L (10-49); Albumin, Serum 3.7 gm/dL (3.4-4.8); Albumin/Globulin Ratio 1.2 (1.2-2.2); Alkaline Phosphatase 104 U/L (46-116); Anion Gap 10 (7-16); Aspartate Amino Transferase 20 U/L (0-34); BUN/Creatinine Ratio 11 Ratio (12-20); Bilirubin,Total 0.3 mg/dL (0.3-1.2); Blood Urea Nitrogen 37 mg/dL (9-23); Calcium 8.5 mg/dL (8.3-10.6); Calcium (Corrected) 8.7 mg/dL (8.5-10.1); Carbon Dioxide 21.1 mMol/L (20.0-31.0); Chloride 108 mMol/L (98-107); Creatinine (Component) 3.5 mg/dL (0.6-1.3); Estimated Creatinine Clearance 25.9 mL/min (>60); Globulin 3.2 gm/dL (2.3-3.5); Glucose 98 mg/dL (74-106); Magnesium 2.1 mg/dL (1.6-2.6); Osmolality,Calculated 286 (275-295); Potassium 4.2 mMol/L (3.4-5.1); Sodium 139 mMol/L (136-145); Total Protein 6.9 gm/dL (5.7-8.2); eGFR 18 See Note
--- NOTE | 2025-02-21 08:01 | XR_ITS ---
Examination: Retroperitoneal ultrasound, complete Technique: Multiple high resolution grayscale images of the retroperitoneum obtained, including kidneys and bladder. Exam date and time:February 21, 2025 0828 hours INDICATIONS: Acute renal insufficiency on laboratory examination February 21, 2025 FINDINGS: Right kidney 14.4 cm renal cortex 1.7 cm Moderate renal parenchymal scar formation 20 mm lateral renal cyst 4 mm calculus Left kidney absent Bladder contracted IMPRESSION: Moderate right renal parenchymal scar formation 4 mm nonobstructing right renal calculus
[2025-02-21] MEDS: FAMOTIDINE INJ 10 MG/ML VIAL 2 ML 20 MG IVP (08:50)
[2025-02-21] MEDS: MIN OIL/PET,WHITE (Eucerin) CR 16 OZ BTL TOP ×2 (08:50→20:39)
[2025-02-21] MEDS: APIXABAN 2.5 MG TABLET PO ×2 (08:51→20:39)
[2025-02-21] MEDS: AMIODARONE HCL 200 MG TABLET PO ×2 (08:51→20:39)
--- NOTE | 2025-02-21 11:31 | PD.RESCONSUL ---
HPI Data of Consult Consult date: 02/21/25 Requesting Physician: Omar Rhodes MD Admitting Provider: Omar Rhodes MD Attending Provider: Omar Rhodes MD Primary Care Provider: Bert Valdez MD Consult Narrative Reason for consult: [place]UGUSTA on CKD History of present illness: Mr. Yuan is a 64-year-old male PMHx of COPD on home oxygen, HFpEF with EF 60%, sick sinus syndrome s/p pacemaker, NAHEED, CKD stage IV (under Dr. Garzon), s/p left nephrectomy 09/02 nephrolithiasis 2013, T2DM, PAD, A-fib on XARELTO, GERD, eczema, peripheral neuropathy, chronic back pain, presenting with weakness and fatigue for 5 days. He reports today he was trying to stand up from his bed and was not able to without assistance and decided to come to the emergency room. He denies any chest pain, palpitations, abdominal pain, shortness of breath, fever or chills. He reports he used marijuana today prior to the event. Last methamphetamine use was 2 months ago per patient. He denies feeling sick recently or recent URI symptoms. He denies symptoms of dysuria. He reports he had diarrhea yesterday but it resolved. He reports being compliant with his medications. He is followed by food order delivery runner Dr. Patel outpatient. States he sees Dr. Garzon outpatient. Does not remember having any hx of dialysis in the past. Left unilateral nephrectomy was done in 2013 at [facility] as a result of kidney stones. He is aware of having chronic kidney disease. States his blood sugars and blood pressure have generally been controlled. States he takes his medications on a daily basis, as prescribed. Reports no new or changes in current medications. ED Course: His blood pressure 94/65, pulse 82, respirations 18, temperature 100.9 ?F, oxygen saturation 90% on room air. Labs showed WBC 16.8, hemoglobin 12.5, sodium 135, BUN 33, creatinine 3.6, EGFR 18, glucose 148, magnesium 1.5, troponin negative, BNP 144, procalcitonin 0.51. Urinalysis showed protein 1+, glucose 3+. U tox was positive for methamphetamine. Chest x-ray was unremarkable. CTAP showed moderate right renal parenchymal scar formation, no hydronephrosis, 2 mm right renal calculus, Absent left kidney, Normal appendix, Significant prostatomegaly. In the emergency room patient developed rhythm change on environmental monitoring specialist with heart rate going to 180s with pattern suspicious for V. tach. Defibrillator leads were placed and he was started on amiodarone drip. Magnesium was repleted. He was continuously going on and off this rhythm therefore no shock was delivered. Patient will be admitted to ICU for closer monitoring until evaluated by cardiology. PMH: above PSH: left nephrectomy, right knee replacement, back surgery, pacemaker placement. SH: Smokes tobacco actively for many years several cigarettes a day, drinks alcohol socially, uses marijuana and methamphetamine occasionally. FH: none. Allergies: Codeine. Medications: Protonix, losartan, atenolol, furosemide, diltiazem, aspirin, tamsulosin, hydroxyzine, Jardiance, Eliquis. cc:: cc: Omar Rhodes MD Review of Systems Review of Systems Narrative Review of Systems: General: Denies fevers or chills HEENT: Denies congestion or sore throat Heart: Denies chest pain or palpitations Lungs: Denies shortness of breath or cough Abdomen: Denies diarrhea, nausea, vomiting, constipation, bright red blood per rectum or melena Genitourinary: Denies frequency, urgency, dysuria, or hematuria Musculoskeletal: Denies joint pain or myalgias Neurology: Denies any changes in vision, weakness or difficulty speaking Exam Vital Signs Temp Pulse Resp BP Pulse Ox O2 Del Method O2 Flow Rate 97.4 F 64 17 104/65 96 Nasal Cannula 2 02/21/25 08:00 02/21/25 10:52 02/21/25 08:00 02/21/25 10:52 02/21/25 08:00 02/21/25 08:00 02/21/25 08:00 Narrative Exam General: Awake and in no acute distress. Conversational and non-toxic appearing. HEENT: Normocephalic, atraumatic, mucous membranes moist. Heart: Regular rate and rhythm, normal S1 and S2, no murmurs. Lungs: Clear to auscultation with no wheezing or crackles. Abdomen: Soft, nondistended, nontender, positive bowel sounds. ?No guarding or rebound tenderness. Neurologic: Alert and oriented x3, no gross neurological deficit, and patient able to move all 4 extremities. Extremities: Trace pedal edema. Skin: No rash or ecchymoses. Results Labs 02/22/25 04:52 02/22/25 04:52 Labs: Short CBC 02/21/25 Range/Units 04:48 WBC 12.1 H (3.8-10.6) Thou/mm3 Hgb 11.5 L (13.5-16.0) g/dL Hct 36.7 L (41.0-53.0) % Plt Count 178 (140-440) Thou/mm3 BMP 02/21/25 04:48 Sodium 139 Potassium 4.2 Chloride 108 H Carbon Dioxide 21.1 BUN 37 H Creatinine 3.5 H D Glucose 98 Calcium 8.5 Liver Function 02/21/25 Range/Units 04:48 Total Bilirubin 0.3 (0.3-1.2) mg/dL AST 20 (0-34) U/L ALT 13 (10-49) U/L Alkaline Phosphatase 104 (46-116) U/L Albumin 3.7 (3.4-4.8) gm/dL ABG Interpretation ABG results: 02/20/25 07:12 VBG pH 7.42 VBG pCO2 31 L VBG pO2 36 VBG Base Excess -3 Quality Measures Quality Measures VTE prophylaxis Advance care planning discussed with:: patient Medications Home Medications and Allergies Home Medications ?Medication ?Instructions ?Recorded ?Confirmed ?Type aspirin 81 mg chewable tablet 81 mg PO QDAY ##0 10/21/16 02/20/25 History furosemide 40 mg tablet (Lasix) 40 mg PO QDAY #0 tabs 07/29/17 02/20/25 History atenolol 50 mg tablet 50 mg PO QDAY 10/18/21 02/20/25 History hydroxyzine HCl 25 mg tablet 25 mg PO BID 11/09/24 02/20/25 History losartan 25 mg tablet 50 mg PO QDAY 11/09/24 02/20/25 History apixaban 2.5 mg tablet (Eliquis) 2.5 mg PO BID 02/20/25 02/20/25 History calcitriol 0.5 mcg capsule 0.5 mcg PO DAILY 02/20/25 02/20/25 History iron, carbonyl 15 mg chewable 15 mg PO TID 02/20/25 02/20/25 History tablet (Iron Chews) pantoprazole 40 mg tablet,delayed 40 mg PO QDAY 02/20/25 02/20/25 History release tamsulosin 0.4 mg capsule 0.4 mg PO QDAY 02/20/25 02/20/25 History Allergies Allergy/AdvReac Type Severity Reaction Status Date / Time codeine Allergy Severe Hives Verified 02/19/25 20:37 Visit Medications Acetaminophen (Acetaminophen 325 Mg Tablet) 650 mg PO Q6HR PRN PRN Reason: Fever >101,headache, mild pain Stop: 03/22/25 05:13 Amiodarone HCl (Amiodarone Hcl 200 Mg Tablet) 200 mg PO BID [facility] Stop: 03/23/25 08:59 Last Admin: 02/21/25 08:51 Dose: 200 mg Apixaban (Apixaban 2.5 Mg Tablet) 2.5 mg PO BID [facility] Stop: 03/23/25 08:59 Last Admin: 02/21/25 08:51 Dose: 2.5 mg Atenolol (Atenolol 25 Mg Tablet) 50 mg PO QDAY [facility] Stop: 03/22/25 09:59 Last Admin: 02/21/25 10:52 Dose: Not Given Dextrose (Dextrose 50%-Water Inj 50 Ml Syringe) 25 ml IV Q15MIN PRN PRN Reason: BG 50-70 responsive npo pt Stop: 03/22/25 04:26 Dextrose (Dextrose 50%-Water Inj 50 Ml Syringe) 50 ml IV Q15MIN PRN PRN Reason: BG <50 OR BG <70 & pt unresponsive Stop: 03/22/25 04:26 Famotidine (Famotidine Inj 10 Mg/Ml Vial 2 Ml) 20 mg IVP QDAY [facility] Stop: 03/22/25 08:59 Last Admin: 02/21/25 08:50 Dose: 20 mg Glucagon (Glucagon Inj 1 Mg Vial) 1 mg IM Q15MIN PRN PRN Reason: BG <70, and no IV access Insulin Human Lispro (Insulin Lispro (Admelog) 1 Unit/0.01 Ml Unit) 0 unit SC Q6HR [facility]; Protocol Stop: 03/22/25 07:44 Last Admin: 02/20/25 07:43 Dose: Not Given Levalbuterol HCl (Levalbuterol Rt 1.25 Mg/0.5 Ml Nebu) 1.25 mg INH Q8HR PRN PRN Reason: WHEEZING Stop: 03/22/25 07:26 Multi-Ingredient Ointment (Min Oil/Pet,White (Eucerin) Cr 16 Oz Btl) 0 oz TOP BID [facility] Stop: 03/22/25 14:29 Last Admin: 02/21/25 08:50 Dose: 16 oz Nicotine (Nicotine Patch 14 Mg/24 Hr Patch.Td24) 14 mg TOP QDAY [facility] Stop: 03/22/25 08:59 Last Admin: 02/21/25 08:53 Dose: Not Given Sodium Chloride (Sodium Chloride Rt Monica 0.9% 3 Ml Nebu) 3 ml INH PRN PRN PRN Reason: SOLN Stop: 03/22/25 07:26 Discontinued Medications Amiodarone HCl (Amiodarone Hcl 200 Mg Tablet) 200 mg PO QDAY [facility] Stop: 03/22/25 09:44 Last Admin: 02/20/25 09:56 Dose: 200 mg Atenolol (Atenolol 25 Mg Tablet) 50 mg PO QDAY [facility] Stop: 03/22/25 09:59 Last Admin: 02/21/25 08:53 Dose: Not Given Doxycycline Hyclate (Doxycycline 100 Mg Tablet) 100 mg PO BID [facility] Stop: 02/27/25 08:59 Last Admin: 02/20/25 09:27 Dose: Not Given Amiodarone HCl/Dextrose (Nexterone Ivpb) 360 mg in 200 mls @ 33.333 mls/hr IV .Q6H ONE Stop: 02/20/25 08:35 Last Admin: 02/20/25 03:13 Dose: 33.333 mls/hr Amiodarone HCl 150 mg/ (Dextrose) 103 mls @ 600 mls/hr IV X1 ONE Stop: 02/20/25 02:47 Last Admin: 02/20/25 03:01 Dose: Not Given Magnesium Sulfate (Magnesium Sulfate Ivpb) 2 gm in 50 mls @ 25 mls/hr IV X1 ONE Stop: 02/20/25 04:37 Last Infusion: 02/20/25 05:14 Dose: Infused Sodium Chloride (Ns) 1,000 mls @ 999 mls/hr IV .Q1H1M ONE Stop: 02/20/25 03:43 Last Infusion: 02/20/25 04:02 Dose: Infused Ceftriaxone Sodium/Dextrose (Rocephin/D5w 1gm Iv Premix) 1 gm in 50 mls @ 100 mls/hr IV X1 ONE Stop: 02/20/25 03:12 Last Infusion: 02/20/25 04:23 Dose: Infused Amiodarone HCl/Dextrose (Nexterone Ivpb) 150 mg in 100 mls @ 600 mls/hr IV .Q10M ONE Stop: 02/20/25 02:53 Last Infusion: 02/20/25 03:06 Dose: Infused Magnesium Sulfate (Magnesium Sulfate Ivpb) 2 gm in 50 mls @ 25 mls/hr IV X1 ONE Stop: 02/20/25 06:28 Last Admin: 02/20/25 07:42 Dose: Not Given Ceftriaxone Sodium/Dextrose (Rocephin/D5w 1gm Iv Premix) 1 gm in 50 mls @ 100 mls/hr IV HS BELEN Stop: 02/27/25 20:59 Lactated Ringer's (Lactated Ringers) 500 mls @ 999 mls/hr IV .Q31M ONE Stop: 02/20/25 08:58 Last Admin: 02/20/25 09:28 Dose: Not Given Lactated Ringer's (Lactated Ringers) 1,000 mls @ 999 mls/hr IV .Q1H1M ONE Stop: 02/20/25 10:30 Last Admin: 02/20/25 09:44 Dose: 999 mls/hr Insulin Human Lispro (Insulin Lispro (Admelog) 1 Unit/0.01 Ml Unit) 0 unit SC AC [facility]; Protocol Stop: 03/22/25 07:29 Last Admin: 02/20/25 09:28 Dose: Not Given Insulin Human Lispro (Insulin Lispro (Admelog) 1 Unit/0.01 Ml Unit) 0 unit SC Q6H [facility]; Protocol Stop: 03/22/25 07:44 Insulin Human Lispro (Insulin Lispro (Admelog) 1 Unit/0.01 Ml Unit) 0 unit SC Q6HR [facility]; Protocol Stop: 03/22/25 07:44 Assessment & Plan Plan 64-year-old male PMHx of COPD on home oxygen, CHF unspecified, NAHEED, CKD stage IV, s/p left nephrectomy 2/2 nephrolithiasis 2013, T2DM, PAD, A-fib on XARELTO, GERD, eczema, peripheral neuropathy, chronic back pain, admitted for bilateral lower extremity cellulitis. Nephrology was consulted for the management of AUGUSTA on CKD. #[place] on CKD stage IV #S/p left unilateral nephrectomy #Normocytic anemia Likely pre-renal due to volume losses vs possible obstructive uropathy. Endorsed diarrhea day before; 4 mm nonobstructing R renal calculus Cr 3.6 -> 4.0 ->3.5; baseline ~2.5. CTAP: moderate right renal parenchymal scar formation, no hydronephrosis, 2 mm R renal calculus, Absent left kidney, Significant prostatomegaly. Renal US: Moderate right renal parenchymal scar formation, 4 mm nonobstructing R renal calculus 2013 left unilateral nephrectomy at [facility] 2/[address] Garzon Outpatient. Diabetes relatively controlled, A1c 5.4 from 01/22/2025. Chronic HTN might also be contributing. No signs of bleeding; Hgb stable; single kidney. Denies history of recurrent UTIs or active urinary symptoms, including changes in frequency or dysuria. Plan: - No need for HD at this time. ? Renally dose meds, avoid overdiuresis and NEPHROTOXINS ? CTM cbc/cmp ? Strict SÁNCHEZ's #Vtach versus Afib with RVR - resolved #Afib on Eliquis #Sick Sinus Syndrome s/p pacemaker placement #Leukocytosis, reactive - improving #Hypomagnesemia #HFpEF (EF 60%) (echo 10/2024) #DM2 with peripheral neuropathy, non insulin dependent #COPD #NAHEED above managed per primary team Patient plan of care was discussed with the attending physician, Dr. Duran Bowles MD PGY-1 Attending Provider Attestation/Addendum Patient seen and examined with resident physician Dr. Bowles. Note reviewed, agree with findings and recommendations. Well-known to me from my CKD clinic. Patient has CKD stage IV and on the verge of dialysis. Presented with bilateral lower extremity cellulitis and AUGUSTA. Agree with gentle IV fluids. Creatinine tad better. No need for urgent dialysis. Will monitor closely. Thank you Juan Pablo for allowing me to participate in the care of Mr. Yuan
--- NOTE | 2025-02-21 13:23 | PD.RESPRO ---
Documentation for date of: 02/21/25 Overnight downgrade from ICU. Patient previously noted to be in VTach per cardiology, likely patient in Afib with pacemaker firing. Amiodarone increased from 200 mg PO qday to Amiodarone 200 mg BID. Continue Atenolol. Holding Diltiazem 30 mg PO TID. Pacemaker rate changed from [address] Mclaughlin given AUGUSTA on CKD given Cr and missing kidney. Patient would benefit from nephrology follow up.Pending renal US. Continue to monitor for arrhythmias. rosa che pgy 2 Subjective Subjective Interval history: Patient was downgraded from ICU overnight. Patient seen and examined at bedside this AM. Denies chest pain, shortness of breath, or back pain. Labs and vitals were reviewed. Creatinine improved but not back to baseline. Consulted nephrology Dr. Garzon who he follows outpatient. Pending renal US, CT A/P on admission showed 2 mm renal calculus in right ureter. Per cardiology, will restart patient on his home cardiac medications as tolerated. Atenolol was held this morning due to hypotension and HR 65. Pending decision to restart diltiazem. Review of systems otherwise negative except what is mentioned above. Exam Vital Signs Temp Pulse Resp BP Pulse Ox O2 Del Method O2 Flow Rate 97.4 F 64 20 104/65 92 L Nasal Cannula 1 02/21/25 08:00 02/21/25 10:52 02/21/25 10:37 02/21/25 10:52 02/21/25 10:37 02/21/25 08:00 02/21/25 10:37 Narrative Exam Physical Exam General: Elderly male laying comfortably in bed. Awake and in no acute distress. Conversational and non-toxic appearing. Saturating well on 2L oxygen via nasal cannula. HEENT: Normocephalic, atraumatic, mucous membranes moist. Heart: Irregular rhythm, normal S1 and S2, no murmurs. Lungs: Clear to auscultation with no wheezing or crackles. Abdomen: Soft, nondistended, nontender, positive bowel sounds. No guarding or rebound tenderness. No CVA tenderness. Neurologic: Alert and oriented x3, no gross neurological deficit, and patient able to move all 4 extremities. Extremities: No edema. Chronic venostasis in lower extremities bilaterally. Skin: No rash or ecchymoses. Objective Labs 02/22/25 04:52 02/22/25 04:52 Labs: Laboratory Results - last 24 hr 02/21/25 04:48 WBC 12.1 H RBC 4.14 L Hgb 11.5 L Hct 36.7 L MCV 89 MCH 27.8 MCHC 31.3 RDW Std Deviation 49.4 H Plt Count 178 Neut % (Auto) 81 H Lymph % (Auto) 10 [place] % (Auto) 6 Eos % (Auto) 2 Baso % (Auto) 0 Neut # (Auto) 9.8 H Lymph # (Auto) 1.2 [place] # (Auto) 0.7 Eos # (Auto) 0.3 Baso # (Auto) 0.1 Immature Gran # (Auto) 0.09 H Absolute Nucleated RBC 0.00 Immature Gran % 1 H Nucleated RBC % 0 Sodium 139 Potassium 4.2 Chloride 108 H Carbon Dioxide 21.1 Anion Gap 10 BUN 37 H Creatinine 3.5 H D Estim Creat Clear Calc 25.9 L eGFR 18 L BUN/Creatinine Ratio 11 L Glucose 98 Calculated Osmolality 286 Calcium 8.5 Corrected Calcium 8.7 Magnesium 2.1 Total Bilirubin 0.3 AST 20 ALT 13 Alkaline Phosphatase 104 Total Protein 6.9 Albumin 3.7 Globulin 3.2 Albumin/Globulin Ratio 1.2 ABG Interpretation ABG results: 02/20/25 07:12 VBG pH 7.42 VBG pCO2 31 L VBG pO2 36 VBG Base Excess -3 Quality Measures Quality Measures VTE prophylaxis Advance care planning discussed with:: patient Assessment & Plan Assessment Current Active Medications: Generic Name Dose Route Start Last Admin Trade Name Chicho PRN Reason Stop Dose Admin Acetaminophen 650 mg 02/20/25 05:14 Acetaminophen 325 Mg Tablet PO 03/22/25 05:13 Q6HR PRN Fever >101,headache, mild pain Amiodarone HCl 200 mg 02/21/25 09:00 02/21/25 08:51 Amiodarone Hcl 200 Mg Tablet PO 03/23/25 08:59 200 mg BID BELEN Administration Apixaban 2.5 mg 02/21/25 09:00 02/21/25 08:51 Apixaban 2.5 Mg Tablet PO 03/23/25 08:59 2.5 mg BID BELEN Administration Atenolol 50 mg 02/21/25 08:54 07/24/25 10:52 Atenolol 25 Mg Tablet PO 03/22/25 09:59 Not Given QDAY BELEN Dextrose 25 ml 02/20/25 04:27 Dextrose 50%-Water Inj 50 Ml Syringe IV 03/22/25 04:26 Q15MIN PRN BG 50-70 responsive npo pt Dextrose 50 ml 02/20/25 04:27 Dextrose 50%-Water Inj 50 Ml Syringe IV 03/22/25 04:26 Q15MIN PRN BG <50 OR BG <70 & pt unresponsive Famotidine 20 mg 02/20/25 09:00 02/21/25 08:50 Famotidine Inj 10 Mg/Ml Vial 2 Ml IVP 03/22/25 08:59 20 mg QDAY BELEN Administration Glucagon 1 mg 02/20/25 04:27 Glucagon Inj 1 Mg Vial IM Q15MIN PRN BG <70, and no IV access Insulin Human Lispro 0 unit 02/20/25 07:45 02/20/25 07:43 Insulin Lispro (Admelog) 1 Unit/0.01 Ml Unit SC 03/22/25 07:44 Not Given Q6HR BELEN Protocol Levalbuterol HCl 1.25 mg 02/20/25 07:27 Levalbuterol Rt 1.25 Mg/0.5 Ml Nebu INH 03/22/25 07:26 Q8HR PRN WHEEZING Multi-Ingredient Ointment 0 oz 02/20/25 14:30 02/21/25 08:50 Min Oil/Pet,White (Eucerin) Cr 16 Oz Btl TOP 03/22/25 14:29 16 oz BID BELEN Administration Nicotine 14 mg 02/20/25 09:00 02/21/25 08:53 Nicotine Patch 14 Mg/24 Hr Patch.Td24 TOP 03/22/25 08:59 Not Given QDAY BELEN Sodium Chloride 3 ml 02/20/25 07:27 Sodium Chloride Rt Monica 0.9% 3 Ml Nebu INH 03/22/25 07:26 PRN PRN SOLN Plan Patient is a 64 year old male with past medical history of COPD on home oxygen, SSS s/p pacemaker palcement, HFpEF (EF 65%), CKD 4, chronic back pain s/p left nephrectomy, Afib on Eliquis, and DM2 on Jardiace with peripheral neuropathy who presented on 02/20 for possible ventricular tachycardia. Initially admitted to the ICU for management of vtach, downgraded to tele because now at stable rate. #Vtach versus Afib with RVR - resolved #Afib on Eliquis #Sick Sinus Syndrome s/p pacemaker placement Patient was initially admitted for suspicion of ventricular tachycardia in ED, was started on IV amiodarone drip, then stopped when patient was in paced rhythm, restarted on home dose amiodarone and atenolol. Likely was in afib with RVR, possibly precipitated by illicit drug use as patient occasionally uses meth. Plan: - Hold diltiazem today, consider restarting when BP stable - Continue amiodarone 200 mg BID - Continue atenolol 50 mg daily - Continue Eliquis 2.5 mg daily - Pacemaker interrogation by cardiology - Cardiololgy Dr. Patel consulted, appreciate recommendations #[place] on CKD stage IV - improving #S/p left nephrectomy #Nephrolithiasis, 2mm in right ureter Creatinine 3.6 on admission, increased to 4.0, now 3.5 (baseline 2.0-2.5). Likely worsened secondary to afib with RVR. S/p left nephrectomy due to traumatic injury secondary to large renal stone. CT A/P on 02/19 shows 2 mm right renal calculus, patient states he gets renal calculi often. No CVA tenderness on exam, no hematuria noted. Patient follows Dr. Garzon outpatient. Plan: - Pending renal US - Nephrology Dr. Garzon consulted, appreciate recommendations #Leukocytosis, reactive - improving Likely secondary to afib with RVR episode. Resolving without antibiotics, unlikely infective source (afebrile, not tachycardic, UA unremarkable). Plan: - Continue to monitor CBC - Hold antibiotics at this time #Hypomagnesemia - Replete as needed #HFpEF (EF 60%) (echo 10/2024) Appears euvolemic at this time (lung clear to auscultation and no lower extremity edema). Plan: - Hold diuretics at this time, patient appears euvolemic - Strict I&O's - Fluid restriction 1500 cc #Normocytic anemia Possibly TE, last iron panel in 03/09/23 was suggestive of TE. Reports he takes iron supplements. Of note, patient also only has right kidney, possible decreased production. Appears to be at his baseline, low concern for acute bleed. Plan: - Consider iron panel - Consider outpatient work up - Continue to monitor H&H #DM2 with peripheral neuropathy, non insulin dependent On Jardiance at home. Has no complaints of peripheral neuropathy or pain at this time. - Continue insulin sliding scale - Hold home dose Jardiance #COPD #NAHEED Patient has CPAP at home but is non-complaint with usage. - Continue CPAP at night Health Maintenance Disposition: pending pacemaker interrogation, further management of [place] on CKD DVT prophylaxis: Eliquis GI prophylaxis: Senna Diet: Cardiac CODE STATUS: FULL Patient plan of care was discussed with resident, Dr. Che, and attending physician, Dr. Henson. Neida Jackson, PGY-1 - The patient's plan was discussed with attending Dr. Sixto Che MD PGY2 Internal Medicine Attending Provider Attestation/Addendum I have examined the patient, reviewed labs and imaging findings, discussed the case with the resident(s), and reviewed entered orders. I agree with the plan of care as outlined in this note, with these additional summaries/recommendations: Patient seen at bedside. No acute overnight events. Patient seen resting comfortably in hospital bed. He currently denies chest pain. Patient downgraded from the ICU overnight out of concern for ventricular arrhythmia. Patient was started on amiodarone gtt. and then transition to oral amiodarone. I suspect patient's underlying rhythm at time of event was actually atrial fibrillation with rapid ventricular response. Continue amiodarone and Eliquis. In-house cardiology following, recommendations appreciated. Patient's HFpEF appears stable and continue fluid restriction. Will hold diuresis for now. Pending echocardiogram. Continue CPAP at night for history of NAHEED. Patient also diagnosed with [place]A on CKD. We will continue to monitor urine output closely and appreciate nephrology recommendations. Avoid nephrotoxic agents and renally dose medications. Continue insulin sliding scale for diabetes mellitus type 2. PITO and ANCA ordered out of concern for possible vasculitis although low suspicion at this time. Patient updated on the plan and in agreement. All questions answered to satisfaction. Please see residents note for additional details of management. Dr. Sixto MD
--- NOTE | 2025-02-21 14:50 | ESPR_ITS ---
<Statement entered by Bryant Patel MD - 02/24/25 12:29> I personally evaluated examined the patient with interrogated the ICD device pacemaker device shows the patient did have atrial fibrillation episodes with frequent mode switching whenever the patient is in A-fib it is programmed for maximum tracking rate of 120 and the pacemaker is programmed to do that for several seconds after 15 seconds or so back to mode switching and VVIR heart rate is back to normal. Patient clearly has A-fib related max tracking tachycardia not ventricular tachycardia. There is no evidence of PMT. Will reprogram the device to have a max tracking rate of 100 or below that. When patient goes into A-fib he is not be going and pacing faster rates. Evaluated patient with PGY 2 Dr. Zavala patient can be discharged home after reprogramming is done Documentation for date of: 02/21/25 Subjective Subjective Interval history: Pt is seen at bedside, pt is saturating 98% on 1L O2. Pt endorses to feeling significantly better. Denies any chest pain, palpitations and shortness of breath. Pacemaker interrogation was done last night and MTR is changed from 120 to 90. Pt is cleared to be discharged home from cardiology with recommendation includes Amiodarone 200mg BID and Atenalol 50mg Qday, and continue home eliquis 2.5mgBID (renally dosed). Exam Vital Signs Temp Pulse Resp BP Pulse Ox O2 Del Method O2 Flow Rate 97.4 F 64 20 104/65 92 L Nasal Cannula 1 02/21/25 08:00 02/21/25 10:52 02/21/25 10:37 02/21/25 10:52 02/21/25 10:37 02/21/25 08:00 02/21/25 10:37 Narrative Exam GENERAL: A&Ox3 . obese male, Awake and cooperative, Not in acute distress NEURO: no focal neurological deficits noted HEENT: Atraumatic, Normocephalic. mucous membranes moist. Eyes open, symmetrical, & clear HEART: Normal Heart Sounds, paced rhythm LUNGS: Clear to auscultation with no wheezing or crackles. ABDOMEN: soft, non-distended, non-tender, bowel sounds heard, no guarding or rebound tenderness SKIN: No Rash or ecchymoses, hyperkeratosis of bilateral feet. EXTREMITIES: trace edema, tenderness, able to move all 4 extremities, pedal pulses palpated Objective Labs 02/21/25 04:48 02/21/25 04:48 Labs: Laboratory Results - last 24 hr 02/21/25 04:48 WBC 12.1 H RBC 4.14 L Hgb 11.5 L Hct 36.7 L MCV 89 MCH 27.8 MCHC 31.3 RDW Std Deviation 49.4 H Plt Count 178 Neut % (Auto) 81 H Lymph % (Auto) 10 [place] % (Auto) 6 Eos % (Auto) 2 Baso % (Auto) 0 Neut # (Auto) 9.8 H Lymph # (Auto) 1.2 [place] # (Auto) 0.7 Eos # (Auto) 0.3 Baso # (Auto) 0.1 Immature Gran # (Auto) 0.09 H Absolute Nucleated RBC 0.00 Immature Gran % 1 H Nucleated RBC % 0 Sodium 139 Potassium 4.2 Chloride 108 H Carbon Dioxide 21.1 Anion Gap 10 BUN 37 H Creatinine 3.5 H D Estim Creat Clear Calc 25.9 L eGFR 18 L BUN/Creatinine Ratio 11 L Glucose 98 Calculated Osmolality 286 Calcium 8.5 Corrected Calcium 8.7 Magnesium 2.1 Total Bilirubin 0.3 AST 20 ALT 13 Alkaline Phosphatase 104 Total Protein 6.9 Albumin 3.7 Globulin 3.2 Albumin/Globulin Ratio 1.2 ABG Interpretation ABG results: 02/20/25 07:12 VBG pH 7.42 VBG pCO2 31 L VBG pO2 36 VBG Base Excess -3 Quality Measures Quality Measures VTE prophylaxis Advance care planning discussed with:: patient Assessment & Plan Assessment Current Active Medications: Generic Name Dose Route Start Last Admin Trade Name Chicho PRN Reason Stop Dose Admin Acetaminophen 650 mg 02/20/25 05:14 Acetaminophen 325 Mg Tablet PO 03/22/25 05:13 Q6HR PRN Fever >101,headache, mild pain Amiodarone HCl 200 mg 02/21/25 09:00 02/21/25 08:51 Amiodarone Hcl 200 Mg Tablet PO 03/23/25 08:59 200 mg BID BELEN Administration Apixaban 2.5 mg 02/21/25 09:00 02/21/25 08:51 Apixaban 2.5 Mg Tablet PO 03/23/25 08:59 2.5 mg BID BELEN Administration Atenolol 50 mg 02/21/25 08:54 02/21/25 10:52 Atenolol 25 Mg Tablet PO 03/22/25 09:59 Not Given QDAY BELEN Dextrose 25 ml 02/20/25 04:27 Dextrose 50%-Water Inj 50 Ml Syringe IV 03/22/25 04:26 Q15MIN PRN BG 50-70 responsive npo pt Dextrose 50 ml 02/20/25 04:27 Dextrose 50%-Water Inj 50 Ml Syringe IV 03/22/25 04:26 Q15MIN PRN BG <50 OR BG <70 & pt unresponsive Famotidine 20 mg 02/20/25 09:00 02/21/25 08:50 Famotidine Inj 10 Mg/Ml Vial 2 Ml IVP 03/22/25 08:59 20 mg QDAY BELEN Administration Glucagon 1 mg 02/20/25 04:27 Glucagon Inj 1 Mg Vial IM Q15MIN PRN BG <70, and no IV access Insulin Human Lispro 0 unit 02/20/25 07:45 02/20/25 07:43 Insulin Lispro (Admelog) 1 Unit/0.01 Ml Unit SC 03/22/25 07:44 Not Given Q6HR BELEN Protocol Levalbuterol HCl 1.25 mg 02/20/25 07:27 Levalbuterol Rt 1.25 Mg/0.5 Ml Nebu INH 03/22/25 07:26 Q8HR PRN WHEEZING Multi-Ingredient Ointment 0 oz 02/20/25 14:30 02/21/25 08:50 Min Oil/Pet,White (Eucerin) Cr 16 Oz Btl TOP 03/22/25 14:29 16 oz BID BELEN Administration Nicotine 14 mg 02/20/25 09:00 02/21/25 08:53 Nicotine Patch 14 Mg/24 Hr Patch.Td24 TOP 03/22/25 08:59 Not Given QDAY BELEN Sennosides 1 tab 02/22/25 09:00 Senna Tablet PO 03/24/25 08:59 QDAY BELEN Protocol Sodium Chloride 3 ml 02/20/25 07:27 Sodium Chloride Rt Monica 0.9% 3 Ml Nebu INH 03/22/25 07:26 PRN PRN SOLN Plan Mr. Yuan is a 64-year-old male with past medical history of sick sinus syndrome s/p pacemaker, COPD on prn home O2, HFpEF, NAHEED, CKD stage IV, PAD, A-fib on Xarelto, GERD, eczema, diabetes mellitus type 2 with peripheral neuropathy, benign cystic liver disease, chronic back pain, and nonfunctioning left kidney s/p nephrectomy presented to the ED on 02/20/2025 complaining of progressive weakness over the last few days. #Paroxysmal [id number] MTR (maximal tracking rate) #Sick sinus syndrome s/p pacemaker. #Ventricular tachycardia-ruled out -Patient has dual-chamber pacemaker [place] [address] Patel due to sick sinus syndrome and symptomatic bradycardia. -While in the ED patient had sudden rhythm change with high suspicion for Vtach with rate of 110-120 (HR did not exceed 120). -Pt denied any chest pain, pressure or palpitation -Patient has history of A-fib and is taking amiodarone 200mg, diltiazam 30mg, atenolol 50mg and Eliquis 2.5 mg twice daily -CHADs-VASc score 4 (4.8% stroke risk per year) Plan: -Inititally pt was started on amiodarone drip and transition to amiodarone 200mg daily and resumed home atenalol. Later in the day pt had another episode of tachycardia. -discontinue home diltiazam for now -Recommend continue home eliquis, atenalol, and recommend increasing Amiodarone to 200mg -Pt pacemaker interrogating is done, MTR is changed to 90 (previously was set to 120) #HFpEF with EF 60%. -Echo from 10/2024 showed normal size left ventricle with mild concentric LVH with normal preserved ejection fraction of 60%, mild left ventricular diastolic dysfunction, grade 2. Pt's home meds include furosemide, atenolol, losartan -On physical exam does not appear to be acute CHF exacerbation, not in fluid overload status, denies SOB, orthopnea or PND -BNP on admission 144. Plan: -Recommend resuming home meds as BP is able to tolerate #Substance use disorder. #Methamphetamine use disorder #Hx of PAD #Hx of COPD #Hx of NAHEED #Hx of GERD #Hx of benign cystic liver disease #[place] on CKD #Hx of CKD stage IV #s/p left nephrectomy 2013 #Nephrolithiasis, 2 mm stone in right ureter #Diabetes mellitus type 2 #Peripheral neuropathy #Hx of eczema. #Hx of xerosis cutis -management as per primary team Thank you for the consult and allowing us to participate in the care of the patient. Cardiology will continue to follow. Assessment and plan discussed with my attending cardiology Dr. Jorge Zavala (PGY-2)- Internal medicine resident
[2025-02-22] VITALS (10 sets, daily range): BP systolic 110–145; BP diastolic 65–89; PULSE 60–69; RESP 16–20; TEMP 36.1–36.8; O2SAT 93–99; BMI 37.0
[2025-02-22 06:37] LABS: Basophils # (Auto) 0.0 Thou/mm3 (0.0-0.2); Basophils % (Auto) 0 % (0-2.5); Eosinophils # (Auto) 0.4 Thou/mm3 (0.0-0.5); Eosinophils % (Auto) 4 % (0-10); Hematocrit 35.5 % (41.0-53.0); Hemoglobin 11.2 g/dL (13.5-16.0); Immature Granulocytes Auto 0.12 Thou/mm3 (0.00-0.00); Lymphocytes # (Auto) 1.3 Thou/mm3 (1.0-4.8); Lymphocytes % (Auto) 13 % (10-50); Mean Corpuscular HGB Conc 31.5 g/dl (31.0-37.0); Mean Corpuscular Hemoglobin 27.7 pg (25.0-35.0); Mean Corpuscular Volume 88 fL (80-100); Monocytes # (Auto) 0.6 Thou/mm3 (0.0-0.8); Monocytes % (Auto) 6 % (0-12); Neutrophils # (Auto) 8.0 Thou/mm3 (1.8-7.7); Neutrophils % (Auto) 76 % (37-80); Nucleated Red Blood Cell # 0.00 Thou/mm3 (0.00-0.00); Nucleated Red Blood Cell % 0 /100 WBC (0); Platelet Count 188 Thou/mm3 (140-440); RDW Standard Deviation 48.2 fL (35.1-43.9); Red Blood Count 4.05 Miln/mm3 (4.50-5.90); White Blood Count 10.4 Thou/mm3 (3.8-10.6)
[2025-02-22 07:30] LABS: Alanine Aminotransferase 14 U/L (10-49); Albumin, Serum 3.6 gm/dL (3.4-4.8); Albumin/Globulin Ratio 1.1 (1.2-2.2); Alkaline Phosphatase 99 U/L (46-116); Anion Gap 13 (7-16); Aspartate Amino Transferase 20 U/L (0-34); BUN/Creatinine Ratio 12 Ratio (12-20); Bilirubin,Total 0.2 mg/dL (0.3-1.2); Blood Urea Nitrogen 42 mg/dL (9-23); Calcium 8.5 mg/dL (8.3-10.6); Calcium (Corrected) 8.8 mg/dL (8.5-10.1); Carbon Dioxide 19.2 mMol/L (20.0-31.0); Chloride 109 mMol/L (98-107); Creatinine (Component) 3.5 mg/dL (0.6-1.3); Estimated Creatinine Clearance 25.8 mL/min (>60); Globulin 3.2 gm/dL (2.3-3.5); Glucose 86 mg/dL (74-106); Magnesium 2.2 mg/dL (1.6-2.6); Osmolality,Calculated 290 (275-295); Phosphorous 4.0 mg/dL (2.4-5.1); Potassium 4.1 mMol/L (3.4-5.1); Sodium 141 mMol/L (136-145); Total Protein 6.8 gm/dL (5.7-8.2); eGFR 18 See Note
[2025-02-22] MEDS: AMIODARONE HCL 200 MG TABLET PO (08:42)
[2025-02-22] MEDS: APIXABAN 2.5 MG TABLET PO (08:43)
[2025-02-22] MEDS: FAMOTIDINE INJ 10 MG/ML VIAL 2 ML 20 MG IVP (08:44)
[2025-02-22] MEDS: CITRIC ACID/SODIUM CITR 15 ML UDC (BICITRA) 30 ML PO (08:44)
[2025-02-22] MEDS: MIN OIL/PET,WHITE (Eucerin) CR 16 OZ BTL TOP (08:45)
--- NOTE | 2025-02-22 10:06 | PD.RESDS ---
Planned Discharge Date 02/22/25 DS: Providers Provider Date of admission: 02/20/25 04:05 Primary care physician: Bert Valdez MD Admitting Provider: Omar Rhodes MD Attending Provider on Admission: Omar Rhodes MD Consults: 02/20/25 04:15 Consult to Cardiology Stat Comment: Vtach Consulting Provider: Bryant Patel 02/21/25 08:02 Consult to Nephrology Stat Comment: Consulting Provider: Keaton Garzon 02/21/25 16:11 Referral Physical Therapy Routine Comment: Physician Instructions: Attending Provider on DC: Juan Pablo Henson MD Discharging Provider: RESIDENT Prasanna DS: Diagnosis Problem List Completed Was Problem List Reviewed/Reconciled?: Yes Hospital Course Hospital Course Hospital course: Summary: Patient is a 64 year old male with past medical history of COPD on home oxygen, SSS s/p pacemaker palcement, HFpEF (EF 65%), CKD 4, nonfunctional left kidney s/p left nephrectomy, Afib on Eliquis, and DM2 on Jardiace with peripheral neuropathy who presented on 02/20 for possible ventricular tachycardia. Initially admitted to the ICU for management of vtach, downgraded to tele because now rate stabilized on home medication. ED Course: Vitals: BP 94/65, HR 82 increased to 180s (suspicious for vtach), RR 18, temp 100.9 ?F, 90% on room air. Labs: WBC 16.8, Hgb 12.5, sodium 135, BUN 33, creatinine 3.6, EGFR 18, glucose 148, magnesium 1.5, troponin negative, BNP 144, procalcitonin 0.51. Urinalysis showed protein 1+, glucose 3+. U tox was positive for methamphetamine. Imaging: Chest x-ray was unremarkable. CTAP showed moderate right renal parenchymal scar formation, no hydronephrosis, 2 mm right renal calculus, absent left kidney, Normal appendix, Significant prostatomegaly. Treatment: Defibrillator leads were placed, no shock delivered. Placed on amiodarone drip. Reason for hospitalization: Patient is a 64 year old male with past medical history of COPD on 2L home oxygen, SSS s/p pacemaker palcement, HFpEF (EF 65%), CKD 4, nonfunctional left kidney s/p left nephrectomy, Afib on Eliquis, and DM2 on Jardiace with peripheral neuropathy who presented on 02/20 for possible ventricular tachycardia. He was initially admitted to the ICU for management of vtach, later found out to be paroxysmal afib triggering pacemaker maximal tracking rate, suspect patient went into afib due to meth use (utox positive for meth). Patient was initially started on amiodarone drip in ED, later able to transition back to home oral amiodarone. Once rhythm and rate controlled, patient was downgraded to telemetry. Patient was briefly treated with IV ceftriaxone in ICU due to concern for cellulitis, ruled out and discontinued. Cardiology Dr. Patel consulted, recommended restarting home dose amiodarone and atenolol but hold diltiazem until follow up a week later. Will continue Eliquis. Pacemaker was interrogated and MTR reset to lower rate. Patient was found to have 2mm nonobstructive stone in right ureter, later measured as 4 mm in renal US, no hydronephrosis observed. Nephrology Dr. Garzon also consulted due to [place] on CKD, self improving but will follow up outpatient on 02/27. Will hold Jardiance as patient's GFR <20. PT evaluated patient, recommend discharge home with home health. Discharge Recommendations: -NEW DOSE, Amiodarone 200 mg twice daily for your atrial fibrillation -Eliquis 2.5 mg twice daily for anticoagulation, please notifity provider if you experience any bleeding that does not stop -Please follow up with Dr. Patel, your berry grower within one week of discharge and follow up with Dr. Garzon, your english composition teacher -Renal Panel Test -Please follow up with your primary care provider within one week of discharge -If your symptoms worsen,please seek immediate medical attention and return to your nearest emergency room -If you do not have a primary care provider, you may follow up at the [facility] at [address], [place] [address], Hospital Diagnoses: #Vtach ruled out #Paroxysmal afib triggering MTR #Hx Afib on Eliquis #Sick Sinus Syndrome s/p pacemaker placement 10/2022 #[place] on CKD stage IV - improving #S/p left nephrectomy #Nephrolithiasis, 4mm in right ureter #Leukocytosis, reactive - improving #Hypomagnesemia #HFpEF (EF 60%) (echo 10/2024) #Normocytic anemia, likely TE #DM2 with peripheral neuropathy, non insulin dependent #COPD #NAHEED Disposition: Safe discharge to home with home health Patient plan of care was discussed with the resident, Dr. Moore, and attending physician, Dr. Henson. Neida Jackson, PGY-1 - The patient's plan was discussed with attending Dr. Sixto Moore MD PGY2 Internal Medicine Time Spent with Patient Time attestation: Total time spent providing and/or coordinating discharge services: at least 30 minutes of care coordination Time spent: Greater than 30 minutes Exam Vital Signs Temp Pulse Resp BP Pulse Ox O2 Del Method O2 Flow Rate 97.0 F 60 16 115/72 93 L Nasal Cannula 2 02/22/25 08:00 02/22/25 08:43 02/22/25 08:00 02/22/25 08:43 02/22/25 08:00 02/22/25 08:00 02/22/25 08:00 Narrative Exam Physical Exam General: Elderly male laying comfortably in bed. Awake and in no acute distress. Conversational and non-toxic appearing. Saturating well on 2L oxygen via nasal cannula. HEENT: Normocephalic, atraumatic, mucous membranes moist. Heart: Regular rate and rhythm, normal S1 and S2, no murmurs. Lungs: Clear to auscultation with no wheezing or crackles. Abdomen: Soft, nondistended, nontender, positive bowel sounds. No guarding or rebound tenderness. No CVA tenderness. Neurologic: Alert and oriented x3, no gross neurological deficit, and patient able to move all 4 extremities. Extremities: No edema. Chronic venostasis in lower extremities bilaterally. Skin: No rash or ecchymoses. Discharge Plan Plan Patient Disposition: HOME (Self Care) Patient condition on transfer: Stable Care Plan Goals: Instructions: -NEW DOSE, Amiodarone 200 mg twice daily for your atrial fibrillation -Eliquis 2.5 mg twice daily for anticoagulation, please notifity provider if you experience any bleeding that does not stop -Please follow up with Dr. Patel, your berry grower within one week of discharge and follow up with Dr. Garzon, your english composition teacher -Renal Panel Test -Please follow up with your primary care provider within one week of discharge -If your symptoms worsen,please seek immediate medical attention and return to your nearest emergency room -If you do not have a primary care provider, you may follow up at the [facility] at [facility] [address], [place] [address], Prescriptions/Referrals Prescriptions/Med Rec: New amiodarone 200 mg Tablet 200 mg PO BID 30 Days Qty: 60 1RF nicotine 21 mg/24 hr patch 24 hour 21 mg topical 1XD 30 Days Qty: 28 0RF albuterol sulfate 90 mcg/actuation HFA aerosol inhaler 2 puff inhalation QID PRN (Reason: shortness of breath or wheezing) Qty: 8.5 1RF Continued aspirin 81 MG tablet,chewable 81 mg PO QDAY Qty: 0 furosemide [Lasix] 40 MG tablet 40 mg PO QDAY Qty: 0 atenolol 50 mg Tablet 50 mg PO QDAY Iron Chews 15 mg tablet,chewable 15 mg PO TID tamsulosin 0.4 mg capsule 0.4 mg PO QDAY pantoprazole 40 mg tablet,delayed release (DR/EC) 40 mg PO QDAY calcitriol 0.5 mcg capsule 0.5 mcg PO DAILY Eliquis 2.5 mg tablet 2.5 mg PO BID hydroxyzine HCl 25 mg tablet 25 mg PO BID losartan 25 mg Tablet 50 mg PO QDAY Held Jardiance 25 mg tablet 25 mg PO QAM Qty: 30 2RF Hold Instructions: Resume on 02/28/25. Discontinued albuterol sulfate [ProAir HFA] 8.5 GM HFA aerosol inhaler 2 puff PO Q4HR PRN (Reason: SHORTNESS OF BREATH) Qty: 9 diltiazem HCl [Cardizem] 60 MG tablet 30 mg PO TID Qty: 0 amiodarone 200 mg Tablet 200 mg PO QDAY diltiazem HCl 30 mg tablet 30 mg PO Q8H iron, carbonyl 45 mg tablet 45 mg PO .QOD Qty: 30 1RF tamsulosin 0.4 mg Capsule 0.4 mg PO QDAY Qty: 30 0RF pantoprazole 40 mg tablet,delayed release (DR/EC) 40 mg PO QDAY Qty: 30 1RF Xarelto 10 mg tablet 10 mg PO QDAY doxycycline hyclate 100 mg capsule 100 mg PO BID Qty: 60 0RF hydrocodone-acetaminophen 5-325 mg Tablet 1 tab PO Q6HR MDD 20mg PRN (Reason: Pain 4-10) Qty: 20 0RF Referrals: Bryant Patel MD [Physician] - Keaton Garzon MD [Physician] - Bert Valdez MD [Primary Care Provider] - Outpatient Orders (i.e. Home Health, Labs, Imaging): Renal Function Panel (Routine) Location: None Selected Ordered By: Sondra Moore Patient/Caregiver Discharge Instructions Other Discharge Activity Instructions:: ACTIVITY TOLERATED Other Discharge Diet Instructions: CARDIAC DIET Education Materials: AFL/Afib, 5 Steps for Eating Healthier, Coping with Smoking Withdrawal Print Language: Montenegrin Stand Alone Forms: Sheila Award Info., Patient Portal Info Letter Discharge Order Discharge Orders: Discharge (Routine); Ordered 02/22/25 Ordered By: Sondra Moore Quality Discharge Quality Measures VTE prophylaxis MD Attestestation MD Attestation I have examined the patient, reviewed labs and imaging findings, discussed the case with the resident(s), and reviewed entered orders. I agree with the plan of care as outlined in this note. Time Spent: [address] Sixto MD
--- NOTE | 2025-02-22 11:19 | PC.SS ---
SS met with pt to discuss DC planning for today. PT recommends HH with PT. Pt preference is [facility], he has utilized them in the past. Pts PCP is Dr. Valdez and he sees him monthly, last visit was some time beginning of January as his next visit is Mar 14.
--- NOTE | 2025-02-22 11:23 | PC.PT ---
PT eval only. Patient was xI with bed mobility, transfers, and ambulation with an AD which is his baseline. Patient is safe to ambulate to the bathroom and in the halls with 1 staff assist and a FWW for safety. RN made aware.
--- NOTE | 2025-02-22 13:50 | ESPR_ITS ---
Documentation for date of: 02/22/25 Subjective Subjective Interval history: Mr. Yuan is a 64-year-old male PMHx of COPD on home oxygen, HFpEF with EF 60%, sick sinus syndrome s/p pacemaker, NAHEED, CKD stage IV, s/p left nephrectomy 2/ nephrolithiasis 2013, T2DM, PAD, A-fib on XARELTO, GERD, eczema, peripheral neuropathy, chronic back pain, presenting with weakness and fatigue for 5 days. He reports today he was trying to stand up from his bed and was not able to without assistance and decided to come to the emergency room. He denies any chest pain, palpitations, abdominal pain, shortness of breath, fever or chills. He reports he used marijuana today prior to the event. Last methamphetamine use was 2 months ago per patient. He denies feeling sick recently or recent URI symptoms. He denies symptoms of dysuria. He reports he had diarrhea yesterday but it resolved. He reports being compliant with his medications. He is followed by mold capper Dr. Patel outpatient. States he sees Dr. Garzon outpatient. Does not remember having any hx of dialysis in the past. Left unilateral nephrectomy was done in 2013 at [facility] as a result of kidney stones. He is aware of having chronic kidney disease. States his blood sugars and blood pressure have generally been controlled. States he takes his medications on a daily basis, as prescribed. Reports no new or changes in current medications. ED Course: His blood pressure 94/65, pulse 82, respirations 18, temperature 100.9 ?F, oxygen saturation 90% on room air. Labs showed WBC 16.8, hemoglobin 12.5, sodium 135, BUN 33, creatinine 3.6, EGFR 18, glucose 148, magnesium 1.5, troponin negative, BNP 144, procalcitonin 0.51. Urinalysis showed protein 1+, glucose 3+. U tox was positive for methamphetamine. Chest x-ray was unremarkable. CTAP showed moderate right renal parenchymal scar formation, no hydronephrosis, 2 mm right renal calculus, Absent left kidney, Normal appendix, Significant prostatomegaly. In the emergency room patient developed rhythm change on kitchen food assembler with heart rate going to 180s with pattern suspicious for V. tach. Defibrillator leads were placed and he was started on amiodarone drip. Magnesium was repleted. He was continuously going on and off this rhythm therefore no shock was delivered. Patient will be admitted to ICU for closer monitoring until evaluated by cardiology. 02/22/2025: No acute events overnight. Patient seen and examined at bedside. Vitals and labs reviewed. Patient states he is doing well. Patient is making urine. Denies fever, headache, chest pain, shortness of breath. Reluctant about dialysis. Exam Vital Signs Temp Pulse Resp BP Pulse Ox O2 Del Method O2 Flow Rate 97.1 F 60 20 122/65 94 L Room Air 2 02/22/25 13:34 02/22/25 13:34 02/22/25 13:34 02/22/25 13:34 02/22/25 13:34 02/22/25 13:02/22/25 12:00 Narrative Exam General: Awake and in no acute distress. Conversational and non-toxic appearing. HEENT: Normocephalic, atraumatic, mucous membranes moist. Heart: Regular rate and rhythm, normal S1 and S2, no murmurs. Lungs: Clear to auscultation with no wheezing or crackles. Abdomen: Soft, nondistended, nontender, positive bowel sounds. ?No guarding or rebound tenderness. Neurologic: Alert and oriented x3, no gross neurological deficit, and patient able to move all 4 extremities. Extremities: No edema. Skin: Rash on the lower extremities markedly improved Objective Labs 02/22/25 04:52 02/22/25 04:52 Labs: Laboratory Results - last 24 hr 02/22/25 04:52 WBC 10.4 RBC 4.05 L Hgb 11.2 L Hct 35.5 L MCV 88 MCH 27.7 MCHC 31.5 RDW Std Deviation 48.2 H Plt Count 188 Neut % (Auto) 76 Lymph % (Auto) 13 [place] % (Auto) 6 Eos % (Auto) 4 Baso % (Auto) 0 Neut # (Auto) 8.0 H Lymph # (Auto) 1.3 [place] # (Auto) 0.6 Eos # (Auto) 0.4 Baso # (Auto) 0.0 Immature Gran # (Auto) 0.12 H Absolute Nucleated RBC 0.00 Immature Gran % 1 H Nucleated RBC % 0 Sodium 141 Potassium 4.1 Chloride 109 H Carbon Dioxide 19.2 L Anion Gap 13 BUN 42 H Creatinine 3.5 H Estim Creat Clear Calc 25.8 L eGFR 18 L BUN/Creatinine Ratio 12 Glucose 86 Calculated Osmolality 290 Calcium 8.5 Corrected Calcium 8.8 Phosphorus 4.0 Magnesium 2.2 Total Bilirubin 0.2 L AST 20 ALT 14 Alkaline Phosphatase 99 Total Protein 6.8 Albumin 3.6 Globulin 3.2 Albumin/Globulin Ratio 1.1 L ABG Interpretation ABG results: 02/20/25 07:12 VBG pH 7.42 VBG pCO2 31 L VBG pO2 36 VBG Base Excess -3 Quality Measures Quality Measures VTE prophylaxis Advance care planning discussed with:: patient Assessment & Plan Assessment Current Active Medications: Generic Name Dose Route Start Last Admin Trade Name Freq PRN Reason Stop Dose Admin Acetaminophen 650 mg 02/20/25 05:14 Acetaminophen 325 Mg Tablet PO 03/22/25 05:13 Q6HR PRN Fever >101,headache, mild pain Amiodarone HCl 200 mg 02/21/25 09:00 02/22/25 08:42 Amiodarone Hcl 200 Mg Tablet PO 03/23/25 08:59 200 mg BID BELEN Administration Apixaban 2.5 mg 02/21/25 09:00 02/22/25 08:43 Apixaban 2.5 Mg Tablet PO 03/23/25 08:59 2.5 mg BID BELEN Administration Atenolol 50 mg 02/22/25 09:00 02/22/25 08:43 Atenolol 25 Mg Tablet PO 03/24/25 08:59 50 mg QDAY BELEN Administration Citric Acid/Sodium Citrate 30 ml 02/22/25 09:00 02/22/25 08:44 Citric Acid/Sodium Citr 15 Ml Udc (Bicitra) PO 03/24/25 08:59 30 ml BID BELEN Administration Dextrose 25 ml 02/20/25 04:27 Dextrose 50%-Water Inj 50 Ml Syringe IV 03/22/25 04:26 Q15MIN PRN BG 50-70 responsive npo pt Dextrose 50 ml 02/20/25 04:27 Dextrose 50%-Water Inj 50 Ml Syringe IV 03/22/25 04:26 Q15MIN PRN BG <50 OR BG <70 & pt unresponsive Famotidine 20 mg 02/20/25 09:00 02/22/25 08:44 Famotidine Inj 10 Mg/Ml Vial 2 Ml IVP 03/22/25 08:59 20 mg QDAY BELEN Administration Glucagon 1 mg 02/20/25 04:27 Glucagon Inj 1 Mg Vial IM Q15MIN PRN BG <70, and no IV access Insulin Human Lispro 0 unit 02/20/25 07:45 02/20/25 07:43 Insulin Lispro (Admelog) 1 Unit/0.01 Ml Unit SC 03/22/25 07:44 Not Given Q6HR BELEN Protocol Levalbuterol HCl 1.25 mg 02/20/25 07:27 Levalbuterol Rt 1.25 Mg/0.5 Ml Nebu INH 03/22/25 07:26 Q8HR PRN WHEEZING Multi-Ingredient Ointment 0 oz 02/20/25 14:30 02/22/25 08:45 Min Oil/Pet,White (Eucerin) Cr 16 Oz Btl TOP 03/22/25 14:29 1 oz BID BELEN Administration Nicotine 14 mg 02/20/25 09:00 02/22/25 08:45 Nicotine Patch 14 Mg/24 Hr Patch.Td24 TOP 03/22/25 08:59 Not Given QDAY BELEN Sennosides 1 tab 02/22/25 09:00 02/22/25 08:45 Senna Tablet PO 03/24/25 08:59 Not Given QDAY BELEN Protocol Sodium Chloride 3 ml 02/20/25 07:27 Sodium Chloride Rt Monica 0.9% 3 Ml Nebu INH 03/22/25 07:26 PRN PRN SOLN Plan 64-year-old male PMHx of COPD on home oxygen, CHF unspecified, NAHEED, CKD stage IV, s/p left nephrectomy 2/2 nephrolithiasis 2013, T2DM, PAD, A-fib on XARELTO, GERD, eczema, peripheral neuropathy, chronic back pain, admitted for bilateral lower extremity cellulitis. Nephrology was consulted for the management of AUGUSTA on CKD. #[place]A on CKD stage IV #S/p left unilateral nephrectomy #Normocytic anemia Likely pre-renal due to volume losses vs possible obstructive uropathy. Endorsed diarrhea day before; 4 mm nonobstructing R renal calculus Cr 3.6 -> 4.0 ->3.5 ->3.5; baseline ~2.5. CTAP: moderate right renal parenchymal scar formation, no hydronephrosis, 2 mm R renal calculus, Absent left kidney, Significant prostatomegaly. Renal US: Moderate right renal parenchymal scar formation, 4 mm nonobstructing R renal calculus 2013 left unilateral nephrectomy at [facility] 2/[address] Garzon Outpatient. Diabetes relatively controlled, A1c 5.4 from 01/22/2025. Chronic HTN might also be contributing. No signs of bleeding; Hgb stable; single kidney. Denies history of recurrent UTIs or active urinary symptoms, including changes in frequency or dysuria. Plan: - No need for HD at this time. ? Renally dose meds, avoid overdiuresis and NEPHROTOXINS ? CTM cbc/cmp ? Strict SÁNCHEZ's #Vtach versus Afib with RVR - resolved #Afib on Eliquis #Sick Sinus Syndrome s/p pacemaker placement #Leukocytosis, reactive - improving #Hypomagnesemia #HFpEF (EF 60%) (echo 10/2024) #DM2 with peripheral neuropathy, non insulin dependent #COPD #NAHEED above managed per primary team Patient plan of care was discussed with the attending physician, Dr. Duran Bowles MD PGY-1 Attending Provider Attestation/Addendum Patient seen and examined with resident physician Dr. Bowles. Note reviewed, agree with findings and recommendations. Well-known to me from my CKD clinic. Patient has CKD stage IV and on the verge of dialysis. Presented with bilateral lower extremity cellulitis and AUGUSTA. Agree with gentle IV fluids. Creatinine tad better- patient looks stable. No need for urgent dialysis. Will monitor closely. Thank you Juan Pablo for allowing me to participate in the care of Mr. Yuan
[2025-02-26 06:47] LABS: ANA Screen, IFA NEGATIVE (NEGATIVE)
[2025-02-27 06:39] LABS: ANCA Screen NEGATIVE (NEGATIVE); Myeloperoxidase Ab <1.0 AI (<1.0); Proteinase-3 Ab <1.0 AI (<1.0)
== END 2025-02-22 14:12 | disposition home or self-care (01) | DRG 309 ==
LOC: SERX 02-20 03:05 → SERHOLD 02-20 04:45 → S2SX 02-20 05:31 → S2NX 02-21 06:43 → S2SX 02-21 09:04
PROVIDERS: Physician Assistant; Student in an Organized Health Care Education/Training Program; Admitting Provider Student in an Organized Health Care Education/Training Program; Emergency Provider Emergency Medicine; PCP Family Medicine; Visit Provider Student in an Organized Health Care Education/Training Program
DX: I47.20 Ventricular tachycardia, unspecified (principal); I13.0 Hypertensive heart and chronic kidney disease with heart failure and stage 1 through stage 4 chronic kidney disease, or unspecified chronic kidney disease; I50.32 Chronic diastolic (congestive) heart failure; N18.4 Chronic kidney disease, stage 4 (severe); N17.9 Acute kidney failure, unspecified; N20.2 Calculus of kidney with calculus of ureter; L03.115 Cellulitis of right lower limb; L03.116 Cellulitis of left lower limb; T82.119A Breakdown (mechanical) of unspecified cardiac electronic device, initial encounter; G47.33 Obstructive sleep apnea (adult) (pediatric); I73.9 Peripheral vascular disease, unspecified; I48.91 Unspecified atrial fibrillation; Z79.01 Long term (current) use of anticoagulants; K21.9 Gastro-esophageal reflux disease without esophagitis; J44.9 Chronic obstructive pulmonary disease, unspecified; N40.0 Benign prostatic hyperplasia without lower urinary tract symptoms; F17.210 Nicotine dependence, cigarettes, uncomplicated; F15.90 Other stimulant use, unspecified, uncomplicated; Z99.81 Dependence on supplemental oxygen; Z95.0 Presence of cardiac pacemaker; Z90.5 Acquired absence of kidney; F12.90 Cannabis use, unspecified, uncomplicated; K76.89 Other specified diseases of liver; E11.42 Type 2 diabetes mellitus with diabetic polyneuropathy; E11.22 Type 2 diabetes mellitus with diabetic chronic kidney disease; L08.9 Local infection of the skin and subcutaneous tissue, unspecified; E78.00 Pure hypercholesterolemia, unspecified; E83.42 Hypomagnesemia; F15.10 Other stimulant abuse, uncomplicated; I48.0 Paroxysmal atrial fibrillation; I48.92 Unspecified atrial flutter; I49.5 Sick sinus syndrome; E66.9 Obesity, unspecified; D63.1 Anemia in chronic kidney disease; J44.89 Other specified chronic obstructive pulmonary disease; E86.1 Hypovolemia; L85.3 Xerosis cutis; Y71.2 Prosthetic and other implants, materials and accessory cardiovascular devices associated with adverse incidents; Z79.4 Long term (current) use of insulin; Z79.899 Other long term (current) drug therapy; Z87.442 Personal history of urinary calculi; Z87.828 Personal history of other (healed) physical injury and trauma; Z96.651 Presence of right artificial knee joint; Z88.5 Allergy status to narcotic agent
CPT/HCPCS: 36415; 71045; 74176; 76770; 80053; 80061; 80307; 81001; 82436; 82570; 82803; 83605; 83735; 83880; 84100; 84133; 84145; 84300; 84443; 84484; 85025; 85610; 85652; 85730; 86021; 86036; 86038; 86140; 87040; 87081; 87086; 87400; 87811; 93005; 93306; 94664; 94762; 97162; 99284; J0283; J0696; J3475; J3490; J7030; J7120; A9270

== ENCOUNTER → 2025-02-25 | Outpatient (CLI) | payer OTHER, SELFPAY ==
[2025-02-25 13:19] LABS: Collection Type, Urine Clean Catch
[2025-02-25 13:44] LABS: Basophils # (Auto) 0.1 Thou/mm3 (0.0-0.2); Basophils % (Auto) 1 % (0-2.5); Eosinophils # (Auto) 0.4 Thou/mm3 (0.0-0.5); Eosinophils % (Auto) 3 % (0-10); Hematocrit 39.9 % (41.0-53.0); Hemoglobin 12.4 g/dL (13.5-16.0); Immature Granulocytes Auto 0.44 Thou/mm3 (0.00-0.00); Lymphocytes # (Auto) 1.6 Thou/mm3 (1.0-4.8); Lymphocytes % (Auto) 12 % (10-50); Mean Corpuscular HGB Conc 31.1 g/dl (31.0-37.0); Mean Corpuscular Hemoglobin 27.5 pg (25.0-35.0); Mean Corpuscular Volume 89 fL (80-100); Monocytes # (Auto) 0.6 Thou/mm3 (0.0-0.8); Monocytes % (Auto) 5 % (0-12); Neutrophils # (Auto) 9.5 Thou/mm3 (1.8-7.7); Neutrophils % (Auto) 76 % (37-80); Nucleated Red Blood Cell # 0.00 Thou/mm3 (0.00-0.00); Nucleated Red Blood Cell % 0 /100 WBC (0); Platelet Count 310 Thou/mm3 (140-440); RDW Standard Deviation 48.2 fL (35.1-43.9); Red Blood Count 4.51 Miln/mm3 (4.50-5.90); White Blood Count 12.6 Thou/mm3 (3.8-10.6)
[2025-02-25 13:52] LABS: Bilirubin,Urine Negative (Negative); Blood,Urine Negative (Negative); Clarity,Urine Clear (Clear/Hazy); Color,Urine Yellow (Lt Yel-Yel); Glucose, Urine 1+ (Negative); Ketones,Urine Negative (Negative); Leukocyte Esterase,Urine Negative (Negative); Nitrite,Urine Negative (Negative); PH,Urine 6.0 (5.0-7.0); Protein,Urine 1+ (Neg - Trace); RBC,Urine 2 /hpf (0-3); Specific Gravity,Urine 1.019 (1.001-1.035); Squamous Epithelial Cell,Urine < 1 /hpf (0-5); Urobilinogen,Urine Negative mg/dL (0.0-1.0); WBC,Urine 1 /hpf (0-5)
[2025-02-25 14:14] LABS: Albumin, Serum 3.8 gm/dL (3.4-4.8); Anion Gap 9 (7-16); BUN/Creatinine Ratio 15 Ratio (12-20); Blood Urea Nitrogen 41 mg/dL (9-23); Calcium 8.7 mg/dL (8.3-10.6); Calcium (Corrected) 8.9 mg/dL (8.5-10.1); Carbon Dioxide 19.7 mMol/L (20.0-31.0); Chloride 112 mMol/L (98-107); Creatinine (Component) 2.8 mg/dL (0.6-1.3); Glucose 104 mg/dL (74-106); Osmolality,Calculated 291 (275-295); Phosphorous 3.9 mg/dL (2.4-5.1); Potassium 5.3 mMol/L (3.4-5.1); Sodium 141 mMol/L (136-145); eGFR 24 See Note
[2025-02-25 14:21] LABS: Creatinine MALB Rnd Ur 146 mg/dL (30-125); Microalbumin Creat Ratio 346 mg/gCrea (<30); Microalbumin, Random Urine 505 mg/L (0-300)
== END | disposition home or self-care (01) ==
LOC: COPL 12:38
PROVIDERS: PCP Family Medicine; Referring Provider Internal Medicine; Visit Provider Internal Medicine
DX: N17.9 Acute kidney failure, unspecified (principal); I10 Essential (primary) hypertension
CPT/HCPCS: 36415; 80069; 81001; 82043; 82570; 85025

== ENCOUNTER 2025-03-15 12:12 | Inpatient (IN) | payer OTHER, MEDICARE, SELFPAY ==
[2025-03-15 12:13] VITALS: BMI 38.9
[2025-03-15 12:49] VITALS: BP 103/73; PULSE 58; RESP 18; TEMP 37.2; O2SAT 95
--- NOTE | 2025-03-15 13:06 | EKG_ITS ---
[facility] Test Date: 2025-03-15 Pat Name: NIKOLAS KOHLI Department: Room: - Gender: Male Reading Aide: : 1960 Requested By: Shine Krishnamurthy Order Number: [id number] Reading MD: Shine Krishnamurthy Measurements Intervals Dazey Rate: 60 P: 92 CO: 214 QRS: 42 QRSD: 118 T: 44 QT: 460 QTc: 460 Interpretive Statements ELECTRONIC ATRIAL PACEMAKER MODERATE INTRAVENTRICULAR CONDUCTION DELAY [110+ ms QRS DURATION] ABNORMAL RHYTHM ECG Compared to ECG 02/20/2025 16:39:40 Intraventricular conduction delay now present T-wave abnormality no longer present Possible ischemia no longer present /store/S0/[id number]/ecg/[id number].pdf
--- NOTE | 2025-03-15 13:06 | XR_ITS ---
Examination: Arterial duplex lower extremity study. Date and time of exam: March 15, 2025 1424 hours INDICATIONS: Nonhealing wound left foot today Findings: Duplex sonographic imaging of the lower extremity arteries using B-mode/Jean scale imaging and Doppler spectral analysis and color flow. . Left common femoral artery demonstrates triphasic flow. Left superficial femoral artery demonstrates triphasic flow. Left popliteal artery demonstrates triphasic flow. Left posterior tibial artery demonstrated triphasic flow. Impression: No obstructive arterial disease demonstrated Consider correlation with CTA abdominal aorta iliofemoral runoff post intravenous contrast
--- NOTE | 2025-03-15 13:06 | XR_ITS ---
Examination: Foot, left, 3 views Technique: AP, oblique, lateral views foot, 3 views Date and time of exam: March 15, 2025 at 1313 hours INDICATIONS: Redness swelling and pain involving the foot beginning 2 days ago. FINDINGS: Early cortical bone erosions involving the distal fifth metatarsal and base of the proximal phalanx fifth digit No foreign body IMPRESSION: Early osteomyelitis distal fifth metatarsal and proximal phalanx fifth digit, consider MRI foot without contrast follow-up
--- NOTE | 2025-03-15 13:06 | XR_ITS ---
Examination: AP chest single view TECHNIQUE: Supine AP chest single view INDICATIONS: Sepsis protocol FINDINGS: Normal heart size Cardiac leads satisfactory position No lobar pneumonia or pulmonary edema IMPRESSION: No lobar pneumonia or pulmonary edema
[2025-03-15 13:56] LABS: Bilirubin,Urine Negative (Negative); Blood,Urine Negative (Negative); Clarity,Urine Clear (Clear/Hazy); Collection Type, Urine Clean Catch; Color,Urine Lt-Yellow (Lt Yel-Yel); Glucose, Urine Negative (Negative); Ketones,Urine Negative (Negative); Leukocyte Esterase,Urine Negative (Negative); Nitrite,Urine Negative (Negative); PH,Urine 6.5 (5.0-7.0); Protein,Urine 1+ (Neg - Trace); RBC,Urine 1 /hpf (0-3); Specific Gravity,Urine 1.017 (1.001-1.035); Squamous Epithelial Cell,Urine 0 /hpf (0-5); Urobilinogen,Urine Negative mg/dL (0.0-1.0); WBC,Urine 1 /hpf (0-5)
[2025-03-15 14:10] LABS: Lactate (Lactic Acid) 1.5 mMol/L (0.4-2.0)
[2025-03-15 14:11] LABS: Basophils # (Auto) 0.1 Thou/mm3 (0.0-0.2); Basophils % (Auto) 1 % (0-2.5); Eosinophils # (Auto) 0.3 Thou/mm3 (0.0-0.5); Eosinophils % (Auto) 2 % (0-10); Hematocrit 39.0 % (41.0-53.0); Hemoglobin 12.1 g/dL (13.5-16.0); Immature Granulocytes Auto 0.35 Thou/mm3 (0.00-0.00); Lymphocytes # (Auto) 1.3 Thou/mm3 (1.0-4.8); Lymphocytes % (Auto) 9 % (10-50); Mean Corpuscular HGB Conc 31.0 g/dl (31.0-37.0); Mean Corpuscular Hemoglobin 26.7 pg (25.0-35.0); Mean Corpuscular Volume 86 fL (80-100); Monocytes # (Auto) 0.9 Thou/mm3 (0.0-0.8); Monocytes % (Auto) 7 % (0-12); Neutrophils # (Auto) 11.2 Thou/mm3 (1.8-7.7); Neutrophils % (Auto) 79 % (37-80); Nucleated Red Blood Cell # 0.00 Thou/mm3 (0.00-0.00); Nucleated Red Blood Cell % 0 /100 WBC (0); Platelet Count 308 Thou/mm3 (140-440); RDW Standard Deviation 46.4 fL (35.1-43.9); Red Blood Count 4.53 Miln/mm3 (4.50-5.90); White Blood Count 14.1 Thou/mm3 (3.8-10.6)
[2025-03-15 14:26] LABS: INR 1.3 (0.9-1.3); Partial Thromboplastin Time 32.3 Seconds (22.0-36.0); Prothrombin Time 13.5 Seconds (9.0-12.2)
[2025-03-15 14:28] LABS: Troponin I < 0.020 ng/mL (0.0-0.045)
[2025-03-15 14:30] LABS: Alanine Aminotransferase 66 U/L (10-49); Albumin, Serum 4.0 gm/dL (3.4-4.8); Albumin/Globulin Ratio 0.9 (1.2-2.2); Alkaline Phosphatase 111 U/L (46-116); Anion Gap 9 (7-16); Aspartate Amino Transferase 62 U/L (0-34); BUN/Creatinine Ratio 16 Ratio (12-20); Bilirubin,Total 0.3 mg/dL (0.3-1.2); Blood Urea Nitrogen 52 mg/dL (9-23); Calcium 9.4 mg/dL (8.3-10.6); Calcium (Corrected) 9.4 mg/dL (8.5-10.1); Carbon Dioxide 21.6 mMol/L (20.0-31.0); Chloride 103 mMol/L (98-107); Creatinine (Component) 3.3 mg/dL (0.6-1.3); Estimated Creatinine Clearance 26.4 mL/min (>60); Globulin 4.5 gm/dL (2.3-3.5); Glucose 115 mg/dL (74-106); LDH (Lactate Dehydrogenase) 187 U/L (120-246); Lipase 77 U/L (12-53); Magnesium 1.9 mg/dL (1.6-2.6); Osmolality,Calculated 283 (275-295); Phosphorous 4.0 mg/dL (2.4-5.1); Potassium 5.1 mMol/L (3.4-5.1); Sodium 134 mMol/L (136-145); Total Protein 8.5 gm/dL (5.7-8.2); eGFR 20 See Note
[2025-03-15 14:37] LABS: Procalcitonin 0.40 ng/ml (0.0-0.49)
[2025-03-15 14:44] LABS: B-Type Natriuretic Peptide 183 pg/mL (0-100)
--- NOTE | 2025-03-15 15:11 | PD.EDEXREM ---
ED Extremity Problem RME/HPI General Chief complaint: Extremity Problem,Nontraumatic Stated complaint: LEFT FOOT INFECTION Time Seen by Provider: 03/15/25 12:32 Arrival date/time: 03/15/25 12:12 RME / HPI RME / HPI Narrative: 64-year-old male patient with significant history of hypertension diabetes mellitus, chronic kidney disease, came in for evaluation regarding left foot left foot left foot left foot infection. According to the patient he noticed it yesterday evening,'s redness to the left lateral foot, this morning noticed puslike drainage, worsening redness, and foul-smelling discharge. Patient denies any fever. Denies any other complaints no medications taken prior to arrival Related Data Home Medications ?Medication ?Instructions ?Recorded ?Confirmed aspirin 81 mg chewable tablet 81 mg PO QDAY ##0 10/21/16 02/20/25 furosemide 40 mg tablet (Lasix) 40 mg PO QDAY #0 tabs 07/29/17 02/20/25 atenolol 50 mg tablet 50 mg PO QDAY 10/18/21 02/20/25 hydroxyzine HCl 25 mg tablet 25 mg PO BID 11/09/24 02/20/25 losartan 25 mg tablet 50 mg PO QDAY 11/09/24 02/20/25 apixaban 2.5 mg tablet (Eliquis) 2.5 mg PO BID 02/20/25 02/20/25 calcitriol 0.5 mcg capsule 0.5 mcg PO DAILY 02/20/25 02/20/25 iron, carbonyl 15 mg chewable 15 mg PO TID 02/20/25 02/20/25 tablet (Iron Chews) pantoprazole 40 mg tablet,delayed 40 mg PO QDAY 02/20/25 02/20/25 release tamsulosin 0.4 mg capsule 0.4 mg PO QDAY 02/20/25 02/20/25 Previous Rx's ?Medication ?Instructions ?Recorded empagliflozin 25 mg tablet 25 mg PO QAM #30 tabs 11/15/24 (Jardiance) Held on 02/22/25. Instructions: Resume on 02/28/25. albuterol sulfate 90 mcg/actuation 2 puff inhalation QID PRN 02/22/25 aerosol inhaler shortness of breath or wheezing #8.5 grams amiodarone 200 mg tablet 200 mg PO BID 1 month #60 tabs 02/22/25 nicotine 21 mg/24 hr daily 21 mg topical 1XD 1 month #28 ea 02/22/25 transdermal patch Allergies Allergy/AdvReac Type Severity Reaction Status Date / Time codeine Allergy Severe Hives Verified 03/15/25 12:13 Review of Systems Review of Systems Narrative Review of Systems: Review of system reviewed and within normal limits except mentioned in HPI ED Exam Narrative Physical exam: VITAL SIGNS: Reviewed. GENERAL APPEARANCE: Alert and interactive, follows commands, no acute distress, HEAD AND FACE: Non-traumatic. ENT: PERRL, pink conjunctivitis, eyelid no trauma, Mucous membrane moist. NECK: Supple, nontender, no nuchal rigidity. CHEST: No tenderness, no crepitus, no paradoxical movement, no retractions. LUNGS: Clear, well ventilated, symmetric, no rales, no wheezing, no ronchi, no stridor, good breath sounds bilaterally. HEART: Regular rate, regular rhythm, no murmur, no gallops. ABDOMEN: Soft, positive bowel sounds, nondistended, no guarding, nontender, no rebound, no masses, RECTAL: Deferred. GENITAL: Deferred. NEUROLOGICAL: Gross motor function intact sensory function intact, Appropriate for age. MUSCULOSKELETAL: low back nontender, full range of motion. EXTREMITIES: Left foot open wound with necrosis noted on the subcutaneous area, with foul smelling discharge, gangrene five toe ,full range of motion. SKIN: Color pink, dry, no rash, no lacerations, no abrasions, no contusions. LYMPHATICS: Deferred. Course Quality Measures none Orders Category Date Time Status COVID-19 Screening Questionnaire NOW Care 03/15/25 16:47 Active Applications Specialist STAT Care 03/15/25 13:06 Active Continuous Pulse Oximetry STAT Care 03/15/25 13:06 Completed Decision to Admit X1 Care 03/15/25 16:47 Completed EKG (ED ONLY) *Do not use* NOW Care 03/15/25 13:06 Completed In and Out Catheter X1PRN Care 03/15/25 13:06 Active Insert IV NOW Care 03/15/25 13:06 Active NPO STAT Care 03/15/25 13:06 Active Strict Intake and Output Routine Care 03/15/25 13:06 Ordered Consult to General Surgery Stat Cons 03/15/25 16:48 Ordered Referral Wound Care Stat Cons 03/15/25 16:49 Active EKG (ED Only) Stat Exams 03/15/25 13:06 Draft US arterial duplex LE LT Stat Exams 03/15/25 13:06 Completed XR chest 1V SEPSIS PROTOCOL Stat Exams 03/15/25 13:06 Completed XR foot comp LT min 3V Stat Exams 03/15/25 13:06 Completed B-Type Natriuretic Peptide Stat Lab 03/15/25 13:50 Completed Blood Culture (Lab) Stat Lab 03/15/25 13:50 Received CBC Stat Lab 03/15/25 13:50 Completed Comprehensive Metabolic Panel Stat Lab 03/15/25 13:50 Completed LDH (Lactate Dehydrogenase) Stat Lab 03/15/25 13:50 Completed Lactate (Lactic Acid) Stat Lab 03/15/25 13:50 Completed Lipase Stat Lab 03/15/25 13:50 Completed Magnesium Stat Lab 03/15/25 13:50 Completed Partial Thromboplastin Time Stat Lab 03/15/25 13:50 Completed Phosphorous Stat Lab 03/15/25 13:50 Completed Procalcitonin Stat Lab 03/15/25 13:50 Completed Prothrombin Time with INR Stat Lab 03/15/25 13:50 Completed Troponin I Stat Lab 03/15/25 13:50 Completed Urinalysis Stat Lab 03/15/25 13:22 Completed Urine Culture Stat Lab 03/15/25 13:06 Ordered Piper/Tazo 3.375 gm Premix [Zosyn] Med 03/15/25 13:07 Discontinued 3.375 gm in 50 ml IV X1 Ringers Lactated 1000 ml [Lactated Ringers] 1,000 ml Med 03/15/25 16:04 Discontinued IV 999 mls/hr Vancomycin/Water 1Gm Ivpb 200 ml Med 03/15/25 13:09 Discontinued IV X1 Oxygen Delivery NOW RT 03/15/25 13:06 Active Vital Signs Vital signs: Vital Signs Temperature 98.9 F 03/15/25 12:49 Pulse Rate 58 L 03/15/25 12:49 Respiratory Rate 18 03/15/25 12:49 Blood Pressure 103/73 03/15/25 12:49 Pulse Oximetry (%) 95 03/15/25 12:49 Oxygen Delivery Method Room Air 03/15/25 12:49 Extremity Problem MDM Narrative MDM Narrative:: 64-year-old male patient with significant history of hypertension diabetes mellitus, chronic kidney disease, came in for evaluation regarding left foot left foot left foot left foot infection. According to the patient he noticed it yesterday evening,'s redness to the left lateral foot, this morning noticed puslike drainage, worsening redness, and foul-smelling discharge. Patient denies any fever. Denies any other complaints no medications taken prior to arrival X-ray of the foot showed osteomyelitis of the fifth digit and fifth metatarsal tarsal. CBC showed leukocytosis of 14.1 hemoglobin 12.1 sodium 134, patient's creatinine was elevated 3.3 BUN of 52. Urinalysis no UTI. Chest x-ray came back unremarkable. Ultrasound of the leg arterial, showed no occlusion noted. I personally reviewed and interpreted the x-ray of this patient. There is no acute abnormalities found, no infiltrates no pneumothorax no hemothorax normal chest x-ray. Review of other structures was without significant abnormal findings also. I additionally reviewed the radiologist report and agree with the interpretation. Case discussed with general surgeon on-call, Dr Ramirez, who examined the patient in the emergency room. Thank you Dr. Patient data External records reviewed:: None Clinical information provided by:: patient Social determinants that could affect healthcare access:: none Patient has the following chronic illnesses:: Diabetes mellitus hypertension chronic kidney disease How is presenting disease/condition affected by chronic disease/condition?: exacerbated by Evaluation data The following diagnostics were reviewed and interpreted by me:: lab results, radiology exam(s) and EKG tracing(s) Lab and/or radiology exams considered but not ordered:: None Interpretation Summary: EKG showed paced rhythm, ventricular rate with 60 bpm, no ST segment elevation or depression noted. Medications / Prescriptions Medications or Prescriptions considered but not ordered:: None Medication administrations:: Medication Administration History Discontinued Medications Piperacillin/Tazobactam/Dextrose (Zosyn) 3.375 gm in 50 mls @ 100 mls/hr IV X1 ONE Stop: 03/15/25 13:36 Vancomycin HCl (Vancomycin/Water 1gm Ivpb) 200 mls @ 120 mls/hr IV X1 ONE Stop: 03/15/25 14:48 Lactated Ringer's (Lactated Ringers) 1,000 mls @ 999 mls/hr IV .Q1H1M ONE Stop: 03/15/25 17:04 Zosyn Vanco and IV fluids Consultations Consultation(s) initiated? (list below): Yes Consultation #1 (Physician, Specialty, Details): Dr Ramirez General Surgeon on-call Diagnosis Extremity Problem Differential Diagnosis: cellulitis and lower extremity edema (Diabetic foot gangrene diabetic foot infection) Most likely diagnosis given after review of the tests above:: Diabetic foot infection, chronic kidney disease diabetes mellitus Admission Indicated Admission indicated?: indicated Explain why admission is indicated or not indicated:: For further management Admission Request Was there a request for admission?: Yes Admission Attestation Admission request attestation: Discussed case with [Dr. Fuentes] from Hospitalist service regarding admission. Discussed patients ED course, exam findings, labs, and radiology results. The Hospitalist [agrees,] to accept the patient for admission. Disposition Plan Disposition Plan: Admit Discharge Plan Plan Patient Disposition: Admit Acute Care w/in Hospital Prescriptions/Referrals Prescriptions/Med Rec: No Action aspirin 81 MG tablet,chewable 81 mg PO QDAY Qty: 0 furosemide [Lasix] 40 MG tablet 40 mg PO QDAY Qty: 0 atenolol 50 mg Tablet 50 mg PO QDAY Iron Chews 15 mg tablet,chewable 15 mg PO TID tamsulosin 0.4 mg capsule 0.4 mg PO QDAY pantoprazole 40 mg tablet,delayed release (DR/EC) 40 mg PO QDAY calcitriol 0.5 mcg capsule 0.5 mcg PO DAILY Eliquis 2.5 mg tablet 2.5 mg PO BID amiodarone 200 mg Tablet 200 mg PO BID 30 Days Qty: 60 1RF nicotine 21 mg/24 hr patch 24 hour 21 mg topical 1XD 30 Days Qty: 28 0RF albuterol sulfate 90 mcg/actuation HFA aerosol inhaler 2 puff inhalation QID PRN (Reason: shortness of breath or wheezing) Qty: 8.5 1RF hydroxyzine HCl 25 mg tablet 25 mg PO BID losartan 25 mg Tablet 50 mg PO QDAY Jardiance 25 mg tablet 25 mg PO QAM Qty: 30 2RF Problem List Clinical Impression: Diabetic foot infection, Chronic kidney disease Patient/Caregiver Discharge Instructions Print Language: Mongolian Stand Alone Forms: Sheila Award Info., Patient Portal Info Letter
[2025-03-15 16:49] VITALS: PULSE 60
--- NOTE | 2025-03-15 17:56 | XR_ITS ---
Examination: Arterial duplex lower extremity study. Date and time of exam: March 15, 2025 1846 hours INDICATIONS: History foot osteomyelitis several years, numbness in the fifth digit of the left foot this week Findings: Duplex sonographic imaging of the lower extremity arteries using B-mode/Jean scale imaging and Doppler spectral analysis and color flow. Right common femoral artery demonstrates triphasic flow. Right superficial femoral artery demonstrates triphasic flow. Right popliteal artery demonstrates triphasic flow. Right posterior tibial artery demonstrated triphasic flow. Left common femoral artery demonstrates triphasic flow. Left superficial femoral artery demonstrates triphasic flow. Left popliteal artery demonstrates monophasic flow. Left posterior tibial artery demonstrated monophasic flow. Left peroneal artery demonstrated no flow Impression: Severe left lower extremity peripheral obstructive arterial disease Consider correlation with CTA abdominal aorta iliofemoral runoff post intravenous contrast
--- NOTE | 2025-03-15 18:12 | ESHP_ITS ---
<Statement entered by Tyrese Ramirez MD - 03/15/25 22:20> Patient was examined and case was reviewed with team including attending physician. Note reviewed, I agree with most of its contents and agree with the patient's care as documented by Dr. Sebastian 64-year-old male with past medical history of hypertension, heart failure with preserved ejection fraction [EF 60%], NAHEED, CKD stage IV, sick sinus syndrome status postcardiac pacemaker, PAD, A-fib on Eliquis, GERD, peripheral neuropathy, COPD who presented to the ED due to left foot infection. Per the patient he had a fungal infection in the bilateral lower extremities been going on for months and has had increasing redness and swelling and purulent drainage from the left lower extremity that he did not notice at first his neighbor actually noticed it in the and told him he should come to the ER as the neighbors no one will help him with his wounds. Patient has also been noncompliant with his diabetic medications since around 2 months ago. He used to go to wound care and has previous history of PICC line placement with IV antibiotics. In the ED patient had imaging studies done which showed osteomyelitis of the left lower extremity. ED consulted general surgery for possible intervention in the a.m. Patient was started on IV antibiotics namely vancomycin and cefepime, IV fluids were held in the setting of the patient's heart failure. Wound care was also ordered. Case discussed with my attending Dr. Olive Ramirez MD PGY-2 Disclaimer: Despite multiple revisions, due to the dictation software being used, the document bellow may not be free of grammatical errors including phonetic/typographic errors. However, this does not deter from our commitment to providing health care in the patient's best interest in mind. Documentation for date of: 03/15/25 HPI History of Present Illness History of present illness: 64-year-old male with a complex medical history including COPD, sick sinus syndrome status post pacemaker, heart failure with preserved ejection fraction (EF 60%), obstructive sleep apnea, stage IV chronic kidney disease, peripheral arterial disease, atrial fibrillation on Eliquis, GERD, type 2 diabetes mellitus with peripheral neuropathy, benign hepatic cysts, and status post left nephrectomy, presented to [facility] ED on 03/15/2025, with concern for a left foot infection. The patient reported first noticing the wound the previous evening. He described redness extending from the left lateral foot to the toe, accompanied by purulent drainage. He also endorsed several days of chills and subjective fevers. The patient stated that his neighbor typically assisted with foot care and applied Aquaphor regularly. The neighbor advised him to seek medical attention yesterday, which the patient described as looking like hamburger meat. Notably, he denied any pain because of his neuropathy but does feel some tingling. Patient stated that he had not been taking his diabetes medications since 03/01/2025, reportedly per instructions from his grocery clerk, however unclear how accurate this information is. He reported a history of recurrent fungal infections in both legs, beginning the previous year, which had been managed through a wound care center. He believed that the current wound originated from a fungal rash that had progressively worsened. The patient also reported a prior hospitalization earlier this year for a similar issue. Chart review confirmed that he was admitted on 11/09/2024, for an infected tibial implant in the right lower extremity and bilateral lower extremity cellulitis. Orthopedic surgery, under the care of Dr. Win, was consulted, and the patient underwent removal of plates and screws from the right leg. A PICC line was placed, and he completed a four-week course of intravenous antibiotics. General surgeon on-call, Dr Ramirez, examined the patient in the emergency room. ED Course - Vitals:BP 103/73, HR 58, RR 18, T 98.9F, O2 Sat 95% room air. - Labs: WBC 14.1, hemoglobin 12.1; PT 13.5, INR 1.3, PTT 32.3; sodium 134, potassium 5.1, BUN 52, creatinine 3.3, eGFR 20, glucose 115; AST 6.2, ALT 66, ALP 111; BNP 183; UA negative - Imaging: Chest x-ray showed no lower lumbar pneumonia or pulmonary edema. Foot x-ray showed early osteomyelitis distal fifth metatarsal and proximal phalanx fifth digit. - Treatment: Zosyn 3.375 gm. Review of Systems Review of Systems Narrative Review of Systems: All 13 reivew of systems are negative except as listed above in the HPI. Past Medical History Past Medical History Comments PMH COMMENT: Past Medical History: as above Past Surgical History: left nephrectomy, right knee replacement, back surgery, pacemaker placement. Family History: None. Social History: - Smoking: Smoking since 5 years of age, use to smoke a whole carton a day but now about 1-2 packs a month, last use was a month ago. - Alcohol: occasionally - Illicit drugs: marijuana and methamphetamine - Residence: lives in [place], was on diability and anand he is retired. - Occupation: Current Medications: pending med recs. Allergies: codeine, hives. Exam Vital Signs Temp Pulse Resp BP Pulse Ox O2 Del Method 98.9 F 60 18 103/73 95 Room Air 03/15/25 12:49 03/15/25 16:49 03/15/25 12:49 03/15/25 12:49 03/15/25 12:49 03/15/25 12:49 Narrative Exam Physical Exam General: Awake and in no acute distress. Conversational and non-toxic appearing. HEENT: Normocephalic, atraumatic, mucous membranes moist. Heart: Regular rate and rhythm, no murmurs. Lungs: Clear to auscultation with no wheezing or crackles. Abdomen: Soft, nondistended, nontender, positive bowel sounds. No guarding or rebound tenderness. Neurologic: Alert and oriented x3, no gross neurological deficit, and patient able to move all 4 extremities. Extremities: No edema. Left foot: plantar foot with marked redness, swelling, scaling, thickened discolored toenails and multiple ulcerations with necrotic tissue. Both feet are dry and cracked, marked hyperkeratosis on foot. Results: Labs 03/16/25 05:05 03/16/25 05:05 Labs: Short CBC 03/15/25 Range/Units 13:50 WBC 14.1 H (3.8-10.6) Thou/mm3 Hgb 12.1 L (13.5-16.0) g/dL Hct 39.0 L (41.0-53.0) % Plt Count 308 (140-440) Thou/mm3 BMP 03/15/25 13:50 Sodium 134 L Potassium 5.1 Chloride 103 Carbon Dioxide 21.6 BUN 52 H Creatinine 3.3 H Glucose 115 H Calcium 9.4 Cardiac Enzymes 03/15/25 Range/Units 13:50 Troponin I < 0.020 (0.0-0.045) ng/mL Liver Function 03/15/25 Range/Units 13:50 Total Bilirubin 0.3 (0.3-1.2) mg/dL AST 62 H (0-34) U/L ALT 66 H (10-49) U/L Alkaline Phosphatase 111 (46-116) U/L Albumin 4.0 (3.4-4.8) gm/dL Urine 03/15/25 Range/Units 13:22 Urine Color Lt-Yellow (Lt Yel-Yel) Urine Clarity Clear (Clear/Hazy) Urine pH 6.5 (5.0-7.0) Ur Specific Mcdermitt 1.017 (1.001-1.035) Urine Protein 1+ A (Neg - Trace) Urine Glucose (UA) Negative (Negative) Quality Measures Quality Measures none Advance care planning discussed with:: patient Medications Home Medications and Allergies Home Medications ?Medication ?Instructions ?Recorded ?Confirmed ?Type aspirin 81 mg chewable tablet 81 mg PO QDAY ##0 03/16/25 History furosemide 40 mg tablet (Lasix) 40 mg PO QDAY #0 tabs 07/29/17 03/16/25 History atenolol 50 mg tablet 50 mg PO QDAY 10/18/2103/16 History hydroxyzine HCl 25 mg tablet 25 mg PO BID 11/09/24 History losartan 25 mg tablet 50 mg PO QDAY 11/09/2403/16 History apixaban 2.5 mg tablet (Eliquis) 2.5 mg PO BID 5 03/16/25 History calcitriol 0.5 mcg capsule 0.5 mcg PO DAILY 02/20/25 0 03/16/25 History iron, carbonyl 15 mg chewable 15 mg PO TID 02/20/25 History tablet (Iron Chews) pantoprazole 40 mg tablet,delayed 40 mg PO QDAY 03/16/25 History release tamsulosin 0.4 mg capsule 0.4 mg PO QDAY 02/20/2503/01 History aspirin 81 mg tablet,delayed 81 mg PO QDAY 03/16/25 History release (Enteric Coated Aspirin) ferrous sulfate 325 mg (65 mg 325 mg PO QDAY 03/16/25 03/16/25 History iron) tablet (Iron (ferrous sulfate)) sodium bicarbonate See Rx Instructions PO QDAY 03/16/25 03/16/25 History Allergies Allergy/AdvReac Type Severity Reaction Status Date / Time codeine Allergy Severe Hives Verified 03/15/25 12:13 Visit Medications Acetaminophen (Acetaminophen 325 Mg Tablet) 650 mg PO Q6H PRN PRN Reason: Fever >100.4 Stop: 04/14/25 17:48 Dextrose (Dextrose 50%-Water Inj 50 Ml Syringe) 25 ml IV Q15MIN PRN PRN Reason: BG 50-70 responsive npo pt Stop: 04/14/25 18:05 Dextrose (Dextrose 50%-Water Inj 50 Ml Syringe) 50 ml IV Q15MIN PRN PRN Reason: BG <50 OR BG <70 & pt unresponsive Stop: 04/14/25 18:05 Glucagon (Glucagon Inj 1 Mg Vial) 1 mg IM Q15MIN PRN PRN Reason: BG <70, and no IV access Lactated Ringer's (Lactated Ringers) 1,000 mls @ 75 mls/hr IV .[id number] [facility] Stop: 03/16/25 07:19 Cefepime HCl 1 gm/ Sodium (Chloride) 50 mls @ 100 mls/hr IV Q24H [facility] Stop: 03/22/25 17:59 Insulin Human Lispro (Insulin Lispro (Admelog) 1 Unit/0.01 Ml Unit) 0 unit SC AC [facility]; Protocol Stop: 04/15/25 07:29 Ondansetron HCl (Ondansetron Inj 2 Mg/Ml Inj 2 Ml) 4 mg IVP Q6H PRN; Protocol PRN Reason: NAUSEA OR VOMITING Stop: 04/14/25 17:48 Pantoprazole Sodium (Pantoprazole 40 Mg Tablet) 40 mg PO QDAY [facility] Stop: 04/14/25 17:59 Pharmacy Consult (Vancomycin Pharmacy To Dose 1 Each Each) 1 each IV QDAY [facility] Stop: 04/14/25 18:14 Sennosides (Senna Tablet) 1 tab PO QDAY PRN; Protocol PRN Reason: constipation Stop: 04/14/25 17:48 Discontinued Medications Acetaminophen (Acetaminophen 325 Mg Tablet) 650 mg PO Q6H PRN PRN Reason: Fever >101.5 Stop: 04/14/25 17:48 Piperacillin/Tazobactam/Dextrose (Zosyn) 3.375 gm in 50 mls @ 100 mls/hr IV X1 ONE Stop: 03/15/25 13:36 Vancomycin HCl (Vancomycin/Water 1gm Ivpb) 200 mls @ 120 mls/hr IV X1 ONE Stop: 03/15/25 14:48 Lactated Ringer's (Lactated Ringers) 1,000 mls @ 999 mls/hr IV .Q1H1M ONE Stop: 03/15/25 17:04 Assessment & Plan Plan 64-year-old male with T2DM, peripheral neuropathy, PAD, stage IV CKD, HFpEF, and AFib on apixaban presenting with acute left diabetic foot infection with purulent drainage and early osteomyelitis on foot x-ray. #Left Foot Infection with Early Osteomyelitis Foot x-ray: early osteomyelitis distal fifth metatarsal and proximal phalanx fifth digit. Arterial duplex lower extremity study: severe left lower extremity peripheral obstructive arterial disease. Likely polymicrobial given diabetic foot etiology. Plan: - Empiric broad-spectrum coverage with Cefepime 1 gram (renally dosed) and Vancomycin (pharmacy to dose per levels for MRSA coverage). - Blood cultures ordered. - Plan for surgery tomorrow (03/16) with Dr Ramirez. - NPO after midnight. - Wound care consult for daily dressing changes. - Monitor for systemic signs of infection; adjust antibiotics based on cultures. - Post-op PT referral placed. #Type 2 Diabetes Mellitus with Peripheral Neuropathy Hemoglobin A1c 6.1. Taking Jardiance 25mg daily at home. Plan: - Sliding scale insulin ordered. - Glucose checks #HFpEF (EF 60%) (echo 10/2024) Appears euvolemic at this time. Lungs are clear to auscultation. No lower extremity edema (except for the infected left foot). Plan: - Continued home furosemide 40 mg daily. - Strict I&O's #Stage IV Chronic Kidney Disease Status post left nephrectomy 2013. Follows Dr. [facility]. Cr 3.3, eGFR 20. Patient does not have symptoms of dysuria or CVA tenderness. Plan: -Monitor with daily labs. -Avoid nephrotoxic medications and renally dose medications. -Continued home Tamsulosin 0.4mg daily. #Afib on Eliquis #Sick Sinus Syndrome s/p pacemaker placement Plan: - Held Eliquis for surgery. - Continued home amiodarone 200 mg BID. - Continued home atenolol 50 mg daily. #Tinea pedis Present on bilateral lower legs. Plan: - Topical Clotrimazole 1% BID. Chronic conditions #Hx of benign cystic liver disease. #GERD - Protonix 40 mg daily. #Hx of PAD - Continue home aspirin 81 PO daily. #COPD #NAHEED Plan: - Uses home oxygen occasionally. - Chest x-ray was unremarkable. - If need, start on supplemental oxygen to maintain saturation above 88%. Health Maintenance Disposition: med tele DVT prophylaxis: GI prophylaxis: Protonix Diet: carb consistent low CODE STATUS: FULL Patient plan of care was discussed with the senior resident, Dr. Harrison, and attending physician, Dr. Schaefer. Sorin Sebastian DO PGY-1 Attending Provider Attestation/Addendum I, Parris Schaefer DO, attest that I was physically present for the troncoso portions of the service and evaluated the patient with the resident and I reviewed and discussed the case with the resident and agree with the resident's findings and plans of care as documented above Patient is a 64-year-old male with past medical history of COPD, sick sinus syndrome, A-fib on Eliquis, heart failure preserved ejection fraction, NAHEED, stage IV CKD, PAD and type 2 diabetes with diabetic neuropathy who presented to the ED due to worsening of left foot infection. Patient states that it was noted about 2 days ago. Patient states his neighbor takes care of him and was helping him put on his compression socks when he noticed that his lateral left foot appeared to have an infected ulcer with malodor. There was purulent drainage as well. Patient had previously been treated with long-term PICC line and IV antibiotics for his right lower extremity due to an infected right lower extremity tibial implant. In the ED, a foot x-ray had been done showing early osteomyelitis of the distal fifth metatarsal and proximal phalanx of the fifth digit. ESR is significantly elevated at greater than 130. He has a leukocytosis of 14.1. Creatinine of 3.3 which is around his baseline. Patient denies any fevers or chills. Surgeon was called from ED and plans for debridement of the ulcer. Patient has some scattered excoriations on his bilateral lower extremities which he states he tends to scratch. There appears to be a fungal rash in his left inguinal region and lymphadenopathy and has medial left thigh that is palpable. Patient appears to have poor hygiene. Will hold his Eliquis at this time due to anticipated surgical intervention. Will place patient on vancomycin and cefepime for broad-spectrum antibiotics at this time. [place] [facility] [place] [facility] [place] and medical management of infected diabetic foot ulcer. Will obtain ultrasound arterial of bilateral lower extremities to assess for possible PAD.
[2025-03-15] MEDS: PIPER/TAZO 3.375 GM PREMIX 3.375 GM/50 ML BAG IV (18:32)
[2025-03-15] MEDS: PANTOPRAZOLE 40 MG TABLET PO (18:34)
[2025-03-15 18:37] VITALS: BP 119/78; PULSE 61; RESP 18; TEMP 36.7; O2SAT 96
[2025-03-15 18:56] LABS: Glucose Estimated Average 128 mg/dL (80-131); Hemoglobin A1C 6.1 % Hgb (4.8-6.0)
[2025-03-15] MEDS: CEFEPIME INJ 1 GM in SODIUM CHLORIDE 0.9% (Popper) 50 ML IV (19:12)
[2025-03-15 19:37] VITALS: PULSE 63; RESP 16; RESP 93
[2025-03-15] MEDS: VANCOMYCIN/WATER 1GM IVPB 200 ML IV (19:46)
[2025-03-15] MEDS: RINGERS LACTATED 1000 ML 1,000 ML 999 ML IV (19:49)
[2025-03-15 20:29] LABS: Sed Rate (ESR) > 130 mm/hr (0-20)
[2025-03-15 21:19] VITALS: BP 95/59; PULSE 60; PULSE 75; RESP 18; RESP 20; RESP 99; TEMP 36.9; O2SAT 97; BMI 34.7
[2025-03-15 22:35] LABS: C-Reactive Protein 17.1 mg/dL (0.0-0.9)
[2025-03-16] VITALS (13 sets, daily range): BP systolic 103–118; BP diastolic 64–82; PULSE 60–81; RESP 15–96; TEMP 36.2–36.8; O2SAT 92–96
--- NOTE | 2025-03-16 05:15 | PC.NURSE ---
called Dr. Donnelly regarding patient is NPO since midnight to change blood glucose checks to Q6. Per dr. Donnelly will put order in.
[2025-03-16 05:49] LABS: Sed Rate (ESR) 116 mm/hr (0-20)
[2025-03-16 05:56] LABS: Basophils # (Auto) 0.1 Thou/mm3 (0.0-0.2); Basophils % (Auto) 1 % (0-2.5); Eosinophils # (Auto) 0.4 Thou/mm3 (0.0-0.5); Eosinophils % (Auto) 4 % (0-10); Hematocrit 34.2 % (41.0-53.0); Hemoglobin 10.5 g/dL (13.5-16.0); Immature Granulocytes Auto 0.26 Thou/mm3 (0.00-0.00); Lymphocytes # (Auto) 1.4 Thou/mm3 (1.0-4.8); Lymphocytes % (Auto) 13 % (10-50); Mean Corpuscular HGB Conc 30.7 g/dl (31.0-37.0); Mean Corpuscular Hemoglobin 27.0 pg (25.0-35.0); Mean Corpuscular Volume 88 fL (80-100); Monocytes # (Auto) 0.8 Thou/mm3 (0.0-0.8); Monocytes % (Auto) 8 % (0-12); Neutrophils # (Auto) 7.4 Thou/mm3 (1.8-7.7); Neutrophils % (Auto) 72 % (37-80); Nucleated Red Blood Cell # 0.00 Thou/mm3 (0.00-0.00); Nucleated Red Blood Cell % 0 /100 WBC (0); Platelet Count 275 Thou/mm3 (140-440); RDW Standard Deviation 47.8 fL (35.1-43.9); Red Blood Count 3.89 Miln/mm3 (4.50-5.90); White Blood Count 10.3 Thou/mm3 (3.8-10.6)
[2025-03-16 06:01] LABS: INR 1.3 (0.9-1.3); Partial Thromboplastin Time 33.0 Seconds (22.0-36.0); Prothrombin Time 13.8 Seconds (9.0-12.2)
[2025-03-16 06:35] LABS: Alanine Aminotransferase 51 U/L (10-49); Albumin, Serum 3.3 gm/dL (3.4-4.8); Albumin/Globulin Ratio 0.9 (1.2-2.2); Alkaline Phosphatase 91 U/L (46-116); Anion Gap 12 (7-16); Aspartate Amino Transferase 42 U/L (0-34); BUN/Creatinine Ratio 18 Ratio (12-20); Bilirubin,Total 0.3 mg/dL (0.3-1.2); Blood Urea Nitrogen 59 mg/dL (9-23); Calcium 9.3 mg/dL (8.3-10.6); Calcium (Corrected) 9.9 mg/dL (8.5-10.1); Carbon Dioxide 21.5 mMol/L (20.0-31.0); Cardiac Risk Estimate 3.7 RATIO (4.0-6.7); Chloride 106 mMol/L (98-107); Cholesterol 66 mg/dL (132-200); Creatinine (Component) 3.2 mg/dL (0.6-1.3); Estimated Creatinine Clearance 28.2 mL/min (>60); Globulin 3.8 gm/dL (2.3-3.5); Glucose 93 mg/dL (74-106); HDL Cholesterol 18 mg/dL (40-60); LDL Cholesterol,Calculated 33 mg/dL (0-130); Magnesium 1.6 mg/dL (1.6-2.6); Osmolality,Calculated 294 (275-295); Phosphorous 4.7 mg/dL (2.4-5.1); Potassium 5.1 mMol/L (3.4-5.1); Sodium 139 mMol/L (136-145); Total Protein 7.1 gm/dL (5.7-8.2); Triglycerides 76 mg/dL (30-150); eGFR 21 See Note
[2025-03-16] MEDS: TAMSULOSIN HCL 0.4 MG CAPSULE PO (09:06)
[2025-03-16] MEDS: AMIODARONE HCL 200 MG TABLET PO ×2 (09:11→21:30)
[2025-03-16] MEDS: Magnesium Sulfate 2 GM Ivpb 2 GM/50 ML BAG IV (09:12)
[2025-03-16] MEDS: PANTOPRAZOLE 40 MG TABLET PO (09:12)
--- NOTE | 2025-03-16 11:16 | PC.SS ---
Tani Yuan is a 64 year-old male admitted to [facility] for Osteomyelitis. SS conducted bedside contact with the patient to complete initial assessment and to discuss discharge planning. Role and reason explained. Patient confirmed demographic information. Patient identifies his friend Rosalinda Fuentes [phone] ?as his surrogate decision maker. Pt states he is able to complete all ADL?s independently, but his neighbor who he pays oop comes and assist with needs if necessary. Pt has a rollator walker, cane and O2 concentrator and tanks from [employer]. Pts PCP is José Miguel (last visit was this month). Pharmacy of choice is [facility]. Discharge options discussed and the pt wishes to return home, pt does not have anyone that is comfortable helping with IV at home, so if [facility]ci IV ABX is needed pt is open to SNF (not [facility]).? Pt family/friends will provide transport. No further intervention required at this time, social service worker would be available to address any further concerns. DC Plan: Home Contact: FriendRosalinda Address: Confirmed on face sheet PCP: José Miguel
--- NOTE | 2025-03-16 13:20 | ESPR_ITS ---
<Statement entered by Tyrese Ramirez MD - 03/16/25 13:47> Patient was examined and case was reviewed with team including attending physician. Note reviewed, I agree with most of its contents and agree with the patient's care as documented by Dr. Sanchez Patient seen today at the bedside found awake, alert, orientedx3. No overnight events reported. Vitals and labs reviewed. Patient has no active complaints at this time. Pending general surgery recommendations in regards to surgical intervention of the left lower extremity. Wound care was also ordered. Will continue on IV antibiotics at this time as well as IV hydration. Case discussed with my attending Dr. Olive Ramirez MD PGY-2 Disclaimer: Despite multiple revisions, due to the dictation software being used, the document bellow may not be free of grammatical errors including phonetic/typographic errors. However, this does not deter from our commitment to providing health care in the patient's best interest in mind. Documentation for date of: 03/16/25 Subjective Subjective Interval history: NAEO. VSS. Exam Vital Signs Temp Pulse Resp BP Pulse Ox O2 Del Method 97.8 F 81 20 111/68 95 Room Air 03/16/25 08:00 03/16/25 09:12 03/16/25 08:27 03/16/25 09:12 03/16/25 08:00 03/16/25 08:00 Narrative Exam General: Awake and in no acute distress. Conversational and non-toxic appearing. HEENT: Normocephalic, atraumatic, mucous membranes moist. Heart: Regular rate and rhythm, no murmurs. Lungs: Clear to auscultation with no wheezing or crackles. Abdomen: Soft, nondistended, nontender, positive bowel sounds. No guarding or rebound tenderness. Neurologic: Alert and oriented x3, no gross neurological deficit, and patient able to move all 4 extremities. Extremities: No edema. Left foot: plantar foot with marked redness, swelling, scaling, thickened discolored toenails and multiple ulcerations with necrotic tissue. Both feet are dry and cracked, marked hyperkeratosis on foot. Objective Labs 03/16/25 05:05 03/16/25 05:05 Labs: Laboratory Results - last 24 hr 03/15/25 03/15/25 03/16/25 13:22 13:50 05:05 WBC 14.1 H 10.3 RBC 4.53 3.89 L Hgb 12.1 L 10.5 L Hct 39.0 L 34.2 L MCV 86 88 MCH 26.7 27.0 MCHC 31.0 30.7 L RDW Std Deviation 46.4 H 47.8 H Plt Count 308 275 D Neut % (Auto) 79 72 Lymph % (Auto) 9 L 13 [place] % (Auto) 7 8 Eos % (Auto) 2 4 Baso % (Auto) 1 1 Neut # (Auto) 11.2 H 7.4 Lymph # (Auto) 1.3 1.4 [place] # (Auto) 0.9 H 0.8 Eos # (Auto) 0.3 0.4 Baso # (Auto) 0.1 0.1 Immature Gran # (Auto) 0.35 H 0.26 H Absolute Nucleated RBC 0.00 0.00 Immature Gran % 3 H 3 H Nucleated RBC % 0 0 ESR > 130 H 116 H PT 13.5 H 13.8 H INR 1.3 1.3 APTT 32.3 D 33.0 Sodium 134 L 139 Potassium 5.1 5.1 Chloride 103 106 Carbon Dioxide 21.6 21.5 Anion Gap 9 12 BUN 52 H 59 H Creatinine 3.3 H 3.2 H Estim Creat Clear Calc 26.4 L 28.2 L eGFR 20 L 21 L BUN/Creatinine Ratio 16 18 Glucose [address] Glu mg/dL 128 Hemoglobin A1c 6.1 H Calculated Osmolality 283 294 Lactic Acid 1.5 Calcium 9.4 9.3 Corrected Calcium 9.4 9.9 Phosphorus 4.0 4.7 Magnesium 1.9 1.6 Total Bilirubin 0.3 0.3 AST 62 H 42 H ALT 66 H 51 H Alkaline Phosphatase 111 91 D Lactate Dehydrogenase 187 Troponin I < 0.020 C-Reactive Prot, Quant 17.1 H B-Natriuretic Peptide 183 H Total Protein 8.5 H 7.1 Albumin 4.0 3.3 L D Globulin 4.5 H 3.8 H Albumin/Globulin Ratio 0.9 L 0.9 L Triglycerides 76 Cholesterol 66 L LDL Cholesterol, Calc 33 HDL Cholesterol 18 L Cholesterol/HDL Ratio 3.7 L Lipase 77 H Procalcitonin 0.40 Ur Collection Type Clean Catch Urine Color Lt-Yellow Urine Clarity Clear Urine pH 6.5 Ur Specific [place] 1.017 Urine Protein 1+ A Urine Glucose (UA) Negative Urine Ketones Negative Urine Blood Negative Urine Nitrite Negative Urine Bilirubin Negative Urine Urobilinogen (Auto) Negative Ur Leukocyte Esterase Negative Urine RBC 1 Urine WBC 1 Ur Squamous Epith Cells 0 Urine Bacteria None Quality Measures Quality Measures none Advance care planning discussed with:: patient Assessment & Plan Assessment Current Active Medications: Generic Name Dose Route Start Last Admin Trade Name Freq PRN Reason Stop Dose Admin Acetaminophen 650 mg 03/15/25 18:06 Acetaminophen 325 Mg Tablet PO 04/14/25 17:48 Q6H PRN Fever >100.4 Amiodarone HCl 200 mg 03/16/25 09:00 03/16/25 09:11 Amiodarone Hcl 200 Mg Tablet PO 04/15/25 08:59 200 mg BID BELEN Administration Aspirin 81 mg 03/16/25 09:00 03/16/25 09:04 Aspirin 81 Mg Chew PO 04/15/25 08:59 Not Given QDAY BELEN Atenolol 50 mg 03/16/25 09:00 03/16/25 09:06 Atenolol 25 Mg Tablet PO 04/15/25 08:59 50 mg QDAY BELEN Administration Clotrimazole 0 gm 03/15/25 21:00 03/16/25 09:16 Clotrimazole Cr 1% 30 Gm Tube TOP 04/14/25 20:59 Not Given BID BELEN Dextrose 25 ml 03/15/25 18:06 Dextrose 50%-Water Inj 50 Ml Syringe IV 04/14/25 18:05 Q15MIN PRN BG 50-70 responsive npo pt Dextrose 50 ml 03/15/25 18:06 Dextrose 50%-Water Inj 50 Ml Syringe IV 04/14/25 18:05 Q15MIN PRN BG <50 OR BG <70 & pt unresponsive Furosemide 40 mg 03/16/25 09:00 03/16/25 09:12 Furosemide 40 Mg Tablet PO 04/15/25 08:59 40 mg QDAY [facility] Administration Glucagon 1 mg 03/15/25 18:06 Glucagon Inj 1 Mg Vial IM Q15MIN PRN BG <70, and no IV access Lactated Ringer's 1,000 mls @ 75 mls/hr 03/15/25 18:00 03/15/25 23:07 Lactated Ringers IV Not Given .[id number] BELEN Cefepime HCl 1 gm/ Sodium 50 mls @ 100 mls/hr 03/15/25 18:00 03/15/25 19:42 Chloride IV 03/22/25 17:59 Infused Q24H [facility] Infusion Vancomycin HCl/Dextrose 250 mls @ 120 mls/hr 03/16/25 15:00 Vancomycin/D5w 1,250 Mg Ivpb IV 03/23/25 14:59 DAILY@1000 [facility] Insulin Human Lispro 0 unit 03/16/25 05:30 03/16/25 12:10 Insulin Lispro (Admelog) 1 Unit/0.01 Ml Unit SC 04/15/25 05:29 Not Given Q6HR [facility] Protocol Ondansetron HCl 4 mg 03/15/25 17:49 Ondansetron Inj 2 Mg/Ml Inj 2 Ml IVP 04/14/25 17:48 Q6H PRN NAUSEA OR VOMITING Protocol Pantoprazole Sodium 40 mg 03/15/25 18:00 03/16/25 09:12 Pantoprazole 40 Mg Tablet PO 04/14/25 17:59 40 mg QDAY [facility] Administration Pharmacy Consult 1 each 03/15/25 18:15 03/16/25 09:12 Vancomycin Pharmacy To Dose 1 Each Each IV 04/14/25 18:14 Not Given QDAY [facility] Sennosides 1 tab 03/15/25 17:49 Senna Tablet PO 04/14/25 17:48 QDAY PRN constipation Protocol Tamsulosin HCl 0.4 mg 03/16/25 09:00 03/16/25 09:06 Tamsulosin Hcl 0.4 Mg Capsule PO 04/15/25 08:59 0.4 mg QDAY [facility] Administration Plan 64-year-old male with T2DM, peripheral neuropathy, PAD, stage IV CKD, HFpEF, and AFib on apixaban presenting with acute left diabetic foot infection with purulent drainage and early osteomyelitis on foot x-ray. #Left Foot Infection with Early Osteomyelitis Foot x-ray: early osteomyelitis distal fifth metatarsal and proximal phalanx fifth digit. Arterial duplex lower extremity study: severe left lower extremity peripheral obstructive arterial disease. Likely polymicrobial given diabetic foot etiology. Plan: - Plan for surgery today with Dr Ramirez. Already NPO - Empiric broad-spectrum coverage with Cefepime 1 gram (renally dosed) and Vancomycin (pharmacy to dose per levels for MRSA coverage). - Blood cultures ordered. - Wound care consult for daily dressing changes. - Monitor for systemic signs of infection; adjust antibiotics based on cultures. - Post-op PT referral placed. #Type 2 Diabetes Mellitus with Peripheral Neuropathy Hemoglobin A1c 6.1. Taking Jardiance 25mg daily at home. Plan: - Sliding scale insulin ordered. - Glucose checks #HFpEF (EF 60%) (echo 10/2024) Appears euvolemic at this time. Lungs are clear to auscultation. No lower extremity edema (except for the infected left foot). Plan: - Continued home furosemide 40 mg daily. - Strict I&O's #Stage IV Chronic Kidney Disease Status post left nephrectomy 2013. Follows Dr. [facility]. Cr 3.3, eGFR 20. Patient does not have symptoms of dysuria or CVA tenderness. Plan: -Monitor with daily labs. -Avoid nephrotoxic medications and renally dose medications. -Continued home Tamsulosin 0.4mg daily. #Afib on Eliquis #Sick Sinus Syndrome s/p pacemaker placement Plan: - Held Eliquis for surgery. - Continued home amiodarone 200 mg BID. - Continued home atenolol 50 mg daily. #Tinea pedis Present on bilateral lower legs. Plan: - Topical Clotrimazole 1% BID. #Transaminitis - downtrending Plan: -CTM with daily CMP Chronic conditions #Hx of benign cystic liver disease. #GERD - Protonix 40 mg daily. #Hx of PAD - Continue home aspirin 81 PO daily. #COPD #NAHEED Plan: - Uses home oxygen occasionally. - Chest x-ray was unremarkable. - If need, start on supplemental oxygen to maintain saturation above 88%. Health Maintenance Disposition: med tele DVT prophylaxis: held i/s/o surgery today GI prophylaxis: Protonix Diet: carb consistent low CODE STATUS: FULL Plan discussed with Dr. Fuentes and Dr. Olive Sanchez MD PGY1 Attending Provider Attestation/Addendum I, Parris Schaefer DO, attest that I was physically present for the troncoso portions of the service and evaluated the patient with the resident and I reviewed and discussed the case with the resident and agree with the resident's findings and plans of care as documented above Patient seen and evaluated this AM. He states that he is nervous, no acute events overnight otherwise. Patient is pending debridement of left foot ulcer. He otherwise denies any fevers, chills, nausea, vomiting. Continue with broad spectrum antibiotics at this time. He remains NPO
[2025-03-16] MEDS: VANCOMYCIN/D5W 1,250 MG IVPB 250 ML 120 MG IV (15:10)
[2025-03-16] MEDS: CEFEPIME INJ 1 GM in SODIUM CHLORIDE 0.9% (Popper) 50 ML IV (18:13)
[2025-03-17] VITALS (17 sets, daily range): BP systolic 93–125; BP diastolic 61–91; PULSE 60–76; RESP 15–95; TEMP 36.1–36.4; O2SAT 92–98
[2025-03-17 06:24] LABS: Basophils # (Auto) 0.1 Thou/mm3 (0.0-0.2); Basophils % (Auto) 1 % (0-2.5); Eosinophils # (Auto) 0.6 Thou/mm3 (0.0-0.5); Eosinophils % (Auto) 6 % (0-10); Hematocrit 36.5 % (41.0-53.0); Hemoglobin 11.2 g/dL (13.5-16.0); Immature Granulocytes Auto 0.27 Thou/mm3 (0.00-0.00); Lymphocytes # (Auto) 1.3 Thou/mm3 (1.0-4.8); Lymphocytes % (Auto) 13 % (10-50); Mean Corpuscular HGB Conc 30.7 g/dl (31.0-37.0); Mean Corpuscular Hemoglobin 26.7 pg (25.0-35.0); Mean Corpuscular Volume 87 fL (80-100); Monocytes # (Auto) 0.6 Thou/mm3 (0.0-0.8); Monocytes % (Auto) 6 % (0-12); Neutrophils # (Auto) 7.2 Thou/mm3 (1.8-7.7); Neutrophils % (Auto) 72 % (37-80); Nucleated Red Blood Cell # 0.00 Thou/mm3 (0.00-0.00); Nucleated Red Blood Cell % 0 /100 WBC (0); Platelet Count 326 Thou/mm3 (140-440); RDW Standard Deviation 47.3 fL (35.1-43.9); Red Blood Count 4.19 Miln/mm3 (4.50-5.90); White Blood Count 10.0 Thou/mm3 (3.8-10.6)
[2025-03-17 06:52] LABS: Alanine Aminotransferase 60 U/L (10-49); Albumin, Serum 3.4 gm/dL (3.4-4.8); Albumin/Globulin Ratio 0.8 (1.2-2.2); Alkaline Phosphatase 102 U/L (46-116); Anion Gap 11 (7-16); Aspartate Amino Transferase 60 U/L (0-34); BUN/Creatinine Ratio 18 Ratio (12-20); Bilirubin,Total 0.2 mg/dL (0.3-1.2); Blood Urea Nitrogen 55 mg/dL (9-23); Calcium 9.1 mg/dL (8.3-10.6); Calcium (Corrected) 9.6 mg/dL (8.5-10.1); Carbon Dioxide 20.5 mMol/L (20.0-31.0); Chloride 106 mMol/L (98-107); Creatinine (Component) 3.1 mg/dL (0.6-1.3); Estimated Creatinine Clearance 29.1 mL/min (>60); Globulin 4.1 gm/dL (2.3-3.5); Glucose 106 mg/dL (74-106); Magnesium 2.3 mg/dL (1.6-2.6); Osmolality,Calculated 288 (275-295); Phosphorous 4.8 mg/dL (2.4-5.1); Potassium 5.0 mMol/L (3.4-5.1); Sodium 137 mMol/L (136-145); Total Protein 7.5 gm/dL (5.7-8.2); eGFR 21 See Note
--- NOTE | 2025-03-17 09:04 | ESPR_ITS ---
<Statement entered by Tyrese Ramirez MD - 03/17/25 12:23> Patient was examined and case was reviewed with team including attending physician. Note reviewed, I agree with most of its contents and agree with the patient's care as documented by MS Sage Stewart Patient seen today at the bedside found awake, alert, orientedx3. No overnight events reported. Vitals and labs reviewed. Patient scheduled to go to the OR today with general surgery in regards to his left lower extremity osteomyelitis. Will continue IV antibiotics at this time and continue to maintain tight blood sugar control. Case discussed with my attending Dr. Olive Ramirez MD PGY-2 Disclaimer: Despite multiple revisions, due to the dictation software being used, the document bellow may not be free of grammatical errors including phonetic/typographic errors. However, this does not deter from our commitment to providing health care in the patient's best interest in mind. Documentation for date of: 03/17/25 Subjective Subjective Interval history: pt is seen at bedside and is alert and oriented x4. pt is notified that he will be undergoing a procedure of his left foot by Dr. Ramirez. pt was worried about his renal function and was notified that his current labs are at baseline. Pt does not have any further questions or concerns at this time. Exam Vital Signs Temp Pulse Resp BP Pulse Ox O2 Del Method 97.4 F 61 18 125/84 95 Room Air 03/17/25 08:00 03/17/25 08:00 03/17/25 08:00 03/17/25 08:00 03/17/25 08:00 03/17/25 08:00 Narrative Exam General: Awake and in no acute distress. Conversational and non-toxic appearing. HEENT: Normocephalic, atraumatic, mucous membranes moist. Heart: Regular rate and rhythm, no murmurs. Lungs: Clear to auscultation with no wheezing or crackles. Abdomen: Soft, nondistended, nontender, positive bowel sounds. No guarding or rebound tenderness. Neurologic: Alert and oriented x3, no gross neurological deficit, and patient able to move all 4 extremities. Extremities: No edema. Left foot: plantar foot with marked redness, swelling, scaling, thickened discolored toenails and multiple ulcerations with necrotic tissue. Both feet are dry and cracked, marked hyperkeratosis on foot. Objective Objective Narrative Objective Narrative: pt is alert and oriented x4. pt has clear breath sounds bilaterally and cardiac exam shows regular rate and rhythm w/o murmur. pt is nontender and nondistended. Labs 03/17/25 05:30 03/17/25 05:30 Labs: Laboratory Results - last 24 hr 03/17/25 05:30 WBC 10.0 RBC 4.19 L Hgb 11.2 L Hct 36.5 L MCV 87 MCH 26.7 MCHC 30.7 L RDW Std Deviation 47.3 H Plt Count 326 D Neut % (Auto) 72 Lymph % (Auto) 13 [place] % (Auto) 6 Eos % (Auto) 6 Baso % (Auto) 1 Neut # (Auto) 7.2 Lymph # (Auto) 1.3 [place] # (Auto) 0.6 Eos # (Auto) 0.6 H Baso # (Auto) 0.1 Immature Gran # (Auto) 0.27 H Absolute Nucleated RBC 0.00 Immature Gran % 3 H Nucleated RBC % 0 Sodium 137 Potassium 5.0 Chloride 106 Carbon Dioxide 20.5 Anion Gap 11 BUN 55 H Creatinine 3.1 H Estim Creat Clear Calc 29.1 L eGFR 21 L BUN/Creatinine Ratio 18 Glucose 106 Calculated Osmolality 288 Calcium 9.1 Corrected Calcium 9.6 Phosphorus 4.8 Magnesium 2.3 Total Bilirubin 0.2 L AST 60 H ALT 60 H Alkaline Phosphatase 102 Total Protein 7.5 Albumin 3.4 Globulin 4.1 H Albumin/Globulin Ratio 0.8 L Quality Measures Quality Measures none Advance care planning discussed with:: patient Assessment & Plan Assessment Current Active Medications: Generic Name Dose Route Start Last Admin Trade Name Freq PRN Reason Stop Dose Admin Acetaminophen 650 mg 03/15/25 18:06 Acetaminophen 325 Mg Tablet PO 04/14/25 17:48 Q6H PRN Fever >100.4 Amiodarone HCl 200 mg 03/16/25 09:00 03/16/25 21:30 Amiodarone Hcl 200 Mg Tablet PO 04/15/25 08:59 200 mg BID BELEN Administration Aspirin 81 mg 03/16/25 09:00 03/16/25 09:04 Aspirin 81 Mg Chew PO 04/15/25 08:59 Not Given QDAY BELEN Atenolol 50 mg 03/16/25 09:00 03/16/25 09:06 Atenolol 25 Mg Tablet PO 04/15/25 08:59 50 mg QDAY BELEN Administration Clotrimazole 0 gm 03/15/25 21:00 03/16/25 21:30 Clotrimazole Cr 1% 30 Gm Tube TOP 04/14/25 20:59 Not Given BID BELEN Dextrose 25 ml 03/15/25 18:06 Dextrose 50%-Water Inj 50 Ml Syringe IV 04/14/25 18:05 Q15MIN PRN BG 50-70 responsive npo pt Dextrose 50 ml 03/15/25 18:06 Dextrose 50%-Water Inj 50 Ml Syringe IV 04/14/25 18:05 Q15MIN PRN BG <50 OR BG <70 & pt unresponsive Furosemide 40 mg 03/16/25 09:00 03/16/25 09:12 Furosemide 40 Mg Tablet PO 04/15/25 08:59 40 mg QDAY BELEN Administration Glucagon 1 mg 03/15/25 18:06 Glucagon Inj 1 Mg Vial IM Q15MIN PRN BG <70, and no IV access Heparin Sodium (Porcine) 5,000 unit 03/16/25 15:00 03/16/25 21:31 Heparin Sod Inj 5000 Unit/Ml Vial SC 03/30/25 14:59 Not Given BID BELEN Cefepime HCl 1 gm/ Sodium 50 mls @ 100 mls/hr 03/15/25 18:00 03/16/25 18:13 Chloride IV 03/22/25 17:59 100 mls/hr Q24H [facility] Administration Vancomycin HCl/Dextrose 250 mls @ 120 mls/hr 03/16/25 15:00 03/16/25 15:10 Vancomycin/D5w 1,250 Mg Ivpb IV 03/23/25 14:59 120 mls/hr DAILY@1000 [facility] Administration Insulin Human Lispro 0 unit 03/16/25 05:30 03/17/25 06:45 Insulin Lispro (Admelog) 1 Unit/0.01 Ml Unit SC 04/15/25 05:29 Not Given Q6HR [facility] Protocol Ondansetron HCl 4 mg 03/15/25 17:49 Ondansetron Inj 2 Mg/Ml Inj 2 Ml IVP 04/14/25 17:48 Q6H PRN NAUSEA OR VOMITING Protocol Pantoprazole Sodium 40 mg 03/15/25 18:00 03/16/25 09:12 Pantoprazole 40 Mg Tablet PO 04/14/25 17:59 40 mg QDAY [facility] Administration Pharmacy Consult 1 each 03/15/25 18:15 03/16/25 09:12 Vancomycin Pharmacy To Dose 1 Each Each IV 04/14/25 18:14 Not Given QDAY [facility] Sennosides 1 tab 03/15/25 17:49 Senna Tablet PO 04/14/25 17:48 QDAY PRN constipation Protocol Tamsulosin HCl 0.4 mg 03/16/25 09:00 03/16/25 09:06 Tamsulosin Hcl 0.4 Mg Capsule PO 04/15/25 08:59 0.4 mg QDAY [facility] Administration Plan 64-year-old male with T2DM, peripheral neuropathy, PAD, stage IV CKD, HFpEF, and AFib on apixaban presenting with acute left diabetic foot infection with purulent drainage and early osteomyelitis on foot x-ray. #Left Foot Infection with Early Osteomyelitis Foot x-ray: early osteomyelitis distal fifth metatarsal and proximal phalanx fifth digit. Arterial duplex lower extremity study: severe left lower extremity peripheral obstructive arterial disease. Likely polymicrobial given diabetic foot etiology. Plan: - Plan for surgery today with Dr Ramirez. Already NPO - Empiric broad-spectrum coverage with Cefepime 1 gram (renally dosed) and Vancomycin (pharmacy to dose per levels for MRSA coverage). - Blood cultures ordered. - Wound care consult for daily dressing changes. - Monitor for systemic signs of infection; adjust antibiotics based on cultures. - Post-op PT referral placed. #Type 2 Diabetes Mellitus with Peripheral Neuropathy Hemoglobin A1c 6.1. Taking Jardiance 25mg daily at home. Plan: - Sliding scale insulin ordered. - Glucose checks #HFpEF (EF 60%) (echo 10/2024) Appears euvolemic at this time. Lungs are clear to auscultation. No lower extremity edema (except for the infected left foot). Plan: - Continued home furosemide 40 mg daily. - Strict I&O's #Stage IV Chronic Kidney Disease Status post left nephrectomy 2013. Follows Dr. [facility]. Cr 3.3, eGFR 29. Pt's values are near baseline. Patient does not have symptoms of dysuria or CVA tenderness. Plan: -Monitor with daily labs. -Avoid nephrotoxic medications and renally dose medications. -Continued home Tamsulosin 0.4mg daily. #Afib on Eliquis #Sick Sinus Syndrome s/p pacemaker placement Plan: - Held Eliquis for surgery. - Continued home amiodarone 200 mg BID. - Continued home atenolol 50 mg daily. #Tinea pedis Present on bilateral lower legs. Plan: - Topical Clotrimazole 1% BID. #Transaminitis - downtrending Pt's AST/ALT slightly uptending. AST 42-> 60. ALT 51 -> 60. Plan: -CTM with daily CMP Chronic conditions #Hx of benign cystic liver disease. #GERD - Protonix 40 mg daily. #Hx of PAD - Continue home aspirin 81 PO daily. #COPD #NAHEED Case discussed with my senior Dr. Fuentes and my attending Dr. Olive Stewart MS Attending Provider Attestation/Addendum I, Parris Schaefer, , attest that I was physically present for the troncoso portions of the service and evaluated the patient with the resident and I reviewed and discussed the case with the resident and agree with the resident's findings and plans of care as documented above Patient seen and evaluated this afternoon post op s/p amputation of the fifth toe left foot at the metatarsal head. Patient tolerated procedure well. He denies any pain or shortness of breath. No acute events overnight. Patient has been afebrile. Will DC vancomycin as source of infection has been removed. Will switch to doxycyline.
--- NOTE | 2025-03-17 09:35 | PC.NURSE ---
Spoke with Oracio MACHADO from surgery. Wil to administer amiodarone and atenolol per anesthesia and send Vanco dose down to sx
[2025-03-17] MEDS: AMIODARONE HCL 200 MG TABLET PO ×2 (09:42→20:18)
--- NOTE | 2025-03-17 10:21 | PD.SURCONS ---
[facility] Consult details Consult date: 03/15/25 Reason for consultation narrative: Patient was seen in consultation for abscess and swelling over the left little toe when he arrived in the emergency room. History of present illness: History of present illness revealed that the patient has noticed it recently only but he said it may be there for a long time. He started noticing drainage and redness but no pain. Patient is a diabetic and has a peripheral neuropathy and therefore did not notice however the left foot was. He also developed redness over the left foot. Patient's past medical history revealed that had a numerous medical problem including arteriosclerotic heart disease with sick sinus syndrome for which she had a pacemaker implantation, hypertension, chronic kidney disease, atrial fibrillation with Eliquis No. 4 fungal infection of both the feet for which she was treated at the wound care center. Patient's past surgery consisted of removal of the plates recently from the right leg. And a pacemaker insertion. Patient's other problem consisted of pneumonia, history of cardiomyopathy and syncopal episode and sepsis Past Medical History Past Medical History NEUROLOGIC: Positive Migraine; Negative Neurological Disorders or Seizures CARDIAC: Positive Cardiac Disorders, Atrial Fibrillation, Hypercholesterolemia, Congestive Heart Failure and Hypertension RESPIRATORY: Positive Chronic Obstructive Pulmonary Disease (COPD), Asthma, Pneumonia and Sleep Apnea GASTROINTESTINAL: Positive Gastrointestinal Disorders, Gastroesophageal Reflux Disease and Obesity; Negative Hepatitis GENITOURINARY: Positive Genitourinary Disorders, Renal Disease, Kidney Stones and Benign Prostatic Hyperplasia MUSCULOSKELETAL: Positive Musculoskeletal Disorders and Fractures ENDOCRINE: Positive Endocrine Disorders and Diabetes Mellitus Type 2; Negative Diabetes Mellitus Type 1 HEMATOLOGIC: Positive Blood Disorders and Anemia PSYCHO/SOCIAL: Positive Recreational Drug Use, Depression and Anxiety OTHER HISTORY: Positive Hospitalization, Blood Transfusions and Measles; Negative Autoimmune Disease, Down Syndrome, Developmental Delay, Shingles, Falls, Blood Transfusion Reaction, Anesthesia Reactions, Organ Transplant, Chemotherapy, Radiation Therapy, Hyperbaric Therapy, MRSA, VRSA, Vancomycin-Resistant Enterococci, Human Immunodeficiency Virus (HIV), Chicken Pox, Mumps, Rubella (Romansh Measles), Pertussis, Clostridium Difficile or Cancer Family History FAMILY HISTORY: Positive Family Cardiac Disorders; Negative Family Psychiatric Problems, Family Respiratory Disorders, Family Gastrointestinal Problems, Family Cancer, Family Surgery or Family Anesthesia Reaction Surgical History SURGICAL: Positive Nephrectomy and Joint Replacement; Negative Cardiac Surgery, Endocrine Surgery, Ear Surgery, Abdominal Surgery, Neurologic Surgery, Brain Shunt, Mastectomy, Vasectomy or Organ Transplant Social History SMOKING STATUS: Former smoker SECOND HAND EXPOSURE: Yes Past Medical History Comments PMH COMMENT: Past Medical History: as above Past Surgical History: left nephrectomy, right knee replacement, back surgery, pacemaker placement. Family History: None. Social History: - Smoking: Smoking since 5 years of age, use to smoke a whole carton a day but now about 1-2 packs a month, last use was a month ago. - Alcohol: occasionally - Illicit drugs: marijuana and methamphetamine - Residence: lives in [place], was on diability and anand he is retired. - Occupation: Current Medications: pending med recs. Allergies: codeine, hives. Meds Home Medications and Allergies Home Medications ?Medication ?Instructions ?Recorded ?Confirmed ?Type aspirin 81 mg chewable tablet 81 mg PO QDAY ##0 10/21/16 03/16/25 History furosemide 40 mg tablet (Lasix) 40 mg PO QDAY #0 tabs 07/29/17 03/16/25 History atenolol 50 mg tablet 50 mg PO QDAY 10/18/21 03/16/25 History hydroxyzine HCl 25 mg tablet 25 mg PO BID 11/09/24 03/16/25 History losartan 25 mg tablet 50 mg PO QDAY 11/09/24 03/16/25 History apixaban 2.5 mg tablet (Eliquis) 2.5 mg PO BID 02/20/25 03/16/25 History calcitriol 0.5 mcg capsule 0.5 mcg PO DAILY 02/20/25 03/16/25 History iron, carbonyl 15 mg chewable 15 mg PO TID 02/20/25 03/16/25 History tablet (Iron Chews) pantoprazole 40 mg tablet,delayed 40 mg PO QDAY 02/20/25 03/16/25 History release tamsulosin 0.4 mg capsule 0.4 mg PO QDAY 02/20/25 03/16/25 History aspirin 81 mg tablet,delayed 81 mg PO QDAY 03/16/25 03/16/25 History release (Enteric Coated Aspirin) ferrous sulfate 325 mg (65 mg 325 mg PO QDAY 03/16/25 03/16/25 History iron) tablet (Iron (ferrous sulfate)) sodium bicarbonate See Rx Instructions PO QDAY 03/16/25 03/16/25 History Allergies Allergy/AdvReac Type Severity Reaction Status Date / Time codeine Allergy Severe Hives Verified 03/15/25 12:13 Exam Vital Signs Temp Pulse Resp BP Pulse Ox O2 Del Method 97.4 F 61 18 125/84 95 Room Air 03/17/25 08:00 03/17/25 09:42 03/17/25 08:00 03/17/25 09:42 03/17/25 08:00 03/17/25 08:00 Narrative Exam Physical examination revealed an obese white male who is 5 foot 10 inches tall weighing 242 pounds with BMI of 34.7 his vital signs are normal Constitutional Constitutional: no acute distress Routine Chest/Breast/Axilla Exam Chest wall: Present chest tube (Patient has a pacemaker on the left side) Routine Respiratory Exam Comments: Breath sounds are heard on both sides Routine Cardiovascular Exam Comments: Normal Routine Abdominal Exam Comments: Negative Routine Rectal Exam Comments: Deferred Routine Exam Comments: Deferred Routine Extremities Exam Comments: Patient has surgical scar on the right knee from the removal of the plate. Examination of both the feet showed extensive fungal infection of the sole on the skin is very much indurated and scaly. On the left side patient has a draining wound on the fifth toe with some necrosis of the tissues behind the fifth toe involving the area corresponding to the metatarsal head. Patient did have a good palpable pedal pulses on both sides. Routine Skin Exam Comments: Extensive inflammation of the dorsal aspect of the left foot and fungal infection of the sole of the Routine Neurological Exam Comments: Peripheral neuropathy making him not feel anything Results Results: Laboratory Laboratory Narrative: Patient's laboratory workup is within normal limits Results: Imaging Imaging narrative: X-rays of the left foot showed osteomyelitis involving the tip of the fifth metatarsal head and proximal phalanx Assessment & Plan Additional Assessment Additional comments: Impression: Osteomyelitis and soft tissue infection of the left fifth toe Hypertension ASHD Status post pacemaker Chronic kidney disease Atrial fibrillation on Eliquis Severe fungal infection of both feet Morbid obesity Positive for methamphetamine Plan Plan: Patient has been off Eliquis since admission. I do not think bleeding is a risk now even though he had a good pulse. I advised him that we need to remove the toe because it was swollen and there is soft tissue infection even though there is not severe osteomyelitis. If the soft tissue infection is not there 1 could treat this osteomyelitis with antibiotic. Amputation of the fifth toe will be done and his further care will be in wound care. I will leave the incision open and he will have to heal secondarily. This was explained to the patient and he is agreeable.
--- NOTE | 2025-03-17 11:15 | SUR.PHASEI ---
Pt. arrived to recovery via gurney, eyes open, AAOx3, no c/o pain or nausea at this time, VSS, lung sounds clear, diminished at bases, equal expansion esperanza., pt. receiving 2 liters 02 via NH, dressing to left foot, surgicel, fluffs and monty wrap intact. Cap refill <3 seconds to left great toe, pedal pulses present and palpable esperanza., report received from Oracio MACHADO and Dr. Olson.
--- NOTE | 2025-03-17 11:15 | PD.SUROPNT ---
Date of Procedure 03/17/25 Pre Op Diagnosis Osteomyelitis and abscess over the left fifth toe Post Op Diagnosis Same Procedure Amputation of the fifth toe left foot at the metatarsal head level Findings Patient is found to have a porous bone over the left fifth toe including the metatarsal head Procedure Description After the patient was brought to the operating room ankle block was given by anesthesiologist. Then the left foot was washed with Betadine solution and draped in a sterile manner. Patient was given sedation. Timeout is performed. Then I made a curved incision over the base of the fifth toe and removed the anterior fifth toe at the metatarsal phalangeal level. Patient was found to have foul-smelling drainage. Foot is soft tissue infection extended beyond and therefore I amputated the metatarsal head with the bone cutter. There was a considerable amount of oozing which was controlled with cautery and the area was irrigated with saline solution. The oozing continued despite pressure. Therefore I placed Surgicel and fluff and compression with Kerlix roll and Kenneth bandage. Patient tolerated the procedure well. Anesthesia MAC (With ankle block) Pathology / specimen Other (Left fifth toe that was removed) Estimated Blood Loss 200 Surgeon Sunny Ramirez MD Surgical Staff Operation Date: 03/17/25 10:15 <No data on this case meets the specified criteria>
--- NOTE | 2025-03-17 11:28 | SUR.PHASEI ---
Pt. sitting up tolerating ice chips.
--- NOTE | 2025-03-17 11:49 | PC.NURSE ---
pt to room, dressing with monty wrap to left leg CDI. stable vitals. No signs of distress. 2L NC
--- NOTE | 2025-03-17 11:50 | SUR.PHASEI ---
Pt. transferred to room 376 via OPHELIA rojo, no c/o pain or nausea at this time, IV flushed and Tiny sosa RN assumed care of pt.
--- NOTE | 2025-03-17 14:09 | PC.PT ---
PT eval deferred pending WB status clarification for LLE after 5th toe amputation. Pt stated he did not know if he could put weight on his foot and he agreed to wait until tomorrow.
[2025-03-17] MEDS: CLOTRIMAZOLE CR 1% 30 GM TUBE TOP (20:18)
[2025-03-18] VITALS (12 sets, daily range): BP systolic 105–147; BP diastolic 66–93; PULSE 60–80; RESP 13–21; TEMP 36.2–36.6; O2SAT 93–98; BMI 13.0
[2025-03-18 06:18] LABS: Basophils # (Auto) 0.1 Thou/mm3 (0.0-0.2); Basophils % (Auto) 1 % (0-2.5); Eosinophils # (Auto) 0.3 Thou/mm3 (0.0-0.5); Eosinophils % (Auto) 3 % (0-10); Hematocrit 38.3 % (41.0-53.0); Hemoglobin 11.6 g/dL (13.5-16.0); Immature Granulocytes Auto 0.21 Thou/mm3 (0.00-0.00); Lymphocytes # (Auto) 1.5 Thou/mm3 (1.0-4.8); Lymphocytes % (Auto) 15 % (10-50); Mean Corpuscular HGB Conc 30.3 g/dl (31.0-37.0); Mean Corpuscular Hemoglobin 27.0 pg (25.0-35.0); Mean Corpuscular Volume 89 fL (80-100); Monocytes # (Auto) 0.6 Thou/mm3 (0.0-0.8); Monocytes % (Auto) 6 % (0-12); Neutrophils # (Auto) 7.1 Thou/mm3 (1.8-7.7); Neutrophils % (Auto) 73 % (37-80); Nucleated Red Blood Cell # 0.00 Thou/mm3 (0.00-0.00); Nucleated Red Blood Cell % 0 /100 WBC (0); Platelet Count 320 Thou/mm3 (140-440); RDW Standard Deviation 48.0 fL (35.1-43.9); Red Blood Count 4.30 Miln/mm3 (4.50-5.90); White Blood Count 9.8 Thou/mm3 (3.8-10.6)
[2025-03-18 07:00] LABS: Alanine Aminotransferase 64 U/L (10-49); Albumin, Serum 3.4 gm/dL (3.4-4.8); Albumin/Globulin Ratio 0.8 (1.2-2.2); Alkaline Phosphatase 103 U/L (46-116); Anion Gap 9 (7-16); Aspartate Amino Transferase 61 U/L (0-34); BUN/Creatinine Ratio 16 Ratio (12-20); Bilirubin,Total < 0.2 mg/dL (0.3-1.2); Blood Urea Nitrogen 49 mg/dL (9-23); Calcium 9.1 mg/dL (8.3-10.6); Calcium (Corrected) 9.6 mg/dL (8.5-10.1); Carbon Dioxide 21.4 mMol/L (20.0-31.0); Chloride 108 mMol/L (98-107); Creatinine (Component) 3.0 mg/dL (0.6-1.3); Estimated Creatinine Clearance 30.0 mL/min (>60); Globulin 4.3 gm/dL (2.3-3.5); Glucose 112 mg/dL (74-106); Magnesium 2.2 mg/dL (1.6-2.6); Osmolality,Calculated 289 (275-295); Phosphorous 5.3 mg/dL (2.4-5.1); Potassium 5.0 mMol/L (3.4-5.1); Sodium 138 mMol/L (136-145); Total Protein 7.7 gm/dL (5.7-8.2); eGFR 22 See Note
--- NOTE | 2025-03-18 08:42 | ESPR_ITS ---
<Statement entered by Tyrese Ramirez MD - 03/18/25 16:52> Patient was examined and case was reviewed with team including attending physician. Note reviewed, I agree with most of its contents and agree with the patient's care as documented by MS Sage Stewart Patient seen today at the bedside found awake, alert, orientedx3. No overnight events reported. Vitals and labs reviewed. Spoke to general surgery who recommended withholding resuming anticoagulation at this time as patient surgery had a lot of bleeding. Will likely resume tomorrow while awaiting further recommendations by general surgery. Possible discharge in next 24-48 hours. Case discussed with my attending Dr. Olive Ramirez MD PGY-2 Disclaimer: Despite multiple revisions, due to the dictation software being used, the document bellow may not be free of grammatical errors including phonetic/typographic errors. However, this does not deter from our commitment to providing health care in the patient's best interest in mind. Documentation for date of: 03/18/25 Subjective Subjective Interval history: pt was seen at bedside today. pt is alert and oriented x4. pt states that his procedure went well and that he hasnt noticed any bleeding or discharge coming from the procedure site. Pt denies having any pain or abnormal pressure sensation in the operative region. pt states that he had some wheezing intially when he first woke up but it was a transient episode which has since resolved. pt does not have any further questions or concerns at this time. Exam Vital Signs Temp Pulse Resp BP Pulse Ox O2 Del Method O2 Flow Rate 97.6 F 60 20 105/66 93 L Nasal Cannula 1 03/18/25 04:00 03/18/25 06:50 03/18/25 06:50 03/18/25 04:00 03/18/25 06:50 03/18/25 04:00 03/18/25 06:50 Narrative Exam General: Awake and in no acute distress. Conversational and non-toxic appearing. HEENT: Normocephalic, atraumatic, mucous membranes moist. Heart: Regular rate and rhythm, no murmurs. Lungs: Clear to auscultation with no wheezing or crackles. Abdomen: Soft, nondistended, nontender, positive bowel sounds. No guarding or rebound tenderness. Neurologic: Alert and oriented x3, no gross neurological deficit, and patient able to move all 4 extremities. Extremities: No edema. Left foot: plantar foot with marked redness, swelling, scaling, thickened discolored toenails. Both feet are dry and cracked, marked hyperkeratosis on foot. Objective Objective Narrative Objective Narrative: pt is alert and oriented x4. pts lung sounds are clear bilaterally without any wheezing noted. pt's cardiac exam yields regular rate and irregular rhythm without murmur. pt's abdomen is soft and nondistended. Labs 03/19/25 05:20 03/19/25 05:20 Labs: Laboratory Results - last 24 hr 03/18/25 05:11 WBC 9.8 RBC 4.30 L Hgb 11.6 L Hct 38.3 L MCV 89 MCH 27.0 MCHC 30.3 L RDW Std Deviation 48.0 H Plt Count 320 Neut % (Auto) 73 Lymph % (Auto) 15 [place] % (Auto) 6 Eos % (Auto) 3 Baso % (Auto) 1 Neut # (Auto) 7.1 Lymph # (Auto) 1.5 [place] # (Auto) 0.6 Eos # (Auto) 0.3 Baso # (Auto) 0.1 Immature Gran # (Auto) 0.21 H Absolute Nucleated RBC 0.00 Immature Gran % 2 H Nucleated RBC % 0 Sodium 138 Potassium 5.0 Chloride 108 H Carbon Dioxide 21.4 Anion Gap 9 BUN 49 H Creatinine 3.0 H Estim Creat Clear Calc 30.0 L eGFR 22 L BUN/Creatinine Ratio 16 Glucose 112 H Calculated Osmolality 289 Calcium 9.1 Corrected Calcium 9.6 Phosphorus 5.3 H Magnesium 2.2 Total Bilirubin < 0.2 L AST 61 H ALT 64 H Alkaline Phosphatase 103 Total Protein 7.7 Albumin 3.4 Globulin 4.3 H Albumin/Globulin Ratio 0.8 L Quality Measures Quality Measures none Advance care planning discussed with:: patient Assessment & Plan Assessment Current Active Medications: Generic Name Dose Route Start Last Admin Trade Name Freq PRN Reason Stop Dose Admin Acetaminophen 650 mg 03/15/25 18:06 Acetaminophen 325 Mg Tablet PO 04/14/25 17:48 Q6H PRN Fever >100.4 Amiodarone HCl 200 mg 03/16/25 09:00 03/17/25 20:18 Amiodarone Hcl 200 Mg Tablet PO 04/15/25 08:59 200 mg BID BELEN Administration Aspirin 81 mg 08/16/25 09:00 03/17/25 09:26 Aspirin 81 Mg Chew PO 04/15/25 08:59 Not Given QDAY BELEN Atenolol 50 mg 03/16/25 09:00 03/17/25 09:41 Atenolol 25 Mg Tablet PO 04/15/25 08:59 50 mg QDAY BELEN Administration Clotrimazole 0 gm 03/15/25 21:00 03/17/25 20:18 Clotrimazole Cr 1% 30 Gm Tube TOP 04/14/25 20:59 1 applicatio BID BELEN Administration Dextrose 25 ml 03/15/25 18:06 Dextrose 50%-Water Inj 50 Ml Syringe IV 04/14/25 18:05 Q15MIN PRN BG 50-70 responsive npo pt Dextrose 50 ml 03/15/25 18:06 Dextrose 50%-Water Inj 50 Ml Syringe IV 04/14/25 18:05 Q15MIN PRN BG <50 OR BG <70 & pt unresponsive Doxycycline Hyclate 100 mg 03/18/25 09:00 Doxycycline 100 Mg Tablet PO 03/25/25 08:59 BID BELEN Furosemide 40 mg 03/16/25 09:00 03/17/25 10:01 Furosemide 40 Mg Tablet PO 04/15/25 08:59 Not Given QDAY BLEEN Glucagon 1 mg 03/15/25 18:06 Glucagon Inj 1 Mg Vial IM Q15MIN PRN BG <70, and no IV access Insulin Human Lispro 0 unit 03/17/25 17:00 03/18/25 07:39 Insulin Lispro (Admelog) 1 Unit/0.01 Ml Unit SC 04/16/25 16:59 Not Given AC [facility] Protocol Ondansetron HCl 4 mg 03/15/25 17:49 Ondansetron Inj 2 Mg/Ml Inj 2 Ml IVP 04/14/25 17:48 Q6H PRN NAUSEA OR VOMITING Protocol Pantoprazole Sodium 40 mg 03/15/25 18:00 03/17/25 10:01 Pantoprazole 40 Mg Tablet PO 04/14/25 17:59 Not Given QDAY BELEN Sennosides 1 tab 03/15/25 17:49 Senna Tablet PO 04/14/25 17:48 QDAY PRN constipation Protocol Tamsulosin HCl 0.4 mg 03/16/25 09:00 03/17/25 10:01 Tamsulosin Hcl 0.4 Mg Capsule PO 04/15/25 08:59 Not Given QDAY BELEN Plan Left foot 5th digit amputation s/p 1 day Procedure performed by Dr. Ramirez on 03/17 secondary to osteomyelitis of digit. MRSA screen positive. - Vancomycin d/c with plan to start Doxycycline 100mg PO BID. - Blood cultures ordered. - Wound care consult for daily dressing changes. - Monitor for systemic signs of infection; adjust antibiotics based on cultures. - Post-op PT referral placed #Type 2 Diabetes Mellitus with Peripheral Neuropathy Hemoglobin A1c 6.1. Taking Jardiance 25mg daily at home. Plan: - Sliding scale insulin ordered. - Glucose checks #HFpEF (EF 60%) (echo 10/2024) Appears euvolemic at this time. Lungs are clear to auscultation. No lower extremity edema (except for the infected left foot). Plan: - Continued home furosemide 40 mg daily. - Strict I&O's #Stage IV Chronic Kidney Disease Status post left nephrectomy 2013. Follows Dr. [facility]. Cr 3.3, eGFR 29. Pt's values are near baseline. Patient does not have symptoms of dysuria or CVA tenderness. Plan: -Monitor with daily labs. -Avoid nephrotoxic medications and renally dose medications. -Continued home Tamsulosin 0.4mg daily. #Afib on Eliquis #Sick Sinus Syndrome s/p pacemaker placement Plan: - Held Eliquis for surgery. Per Dr. Ramirez, hold Eliquis until 03/19. Reasses after 03/19 - Continued home amiodarone 200 mg BID. - Continued home atenolol 50 mg daily. #Tinea pedis Present on bilateral lower legs. Plan: - Topical Clotrimazole 1% BID. #Transaminitis Pt's AST/ALT slightly uptending. AST 60-> 61. ALT 60 -> 64. Plan: -CTM with daily CMP Chronic conditions #Hx of benign cystic liver disease. #GERD - Protonix 40 mg daily. #Hx of PAD - Continue home aspirin 81 PO daily. #COPD #NAHEED Attending Provider Attestation/Addendum IParris DO, attest that I was physically present for the troncoso portions of the service and evaluated the patient with the resident and I reviewed and discussed the case with the resident and agree with the resident's findings and plans of care as documented above Patient seen and evaluated this AM. He states he is doing well and denies any pain. Dressing is clean, dry and intact. However, per surgeon, patient had a significant amount of bleeding during surgery. Recommends to monitor overnight. If stable, can start home eliquis tomorrow. Patient is willing to go to SNF on discharge as he will need wound care and does not have anyone at home to care for him.
[2025-03-18] MEDS: ASPIRIN 81 MG CHEW PO (09:23)
[2025-03-18] MEDS: PANTOPRAZOLE 40 MG TABLET PO (09:24)
[2025-03-18] MEDS: DOXYCYCLINE 100 MG TABLET PO ×2 (09:24→20:37)
[2025-03-18] MEDS: TAMSULOSIN HCL 0.4 MG CAPSULE PO (09:24)
[2025-03-18] MEDS: AMIODARONE HCL 200 MG TABLET PO ×2 (09:24→20:37)
[2025-03-18] MEDS: CLOTRIMAZOLE CR 1% 30 GM TUBE TOP ×2 (09:31→20:37)
[2025-03-18 09:43] LABS: Vancomycin,Random 24.9 mcg/mL
--- NOTE | 2025-03-18 10:47 | PC.SS ---
SS folliow up note; Pending Surgery Rec's. Patient will need auth from [facility] to discharge to SNF. SS presented SNF Choices and patient would like to discharge to [facility]. SS will contact [facility] to see if they will approve SNF.
--- NOTE | 2025-03-18 14:44 | PC.PT ---
Patient is safe to ambulate to the bathroom and in the halls with a FWW and 1 staff assist. RN made aware.
[2025-03-18 17:16] LABS: Basophils # (Auto) 0.0 Thou/mm3 (0.0-0.2); Basophils % (Auto) 0 % (0-2.5); Eosinophils # (Auto) 0.3 Thou/mm3 (0.0-0.5); Eosinophils % (Auto) 3 % (0-10); Hematocrit 37.3 % (41.0-53.0); Hemoglobin 11.4 g/dL (13.5-16.0); Immature Granulocytes Auto 0.20 Thou/mm3 (0.00-0.00); Lymphocytes # (Auto) 1.5 Thou/mm3 (1.0-4.8); Lymphocytes % (Auto) 16 % (10-50); Mean Corpuscular HGB Conc 30.6 g/dl (31.0-37.0); Mean Corpuscular Hemoglobin 26.9 pg (25.0-35.0); Mean Corpuscular Volume 88 fL (80-100); Monocytes # (Auto) 0.4 Thou/mm3 (0.0-0.8); Monocytes % (Auto) 4 % (0-12); Neutrophils # (Auto) 6.9 Thou/mm3 (1.8-7.7); Neutrophils % (Auto) 74 % (37-80); Nucleated Red Blood Cell # 0.00 Thou/mm3 (0.00-0.00); Nucleated Red Blood Cell % 0 /100 WBC (0); Platelet Count 318 Thou/mm3 (140-440); RDW Standard Deviation 47.7 fL (35.1-43.9); Red Blood Count 4.24 Miln/mm3 (4.50-5.90); White Blood Count 9.3 Thou/mm3 (3.8-10.6)
[2025-03-19] VITALS (7 sets, daily range): BP systolic 108–142; BP diastolic 70–96; PULSE 60–94; RESP 15–20; TEMP 36–36.6; O2SAT 95–98
[2025-03-19 05:45] LABS: Basophils # (Auto) 0.1 Thou/mm3 (0.0-0.2); Basophils % (Auto) 1 % (0-2.5); Eosinophils # (Auto) 0.4 Thou/mm3 (0.0-0.5); Eosinophils % (Auto) 4 % (0-10); Hematocrit 37.0 % (41.0-53.0); Hemoglobin 11.3 g/dL (13.5-16.0); Immature Granulocytes Auto 0.25 Thou/mm3 (0.00-0.00); Lymphocytes # (Auto) 1.6 Thou/mm3 (1.0-4.8); Lymphocytes % (Auto) 17 % (10-50); Mean Corpuscular HGB Conc 30.5 g/dl (31.0-37.0); Mean Corpuscular Hemoglobin 26.8 pg (25.0-35.0); Mean Corpuscular Volume 88 fL (80-100); Monocytes # (Auto) 0.5 Thou/mm3 (0.0-0.8); Monocytes % (Auto) 6 % (0-12); Neutrophils # (Auto) 6.5 Thou/mm3 (1.8-7.7); Neutrophils % (Auto) 70 % (37-80); Nucleated Red Blood Cell # 0.00 Thou/mm3 (0.00-0.00); Nucleated Red Blood Cell % 0 /100 WBC (0); Platelet Count 298 Thou/mm3 (140-440); RDW Standard Deviation 47.5 fL (35.1-43.9); Red Blood Count 4.21 Miln/mm3 (4.50-5.90); White Blood Count 9.2 Thou/mm3 (3.8-10.6)
[2025-03-19 06:06] LABS: Alanine Aminotransferase 61 U/L (10-49); Albumin, Serum 3.4 gm/dL (3.4-4.8); Albumin/Globulin Ratio 0.8 (1.2-2.2); Alkaline Phosphatase 95 U/L (46-116); Anion Gap 9 (7-16); Aspartate Amino Transferase 54 U/L (0-34); BUN/Creatinine Ratio 13 Ratio (12-20); Bilirubin,Total < 0.2 mg/dL (0.3-1.2); Blood Urea Nitrogen 37 mg/dL (9-23); Calcium 8.9 mg/dL (8.3-10.6); Calcium (Corrected) 9.4 mg/dL (8.5-10.1); Carbon Dioxide 20.2 mMol/L (20.0-31.0); Chloride 108 mMol/L (98-107); Creatinine (Component) 2.8 mg/dL (0.6-1.3); Estimated Creatinine Clearance 32.2 mL/min (>60); Globulin 4.2 gm/dL (2.3-3.5); Glucose 103 mg/dL (74-106); Magnesium 1.7 mg/dL (1.6-2.6); Osmolality,Calculated 282 (275-295); Phosphorous 4.6 mg/dL (2.4-5.1); Potassium 5.0 mMol/L (3.4-5.1); Sodium 137 mMol/L (136-145); Total Protein 7.6 gm/dL (5.7-8.2); eGFR 24 See Note
[2025-03-19] MEDS: AMIODARONE HCL 200 MG TABLET PO (08:17)
[2025-03-19] MEDS: DOXYCYCLINE 100 MG TABLET PO (08:17)
[2025-03-19] MEDS: APIXABAN 2.5 MG TABLET PO (08:17)
[2025-03-19] MEDS: PANTOPRAZOLE 40 MG TABLET PO (08:17)
[2025-03-19] MEDS: ASPIRIN 81 MG CHEW PO (08:17)
[2025-03-19] MEDS: TAMSULOSIN HCL 0.4 MG CAPSULE PO (08:17)
[2025-03-19] MEDS: CLOTRIMAZOLE CR 1% 30 GM TUBE TOP (09:00)
--- NOTE | 2025-03-19 10:13 | PD.RESPRO ---
Documentation for date of: 03/19/25 Subjective Subjective Interval history: pt was seen at bedside today. pt is alert and oriented x4. pt states that his procedure went well and that he hasnt noticed any bleeding or discharge coming from the procedure site. Pt denies having any pain or abnormal pressure sensation in the operative region. pt states that he had some wheezing intially when he first woke up but it was a transient episode which has since resolved. pt does not have any further questions or concerns at this time. Exam Vital Signs Temp Pulse Resp BP Pulse Ox O2 Del Method O2 Flow Rate 97.8 F 60 20 114/76 98 Room Air 1 03/19/25 08:00 03/19/25 08:17 03/19/25 08:00 03/19/25 08:17 03/19/25 08:00 03/19/25 08:00 03/18/25 21:25 Objective Labs 03/19/25 05:20 03/19/25 05:20 Labs: Laboratory Results - last 24 hr 03/18/25 03/19/25 16:34 05:20 WBC 9.3 9.2 RBC 4.24 L 4.21 L Hgb 11.4 L 11.3 L Hct 37.3 L 37.0 L MCV 88 88 MCH 26.9 26.8 MCHC 30.6 L 30.5 L RDW Std Deviation 47.7 H 47.5 H Plt Count 318 298 Neut % (Auto) 74 70 Lymph % (Auto) 16 17 [place] % (Auto) 4 6 Eos % (Auto) 3 4 Baso % (Auto) 0 1 Neut # (Auto) 6.9 6.5 Lymph # (Auto) 1.5 1.6 [place] # (Auto) 0.4 0.5 Eos # (Auto) 0.3 0.4 Baso # (Auto) 0.0 0.1 Immature Gran # (Auto) 0.20 H 0.25 H Absolute Nucleated RBC 0.00 0.00 Immature Gran % 2 H 3 H Nucleated RBC % 0 0 Sodium 137 Potassium 5.0 Chloride 108 H Carbon Dioxide 20.2 Anion Gap 9 BUN 37 H Creatinine 2.8 H Estim Creat Clear Calc 32.2 L eGFR 24 L BUN/Creatinine Ratio 13 Glucose 103 Calculated Osmolality 282 Calcium 8.9 Corrected Calcium 9.4 Phosphorus 4.6 Magnesium 1.7 Total Bilirubin < 0.2 L AST 54 H ALT 61 H Alkaline Phosphatase 95 Total Protein 7.6 Albumin 3.4 Globulin 4.2 H Albumin/Globulin Ratio 0.8 L Quality Measures Quality Measures none Assessment & Plan Assessment Current Active Medications: Generic Name Dose Route Start Last Admin Trade Name Freq PRN Reason Stop Dose Admin Acetaminophen 650 mg 03/15/25 18:06 Acetaminophen 325 Mg Tablet PO 04/14/25 17:48 Q6H PRN Fever >100.4 Albuterol 2 puff 03/18/25 11:09 Albuterol Inh 8 Gm INH 04/17/25 11:08 QID PRN shortness of breath or wheezing Amiodarone HCl 200 mg 03/16/25 09:00 03/19/25 08:17 Amiodarone Hcl 200 Mg Tablet PO 04/15/25 08:59 200 mg BID BELEN Administration Apixaban 2.5 mg 03/19/25 07:00 03/19/25 08:17 Apixaban 2.5 Mg Tablet PO 04/18/25 06:59 2.5 mg BID BELEN Administration Aspirin 81 mg 03/16/25 09:00 03/19/25 08:17 Aspirin 81 Mg Chew PO 04/15/25 08:59 81 mg QDAY BELEN Administration Atenolol 50 mg 03/16/25 09:00 03/19/25 08:16 Atenolol 25 Mg Tablet PO 04/15/25 08:59 50 mg QDAY BELEN Administration Clotrimazole 0 gm 03/15/25 21:00 03/18/25 20:37 Clotrimazole Cr 1% 30 Gm Tube TOP 04/14/25 20:59 1 applicatio BID BELEN Administration Dextrose 25 ml 03/15/25 18:06 Dextrose 50%-Water Inj 50 Ml Syringe IV 04/14/25 18:05 Q15MIN PRN BG 50-70 responsive npo pt Dextrose 50 ml 03/15/25 18:06 Dextrose 50%-Water Inj 50 Ml Syringe IV 04/14/25 18:05 Q15MIN PRN BG <50 OR BG <70 & pt unresponsive Doxycycline Hyclate 100 mg 03/18/25 09:00 03/19/25 08:17 Doxycycline 100 Mg Tablet PO 03/25/25 08:59 100 mg BID BELEN Administration Furosemide 40 mg 03/16/25 09:00 03/19/25 08:17 Furosemide 40 Mg Tablet PO 04/15/25 08:59 40 mg QDAY BELEN Administration Glucagon 1 mg 03/15/25 18:06 Glucagon Inj 1 Mg Vial IM Q15MIN PRN BG <70, and no IV access Insulin Human Lispro 0 unit 03/17/25 17:00 03/19/25 08:25 Insulin Lispro (Admelog) 1 Unit/0.01 Ml Unit SC 04/16/25 16:59 Not Given AC BELEN Protocol Ondansetron HCl 4 mg 03/15/25 17:49 Ondansetron Inj 2 Mg/Ml Inj 2 Ml IVP 04/14/25 17:48 Q6H PRN NAUSEA OR VOMITING Protocol Pantoprazole Sodium 40 mg 03/15/25 18:00 03/19/25 08:17 Pantoprazole 40 Mg Tablet PO 04/14/25 17:59 40 mg QDAY BELEN Administration Sennosides 1 tab 03/15/25 17:49 Senna Tablet PO 04/14/25 17:48 QDAY PRN constipation Protocol Tamsulosin HCl 0.4 mg 03/16/25 09:00 03/19/25 08:17 Tamsulosin Hcl 0.4 Mg Capsule PO 04/15/25 08:59 0.4 mg QDAY BELEN Administration
--- NOTE | 2025-03-19 10:41 | PC.SS ---
SS follow up note; SS attempted to contact Ansley from [facility] to try to obtain auth. SS left voice mail with SS contact number.
--- NOTE | 2025-03-19 11:39 | PC.SS ---
SS was contacted by Ansley from [facility], informing SS that patient does not meet criteria to discharge to SNF. SS met with patient and updated him. Patient was not agreeable with decision, SS advised Patient to contact his insurance. SS informed patient it was out of SS control, patient verbalized understanding.
--- NOTE | 2025-03-19 13:11 | ESDS_ITS ---
<Statement entered by Parrsi Schaefer DO - 03/20/25 07:49> I, Parris Schaefer DO, attest that I was physically present for the troncoso portions of the service and evaluated the patient with the resident and I reviewed and discussed the case with the resident and agree with the resident's findings and plans of care as documented above <Statement entered by Tyrese Ramirez MD - 03/20/25 06:37> Patient was examined and case was reviewed with team including attending physician. Note reviewed, I agree with most of its contents and agree with the patient's care. Tyrese Ramirez MD PGY-2 Planned Discharge Date 03/19/25 DS: Providers Provider Date of admission: 03/15/25 17:33 Primary care physician: Physician No Primary/Family Admitting Provider: Parris Schaefer DO Attending Provider on Admission: Parris Schaefer DO Consults: 03/15/25 16:48 Consult to General Surgery Stat Comment: Diabetic foot infection Consulting Provider: Sunny Ramirez 03/15/25 16:49 Referral Wound Care Stat Comment: 03/15/25 18:08 Referral OP Wound Healing Dept Stat Comment: Referral Wound Care Stat Comment: 03/15/25 18:09 Referral Physical Therapy Stat Comment: Physician Instructions: Instructions: Post-op PT 03/16/25 04:15 Referral Physical Therapy Routine Comment: Physician Instructions: Referral Respiratory Therapy Routine Comment: Attending Provider on DC: Parris Schaefer DO Discharging Provider: Brook Pineda MD DS: Diagnosis Problem List Completed Was Problem List Reviewed/Reconciled?: Yes Hospital Course Hospital Course Hospital course: Pt is a 64-year-old male with PMH of T2DM, peripheral neuropathy, PAD, stage IV CKD, HFpEF, and AFib on apixaban presenting with acute left diabetic foot infection with purulent drainage and early osteomyelitis on foot x-ray. Pt was admitted for amputation of his 5th digit of his left foot secondary to osteom yelitis. Pt underwent the procedure on 03/17 and tolerated it well. Pt's Eliquis was held from 03/16- 03/18 to minimize surgical complications. Pt received home medications of amiodarone, atenolol, and furosemide throughout the course of his hospitalization. Pt was noted to have a fungal infection in his left groin which was treated with topical clotrimazole. Pt was also given Vancomycin from 03/16- and Doxycycline from 03/18-03/19 to treat patient's osteomyelitis and for prophylaxis measures. 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 #GERD #Hx of PAD #COPD #NAHEED Discharge summary reviewed by Senior resident Dr. Fuentes and attending phsycian Dr. Olive Stewart (Medical Student) Status at Discharge Functional status at discharge: independent ambulation Overall status at discharge: patient is back to baseline Time Spent with Patient Time attestation: Total time spent providing and/or coordinating discharge services: Time spent: Greater than 30 minutes Home Health Home Health Referral Orders: 03/19/25 12:09 Home Health Referral Routine Reason For Exam: osteomyelitis Home-Bound The patient must either because of illness or injury, need the aid of supportive devices such as crutches, canes, wheelchairs, and walkers; the use of special transportation; or the assistance of another person in order to leave their place of residence; OR have a condition such that leaving his or her home is medically contraindicated. In addition, the patient also meets the following criteria: patient is normally unable to leave the home and leaving home requires c onsiderable taxing effort. Addendum to Home Health Certification Practitioner's Certification: I certify that the patient has been under my care in the hospital and the care of attending physician (see below). We had a [id number] encounter on (see date below). My clinical findings indicate that the patient is home bound per the above criteria and the Home Health Services noted in these orders are medically necessary. The primary reason for the [id number] encounter is related to the fact that the patient requires home health services. Date Certifying [id number] Physician Encounter: 03/15/25 Physician's Name who will Assume Oversight for HH Services: Physician No Primary/Family FIELD SERVICE MANAGER - Community Resources: No PT to Evaluate: Yes PT to evaluate and provide a treatmnet plan to increase patient's mobility and strength. Wound Care: Yes Home Health RN - Wound Care Order: as per wound nurse instructions IV Therapy: No RN Safety Evaluation: Yes RN to evaluate and create a plan of care that will produce positive outcomes. Palliative Treatment: No Palliative treatment and evaluate the need for hospice. Home Health Aide - Personal Care: Yes Home Health Aide to assist with any ADL's. Exam Vital Signs Temp Pulse Resp BP Pulse Ox O2 Del Method O2 Flow Rate 97.6 F 60 15 133/86 H 96 Room Air 1 03/19/25 12:00 03/19/25 12:03/19/25 12:00 03/19/25 12:03/19/25 12:03/19/25 12:03/18/25 21:25 Narrative Exam General: Awake and in no acute distress. Conversational and non-toxic appearing. HEENT: Normocephalic, atraumatic, mucous membranes moist. Heart: Regular rate and rhythm, no murmurs. Lungs: Clear to auscultation with no wheezing or crackles. Abdomen: Soft, nondistended, nontender, positive bowel sounds. No guarding or rebound tenderness. Neurologic: Alert and oriented x3, no gross neurological deficit, and patient able to move all 4 extremities. Extremities: No edema. Left foot: plantar foot with marked redness, swelling, scaling, thickened discolored toenails. Both feet are dry and cracked, marked hyperkeratosis on foot. Discharge Plan Plan Patient Disposition: Home w/HOME HEALTH Care Plan Goals: Follow up with primary care physician within 1 week of discharge [place] to take your medications as prescribed Should symptoms recur or worsen patient is instructed to return to the ED. Prescriptions/Referrals Prescriptions/Med Rec: New doxycycline hyclate 100 mg capsule 100 mg PO BID 6 Days Qty: 12 0RF Continued aspirin 81 MG tablet,chewable 81 mg PO QDAY Qty: 0 furosemide [Lasix] 40 MG tablet 40 mg PO QDAY Qty: 0 atenolol 50 mg Tablet 50 mg PO QDAY Iron Chews 15 mg tablet,chewable 15 mg PO TID tamsulosin 0.4 mg capsule 0.4 mg PO QDAY pantoprazole 40 mg tablet,delayed release (DR/EC) 40 mg PO QDAY calcitriol 0.5 mcg capsule 0.5 mcg PO DAILY Eliquis 2.5 mg tablet 2.5 mg PO BID amiodarone 200 mg Tablet 200 mg PO BID 30 Days Qty: 60 1RF nicotine 21 mg/24 hr patch 24 hour 21 mg topical 1XD 30 Days Qty: 28 0RF albuterol sulfate 90 mcg/actuation HFA aerosol inhaler 2 puff inhalation QID PRN (Reason: shortness of breath or wheezing) Qty: 8.5 1RF ferrous sulfate [Iron (ferrous sulfate)] 325 mg (65 mg iron) tablet 325 mg PO QDAY sodium bicarbonate See Rx Instructions PO QDAY Patient Comments: Per pt, instructed by dr leavitt Rx Instructions: 1 tsp orally daily; 1 tsp baking soda dissolved in water daily hydroxyzine HCl 25 mg tablet 25 mg PO BID losartan 25 mg Tablet 50 mg PO QDAY Jardiance 25 mg tablet 25 mg PO QAM Qty: 30 2RF Discontinued aspirin [Enteric Coated Aspirin] 81 mg tablet,delayed release (DR/EC) 81 mg PO QDAY Referrals: No Primary/Family,Physician [Primary Care Provider] - Patient/Caregiver Discharge Instructions Education Materials: Preventing Surgical Site Infections Print Language: Amharic Stand Alone Forms: Sheila Award Info., Patient Portal Info Letter Discharge Order Discharge Orders: Discharge (Routine); Ordered 03/19/25 Ordered By: Tyrese Ramirez Quality Discharge Quality Measures none
--- NOTE | 2025-03-19 14:35 | PC.SS ---
SS follow up note; SS notified patient that Laura declined SNF. Patient verbalized understanding and informed SS that he would be staying at his friends house, for to follow patient; [address] [facility]. Patient's contact number is [phone].
--- NOTE | 2025-03-20 10:17 | PC.CM ---
Addendum entered by Cande Salmeron RN 03/20/25 17:46: [facility] accepted patient and start of care date set for 03/22. Original Note: Patient has [employer] insurance so I faxed to [facility] and to [facility].
== END 2025-03-19 15:47 | disposition home health service (06) | DRG 617 ==
LOC: SERX 18:29 → SERHOLD 18:31 → S3SX 20:24
PROVIDERS: Nurse Practitioner Family; Surgery; Admitting Provider Internal Medicine; Emergency Provider Family Medicine; Visit Provider Internal Medicine
PROC: (CPT 28820; principal; 2025-03-17 10:00)
DX: E11.69 Type 2 diabetes mellitus with other specified complication (principal); I13.0 Hypertensive heart and chronic kidney disease with heart failure and stage 1 through stage 4 chronic kidney disease, or unspecified chronic kidney disease; M86.172 Other acute osteomyelitis, left ankle and foot; I50.32 Chronic diastolic (congestive) heart failure; L03.115 Cellulitis of right lower limb; L03.116 Cellulitis of left lower limb; N18.4 Chronic kidney disease, stage 4 (severe); G47.33 Obstructive sleep apnea (adult) (pediatric); E11.51 Type 2 diabetes mellitus with diabetic peripheral angiopathy without gangrene; E11.22 Type 2 diabetes mellitus with diabetic chronic kidney disease; E11.42 Type 2 diabetes mellitus with diabetic polyneuropathy; K21.9 Gastro-esophageal reflux disease without esophagitis; Z90.5 Acquired absence of kidney; Z95.0 Presence of cardiac pacemaker; I48.91 Unspecified atrial fibrillation; Z79.01 Long term (current) use of anticoagulants; B35.3 Tinea pedis; R74.01 Elevation of levels of liver transaminase levels; J44.9 Chronic obstructive pulmonary disease, unspecified; I25.10 Atherosclerotic heart disease of native coronary artery without angina pectoris; E66.01 Morbid (severe) obesity due to excess calories; Z87.891 Personal history of nicotine dependence; Z96.651 Presence of right artificial knee joint; Z79.899 Other long term (current) drug therapy; Z79.82 Long term (current) use of aspirin; Z88.5 Allergy status to narcotic agent; I49.5 Sick sinus syndrome; B36.9 Superficial mycosis, unspecified; Z68.34 Body mass index [BMI] 34.0-34.9, adult
CPT/HCPCS: 36415; 71045; 73630; 80053; 80061; 80202; 81001; 83036; 83605; 83615; 83690; 83735; 83880; 84100; 84145; 84484; 85025; 85610; 85652; 85730; 86140; 87040; 87081; 87086; 93005; 93225; 93922; 93926; 96365; 97162; 99284; A4217; A4649; J0692; J2250; J2543; J2704; J3010; J3370; J3375; J3475; J3490; J7050; J7120; A9270

== ENCOUNTER 2025-04-02 14:30 | Emergency (ER) | payer OTHER, SELFPAY ==
[2025-04-02 14:37] VITALS: BP 107/52; PULSE 61; RESP 19; TEMP 37.1; O2SAT 96; BMI 36.3
--- NOTE | 2025-04-02 14:38 | XR_ITS ---
Examination: Foot, left., 3 views Technique: AP, oblique, lateral views foot, 3 views Date and time of exam: April 02, 2025, 1623 hours. INDICATIONS: Status post amputation left fifth ray, redness swelling and pain one week involving the fifth digit. FINDINGS: Cortical bone erosion distal fifth metatarsal Small bone fragments adjacent to the distal fifth metatarsal No acute fracture IMPRESSION: Cortical bone destruction distal fifth metatarsal, consider osteomyelitis
--- NOTE | 2025-04-02 14:39 | EDNOTE_ITS ---
<Statement entered by Hannah Arthur MD - 04/13/25 11:19> As co-signing physician, I was present and available for consult prn. I concur with the plan and care as documented by the midlevel provider. ED General RME/HPI General Chief complaint: Ankle/Foot Injury Stated complaint: POSSIBLE FOOT INFECTION Time Seen by Provider: 04/02/25 14:37 Arrival date/time: 04/02/25 14:30 CC: Left great toe amputation site infection HPI patient presents to the ER via EMS report hypertension but no tachycardia not warm to touch after referred by PCP Dr Valdez for evaluation for infection at amputation site. Patient states Dr Ramirez was the surgeon who amputated the toe. Patient is awake alert oriented nontoxic-appearing not in any acute distress. Patient states he does not know what it looks like as each time they do changing dressing changes he looks away . Related Data Home Medications ?Medication ?Instructions ?Recorded ?Confirmed aspirin 81 mg chewable tablet 81 mg PO QDAY ##0 03/16/25 furosemide 40 mg tablet (Lasix) 40 mg PO QDAY #0 tabs 07/29/17 03/16/25 atenolol 50 mg tablet 50 mg PO QDAY 10/18/2103/16 hydroxyzine HCl 25 mg tablet 25 mg PO BID 11/09/24 losartan 25 mg tablet 50 mg PO QDAY 11/09/2403/16 apixaban 2.5 mg tablet (Eliquis) 2.5 mg PO BID 5 03/16/25 calcitriol 0.5 mcg capsule 0.5 mcg PO DAILY 02/20/25 0 03/16/25 iron, carbonyl 15 mg chewable 15 mg PO TID 02/20/25 tablet (Iron Chews) pantoprazole 40 mg tablet,delayed 40 mg PO QDAY 03/16/25 release tamsulosin 0.4 mg capsule 0.4 mg PO QDAY 02/20/2503/01 ferrous sulfate 325 mg (65 mg 325 mg PO QDAY 03/16/25 03/16/25 iron) tablet (Iron (ferrous sulfate)) sodium bicarbonate See Rx Instructions PO QDAY 03/16/25 03/16/25 Previous Rx's ?Medication ?Instructions ?Recorded empagliflozin 25 mg tablet 25 mg PO QAM #30 tabs 11/15 (Jardiance) albuterol sulfate 90 mcg/actuation 2 puff inhalation Q ID PRN 02/22/25 aerosol inhaler shortness of breath or wheez ing #8.5 grams amiodarone 200 mg tablet 200 mg PO BID 1 month #60 ta bs 02/22/25 doxycycline hyclate 100 mg capsule 100 mg PO BID #14 c aps 04/02/25 Allergies Allergy/AdvReac Type Severity Reaction Status Date / Time codeine Allergy Severe Hives Verified 04/02/25 15:11 Review of Systems Review of Systems Narrative Review of Systems: GEN: No fever, no chills, no weight loss EYES: No discharge, no visual changes, no pain HEENT: No ear pain, no congestion, no sore throat PULM: No shortness of breath, no cough, no congestion CV: No chest pain, no dyspnea on exertion, no palpitations GI: No nausea, no vomiting, no diarrhea, no pain, no constipation : No frequency, no urgency, no dysuria MUSC/SKEL: No joint pain, no back pain SKIN: No rash PSYCH: No hallucinations, no depression HEME/LYMPH: No easy bleeding or bruising tendencies NEURO: No weakness, no headache Past Medical History Past Medical History NEUROLOGIC: Positive Migraine; Negative Neurological Disorders or Seizures CARDIAC: Positive Cardiac Disorders, Atrial Fibrillation, Hypercholesterolemia, Congestive Heart Failure and Hypertension RESPIRATORY: Positive Chronic Obstructive Pulmonary Disease (COPD), Asthma, Pneumonia and Sleep Apnea GASTROINTESTINAL: Positive Gastrointestinal Disorders, Gastroesophageal Reflux Disease and Obesity; Negative Hepatitis GENITOURINARY: Positive Genitourinary Disorders, Renal Disease, Kidney Stones and Benign Prostatic Hyperplasia MUSCULOSKELETAL: Positive Musculoskeletal Disorders and Fractures ENDOCRINE: Positive Endocrine Disorders and Diabetes Mellitus Type 2; Negative Diabetes Mellitus Type 1 HEMATOLOGIC: Positive Blood Disorders and Anemia PSYCHO/SOCIAL: Positive Recreational Drug Use, Depression and Anxiety OTHER HISTORY: Positive Hospitalization, Blood Transfusions and Measles; Negative Autoimmune Disease, Down Syndrome, Developmental Delay, Shingles, Falls, Blood Transfusion Reaction, Anesthesia Reactions, Organ Transplant, Chemotherapy, Radiation Therapy, Hyperbaric Therapy, MRSA, VRSA, Vancomycin- Resistant Enterococci, Human Immunodeficiency Virus (HIV), Chicken Pox, Mumps, Rubella (Khmer Measles), Pertussis, Clostridium Difficile or Cancer Family History FAMILY HISTORY: Positive Family Cardiac Disorders; Negative Family Psychiatric Problems, Family Respiratory Disorders, Family Gastrointestinal Problems, Family Cancer, Family Surgery or Family Anesthesia Reaction Surgical History SURGICAL: Positive Nephrectomy and Joint Replacement; Negative Cardiac Surgery, Endocrine Surgery, Ear Surgery, Abdominal Surgery, Neurologic Surgery, Brain Shunt, Mastectomy, Vasectomy or Organ Transplant Social History SMOKING STATUS: Former smoker SECOND HAND EXPOSURE: Yes ED Exam Narrative Physical exam: [General: Obese not in cot no acute distress Head normocephalic HEENT: Within acceptable limits Neck is supple nontender Chest equal chest rise nontender to palpation Respiratory: Clear to auscultation no wheezes crackles or rubs CV: Rate rhythm is regular no murmurs rubs or clicks Abdomen is distended secondary to body habitus soft nontender no masses positive bowel sounds all 4 quadrants Back: No CVA tenderness no spinous process tenderness from cervical spine thoracic and lumbar spine Skin: Large open area at the base of the fifth digit overlying metatarsals, some tissue granulation no surrounding erythema or edema no oozing, no streaking. Otherwise skin is intact no petechiae rash induration ulceration or crepitus Extremities: Moving all extremity against resistance cap refill less than 2 seconds neurosensory intact Neuro: Awake alert oriented x3 Glascow coma 15 no focal deficits] Course Course Course Narrative: patient case disucssed with Dr Arthur. Was started on oral antibiotics prophylactically low index of suspicion of acute cellulitis or osteomyelitis Quality Measures none Orders Category Date Time Status XR foot comp LT min 3V Stat Exams 04/02/25 14:38 Taken CBC Stat Lab 04/02/25 15:20 Completed CMP [Comprehensive Metabolic Panel] Stat Lab 04/02/25 15:20 Completed CRP [C-Reactive Protein] Stat Lab 04/02/25 15:20 Completed ESR [Sed Rate (ESR)] Stat Lab 04/02/25 15:20 Completed Vital Signs Vital signs: Vital Signs Temperature 98.7 F 04/02/25 14:37 Pulse Rate 61 04/02/25 14:37 Respiratory Rate 19 04/02/25 14:37 Blood Pressure 107/52 L 04/02/25 14:37 Pulse Oximetry (%) 96 04/02/25 14:37 Oxygen Delivery Method Room Air 04/02/25 14:37 Discharge Plan Plan Patient Disposition: HOME (Self Care) Patient condition on transfer: Stable Prescriptions/Referrals Prescriptions/Med Rec: New doxycycline hyclate 100 mg capsule 100 mg PO BID Qty: 14 0RF No Action aspirin 81 MG tablet,chewable 81 mg PO QDAY Qty: 0 furosemide [Lasix] 40 MG tablet 40 mg PO QDAY Qty: 0 atenolol 50 mg Tablet 50 mg PO QDAY Iron Chews 15 mg tablet,chewable 15 mg PO TID tamsulosin 0.4 mg capsule 0.4 mg PO QDAY pantoprazole 40 mg tablet,delayed release (DR/EC) 40 mg PO QDAY calcitriol 0.5 mcg capsule 0.5 mcg PO DAILY Eliquis 2.5 mg tablet 2.5 mg PO BID amiodarone 200 mg Tablet 200 mg PO BID 30 Days Qty: 60 1RF albuterol sulfate 90 mcg/actuation HFA aerosol inhaler 2 puff inhalation QID PRN (Reason: shortness of breath or wheezing) Qty: 8.5 1RF ferrous sulfate [Iron (ferrous sulfate)] 325 mg (65 mg iron) tablet 325 mg PO QDAY sodium bicarbonate See Rx Instructions PO QDAY Patient Comments: Per pt, instructed by dr leavitt Rx Instructions: 1 tsp orally daily; 1 tsp baking soda dissolved in water daily hydroxyzine HCl 25 mg tablet 25 mg PO BID losartan 25 mg Tablet 50 mg PO QDAY Jardiance 25 mg tablet 25 mg PO QAM Qty: 30 2RF Referrals: No Primary/Family,Physician [Primary Care Provider] - In 1 week Bert Valdez MD [Physician] - In 1 week Problem List Clinical Impression: Diabetic foot ulcer, Visit for wound check Patient/Caregiver Discharge Instructions Education Materials: ED Post Op Wound Check, General Additional Instructions: Based on laboratory results and imaging I have low index of suspicion that there is any any acute infection or osteomyelitis. If there are any signs of impending infection start the antibiotics immediately and follow-up with your primary care provider. Print Language: Uzbek Stand Alone Forms: Sheila Award Info., Patient Portal Info Letter PA/ASSISTANT PROFESSOR Supervising Physician PA/ASSISTANT PROFESSOR Supervising Physician: Gabriel Geller ENP [facility] Clinical Information Provided by patient and EMS Medical Records Reviewed [facility] and EMS Meds/Rx Considered, not Ordered None Labs/Rad/Tests considered, not Ordered None Chronic Illness/Social Conditions Add or document further as needed: Recent left great toe amputation Lab Interpretation Labs: interpreted by me Lab(s) interpretation(s): CBC shows no leukocytosis and H&H of 11.2 and 36.9 respectively platelets at 173. CMP shows no significant electrolyte imbalances a BUN of 27 creatinine of 3.6 note, this is unchanged from previous labs this is a chronic condition. No tr ansaminitis or T. bili elevation CRP at less than 0.5.
[2025-04-02 15:05] VITALS: PULSE 75; RESP 17; O2SAT 95
[2025-04-02 15:24] VITALS: BP 103/69; PULSE 60; RESP 19; O2SAT 96
[2025-04-02 15:47] LABS: Basophils # (Auto) 0.1 Thou/mm3 (0.0-0.2); Basophils % (Auto) 1 % (0-2.5); Eosinophils # (Auto) 0.4 Thou/mm3 (0.0-0.5); Eosinophils % (Auto) 5 % (0-10); Hematocrit 36.9 % (41.0-53.0); Hemoglobin 11.2 g/dL (13.5-16.0); Immature Granulocytes Auto 0.03 Thou/mm3 (0.00-0.00); Lymphocytes # (Auto) 1.6 Thou/mm3 (1.0-4.8); Lymphocytes % (Auto) 22 % (10-50); Mean Corpuscular HGB Conc 30.4 g/dl (31.0-37.0); Mean Corpuscular Hemoglobin 26.4 pg (25.0-35.0); Mean Corpuscular Volume 87 fL (80-100); Monocytes # (Auto) 0.5 Thou/mm3 (0.0-0.8); Monocytes % (Auto) 7 % (0-12); Neutrophils # (Auto) 4.8 Thou/mm3 (1.8-7.7); Neutrophils % (Auto) 65 % (37-80); Nucleated Red Blood Cell # 0.00 Thou/mm3 (0.00-0.00); Nucleated Red Blood Cell % 0 /100 WBC (0); Platelet Count 173 Thou/mm3 (140-440); RDW Standard Deviation 49.2 fL (35.1-43.9); Red Blood Count 4.24 Miln/mm3 (4.50-5.90); White Blood Count 7.3 Thou/mm3 (3.8-10.6)
[2025-04-02 16:11] LABS: Alanine Aminotransferase 30 U/L (10-49); Albumin, Serum 3.6 gm/dL (3.4-4.8); Albumin/Globulin Ratio 1.0 (1.2-2.2); Alkaline Phosphatase 95 U/L (46-116); Anion Gap 10 (7-16); Aspartate Amino Transferase 24 U/L (0-34); BUN/Creatinine Ratio 8 Ratio (12-20); Bilirubin,Total 0.3 mg/dL (0.3-1.2); Blood Urea Nitrogen 27 mg/dL (9-23); C-Reactive Protein < 0.5 mg/dL (0.0-0.9); Calcium 9.8 mg/dL (8.3-10.6); Calcium (Corrected) 10.1 mg/dL (8.5-10.1); Carbon Dioxide 23.9 mMol/L (20.0-31.0); Chloride 106 mMol/L (98-107); Creatinine (Component) 3.6 mg/dL (0.6-1.3); Estimated Creatinine Clearance 24.1 mL/min (>60); Globulin 3.7 gm/dL (2.3-3.5); Glucose 103 mg/dL (74-106); Osmolality,Calculated 284 (275-295); Potassium 4.6 mMol/L (3.4-5.1); Sodium 140 mMol/L (136-145); Total Protein 7.3 gm/dL (5.7-8.2); eGFR 18 See Note
[2025-04-02 16:44] LABS: Sed Rate (ESR) 103 mm/hr (0-20)
[2025-04-02 18:04] VITALS: BP 159/97; PULSE 60; RESP 19; TEMP 36.6; O2SAT 98
== END 2025-04-02 18:05 | disposition home or self-care (01) ==
PROVIDERS: Registered Nurse General Practice; Emergency Provider Emergency Medicine
DX: E11.621 Type 2 diabetes mellitus with foot ulcer (principal); L97.529 Non-pressure chronic ulcer of other part of left foot with unspecified severity; Z89.412 Acquired absence of left great toe
CPT/HCPCS: 36415; 73630; 80053; 85025; 85652; 86140; 99283

== ENCOUNTER → 2025-05-14 | Outpatient (CLI) | payer OTHER, SELFPAY | END | disposition home or self-care (01) | PROVIDERS: PCP Family Medicine; Referring Provider Family Medicine; Visit Provider Student in an Organized Health Care Education/Training Program | DX: E11.621 Type 2 diabetes mellitus with foot ulcer (principal); L97.522 Non-pressure chronic ulcer of other part of left foot with fat layer exposed; Z89.422 Acquired absence of other left toe(s); D64.9 Anemia, unspecified; Z87.891 Personal history of nicotine dependence; G47.30 Sleep apnea, unspecified; I49.9 Cardiac arrhythmia, unspecified; J44.9 Chronic obstructive pulmonary disease, unspecified; N18.4 Chronic kidney disease, stage 4 (severe); I13.0 Hypertensive heart and chronic kidney disease with heart failure and stage 1 through stage 4 chronic kidney disease, or unspecified chronic kidney disease; E11.22 Type 2 diabetes mellitus with diabetic chronic kidney disease | CPT/HCPCS: 97597; 99212; A9270; G0463 ==

== ENCOUNTER → 2025-05-21 | Outpatient (CLI) | payer OTHER, SELFPAY | END | disposition home or self-care (01) | LOC: SWHD 13:12 | PROVIDERS: PCP Family Medicine; Referring Provider Family Medicine; Visit Provider Student in an Organized Health Care Education/Training Program | DX: E11.621 Type 2 diabetes mellitus with foot ulcer (principal); L97.522 Non-pressure chronic ulcer of other part of left foot with fat layer exposed; Z89.422 Acquired absence of other left toe(s); Z87.891 Personal history of nicotine dependence; J44.9 Chronic obstructive pulmonary disease, unspecified; I49.9 Cardiac arrhythmia, unspecified; N18.4 Chronic kidney disease, stage 4 (severe); D64.9 Anemia, unspecified; G47.30 Sleep apnea, unspecified; I13.0 Hypertensive heart and chronic kidney disease with heart failure and stage 1 through stage 4 chronic kidney disease, or unspecified chronic kidney disease; E11.22 Type 2 diabetes mellitus with diabetic chronic kidney disease | CPT/HCPCS: 97597; A9270 ==

== ENCOUNTER → 2025-06-04 | Outpatient (CLI) | payer OTHER, SELFPAY | END | disposition home or self-care (01) | LOC: SWHD 13:38 | PROVIDERS: PCP Family Medicine; Referring Provider Family Medicine; Visit Provider Student in an Organized Health Care Education/Training Program | DX: E11.621 Type 2 diabetes mellitus with foot ulcer (principal); L97.522 Non-pressure chronic ulcer of other part of left foot with fat layer exposed; Z89.422 Acquired absence of other left toe(s); Z87.891 Personal history of nicotine dependence; J44.9 Chronic obstructive pulmonary disease, unspecified; I49.9 Cardiac arrhythmia, unspecified; N18.4 Chronic kidney disease, stage 4 (severe); D64.9 Anemia, unspecified; G47.30 Sleep apnea, unspecified; I13.0 Hypertensive heart and chronic kidney disease with heart failure and stage 1 through stage 4 chronic kidney disease, or unspecified chronic kidney disease; E11.22 Type 2 diabetes mellitus with diabetic chronic kidney disease | CPT/HCPCS: 99213; G0463 ==

== ENCOUNTER → 2025-06-18 | Outpatient (CLI) | payer OTHER, SELFPAY ==
[2025-06-18 15:33] LABS: Collection Type, Urine Clean Catch; Squamous Epithelial Cell,Urine 0 /hpf (0-5)
[2025-06-18 16:40] LABS: Basophils # (Auto) 0.1 Thou/mm3 (0.0-0.2); Basophils % (Auto) 1 % (0-2.5); Eosinophils # (Auto) 0.6 Thou/mm3 (0.0-0.5); Eosinophils % (Auto) 5 % (0-10); Hematocrit 42.3 % (41.0-53.0); Hemoglobin 13.4 g/dL (13.5-16.0); Immature Granulocytes Auto 0.07 Thou/mm3 (0.00-0.00); Lymphocytes # (Auto) 2.2 Thou/mm3 (1.0-4.8); Lymphocytes % (Auto) 21 % (10-50); Mean Corpuscular HGB Conc 31.7 g/dl (31.0-37.0); Mean Corpuscular Hemoglobin 27.5 pg (25.0-35.0); Mean Corpuscular Volume 87 fL (80-100); Monocytes # (Auto) 0.6 Thou/mm3 (0.0-0.8); Monocytes % (Auto) 5 % (0-12); Neutrophils # (Auto) 7.1 Thou/mm3 (1.8-7.7); Neutrophils % (Auto) 67 % (37-80); Nucleated Red Blood Cell # 0.00 Thou/mm3 (0.00-0.00); Nucleated Red Blood Cell % 0 /100 WBC (0); Platelet Count 240 Thou/mm3 (140-440); RDW Standard Deviation 51.8 fL (35.1-43.9); Red Blood Count 4.87 Miln/mm3 (4.50-5.90); White Blood Count 10.6 Thou/mm3 (3.8-10.6)
[2025-06-18 16:44] LABS: Bilirubin,Urine Negative (Negative); Blood,Urine Negative (Negative); Clarity,Urine Clear (Clear/Hazy); Color,Urine Colorless (Lt Yel-Yel); Glucose, Urine Negative (Negative); Ketones,Urine Negative (Negative); Leukocyte Esterase,Urine Negative (Negative); Nitrite,Urine Negative (Negative); PH,Urine 6.0 (5.0-7.0); Protein,Urine Trace (Neg - Trace); RBC,Urine 1 /hpf (0-3); Specific Gravity,Urine 1.009 (1.001-1.035); Urobilinogen,Urine Negative mg/dL (0.0-1.0); WBC,Urine < 1 /hpf (0-5)
[2025-06-18 16:52] LABS: Parathyroid Hormone Intact 67.1 pg/ml (18.5-88.0)
[2025-06-18 16:54] LABS: Creatinine MALB Rnd Ur 28 mg/dL (30-125); Microalbumin Creat Ratio 371 mg/gCrea (<30); Microalbumin, Random Urine 104 mg/L (0-300)
[2025-06-18 16:54] LABS: Albumin, Serum 4.7 gm/dL (3.4-4.8); Anion Gap 10 (7-16); BUN/Creatinine Ratio 11 Ratio (12-20); Blood Urea Nitrogen 34 mg/dL (9-23); Calcium 9.7 mg/dL (8.3-10.6); Calcium (Corrected) 9.7 mg/dL (8.5-10.1); Carbon Dioxide 26.2 mMol/L (20.0-31.0); Chloride 107 mMol/L (98-107); Creatinine (Component) 3.1 mg/dL (0.6-1.3); Glucose 94 mg/dL (74-106); Osmolality,Calculated 292 (275-295); Phosphorous 3.6 mg/dL (2.4-5.1); Potassium 4.4 mMol/L (3.4-5.1); Sodium 143 mMol/L (136-145); eGFR 21 See Note
[2025-06-18 17:24] LABS: Glucose Estimated Average 117 mg/dL (80-131); Hemoglobin A1C 5.7 % Hgb (4.8-6.0)
== END | disposition home or self-care (01) ==
LOC: COPL 14:29
PROVIDERS: PCP Family Medicine; Referring Provider Internal Medicine; Visit Provider Internal Medicine
DX: I12.9 Hypertensive chronic kidney disease with stage 1 through stage 4 chronic kidney disease, or unspecified chronic kidney disease (principal); E11.22 Type 2 diabetes mellitus with diabetic chronic kidney disease; N18.4 Chronic kidney disease, stage 4 (severe); E78.5 Hyperlipidemia, unspecified
CPT/HCPCS: 36415; 80069; 81001; 82043; 82570; 83036; 83970; 85025

== ENCOUNTER → 2025-06-18 | Outpatient (CLI) | payer OTHER, SELFPAY | END | disposition home or self-care (01) | LOC: SWHD 13:08 | PROVIDERS: PCP Family Medicine; Referring Provider Family Medicine; Visit Provider Student in an Organized Health Care Education/Training Program | DX: E11.621 Type 2 diabetes mellitus with foot ulcer (principal); L97.522 Non-pressure chronic ulcer of other part of left foot with fat layer exposed; S91.105A Unspecified open wound of left lesser toe(s) without damage to nail, initial encounter; X58.XXXA Exposure to other specified factors, initial encounter; Z89.422 Acquired absence of other left toe(s); Z87.891 Personal history of nicotine dependence; J44.9 Chronic obstructive pulmonary disease, unspecified; I49.9 Cardiac arrhythmia, unspecified; N18.4 Chronic kidney disease, stage 4 (severe); D64.9 Anemia, unspecified; G47.30 Sleep apnea, unspecified; I13.0 Hypertensive heart and chronic kidney disease with heart failure and stage 1 through stage 4 chronic kidney disease, or unspecified chronic kidney disease | CPT/HCPCS: 99213; G0463 ==

== ENCOUNTER → 2025-07-16 | Outpatient (CLI) | payer OTHER, SELFPAY | END | disposition home or self-care (01) | LOC: SWHD 13:39 | PROVIDERS: PCP Family Medicine; Referring Provider Family Medicine; Visit Provider Student in an Organized Health Care Education/Training Program | DX: E11.621 Type 2 diabetes mellitus with foot ulcer (principal); L97.522 Non-pressure chronic ulcer of other part of left foot with fat layer exposed; S91.105A Unspecified open wound of left lesser toe(s) without damage to nail, initial encounter; X58.XXXA Exposure to other specified factors, initial encounter; Z89.422 Acquired absence of other left toe(s); Z87.891 Personal history of nicotine dependence; I49.9 Cardiac arrhythmia, unspecified; N18.4 Chronic kidney disease, stage 4 (severe); D64.9 Anemia, unspecified; G47.30 Sleep apnea, unspecified; I13.0 Hypertensive heart and chronic kidney disease with heart failure and stage 1 through stage 4 chronic kidney disease, or unspecified chronic kidney disease | CPT/HCPCS: 99212; G0463 ==